=== PATIENT | male | born 1950 | race Caucasian/White ===

== ENCOUNTER 2018-10-12 16:58 | Inpatient (IN) | payer OTHER ==
--- NOTE | 2018-10-12 17:13 | PDOC ---
Rapid Medical Evaluation Time Seen by Provider: 10/12/18 17:08 Medical Evaluation: 10/12/18 17:09 I have performed a brief in-person evaluation of this patient. The patient presents with a chief complaint of: Sent by Dr Jin for ARF and anemia (has report on his person showing Cr of >5 w/ BUN 68 and Hgb of 9). Pt denies pmhx but developed NB diarrhea w/ fatigue and poor appetite 2-1/2 weeks ago after returning from [facility]. Had stool studies and labs done 4 days ago and started on abx which pt is currently taking and states sxs are improving Pertinent physical exam findings:Stable and well kimberly w/ benign abd I have ordered the following:labs The patient will proceed to the ED for further evaluation. Discharge Disposition - Diagnosis ARF (acute renal failure) Qualifiers: Acute renal failure type: unspecified Qualified Code(s): N17.9 - Acute kidney failure, unspecified - Referrals - Patient Instructions - Post Discharge Activity
--- NOTE | 2018-10-12 18:17 | PDOC ---
History of Present Illness - General Chief Complaint: Abnormal Lab Results (Outside) Stated Complaint: SENT BY PCP Time Seen by Provider: 10/12/18 17:08 History Source: Patient - History of Present Illness Initial Comments: 10/12/18 19:47 The patient is a 68 year old male with a PMH of HTN who presents to the ED after labs at his PMD office (Dr. Sotelo) showed elevated Cr (5.68) and low Hb (9.8). Patient returned from a trip to [facility] two weeks previous and experienced watery diarrhea, nausea and a 12 pound weight loss. State his symptoms improved earlier this week after being started an antibiotic (cannot recall name). Denies any bloody stools, fevers/chills, vomiting or abdominal cramping. States his travel companions are asymptomatic. The patient denies chest pain, shortness of breath, lightheadedness, palpitations, numbness/tingling. NKDA PMD: Dr. Jeannette Magallon M.D. Call received from patient's PMD, Dr. Magallon, also notes possible mets on shoulder XR, requests repeat CXR. Past History - Past Medical History Allergies/Adverse Reactions: Allergies Allergy/AdvReac Type Severity Reaction Status Date / Time No Known Allergies Allergy Verified 10/12/18 17:09 Home Medications: Ambulatory Orders Lisinopril 5 mg PO DAILY 10/12/18 COPD: No - Immunization History Immunization Up to Date: Yes - Suicide/Smoking/Psychosocial Hx Smoking History: Never smoked Hx Alcohol Use: No Drug/Substance Use Hx: No Review of Systems - Review of Systems Constitutional: No: Chills, Fever HEENTM: No: Blurred Vision, Recent change in vision Respiratory: No: Cough, Shortness of Breath, Wheezing, Hemoptysis Cardiac (ROS): No: Chest Pain, Lightheadedness, Palpitations, Syncope ABD/GI: Yes: Diarrhea, Nausea. No: Rectal Bleeding, Vomiting, Abdominal cramping, Tarry Stools : No: Burning, Dysuria, Frequency, Urgency, Testicular Pain *Physical Exam - Vital Signs Last Vital Signs Temp Pulse Resp BP Pulse Ox 98.0 F 73 18 143/78 100 10/12/18 17:09 10/12/18 17:09 10/12/18 17:09 10/12/18 17:09 10/12/18 17:09 - Physical Exam General Appearance: Yes: Nourished, Appropriately Dressed HEENT: positive: Normal Voice, Hearing Grossly Normal Neck: positive: Trachea midline, Supple Respiratory/Chest: positive: Lungs Clear, Normal Breath Sounds Cardiovascular: positive: S1, S2. negative: JVD, Murmur Vascular Pulses: Dorsalis-Pedis (R): 2+, Doralis-Pedis (L): 2+ Gastrointestinal/Abdominal: positive: Normal Bowel Sounds, Soft. 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 Patient asymptomatic. Reports watery, NB diarrhea for two weeks w/weight loss. Incidental finding of possible shoulder lesion on CXR. VS unremarkable. Will repeat labs, also obtain stool ova/parasites, as well as repeat CXR. Consider ETEC, EPEC, Colitis, as well as malignancy (weight loss, shoulder lesion), less likely ARF 2/2 to medication. 10/12/18 20:19 Cr 6.4, CMP otherwise unremarkable. Hb 9.9, MCV 94 ? lesion on R shoulder in CXR - formal read pending UA significant for 1+ blood Attending discussed case w/Dr. Snider (Nephrology) requests urine lytes, will evaluate patient in a.m. Patient requires inpatient admission for further evaluation of acute renal failure, possible HD 10/12/18 20:38 Case d/w DELVIN Erazo, patient admitted to inpatient medicine service. Patient counseled on plan of care, amenable to admission. Remains HSS, tolerating PO intake. Clinical Impression: ARF, Acute Anemia possibly 2/2 to enteric pathogen *DC/Admit/Observation/Transfer Diagnosis at time of Disposition: ARF (acute renal failure) Qualifiers: Acute renal failure type: unspecified Qualified Code(s): N17.9 - Acute kidney failure, unspecified - Referrals - Patient Instructions - Post Discharge Activity
[2018-10-12 18:43] LABS: BASO % 0.2 % (0-2.0); EOS % 2.6 % (0-4.5); HEMATOCRIT 29.5 % (35.4-49); HEMOGLOBIN 9.9 GM/dL (11.7-16.9); LYMPH % 23.1 % (8-40); MCH 31.5 pg (25.7-33.7); MCHC 33.4 g/dl (32.0-35.9); MEAN CELL VOLUME 94.2 fl (80-96); MEAN PLT VOLUME 8.2 fl (7.5-11.1); MONO % 8.8 % (3.8-10.2); NEUT % 65.3 % (42.8-82.8); PLATELET COUNT 183 K/MM3 (134-434); RBC 3.13 M/mm3 (4.00-5.60); RDW 12.5 % (11.9-15.9); WHITE BLOOD COUNT 4.1 K/mm3 (4.0-10.0)
--- NOTE | 2018-10-12 18:47 | PDOC ---
Attending Attestation - Resident Resident Name: VenturaCarina - ED Attending Attestation I have performed the following: I have examined & evaluated the patient, The case was reviewed & discussed with the resident, I agree w/resident's findings & plan, Exceptions are as noted - HPI HPI: 68 yo hx HTN sent by Dr. Magallon after he was found to have acute renal failure on outpatient labs. He states he was recently in [place], had persistent diarrhea, nausea, and vomiting while he was there, accompanied by a 12 lb weight loss. He was given an antibiotic by Dr. Magallon when he returned from his trip, which he stated helped the nausea/vomiting, but the diarrhea has continued. Aside from watery stools, he states he is feeling much better. However, he had outpatient labs that showed renal failure. As per Sherita, he had a chest x-ray that may indicate some lytic lesions in the shoulder. Sent for further workup. - Physicial Exam PE: GENERAL: Awake, alert, and fully oriented, in no acute distress. Thin. Well- appearing HEAD: No signs of trauma EYES: PERRLA, EOMI, sclera anicteric, conjunctiva clear ENT: Auricles normal inspection, hearing grossly normal, nares patent, oropharynx clear without exudates. Moist mucosa NECK: Normal ROM, supple, no lymphadenopathy, JVD, or masses LUNGS: Breath sounds equal, clear to auscultation bilaterally. No wheezes, and no crackles HEART: Regular rate and rhythm, normal S1 and S2, no murmurs, rubs or gallops ABDOMEN: Soft, nontender, normoactive bowel sounds. No guarding, no rebound. No masses EXTREMITIES: Normal range of motion, no edema. No clubbing or cyanosis. No cords, erythema, or tenderness NEUROLOGICAL: Cranial nerves II through XII grossly intact. Normal speech, normal gait. Motor and sensation intact SKIN: Warm, dry, normal turgor, no rashes or lesions noted. - Medical Decision Making Pt sent in for new onset renal failure, unclear etiology. Will send stool cultures, ova and parasites, to ensure this is not infectious (E Coli for example). Will recheck and verify outpatient labs. Case d/w Dr. Snider, will evaluate.
[2018-10-12 19:15] LABS: EPI CELLS 1.2 /HPF (0-5/HPF); HYALINE CASTS 3 /lpf (0-8); URINE APPEARANCE CLEAR; URINE BACTERIA 1.2 /hpf (NEGATIVE); URINE BILIRUBIN NEGATIVE (NEGATIVE); URINE COLOR YELLOW; URINE GLUCOSE (UA) NEGATIVE (NEGATIVE); URINE KETONE NEGATIVE (NEGATIVE); URINE LEUK ESTERASE NEGATIVE (NEGATIVE); URINE NITRITE NEGATIVE (NEGATIVE); URINE PROTEIN 1+ (NEGATIVE); URINE RBC 1 /hpf (0-4); URINE UROBILINOGEN 0.2 mg/dL (0.2-1.0); URINE WBC 3 /hpf (0-5)
[2018-10-12 19:37] LABS: ALBUMIN 3.9 g/dl (3.4-5.0); BILIRUBIN,TOTAL 0.5 mg/dL (0.2-1); BLOOD UREA NITROGEN 65.1 mg/dL (7-18); CALCIUM 10.8 mg/dL (8.5-10.1); CREATININE 6.4 mg/dL (0.55-1.3); POTASSIUM 4.8 mmol/L (3.5-5.1); TOT PROT 7.4 g/dl (6.4-8.2)
--- NOTE | 2018-10-12 20:24 | PDOC ---
*Physical Exam - Vital Signs Last Vital Signs Temp Pulse Resp BP Pulse Ox 98.0 F 73 18 143/78 100 10/12/18 17:09 10/12/18 17:09 10/12/18 17:09 10/12/18 17:09 10/12/18 17:09 ED Treatment Course - LABORATORY CBC & Chemistry Diagram: 10/12/18 18:23 10/12/18 18:23 - ADDITIONAL ORDERS Additional order review: Laboratory Results 10/12/18 10/12/18 10/12/18 18:23 18:23 18:23 Sodium 141 Potassium 4.8 Chloride 111 H Carbon Dioxide 20 L Anion Gap 10 BUN 65.1 H Creatinine 6.4 H Est GFR (CKD-EPI)AfAm 9.39 Est GFR (CKD-EPI)NonAf 8.10 Random Glucose 104 Calcium 10.8 H Total Bilirubin 0.5 AST 13 L ALT 23 Alkaline Phosphatase 103 Total Protein 7.4 Albumin 3.9 Lipase 222 Urine Color Yellow Urine Appearance Clear Urine pH 5.0 Ur Specific [place] 1.016 Urine Protein 1+ H Urine Glucose (UA) Negative Urine Ketones Negative Urine Blood 1+ H Urine Nitrite Negative Urine Bilirubin Negative Urine Urobilinogen 0.2 Ur Leukocyte Esterase Negative Urine WBC (Auto) 3 Urine RBC (Auto) 1 Urine Casts (Auto) 3 U Epithel Cells (Auto) 1.2 Urine Bacteria (Auto) 1.2 10/12/18 18:23 RBC 3.13 L MCV 94.2 MCHC 33.4 RDW 12.5 MPV 8.2 Neutrophils % 65.3 Lymphocytes % 23.1 Monocytes % 8.8 Eosinophils % 2.6 Basophils % 0.2 Medical Decision Making - Medical Decision Making 10/12/18 20:23 Pt received on signout. Pt is to be admitted for abnormal labs. *DC/Admit/Observation/Transfer Diagnosis at time of Disposition: ARF (acute renal failure) Qualifiers: Acute renal failure type: unspecified Qualified Code(s): N17.9 - Acute kidney failure, unspecified - Referrals Referrals: Jeannette Magallon MD [Primary Care Provider] - - Patient Instructions - Post Discharge Activity
--- NOTE | 2018-10-12 20:45 | HP ---
Admitting History and Physical - Primary Care Physician PCP: Jeannette Magallon I - Admission Chief Complaint: Abnormal Lab Values, Diarrhea History of Present Illness: This is a 68 y/o man with a PMHx of HTN. Who presents to the ED from the PCPs office for abnormal lab values Cr> 5, watery diarrhea. 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 Patient reports generalized weakness, fatigue with rib pain, taking Ibuprofen OTC daily x1 week. Patient denies fever, chills, cough, SOB, CP, palpitations, AP, vomiting, constipation, heatochezia, melena, hematuria, dysuria. Patient denies swimming in lakes, sn[place] or oceans. Patient denies exposure to sick contacts. 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 History of Recent Travel: Yes ([facility]) Home Medications - Allergies Allergies/Adverse Reactions: Allergies Allergy/AdvReac Type Severity Reaction Status Date / Time No Known Allergies Allergy Verified 10/12/18 17:09 - Home Medications Home Medications: Ambulatory Orders Lisinopril 5 mg PO DAILY 10/12/18 Family Disease History - Family Disease History Family Disease History: Heart Disease: Father (Stroke- ), Mother ( age 90's), Other: Brother (Alive and Well), Sister (Alive and Well) Review of Systems - Review of Systems Constitutional: reports: Loss of Appetite, Malaise, Unintentional Wgt. Loss, Weakness Eyes: reports: No Symptoms HENT: reports: No Symptoms Neck: reports: No Symptoms Cardiovascular: reports: No Symptoms Respiratory: reports: No Symptoms Gastrointestinal: reports: Diarrhea, Nausea Genitourinary: reports: No Symptoms Breasts: reports: No Symptoms Reported Musculoskeletal: reports: No Symptoms Integumentary: reports: No Symptoms Neurological: reports: Weakness Endocrine: reports: No Symptoms Hematology/Lymphatic: reports: No Symptoms Psychiatric: reports: No Symptoms Physical Examination Vital Signs: Vital Signs Temperature 98.0 F 10/12/18 17:09 Pulse Rate 73 10/12/18 17:09 Respiratory Rate 18 10/12/18 17:09 Blood Pressure 143/78 10/12/18 17:09 O2 Sat by Pulse Oximetry (%) 100 10/12/18 17:09 Constitutional: Yes: No Distress, Calm, Thin Eyes: Yes: Conjunctiva Clear, EOM Intact, PERRL HENT: Yes: Atraumatic, Normocephalic, Other (Mucosal Dry) Neck: Yes: WNL, Supple, Trachea Midline Cardiovascular: Yes: WNL, Regular Rate and Rhythm, S1, S2 Respiratory: Yes: WNL, Regular, CTA Bilaterally Gastrointestinal: Yes: Soft, Hypoactive Bowel Sounds. No: Tenderness, Tenderness, Epigastrium, Tenderness, Rebound Renal/: Yes: WNL Breast(s): Yes: WNL Musculoskeletal: Yes: WNL Extremities: Yes: WNL Edema: No Peripheral Pulses WNL: Yes Neurological: Yes: WNL, Alert, Oriented, Cran Nerves II-XII Intact ...Motor Strength: WNL Psychiatric: Yes: WNL, Alert, Oriented Labs: CBC, BMP 10/12/18 18:23 10/12/18 18:23 Laboratory Results - last 24 hr 10/12/18 10/12/18 10/12/18 18:23 18:23 18:23 WBC 4.1 RBC 3.13 L Hgb 9.9 L Hct 29.5 L MCV 94.2 MCH 31.5 MCHC 33.4 RDW 12.5 Plt Count 183 MPV 8.2 Absolute Neuts (auto) 2.7 Neutrophils % 65.3 Lymphocytes % 23.1 Monocytes % 8.8 Eosinophils % 2.6 Basophils % 0.2 Nucleated RBC % 0 Sodium 141 Potassium 4.8 Chloride 111 H Carbon Dioxide 20 L Anion Gap 10 BUN 65.1 H Creatinine 6.4 H Est GFR (CKD-EPI)AfAm 9.39 Est GFR (CKD-EPI)NonAf 8.10 Random Glucose 104 Calcium 10.8 H Total Bilirubin 0.5 AST 13 L ALT 23 Alkaline Phosphatase 103 Total Protein 7.4 Albumin 3.9 Lipase 222 Urine Color Urine Appearance Urine pH Ur Specific [place] Urine Protein Urine Glucose (UA) Urine Ketones Urine Blood Urine Nitrite Urine Bilirubin Urine Urobilinogen Ur Leukocyte Esterase Urine WBC (Auto) Urine RBC (Auto) Urine Casts (Auto) U Epithel Cells (Auto) Urine Bacteria (Auto) Blood Type Antibody Screen 10/12/18 10/12/18 18:23 18:23 WBC RBC Hgb Hct MCV MCH MCHC RDW Plt Count MPV Absolute Neuts (auto) Neutrophils % Lymphocytes % Monocytes % Eosinophils % Basophils % Nucleated RBC % Sodium Potassium Chloride Carbon Dioxide Anion Gap BUN Creatinine Est GFR (CKD-EPI)AfAm Est GFR (CKD-EPI)NonAf Random Glucose Calcium Total Bilirubin AST ALT Alkaline Phosphatase Total Protein Albumin Lipase Urine Color Yellow Urine Appearance Clear Urine pH 5.0 Ur Specific [place] 1.016 Urine Protein 1+ H Urine Glucose (UA) Negative Urine Ketones Negative Urine Blood 1+ H Urine Nitrite Negative Urine Bilirubin Negative Urine Urobilinogen 0.2 Ur Leukocyte Esterase Negative Urine WBC (Auto) 3 Urine RBC (Auto) 1 Urine Casts (Auto) 3 U Epithel Cells (Auto) 1.2 Urine Bacteria (Auto) 1.2 Blood Type O POSITIVE Antibody Screen Negative Intake & Output 10/10/18 10/11/18 10/12/18 10/13/18 23:59 23:59 23:59 23:59 Weight 72.121 kg Current Medications Generic Name Dose Route Start Last Admin Trade Name Freq PRN Reason Stop Dose Admin Sodium Chloride 1,000 mls @ 60 mls/hr 10/12/18 21:00 10/12/18 21:50 Normal Saline - IV 60 mls/hr ASDIR GARCIA Administration Imaging - Results Chest X-ray: Image Reviewed EKG: Pending Problem List - Problems (1) ARF (acute renal failure) Assessment/Plan: Likely secondary to Diarrhea vs NSAID use Appreciate Nephrology consult Monitor BMP closely Gentle IVF Monitor vitals Serum Osmo, Urine Osmo, Urine Spot-pending Renal US in am Code(s): N17.9 - ACUTE KIDNEY FAILURE, UNSPECIFIED Qualifiers: Acute renal failure type: unspecified Qualified Code(s): N17.9 - Acute kidney failure, unspecified (2) Diarrhea Assessment/Plan: r/o Traveler's Stool Culture O&P Stool Occult Continue IVF Monitor CBC, BMP Monitor vitals Code(s): R19.7 - DIARRHEA, UNSPECIFIED (3) HTN (hypertension) Assessment/Plan: Stable Monitor BP Hold Lisinopril secondary to ARF Code(s): I10 - ESSENTIAL (PRIMARY) HYPERTENSION Assessment/Plan This is a 68 y/o man with a PMHx of HTN. Admitted for Acute Renal failure, Diarrhea for further evaluation of their emergent condition. Plan: See Problem List FEN NS@60ml/hr Replete lytes prn Low Na Diet DVT ppx OOB SCDs Heparin SQ Dispo: Requires Inpatient Care Visit type - Emergency Visit Emergency Visit: Yes ED Registration Date: 10/12/18 Care time: The patient presented to the Emergency Department on the above date and was hospitalized for further evaluation of their emergent condition. - New Patient This patient is new to me today: Yes Date on this admission: 10/12/18 - Critical Care Critical Care patient: No
[2018-10-12] MEDS ORDERED: SODIUM CHLORIDE 1,000 ML IV SCH (21:00)
[2018-10-13 03:51] VITALS: BMI 22.4
[2018-10-13 08:38] LABS: CALCIUM 9.9 mg/dL (8.5-10.1); CREATININE 6.1 mg/dL (0.55-1.3); POTASSIUM 4.5 mmol/L (3.5-5.1)
--- NOTE | 2018-10-13 09:15 | PN ---
Progress Note, Physician Chief Complaint: AWAKE ALERT EVENTS AND NOTES REVIEWED RECENT TRAVEL TO [facility] MULTIPLE EPISODES OF DIARRHEA NON-BLOODY NOW IN ACUTE RENAL FAILURE - Current Medication List Current Medications: Active Medications Sodium Chloride (Normal Saline -) 1,000 mls @ 60 mls/hr IV ASDIR GARCIA Last Admin: 10/12/18 21:50 Dose: 60 mls/hr - Objective Vital Signs: Vital Signs Temperature 97.5 F L 10/13/18 03:30 Pulse Rate 56 L 10/13/18 03:30 Respiratory Rate 20 10/13/18 03:30 Blood Pressure 124/72 10/13/18 03:30 O2 Sat by Pulse Oximetry (%) 98 10/13/18 03:30 Constitutional: Yes: Mild Distress Eyes: Yes: WNL HENT: Yes: WNL Neck: Yes: WNL Cardiovascular: Yes: Regular Rate and Rhythm Respiratory: Yes: WNL Gastrointestinal: Yes: Soft Genitourinary: Yes: WNL Musculoskeletal: Yes: Muscle Pain Extremities: Yes: WNL Edema: No Peripheral Pulses WNL: Yes Integumentary: Yes: WNL Wound/Incision: Yes: Clean/Dry Neurological: Yes: WNL ...Motor Strength: WNL Psychiatric: Yes: WNL Labs: CBC, BMP 10/13/18 07:12 Problem List - Problems (1) ARF (acute renal failure) Code(s): N17.9 - ACUTE KIDNEY FAILURE, UNSPECIFIED Qualifiers: Acute renal failure type: unspecified Qualified Code(s): N17.9 - Acute kidney failure, unspecified (2) Diarrhea Code(s): R19.7 - DIARRHEA, UNSPECIFIED (3) HTN (hypertension) Code(s): I10 - ESSENTIAL (PRIMARY) HYPERTENSION Assessment/Plan IVF CONTINUE CLEAR DIET ID/RENAL EVAL CHECK STOOL CX HUS? E.COLI? WILL AWAIT FOR CX CONTINUE SUPPORTIVE CARE
[2018-10-13 10:24] LABS: BASO % 0.3 % (0-2.0); EOS % 4.8 % (0-4.5); HEMATOCRIT 26.5 % (35.4-49); HEMOGLOBIN 8.9 GM/dL (11.7-16.9); LYMPH % 33.8 % (8-40); MCH 31.7 pg (25.7-33.7); MCHC 33.6 g/dl (32.0-35.9); MEAN CELL VOLUME 94.1 fl (80-96); MEAN PLT VOLUME 9.1 fl (7.5-11.1); MONO % 10.4 % (3.8-10.2); NEUT % 50.7 % (42.8-82.8); PLATELET COUNT 159 K/MM3 (134-434); RBC 2.82 M/mm3 (4.00-5.60); RDW 12.4 % (11.9-15.9); WHITE BLOOD COUNT 4.3 K/mm3 (4.0-10.0)
[2018-10-13 11:02] LABS: ALBUMIN 3.2 g/dl (3.4-5.0); BILIRUBIN,TOTAL 0.5 mg/dL (0.2-1); BLOOD UREA NITROGEN 62.2 mg/dL (7-18); POTASSIUM 4.5 mmol/L (3.5-5.1); TOT PROT 6.4 g/dl (6.4-8.2)
--- NOTE | 2018-10-13 15:03 | CONSULT ---
Consult - text type - Consultation Consultation Note: Renal consult for BERNA Coverage for Dr. Snider This is a 68 year old while male with history of hypertension (on ACEi) who presented with acute renal failure seen on outpatient labs. Pt reports that his renal function is normal at baseline. Pt s/p trip [facility] following which he had loose stools for about 14 days. He also had rib pain, nausea and fatigue following. He was using NSAIDs at home (1 tab ibuproben daily at night). Denies any skin rash, bleeding or brusing. No other sick contacts. Was using pepto-bismol for abd discomfort. No herbal medications. Denies any flank pain, hematuria, dark urine. No change in urine output. No leg swelling. No sob, cp, abd pain, fever or chills. PMhx: as above Allergies: NKDA Family Hx: NC Social Hx: No T/A/D ROS: as per HPI Home Meds: Home Medications Medication Instructions Recorded Lisinopril 5 mg PO AM 10/12/18 Vital Signs Temperature 97.7 F 10/13/18 14:10 Pulse Rate 53 L 10/13/18 14:10 Respiratory Rate 20 10/13/18 14:10 Blood Pressure 103/67 10/13/18 14:10 O2 Sat by Pulse Oximetry (%) 97 10/13/18 09:00 Intake & Output 10/10/18 10/11/18 10/12/18 10/13/18 23:59 23:59 23:59 23:59 Intake Total 0 400 Balance 0 400 Weight 72.121 kg 72.802 kg NAD awake and alert neck supple, no JVD RRR, no M/R] CTA, no rales or wheezse soft NT/ND no flank tenderness no bladder distension no LE edema, clubbing or cyanosis no focal neurologic deficits CBC, BMP 10/13/18 07:13 10/13/18 10:15 Laboratory Tests 10/13/18 10:15 Est GFR (CKD-EPI)AfAm 10.16 Est GFR (CKD-EPI)NonAf 8.76 Calcium 10.0 Albumin 3.2 L Current Medications Sodium Chloride (Normal Saline -) 1,000 mls @ 125 mls/hr IV ASDIR GARCIA Sodium Bicarbonate (Sodium Bicarbonate -) 650 mg PO DAILY COUNTS INCLUDE [facility] BEDS AT THE [facility] 68 year old while male with history of hypertension (on ACEi) who presented with acute renal failure seen on outpatient labs. #Acute kidney injury #Acute Anemia #Diarrhea now resolved #Metabolic acidosis #Hypercalcmia on presentation Differential for BERNA: Volume depletion +/- ATN from ACEi and NSAIDs vs HUS ( diarrhea) vs. AIN Renal US shows kidneys 11cm and 9.5cm with some echogenicty but no obstruction UA showed some hematuria but only trace protein Check FeNa, UPCR, Urine Eosinopils, JOYCELYN, ANCA levels. Check LDH and Haptoglobin to access for signs of microangiopathic hemolyitic anemia Shiga Toxin Ab test sent Stool cultures sent Check iron stuides Increase IVF rate to 125cc per hour Start oral sodium bicarb no acute need for DIE MAKER ELECTRONIC check iron studies for anemia Check SPEP given hypercalcemia Check Rib X-rays Dose all meds for CrCl < 10 Thank you Will follow Mehul Hassan DO
[2018-10-13] MEDS: SODIUM BICARBONATE 650 MG TABLET PO SCH (15:06)
[2018-10-13] MEDS: SODIUM CHLORIDE 1,000 ML IV SCH (15:06)
--- NOTE | 2018-10-13 15:23 | PN ---
Progress Note (short form) - Note Progress Note: ID CONSULT DICTATED AWAIT STOOL STUDIES OBSERVE OFF ANTIBIOTICS
[2018-10-13 15:24] LABS: EPI CELLS 0.3 /HPF (0-5/HPF); HYALINE CASTS 1 /lpf (0-8); PH,URINE 5.5 (5.0-8.0); URINE APPEARANCE CLEAR; URINE BILIRUBIN NEGATIVE (NEGATIVE); URINE COLOR YELLOW; URINE GLUCOSE (UA) NEGATIVE (NEGATIVE); URINE KETONE NEGATIVE (NEGATIVE); URINE LEUK ESTERASE NEGATIVE (NEGATIVE); URINE NITRITE NEGATIVE (NEGATIVE); URINE PROTEIN NEGATIVE (NEGATIVE); URINE RBC 0 /hpf (0-4); URINE UROBILINOGEN 0.2 mg/dL (0.2-1.0); URINE WBC 1 /hpf (0-5)
--- NOTE | 2018-10-14 08:23 | PN ---
Progress Note, Physician Chief Complaint: IN ISOLATION ROOM NO ACUTE EVENT OVERNIGHT DIARRHEA HAS STOPPED - Current Medication List Current Medications: Active Medications Sodium Chloride (Normal Saline -) 1,000 mls @ 125 mls/hr IV ASDIR [facility] Last Admin: 10/13/18 15:06 Dose: 125 mls/hr Sodium Bicarbonate (Sodium Bicarbonate -) 650 mg PO DAILY [facility] Last Admin: 10/13/18 15:06 Dose: 650 mg - Objective Vital Signs: Vital Signs Temperature 97.6 F 10/14/18 06:00 Pulse Rate 54 L 10/14/18 06:00 Respiratory Rate 10/14/18 06:00 Blood Pressure 118/62 10/14/18 06:00 O2 Sat by Pulse Oximetry (%) 97 10/13/18 21:00 Constitutional: Yes: No Distress Cardiovascular: Yes: Regular Rate and Rhythm Respiratory: Yes: WNL Gastrointestinal: Yes: Normal Bowel Sounds, Soft Genitourinary: Yes: WNL Musculoskeletal: Yes: Muscle Weakness Extremities: Yes: WNL Edema: No Peripheral Pulses WNL: Yes Integumentary: Yes: WNL Wound/Incision: Yes: Clean/Dry Neurological: Yes: WNL ...Motor Strength: WNL Psychiatric: Yes: WNL Labs: CBC, BMP 10/13/18 07:13 10/13/18 10:15 Problem List - Problems (1) ARF (acute renal failure) Code(s): N17.9 - ACUTE KIDNEY FAILURE, UNSPECIFIED Qualifiers: Acute renal failure type: unspecified Qualified Code(s): N17.9 - Acute kidney failure, unspecified (2) Diarrhea Code(s): R19.7 - DIARRHEA, UNSPECIFIED (3) HTN (hypertension) Code(s): I10 - ESSENTIAL (PRIMARY) HYPERTENSION Assessment/Plan IVF CONTINUE CLEAR DIET ID/RENAL EVAL CHECK STOOL CX/SHIGA TOXIN/SALMONELLA/ECOLI ETC HUS? E.COLI? WILL AWAIT FOR CX CONTINUE SUPPORTIVE CARE
[2018-10-14] MEDS: SODIUM CHLORIDE 1,000 ML IV SCH ×2 (09:38→17:59)
[2018-10-14] MEDS: SODIUM BICARBONATE 650 MG TABLET PO SCH (09:38)
[2018-10-14 13:12] LABS: BASO % 0.7 % (0-2.0); EOS % 4.4 % (0-4.5); HEMATOCRIT 29.1 % (35.4-49); HEMOGLOBIN 9.8 GM/dL (11.7-16.9); LYMPH % 34.6 % (8-40); MCH 32.1 pg (25.7-33.7); MCHC 33.9 g/dl (32.0-35.9); MEAN CELL VOLUME 94.7 fl (80-96); MEAN PLT VOLUME 9.2 fl (7.5-11.1); MONO % 8.9 % (3.8-10.2); NEUT % 51.4 % (42.8-82.8); PLATELET COUNT 173 K/MM3 (134-434); RBC 3.07 M/mm3 (4.00-5.60); RDW 12.5 % (11.9-15.9); WHITE BLOOD COUNT 4.9 K/mm3 (4.0-10.0)
--- NOTE | 2018-10-14 13:26 | PN ---
Progress Note (short form) - Note Progress Note: Renal follow up for BERNA Coverage for Dr. Snider Pt seen and examined at the bedside awake and alert no acute complaints making urine on IVF no sob, cp, abd pain, N/V/D Vital Signs Temperature 97.7 F 10/14/18 09:47 Pulse Rate 53 L 10/14/18 09:47 Respiratory Rate 18 10/14/18 09:47 Blood Pressure 117/65 10/14/18 09:47 O2 Sat by Pulse Oximetry (%) 97 10/14/18 09:00 Intake & Output 10/11/18 10/12/18 10/13/18 10/14/18 23:59 23:59 23:59 23:59 Intake Total 0 1505 875 Balance 0 1505 875 Weight 72.121 kg 72.802 kg NAD RRR, no M/R] CTA, no rales or wheezse soft NT/ND no flank tenderness no bladder distension no edema in LE Current Medications Sodium Chloride (Normal Saline -) 1,000 mls @ 125 mls/hr IV ASDIR GARCIA Last Admin: 10/14/18 09:38 Dose: 125 mls/hr Sodium Bicarbonate (Sodium Bicarbonate -) 650 mg PO DAILY [facility] Last Admin: 10/14/18 09:38 Dose: 650 mg 68 year old while male with history of hypertension (on ACEi) who presented with acute renal failure seen on outpatient labs. #Acute kidney injury #Acute Anemia #Diarrhea now resolved #Metabolic acidosis #Hypercalcmia on presentation Differential for BERNA: Myeloma/paraproteinemia vs ATN vs HUS Renal US shows kidneys 11cm and 9.5cm with some echogenicty but no obstruction UA showed some hematuria but only trace protein UPCR is ~3 with UA negative for protein indicating non-albumin proteinuira Serologies sent will plan for renal biopsy (last took ibuprofen on ) LDH is WNL so hemolysis less likely Shiga Toxin Ab test sent Stool cultures sent Check iron studies Continue IVF at 84cc per hour Continue oral sodium bicarb no acute need for TENDERIZER TENDER check iron studies for anemia SPEP pending Check Rib X-rays Dose all meds for CrCl < 10 Mehul Hassan DO
[2018-10-14 13:38] LABS: ALBUMIN 3.2 g/dl (3.4-5.0); BILIRUBIN,TOTAL 0.4 mg/dL (0.2-1); BLOOD UREA NITROGEN 52.2 mg/dL (7-18); CALCIUM 9.5 mg/dL (8.5-10.1); CREATININE 5.3 mg/dL (0.55-1.3); POTASSIUM 4.6 mmol/L (3.5-5.1); TOT PROT 6.4 g/dl (6.4-8.2)
[2018-10-15 04:11] LABS: SERUM IRON SATURATION 50 % (15-55); TOTAL IRON BINDING CAPACITY 208 ug/dL (250-450)
[2018-10-15 06:36] LABS: ALBUMIN 2.8 g/dl (3.4-5.0); BILIRUBIN,TOTAL 0.4 mg/dL (0.2-1); BLOOD UREA NITROGEN 47.7 mg/dL (7-18); CALCIUM 9.6 mg/dL (8.5-10.1); CREATININE 5.2 mg/dL (0.55-1.3); POTASSIUM 4.8 mmol/L (3.5-5.1); TOT PROT 5.4 g/dl (6.4-8.2)
[2018-10-15 06:37] LABS: HEMATOCRIT 24.8 % (35.4-49); HEMOGLOBIN 8.5 GM/dL (11.7-16.9); MCH 31.9 pg (25.7-33.7); MCHC 34.2 g/dl (32.0-35.9); MEAN CELL VOLUME 93.4 fl (80-96); MEAN PLT VOLUME 8.9 fl (7.5-11.1); PLATELET COUNT 154 K/MM3 (134-434); RBC 2.66 M/mm3 (4.00-5.60); RDW 12.4 % (11.9-15.9); WHITE BLOOD COUNT 3.9 K/mm3 (4.0-10.0)
--- NOTE | 2018-10-15 07:51 | PN ---
Progress Note, Physician - Current Medication List Current Medications: Active Medications Sodium Chloride (Normal Saline -) 1,000 mls @ 83 mls/hr IV ASDIR [facility] Last Admin: 10/14/18 17:59 Dose: 83 mls/hr Sodium Bicarbonate (Sodium Bicarbonate -) 650 mg PO DAILY [facility] Last Admin: 10/14/18 09:38 Dose: 650 mg - Objective Vital Signs: Vital Signs Temperature 97.7 F 10/15/18 06:00 Pulse Rate 57 L 10/15/18 06:00 Respiratory Rate 17 10/15/18 06:00 Blood Pressure 117/75 10/15/18 06:00 O2 Sat by Pulse Oximetry (%) 98 10/14/18 21:00 Cardiovascular: Yes: Regular Rate and Rhythm Respiratory: Yes: Regular, CTA Bilaterally Gastrointestinal: Yes: Normal Bowel Sounds, Soft. No: Tenderness Labs: CBC, BMP 10/15/18 05:35 10/15/18 05:35 Problem List - Problems (1) ARF (acute renal failure) Assessment/Plan: Likely secondary to infection but must r/o other etiology since minimal improvement Appreciate Nephrology consult renal biopsy Monitor BMP closely IVF Monitor vitals Code(s): N17.9 - ACUTE KIDNEY FAILURE, UNSPECIFIED Qualifiers: Acute renal failure type: unspecified Qualified Code(s): N17.9 - Acute kidney failure, unspecified (2) Diarrhea Assessment/Plan: Resolved Stool Culture O&P Microbiology 10/13/18 08:15 Stool Salmonella/Shigella Culture - Preliminary NO ENTERIC PATHOGENS, 24 HOURS, ON PRIMARY PLATES 10/13/18 08:15 Stool Campylobacter Culture - Preliminary 10/13/18 08:15 Stool Yersinia Culture - Preliminary NO ENTERIC PATHOGENS, 24 HOURS, ON PRIMARY PLATES 10/13/18 08:15 Stool Vibrio Culture - Final NO GROWTH OF VIBRIO SPECIES OBTAINED 10/13/18 08:15 Stool Escherichia coli 0157 Culture - Final NO GROWTH OF E COLI 0157 OBTAINED 10/12/18 00:50 Blood - Peripheral Venous Blood Culture - Preliminary NO GROWTH OBTAINED AFTER 48 HOURS, INCUBATION TO CONTINUE FOR 3 DAYS. 10/12/18 00:50 Blood - Peripheral Venous Blood Culture - Preliminary NO GROWTH OBTAINED AFTER 48 HOURS, INCUBATION TO CONTINUE FOR 3 DAYS. 10/13/18 08:15 Stool Clostridioides difficile Antigen - Final 10/13/18 08:15 Stool Clostridioides difficile Toxin Assay - Final 10/13/18 08:15 Stool Gram Stain - Final Stool Occult positive Continue IVF Monitor CBC, BMP Monitor vitals Code(s): R19.7 - DIARRHEA, UNSPECIFIED (3) HTN (hypertension) Assessment/Plan: Stable Monitor BP Hold Lisinopril secondary to ARF Code(s): I10 - ESSENTIAL (PRIMARY) HYPERTENSION (4) Anemia Assessment/Plan: due to kidney ds and gi bleed monitor follow labs gi consult Code(s): D64.9 - ANEMIA, UNSPECIFIED
[2018-10-15] MEDS: SODIUM BICARBONATE 650 MG TABLET PO SCH (10:55)
[2018-10-15 11:25] LABS: PROTHROMBIN TIME (PATIENT) 11.8 SEC (9.7-13.0)
[2018-10-15 11:29] LABS: ACTIVATED PTT 26.4 SECONDS (25.2-36.5)
--- NOTE | 2018-10-15 12:33 | CON.GI ---
Consult Consult Specialty:: Gastroenterology Referred by:: Dr Jin Reason for Consultation:: Diarrhea - History of Present Illness Chief Complaint: Nausea and fatigue History of Present Illness: 68M developed a diarrheal illness at the end of August that resolved rapidly after taking Peptol Bismol and Imodium AD. No previous antibiotic usage but did return from [place] on 09/15/18. No diarrhea while there. Developed nausea and fatigue after that diarrhea that led to a 10-15 lbs weight loss. Also developed bilateral costal costal pain that had him taking a Motrin every night. Saw Dr. Jin on 10/09 who started an antibiotic and a "pill for my stomach". His nausea resolved and appetite returned with these but his blood testing revealed renal failure and anemia prompting hospitalization. He was also found to be hypercalcemic. He last had a colonoscopy at [facility] over 10 years ago which he believes was normal and was scheduled to see Dr Servin to have another one in October. 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 [employer] Place of : [facility] History of Recent Travel: Yes ([facility]) Home Medications - Allergies Allergies/Adverse Reactions: Allergies Allergy/AdvReac Type Severity Reaction Status Date / Time No Known Allergies Allergy Verified 10/12/18 17:09 - Home Medications Home Medications: Ambulatory Orders Lisinopril 5 mg PO AM 10/12/18 Family Disease History - Family Disease History Family Disease History: Heart Disease: Father (Stroke- age 57), Mother ( age 96 CHF), Other: Brother (Alive and Well), Sister (Alive and Well) Other Family History: 2 paternal uncles had cancer, one was colon cancer. 2 maternal aunts had cancer Review of Systems - Review of Systems Constitutional: reports: Lethargy, Loss of Appetite, Malaise, Unintentional Wgt. Loss Eyes: reports: No Symptoms HENT: reports: No Symptoms Neck: reports: No Symptoms Cardiovascular: reports: Chest Pain Respiratory: reports: No Symptoms Gastrointestinal: reports: Diarrhea, Nausea, Vomiting Genitourinary: reports: No Symptoms Musculoskeletal: reports: Muscle Weakness Neurological: reports: No Symptoms Physical Exam-GI Vital Signs: Vital Signs Temperature 97.7 F 10/15/18 06:00 Pulse Rate 57 L 10/15/18 06:00 Respiratory Rate 17 10/15/18 09:00 Blood Pressure 117/75 10/15/18 06:00 O2 Sat by Pulse Oximetry (%) 98 10/15/18 09:00 CBC,CMP WBC 3.9 K/mm3 (4.0-10.0) L 10/15/18 05:35 RBC 2.66 M/mm3 (4.00-5.60) L 10/15/18 05:35 Hgb 8.5 GM/dL (11.7-16.9) L 10/15/18 05:35 Hct 24.8 % (35.4-49) L 10/15/18 05:35 MCV 93.4 fl (80-96) 10/15/18 05:35 MCH 31.9 pg (25.7-33.7) 10/15/18 05:35 MCHC 34.2 g/dl (32.0-35.9) 10/15/18 05:35 RDW 12.4 % (11.9-15.9) 10/15/18 05:35 Plt Count 154 K/MM3 (134-434) 10/15/18 05:35 MPV 8.9 fl (7.5-11.1) 10/15/18 05:35 Absolute Neuts (auto) 2.5 K/mm3 (1.5-8.0) 10/14/18 12:30 Neutrophils % 51.4 % (42.8-82.8) 10/14/18 12:30 Lymphocytes % 34.6 % (8-40) 10/14/18 12:30 Monocytes % 8.9 % (3.8-10.2) 10/14/18 12:30 Eosinophils % 4.4 % (0-4.5) 10/14/18 12:30 Basophils % 0.7 % (0-2.0) 10/14/18 12:30 Nucleated RBC % 0 % (0-0) 10/14/18 12:30 ESR 44 mm/hr (0-20) H 10/13/18 10:15 Sodium 144 mmol/L (136-145) 10/15/18 05:35 Potassium 4.8 mmol/L (3.5-5.1) 10/15/18 05:35 Chloride 115 mmol/L (98-107) H 10/15/18 05:35 Carbon Dioxide 19 mmol/L (21-32) L 10/15/18 05:35 Anion Gap 10 MMOL/L (8-16) 10/15/18 05:35 BUN 47.7 mg/dL (7-18) H 10/15/18 05:35 Creatinine 5.2 mg/dL (0.55-1.3) H 10/15/18 05:35 Est GFR (CKD-EPI)AfAm 12.07 10/15/18 05:35 Est GFR (CKD-EPI)NonAf 10.42 10/15/18 05:35 Random Glucose 87 mg/dL (74-106) 10/15/18 05:35 Serum Osmolality 310 mosm/kg (278-305) H 10/12/18 20:55 Calcium 9.6 mg/dL (8.5-10.1) 10/15/18 05:35 Iron 104 ug/dL (38-169) 10/14/18 07:05 TIBC 208 ug/dL (250-450) L 10/14/18 07:05 Iron Saturation 50 % (15-55) 10/14/18 07:05 Unsaturated IBC 104 ug/dL (111-343) L 10/14/18 07:05 Ferritin 342.3 ng/ml (8-388) 10/14/18 07:05 Total Bilirubin 0.4 mg/dL (0.2-1) 10/15/18 05:35 AST 15 U/L (15-37) 10/15/18 05:35 ALT 19 U/L (13-61) 10/15/18 05:35 Alkaline Phosphatase 78 U/L (45-117) 10/15/18 05:35 LD Total 181 U/L (87-246) 10/13/18 15:40 C-Reactive Protein 0.7 MG/DL (0.00-0.3) H 10/13/18 10:15 Total Protein 5.4 g/dl (6.4-8.2) L 10/15/18 05:35 Albumin 2.8 g/dl (3.4-5.0) L 10/15/18 05:35 Lipase 222 U/L (73-393) 10/12/18 18:23 Current Medications Generic Name Dose Route Start Last Admin Trade Name Matteo PRN Reason Stop Dose Admin Sodium Chloride 1,000 mls @ 83 mls/hr 10/14/18 13:26 10/14/18 17:59 Normal Saline - IV 83 mls/hr ASDIR GARCIA Administration Sodium Bicarbonate 650 mg 10/13/18 15:00 10/15/18 10:55 Sodium Bicarbonate - PO 650 mg DAILY GARCIA Administration Constitutional: Yes: No Distress Eyes: Yes: Conjunctiva Clear HENT: Yes: Atraumatic Neck: Yes: Supple Cardiovascular: Yes: Regular Rate and Rhythm Respiratory: Yes: CTA Bilaterally Gastrointestinal Inspection: Yes: WNL ...Auscultate: Yes: Normoactive Bowel Sounds ...Palpate: Yes: Soft, Other ...Rectal Exam: Yes: Guaiac Negative (2+ prostate , brown guaiac negative stool) Edema: No Peripheral Pulses WNL: Yes Neurological: Yes: Alert, Oriented Labs: CBC, BMP 10/15/18 05:35 10/15/18 05:35 INR, PTT INR 1.00 (0.83-1.09) 10/15/18 10:40 Microbiology 10/13/18 08:15 Stool Salmonella/Shigella Culture - Final 10/13/18 08:15 Stool Escherichia coli 0157 Culture - Final NO GROWTH OF SALMONELLA OR SHIGELLA SPECIES OBTAINED NO GROWTH OF YERSINIA SPECIES OBTAINED NO GROWTH OF VIBRIO SPECIES OBTAINED NO GROWTH OF E COLI 0157 OBTAINED 10/13/18 08:15 Stool Gram Stain - Final 10/13/18 08:15 Stool Clostridioides difficile Antigen - Final 10/13/18 08:15 Stool Clostridioides difficile Toxin Assay - Final 10/13/18 08:15 Stool Campylobacter Culture - Preliminary 10/12/18 00:50 Blood - Peripheral Venous Blood Culture - Preliminary NO GROWTH OBTAINED AFTER 48 HOURS, INCUBATION TO CONTINUE FOR 3 DAYS. Laboratory Tests 10/12/18 10/13/18 10/14/18 18:23 10:15 07:05 BUN 65.1 H Creatinine 6.4 H Iron 104 TIBC 208 L Iron Saturation 50 Unsaturated IBC 104 L Ferritin Total Protein Albumin Hep A IgM Ab Confirm Negative Hep Bs Antigen Negative Hep B Core IgM Ab Negative Hepatitis C Ab (EIA) <0.1 10/14/18 10/14/18 10/15/18 07:05 12:30 05:35 BUN 47.7 H Creatinine 5.2 H Iron TIBC Iron Saturation Unsaturated IBC Ferritin 342.3 Total Protein 5.4 L Albumin 3.2 L 2.8 L Hep A IgM Ab Confirm Hep Bs Antigen Hep B Core IgM Ab Hepatitis C Ab (EIA) Problem List - Problems (1) Diarrhea Assessment/Plan: The transient nature of the diarrhea suggest that it was infectious and given that it resolved over a week ago the etiology will not be determined. E coli O: 157 is negative at this point. It usually is associated with a much more symptomatic dysentery and does not appear to be a likely trigger for HUS. Code(s): R19.7 - DIARRHEA, UNSPECIFIED Qualifiers: Diarrhea type: presumed infectious Qualified Code(s): R19.7 - Diarrhea, unspecified (2) Rib pain Code(s): R07.81 - PLEURODYNIA (3) Weight loss Code(s): R63.4 - ABNORMAL WEIGHT LOSS (4) Appetite impaired Code(s): R63.0 - ANOREXIA (5) ARF (acute renal failure) Code(s): N17.9 - ACUTE KIDNEY FAILURE, UNSPECIFIED Qualifiers: Acute renal failure type: unspecified Qualified Code(s): N17.9 - Acute kidney failure, unspecified (6) Anemia Assessment/Plan: The lack of microcytic indices and low iron argues against chronic GI blood loss. The lab records a positive stool for occult blood but my test was negative. Although I doubt GI blood loss to be the cause I do agree that he is due for a repeat colon cancer screening when stable enough. If no etiology for the anemia is forthcoming then panendoscopy will be considered. I will order transgluminases to screen for celiac disease. Given the bone pain and hypercalcemia myeloma needs to be excluded despite the minimal A/G ratio reversal. Code(s): D64.9 - ANEMIA, UNSPECIFIED (7) HTN (hypertension) Code(s): I10 - ESSENTIAL (PRIMARY) HYPERTENSION Assessment/Plan Assessment: - The transient nature of the diarrhea suggest that it was infectious and given that it resolved over a week ago the etiology will not be determined. E coli O: 157 is negative at this point. It usually is associated with a much more symptomatic dysentery and does not appear to be a likely trigger for HUS. - The lack of microcytic indices and low iron argues against chronic GI blood loss. The lab records a positive stool for occult blood but my test was negative. Although I doubt GI blood loss to be the cause I do agree that he is due for a repeat colon cancer screening when stable enough. If no etiology for the anemia is forthcoming then panendoscopy will be considered. I will order transgluminases to screen for celiac disease. Given the bone pain and hypercalcemia myeloma needs to be excluded despite the minimal A/G ratio reversal - The nausea and vomiting appear to have been due to uremia Plan: -- Retic, SPEP, urine for IEP, transglutaminases; hapto is pending -- Await renal biopsy -- Agree with diet advancement -- Colonoscopy and possibly an EGD as an outpatient
[2018-10-15] MEDS: SODIUM CHLORIDE 1,000 ML IV SCH (13:30)
--- NOTE | 2018-10-15 16:19 | CONSULT ---
Consultation: CONSULT REQUEST: Heme/Onc HISTORY OF PRESENT ILLNESS: Patient is a 68 yo M with a PMhx of HTN, was sent by his PCP because of an elevated Cr>5, and watery diarrhea. Patient said he recently returned from [facility] and developed a watery diarrhea, nausea, decreased appetite, and at least 10 pound weight loss. He also says he developed b/l rib, intermittent rib pain which now resolved. He went to Dr. Jin, and was prescribed an antibiotic for a few days. He says his GI symptoms resolved. He started taking 1 tablet Ibuprofen every day (1 week) for the rib pain which helped him. Says he had a Rib xray done outpatient with Dr. Jin but does not remember the results because the main focus was his kidneys. Patient said he never had any kidney problems in the past and does not remember ever having a history of Anemia. Patient currently denies symptoms. He denies fevers, vomiting, chills, night sweats, cough, sob, palpitations, melena, rashes, bleeding, chest pain, urinary changes, dizziness, sick contacts, [place] in [place]. He was found to have acute renal failure in the ER, Cr of 6.4. 10.9 corrected ca , Hgb 9.9 (now 8.5) Background: [place] Colonoscopy: 10 years ago, he says he's due for one this year Social Hx: smokes 1 cigar daily since he was a teenager, and drinks 1 cup of alcohol daily. 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 REVIEW OF SYSTEMS: CONSTITUTIONAL: Absent: fever, chills, diaphoresis, generalized weakness, malaise, loss of appetite, weight change HEENT: Absent: rhinorrhea, nasal congestion, difficulty swallowing, mouth swelling, ear pain, eye pain, visual changes CARDIOVASCULAR: Absent: chest pain, syncope, palpitations, irregular heart rate, lightheadedness , peripheral edema RESPIRATORY: Absent: cough, shortness of breath, dyspnea with exertion, orthopnea, wheezing, stridor, hemoptysis GASTROINTESTINAL: nausea, diarrhea (resolved) Absent: abdominal pain, abdominal distension, vomiting,constipation, melena, hematochezia GENITOURINARY: Absent: dysuria, frequency, urgency, hesitancy, hematuria, flank pain, genital pain MUSCULOSKELETAL: Absent: myalgia, arthralgia, joint swelling, back pain, neck pain HEMATOLOGIC/IMMUNOLOGIC: Absent: easy bleeding, easy bruising, lymphadenopathy, frequent infections NEUROLOGIC: Absent: headache, focal weakness or paresthesias, dizziness, unsteady gait, seizure, mental status changes, bladder or bowel incontinence PHYSICAL EXAMINATION Vital Signs - 24 hr 10/14/18 10/14/18 10/15/18 18:00 21:00 06:00 Temperature 98.0 F 98.0 F 97.7 F Pulse Rate 57 L 56 L 57 L Pulse Rate [ Right Upper Arm ] Respiratory 18 18 17 Rate Respiratory Rate [Right Upper Arm] Blood Pressure 113/59 L 139/71 117/75 Blood Pressure [Right Upper Arm] O2 Sat by Pulse 98 Oximetry (%) O2 Sat by Pulse Oximetry (%) [ Right Upper Arm ] 10/15/18 10/15/18 10/15/18 09:00 10:00 13:50 Temperature 98.4 F Pulse Rate 56 L 74 Pulse Rate [ Right Upper Arm ] Respiratory 17 18 17 Rate Respiratory Rate [Right Upper Arm] Blood Pressure 114/73 135/68 Blood Pressure [Right Upper Arm] O2 Sat by Pulse 98 96 Oximetry (%) O2 Sat by Pulse Oximetry (%) [ Right Upper Arm ] 10/15/18 10/15/18 10/15/18 14:00 14:13 14:32 Temperature Pulse Rate 80 Pulse Rate [ 79 71 Right Upper Arm ] Respiratory 15 Rate Respiratory 18 13 Rate [Right Upper Arm] Blood Pressure 144/69 Blood Pressure 142/65 145/66 [Right Upper Arm] O2 Sat by Pulse 97 Oximetry (%) O2 Sat by Pulse 97 97 Oximetry (%) [ Right Upper Arm ] GENERAL: Awake, alert, and fully oriented, in no acute distress. HEAD: Normal with no signs of trauma. EYES: Pupils equal, round and reactive to light, extraocular movements intact, sclera anicteric, conjunctiva clear. EARS, NOSE, THROAT: oropharynx clear without exudates. Moist mucous membranes. NECK: supple without lymphadenopathy, JVD, or masses. LUNGS: Breath sounds equal, clear to auscultation bilaterally. No wheezes, and no crackles. HEART:RRR, normal s1, s1, no M/G/R. No chest tenderness ABDOMEN: Soft, nontender, not distended, normoactive bowel sounds, no guarding, no rebound, no masses. No hepatomegaly or splenomegaly. No flank tenderness. MUSCULOSKELETAL: Normal range of motion at all joints. LOWER EXTREMITIES: 2+ pulses, warm, well-perfused. No peripheral edema. NEUROLOGICAL: Cranial nerves II-XII intact. Normal speech. Normal gait. TESTES: circumsized, no palpable masses, no discharge Laboratory Results - last 24 hr 10/14/18 10/15/18 10/15/18 07:05 05:35 05:35 WBC 3.9 L RBC 2.66 L Hgb 8.5 L Hct 24.8 L MCV 93.4 MCH 31.9 MCHC 34.2 RDW 12.4 Plt Count 154 MPV 8.9 PT with INR INR PTT (Actin FS) Sodium 144 Potassium 4.8 Chloride 115 H Carbon Dioxide 19 L Anion Gap 10 BUN 47.7 H Creatinine 5.2 H Est GFR (CKD-EPI)AfAm 12.07 Est GFR (CKD-EPI)NonAf 10.42 Random Glucose 87 Calcium 9.6 Iron 104 TIBC 208 L Iron Saturation 50 Unsaturated IBC 104 L Total Bilirubin 0.4 AST 15 ALT 19 Alkaline Phosphatase 78 Total Protein 5.4 L Albumin 2.8 L 10/15/18 10:40 WBC RBC Hgb Hct MCV MCH MCHC RDW Plt Count MPV PT with INR 11.80 INR 1.00 PTT (Actin FS) 26.4 Sodium Potassium Chloride Carbon Dioxide Anion Gap BUN Creatinine Est GFR (CKD-EPI)AfAm Est GFR (CKD-EPI)NonAf Random Glucose Calcium Iron TIBC Iron Saturation Unsaturated IBC Total Bilirubin AST ALT Alkaline Phosphatase Total Protein Albumin Active Medications Generic Name Dose Route Start Last Admin Trade Name Freq PRN Reason Stop Dose Admin Sodium Chloride 1,000 mls @ 83 mls/hr 10/14/18 13:26 10/14/18 17:59 Normal Saline - IV 83 mls/hr ASDIR GARCIA Administration Sodium Bicarbonate 650 mg 10/13/18 15:00 10/15/18 10:55 Sodium Bicarbonate - PO 650 mg DAILY GARCIA Administration ASSESSMENT/PLAN: #Anemia #Acute Renal Failure #Hypercalcemia #Diarrhea-resolved #Rib Pain -r/o Myeloma vs ATN -pending pth, SPEP, UPEP Mspike, autoimmune workup -Iron studies: Normal Iron level, sat. Normal ferritin. TIBC 208 (L) -LDH normal, FU haptoglobin -IV fluids -Corrected ca+ today: 10.6 -Renal U/S w/ echogenic kidneys. No hydronephrosis -S/p Renal Biopsy today. Pending biopsy results. Dispo: We will continue to follow the patient. Thank you for this consultative opportunity. Visit type - Emergency Visit Emergency Visit: Yes ED Registration Date: 10/12/18 Care time: The patient presented to the Emergency Department on the above date and was hospitalized for further evaluation of their emergent condition. - New Patient This patient is new to me today: Yes Date on this admission: 10/16/18 - Critical Care Critical Care patient: No ATTENDING PHYSICIAN STATEMENT I saw and evaluated the patient. I reviewed the resident's note and discussed the case with the resident. I agree with the resident's findings and plan as documented. SUBJECTIVE: OBJECTIVE: ASSESSMENT AND PLAN:
--- NOTE | 2018-10-15 16:22 | PN ---
Progress Note, Physician History of Present Illness: Pt seen and examined at bedside. He is awake and alert. He had the kidney biopsy this morning. He denies back pain. He is awake and alert. - Current Medication List Current Medications: Active Medications Sodium Chloride (Normal Saline -) 1,000 mls @ 83 mls/hr IV ASDIR [facility] Last Admin: 10/14/18 17:59 Dose: 83 mls/hr Sodium Bicarbonate (Sodium Bicarbonate -) 650 mg PO DAILY [facility] Last Admin: 10/15/18 10:55 Dose: 650 mg - Objective Vital Signs: Vital Signs Temperature 98.4 F 10/15/18 10:00 Pulse Rate 80 10/15/18 14:32 Respiratory Rate 15 10/15/18 14:32 Blood Pressure 144/69 10/15/18 14:32 O2 Sat by Pulse Oximetry (%) 97 10/15/18 14:32 Constitutional: Yes: Calm Eyes: Yes: Conjunctiva Clear HENT: Yes: Atraumatic Neck: Yes: Supple Cardiovascular: Yes: S1, S2 Respiratory: Yes: CTA Bilaterally Genitourinary: Yes: WNL Musculoskeletal: Yes: WNL Edema: No Integumentary: Yes: WNL Neurological: Yes: Oriented Psychiatric: Yes: Oriented Labs: CBC, BMP 10/15/18 05:35 10/15/18 05:35 INR, PTT INR 1.00 (0.83-1.09) 10/15/18 10:40 Assessment/Plan Current Medications Generic Name Dose Route Start Last Admin Trade Name Freq PRN Reason Stop Dose Admin Sodium Chloride 1,000 mls @ 83 mls/hr 10/14/18 13:26 10/14/18 17:59 Normal Saline - IV 83 mls/hr ASDIR GARCIA Administration Sodium Bicarbonate 650 mg 10/13/18 15:00 10/15/18 10:55 Sodium Bicarbonate - PO 650 mg DAILY GARCIA Administration Laboratory Tests 10/13/18 10/13/18 10/13/18 00:45 09:00 10:15 Ur Specific [place] Urine Protein Urine Blood Urine Eosinophils Pending Urine Osmolality 355 JETT M-Jorje JOYCELYN Screen c-ANCA Proteinase 3 (PR3) p-ANCA Atypical p-ANCA Myeloperoxidase Ab Hep A IgM Ab Confirm Negative Hep Bs Antigen Negative Hep B Core IgM Ab Negative Hepatitis C Ab (EIA) <0.1 10/13/18 10/14/1819 15:03 07:05 07:05 Ur Specific [place] 1.008 L Urine Protein Negative Urine Blood Trace Urine Eosinophils Urine Osmolality JETT M-Jorje Pending JOYCELYN Screen Pending c-ANCA Pending Proteinase 3 (PR3) Pending p-ANCA Pending Atypical p-ANCA Pending Myeloperoxidase Ab Pending Hep A IgM Ab Confirm Hep Bs Antigen Hep B Core IgM Ab Hepatitis C Ab (EIA) Impression 1. BERNA 2. anemia 3. met acidosis 4. diarrhea 5. nsaid use Plan - follow renal workup - follow kidney biopsy results - onc eval pending - repeat prt to hand stoner ratio - change fluids to 1/2 ns - monitor hg - check iron studies
[2018-10-15] MEDS ORDERED: SODIUM CHLORIDE 0.45% 1,000 ML IV SCH (16:30)
[2018-10-15 16:53] LABS: HEMOGLOBIN 9.7 GM/dL (11.7-16.9); MCH 31.4 pg (25.7-33.7); MCHC 33.5 g/dl (32.0-35.9); MEAN CELL VOLUME 93.8 fl (80-96); MEAN PLT VOLUME 8.2 fl (7.5-11.1); PLATELET COUNT 191 K/MM3 (134-434); RBC 3.09 M/mm3 (4.00-5.60); RDW 12.2 % (11.9-15.9); WHITE BLOOD COUNT 4.3 K/mm3 (4.0-10.0)
--- NOTE | 2018-10-15 17:14 | PN ---
Progress Note, Physician History of Present Illness: AWAKE, ALERT OOB IN CHAIR REPORTS SOFT FORMED STOOL TODAY NO C/O ABDOMINAL PAIN NO F/C - Current Medication List Current Medications: Active Medications Sodium Chloride (1/2 Normal Saline) 1,000 mls @ 83 mls/hr IV ASDIR [facility] Last Admin: 10/15/18 16:41 Dose: 83 mls/hr Sodium Bicarbonate (Sodium Bicarbonate -) 650 mg PO DAILY [facility] Last Admin: 10/15/18 10:55 Dose: 650 mg - Objective Vital Signs: Vital Signs Temperature 98.4 F 10/15/18 10:00 Pulse Rate 80 10/15/18 14:32 Respiratory Rate 15 10/15/18 14:32 Blood Pressure 144/69 10/15/18 14:32 O2 Sat by Pulse Oximetry (%) 97 10/15/18 14:32 Constitutional: Yes: No Distress Cardiovascular: Yes: Regular Rate and Rhythm, S1, S2 Respiratory: Yes: CTA Bilaterally Gastrointestinal: Yes: Normal Bowel Sounds, Soft. No: Tenderness Edema: No Labs: CBC, BMP 10/15/18 16:00 10/15/18 05:35 INR, PTT INR 1.00 (0.83-1.09) 10/15/18 10:40 Assessment/Plan RENAL FAILURE DIARRHEA RESOLVED STOOL STUDIES UNREVEALING OBSERVE OFF ANTIBIOTICS
[2018-10-16 06:37] LABS: BASO % 0.3 % (0-2.0); EOS % 4.1 % (0-4.5); HEMATOCRIT 24.9 % (35.4-49); HEMOGLOBIN 8.6 GM/dL (11.7-16.9); LYMPH % 26.6 % (8-40); MCH 32.2 pg (25.7-33.7); MCHC 34.5 g/dl (32.0-35.9); MEAN CELL VOLUME 93.5 fl (80-96); MEAN PLT VOLUME 8.5 fl (7.5-11.1); MONO % 10.2 % (3.8-10.2); NEUT % 58.8 % (42.8-82.8); PLATELET COUNT 165 K/MM3 (134-434); RBC 2.66 M/mm3 (4.00-5.60); RDW 12.4 % (11.9-15.9); WHITE BLOOD COUNT 4.8 K/mm3 (4.0-10.0)
[2018-10-16 06:53] LABS: ALBUMIN 2.9 g/dl (3.4-5.0); BILIRUBIN,TOTAL 0.3 mg/dL (0.2-1); BLOOD UREA NITROGEN 48.6 mg/dL (7-18); CALCIUM 9.6 mg/dL (8.5-10.1); CREATININE 5.2 mg/dL (0.55-1.3); POTASSIUM 4.6 mmol/L (3.5-5.1); TOT PROT 5.7 g/dl (6.4-8.2)
--- NOTE | 2018-10-16 08:27 | PN ---
Teaching Attending Note Name of Resident: Lizette Ellis ATTENDING PHYSICIAN STATEMENT I saw and evaluated the patient. I reviewed the resident's note and discussed the case with the resident. I agree with the resident's findings and plan as documented. SUBJECTIVE: Patient seen and examined 68 year old male presents with anemia, BERNA, hypercalcemia and bone pain. [facility] and upon return to [place] developed diarrhea, anorexia, nausea, weight loss of 10-15 lb . Admitted an has undergone renal biopsy. Lab data negative for c.difficile and E. coli 0157 along with low retic and elevated haptoglobin against HUS. Has hypercalcemia, anemia, renal disease, and bone pain ( x-rays of ribs not available) raising possibility of dysproteinemia. Family history positive for 2 paternal uncles with colon and esophageal ca Mes- lisionpril for HBP PMH -- HBP, HPL Surgical history - none Last Vital Signs Temp Pulse Resp BP Pulse Ox 98.0 F 54 L 20 109/53 L 98 10/16/18 06:00 10/16/18 06:00 10/16/18 06:00 10/16/18 06:00 10/15/18 21:00 HEENT: THUY, EOM Intact Oropharynx: No thrush, No mucositis Neck: Supple Nodes: Without adenopathy Cor: RSR, No murmurs, No gallops Lungs: Clear to P&A Abd: Soft, Normal bowel sounds, No organomegaly testes descended, circumcised Ext:No significant edema Skin: No rashes, Integument intact CBC, BMP 10/16/18 05:30 10/16/18 05:30 Current Medications Generic Name Dose Route Start Last Admin Trade Name Freq PRN Reason Stop Dose Admin Sodium Chloride 1,000 mls @ 83 mls/hr 10/15/18 16:30 10/15/18 16:41 1/2 Normal Saline IV 83 mls/hr ASDIR GARCIA Administration Sodium Bicarbonate 650 mg 10/13/18 15:00 10/15/18 10:55 Sodium Bicarbonate - PO 650 mg DAILY GARCIA Administration Microbiology 10/12/18 00:50 Blood - Peripheral Venous Blood Culture - Preliminary NO GROWTH OBTAINED AFTER 72 HOURS, INCUBATION TO CONTINUE FOR 2 DAYS. 10/12/18 00:50 Blood - Peripheral Venous Blood Culture - Preliminary NO GROWTH OBTAINED AFTER 72 HOURS, INCUBATION TO CONTINUE FOR 2 DAYS. 10/13/18 08:15 Stool Salmonella/Shigella Culture - Final NO GROWTH OF SALMONELLA OR SHIGELLA SPECIES OBTAINED 10/13/18 08:15 Stool Campylobacter Culture - Preliminary 10/13/18 08:15 Stool Yersinia Culture - Final NO GROWTH OF YERSINIA SPECIES OBTAINED 10/13/18 08:15 Stool Vibrio Culture - Final NO GROWTH OF VIBRIO SPECIES OBTAINED 10/13/18 08:15 Stool Escherichia coli 0157 Culture - Final NO GROWTH OF E COLI 0157 OBTAINED 10/13/18 08:15 Stool Clostridioides difficile Antigen - Final 10/13/18 08:15 Stool Clostridioides difficile Toxin Assay - Final 10/13/18 08:15 Stool Gram Stain - Final Impression : 68 year old with BERNA, anemia, hypercalcemia after a bout of diarrhea, weight loss, NSAI meds. HUS seems unlikely based upon elevated haptoglobin and low retic with negative E. Coli 0157. Dysproteinemia to be excluded with protein studies. Kidney biopsy performed and pending results. Further comments after above. OBJECTIVE: ASSESSMENT AND PLAN:
--- NOTE | 2018-10-16 08:35 | DS ---
Physical Examination Vital Signs: Vital Signs Temperature 98.0 F 10/16/18 06:00 Pulse Rate 54 L 10/16/18 06:00 Respiratory Rate 20 10/16/18 06:00 Blood Pressure 109/53 L 10/16/18 06:00 O2 Sat by Pulse Oximetry (%) 98 10/15/18 21:00 Cardiovascular: Yes: Regular Rate and Rhythm Respiratory: Yes: Regular, CTA Bilaterally Gastrointestinal: Yes: Normal Bowel Sounds, Soft Labs: CBC, BMP 10/16/18 05:30 10/16/18 05:30 Discharge Summary Reason For Visit: ACUTE RENAL FAILURE Current Active Problems ARF (acute renal failure) (Acute) Anemia (Acute) Appetite impaired (Acute) Diarrhea (Acute) HTN (hypertension) (Acute) Rib pain (Acute) Weight loss (Acute) Hospital Course: - Problems (1) ARF (acute renal failure) Assessment/Plan: Likely secondary to infection but must r/o other etiology since minimal improvement--labs pending Appreciate Nephrology consult renal biopsy done--follow up results as outpatient Monitor BMP closely Monitor vitals Code(s): N17.9 - ACUTE KIDNEY FAILURE, UNSPECIFIED Qualifiers: Acute renal failure type: unspecified Qualified Code(s): N17.9 - Acute kidney failure, unspecified (2) Diarrhea Assessment/Plan: Resolved Stool Culture O&P Microbiology 10/13/18 08:15 Stool Salmonella/Shigella Culture - Preliminary NO ENTERIC PATHOGENS, 24 HOURS, ON PRIMARY PLATES 10/13/18 08:15 Stool Campylobacter Culture - Preliminary 10/13/18 08:15 Stool Yersinia Culture - Preliminary NO ENTERIC PATHOGENS, 24 HOURS, ON PRIMARY PLATES 10/13/18 08:15 Stool Vibrio Culture - Final NO GROWTH OF VIBRIO SPECIES OBTAINED 10/13/18 08:15 Stool Escherichia coli 0157 Culture - Final NO GROWTH OF E COLI 0157 OBTAINED 10/12/18 00:50 Blood - Peripheral Venous Blood Culture - Preliminary NO GROWTH OBTAINED AFTER 48 HOURS, INCUBATION TO CONTINUE FOR 3 DAYS. 10/12/18 00:50 Blood - Peripheral Venous Blood Culture - Preliminary NO GROWTH OBTAINED AFTER 48 HOURS, INCUBATION TO CONTINUE FOR 3 DAYS. 10/13/18 08:15 Stool Clostridioides difficile Antigen - Final 10/13/18 08:15 Stool Clostridioides difficile Toxin Assay - Final 10/13/18 08:15 Stool Gram Stain - Final Stool Occult positive Continue IVF Monitor CBC, BMP Monitor vitals Code(s): R19.7 - DIARRHEA, UNSPECIFIED (3) HTN (hypertension) Assessment/Plan: Stable Monitor BP Hold Lisinopril secondary to ARF Code(s): I10 - ESSENTIAL (PRIMARY) HYPERTENSION (4) Anemia Assessment/Plan: due to kidney ds and gi bleed gi work up as outpatient once acute issues improve d/w dr melendez monitor follow labs gi consult appreciated Code(s): D64.9 - ANEMIA, UNSPECIFIED Condition: Stable - Instructions Diet, Activity, Other Instructions: Follow up with dr Magallon for blood test and biopsy results Referrals: Jeannette Magallon MD [Primary Care Provider] - 10/18/18 Disposition: HOME - Home Medications Comprehensive Discharge Medication List: Ambulatory Orders Sodium Bicarbonate - 650 mg PO DAILY #30 tablet 10/16/18
[2018-10-16] MEDS: SODIUM BICARBONATE 650 MG TABLET PO SCH (09:26)
--- NOTE | 2018-10-16 10:11 | CONS ---
DATE OF CONSULTATION: 10/16/2018 HISTORY OF PRESENT ILLNESS: This is a 68-year-old male being seen for evaluation of anemia. 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 He is a 68-year-old male who in July-August was in [facility]. Upon return to [place], he developed episode of watery diarrhea associated with nausea, anorexia, and weight loss of 10-15 pounds. During this episode, he took Pepto-Bismol as well as Imodium. He also had rib cage pain and took Motrin on a nightly basis. He was given an antibiotic for same. He was seen by Dr. Jin and presented to the hospital with a creatinine greater than 5 and hematocrit of 29%. He had x-rays of his ribs, the results of which are unavailable. SOCIAL HISTORY: Patient is with no children, smokes 1 cigar per day, drinks 1 cocktail nightly, denies illicit drugs. FAMILY HISTORY: Two paternal uncles, one with esophageal cancer and one with colon cancer. Otherwise, no history of hematologic disorder or malignancy in the family. Father of a stroke in the 50s, mother lived until the 90s. PAST SURGICAL HISTORY: No. PAST MEDICAL HISTORY: Hypertension, hyperlipidemia. MEDICINES: Include lisinopril other than the aforementioned Imodium, some Pepto-Bismol with the diarrhea as well as the nonsteroidal Imodium. REVIEW OF SYSTEMS: No headaches, diplopia, epistaxis, dysphagia, chest pain, reflux. Nausea as aforementioned. No vomiting. Diarrhea as aforementioned. No melena. No hematochezia. Last colonoscopy 10 years plus earlier. No dysuria, hematuria. Ribcage pain as aforementioned. CURRENT PHYSICAL EXAMINATION: Vital Signs: BP 109/53, pulse 54, respiratory rate 20, afebrile. HEENT: THUY, EOM intact. Oropharynx unremarkable. Neck: Supple. No thyromegaly. No cervical, supraclavicular, axillary, or inguinal nodes. Lungs: Clear to P and A without rales or rhonchi. Cardiac: RSR, without murmur or gallop. Abdomen: Soft. No organomegaly or masses. Testes distended, circumcised male. Extremities: No significant edema. LABORATORY DATA: On admission, WBC 4.9, currently 4.8, hematocrit on admission 29.1 with hemoglobin 9.8, currently hemoglobin 8.6 and hematocrit 24.9, platelets 173 on admission, currently 165,000, with differential relatively normal with 59 neutrophils, 27 lymphocytes, 10 monocytes, reticulocyte count 0.85, haptoglobin 197%. INR 1. Chemistries on admission, creatinine 5.3, sodium 142, K4 of 6, chloride 113, CO2 of 19, calcium 10.8, currently 9.6, AST 15, ALT 21,alkaline phosphatase 96, protein 6.4, albumin 3.2, B12 of 920, folate 18, intact PTHs pending. Urine trace blood, no glucose, no protein. Stool occult reportedly positive, but by GI negative. Immunologic studies pending. Hepatitis A negative, hepatitis B surface antigen negative, hepatitis core negative, hepatitis C negative. OMP pending. Reportedly E. coli 0157 negative. IMPRESSION: This is a 68-year-old male who presents with a bout of diarrhea, ribcage pain, renal failure, acute anemia, some rib cage pain. He does have some of the criteria for a dysproteinemia with hypercalcemia on admission, renal insufficiency, and anemia, and having had bone pain. Ribcage x-ray results are pending. He will need a dysproteinemia workup with evaluation of free kappa, free lambda light change. He has undergone a kidney biopsy. The elevation of haptoglobin with the low reticulocyte count is against hemolytic uremic type syndrome. Peripheral smear to be reviewed. Comments further after protein evaluation as well as kidney biopsy. SOTERO RODARTE M.D. [id number]
--- NOTE | 2018-10-16 11:30 | PN ---
Progress Note, Physician History of Present Illness: Pt seen and examined at bedside. He is awake and alert. He is eager to go home. He denies shortness of breath. - Current Medication List Current Medications: Active Medications Sodium Chloride (1/2 Normal Saline) 1,000 mls @ 83 mls/hr IV ASDIR GARCIA Last Admin: 10/15/18 16:41 Dose: 83 mls/hr Sodium Bicarbonate (Sodium Bicarbonate -) 650 mg PO DAILY GARCIA Last Admin: 10/16/18 09:26 Dose: 650 mg - Objective Vital Signs: Vital Signs Temperature 98.0 F 10/16/18 06:00 Pulse Rate 54 L 10/16/18 06:00 Respiratory Rate 20 10/16/18 06:00 Blood Pressure 109/53 L 10/16/18 06:00 O2 Sat by Pulse Oximetry (%) 98 10/15/18 21:00 Constitutional: Yes: Calm Eyes: Yes: Conjunctiva Clear HENT: Yes: Atraumatic Neck: Yes: Supple Cardiovascular: Yes: S1, S2 Respiratory: Yes: CTA Bilaterally Gastrointestinal: Yes: Soft Genitourinary: Yes: WNL Musculoskeletal: Yes: WNL Edema: No Neurological: Yes: Oriented Psychiatric: Yes: Oriented Labs: CBC, BMP 10/16/18 05:30 10/16/18 05:30 INR, PTT INR 1.00 (0.83-1.09) 10/15/18 10:40 Assessment/Plan Current Medications Generic Name Dose Route Start Last Admin Trade Name Freq PRN Reason Stop Dose Admin Sodium Chloride 1,000 mls @ 83 mls/hr 10/15/18 16:30 10/15/18 16:41 1/2 Normal Saline IV 83 mls/hr ASDIR GARCIA Administration Sodium Bicarbonate 650 mg 10/13/18 15:00 10/16/18 09:26 Sodium Bicarbonate - PO 650 mg DAILY GARCIA Administration Impression 1. BERNA 2. anemia 3. met acidosis 4. diarrhea 5. nsaid use Plan - renal biopsy is pending - will need close outpt follow up - he would like to go home and follow in office - onc eval apprecited - check light chaines
[2018-10-16 12:11] VITALS: BP 114/64; PULSE 66; TEMP 98
[2018-10-16 16:11] LABS: ATYPICAL pANCA <1:20 titer (Neg:<1:20); C-ANCA <1:20 titer (Neg:<1:20)
[2018-10-17 14:08] LABS: FREE KAPPA,SERUM 35.2 mg/L (3.3-19.4)
[2018-10-17 17:07] LABS: FREE KAP CHN UR 51.3 mg/L (1.35-24.19); KAPPA LAMBDA RATIO URIN 0.01 (2.04-10.37)
[2018-10-17 20:08] LABS: TRANSGLUTAMINASE IGA < 2 U/mL (0-3); TRANSGLUTAMINASE IGG < 2 U/mL (0-5)
[2018-10-18 13:07] LABS: ALPHA 1 GLOB URINE 0.9 % (.)
--- NOTE | 2018-11-27 10:28 | PATH ---
Surgical Pathology Report Patient Name: LORENE YEPEZ [facility]. Rec. #: [id number] /Age/Gender: 1950 (Age: 68) / M Account: [id number] Location: 4 SO PEDS/ADOL Taken: 10/15/2018 Received: 10/15/2018 Reported: 11/27/2018 Physicians: El Chao M.D. Specimen(s) Received RIGHT KIDNEY BIOPSY Clinical History Renal biopsy Intraoperative Consult Diagnosis Renal biopsy: Very rare glomeruli present (2 passes, [address] cores). [address] Morris M.D., 10/15/2018 Final Diagnosis RENAL, BIOPSY: 1. Light chain cast nephropathy, lambda type, with diffuse acute tubular injury and mild tubular atrophy, interstitial fibrosis and interstitial inflammation. SEE COMMENT. 2. 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 Correlation and complete hematologic oncologic workup for plasma cell neoplasia is required. Electron microscopy is pending and may be contributory. Case sent for consultation to Dr. Steve Haider from [place], [place] ([id number]), the diagnosis above reflects his opinion. See complete report ([id number]) from [place], [place] for additional details. Electronically Signed Janae Hawley M.D. Gross Description Received in saline, labeled with the patient's name and indicated on the requisition to be a right renal biopsy, are 4 cavanaugh-red, cylindrical portions of soft tissue ranging from 0.9-1.5 cm in length and averaging 0.1 cm in diameter. The specimen is divided, placed into 10% buffered formalin, Yan fixative and glutaraldehyde. The specimen is sent to [facility] for further studies. /10/15/2018 saudi10/15/2018
== END 2018-10-16 13:44 | disposition home or self-care (01) | DRG 469 ==
LOC: JER 16:58 → JERBED 20:38 → J8W 10-13 02:17 → J4S 10-13 15:16
PROVIDERS: ADMIT Family Medicine; ATTEND Family Medicine
PROC: 0TB03ZX Excision of Right Kidney, Percutaneous Approach, Diagnostic (ICD-10-PCS; principal; 2018-10-15)
DX: N17.9 Acute kidney failure, unspecified (principal); R19.7 Diarrhea, unspecified; I10 Essential (primary) hypertension; E87.2 Acidosis; R63.4 Abnormal weight loss; Z68.22 Body mass index [BMI] 22.0-22.9, adult; D64.9 Anemia, unspecified; E83.52 Hypercalcemia; R07.81 Pleurodynia; F17.210 Nicotine dependence, cigarettes, uncomplicated
CPT/HCPCS: 36415; 50200; 71045-TC-FY; 76098-TC-FY; 76775-TC; 76942-TC; 76998-TC; 80048; 80053; 80074; 81003; 82272; 82565; 82607; 82728; 82746; 82784; 83010; 83516; 83520; 83540; 83550; 83615; 83690; 83883; 83930; 83935; 83970; 84155; 84156; 84165; 84166; 84300; 85025; 85027; 85044; 85610; 85651; 85730; 86038; 86140; 86162; 86256; 86335; 86682; 86850; 86900; 86901; 87040; 87045; 87046; 87177; 87205; 87209; 87324; 87427; 87449; 87899; 88300-TC; 99284-25; J7030

== ENCOUNTER 2018-10-21 19:04 | Inpatient (IN) | payer OTHER ==
--- NOTE | 2018-10-21 19:40 | PDOC ---
History of Present Illness - General Chief Complaint: Revisit, Lab Variance Stated Complaint: SENT BY PCP Time Seen by Provider: 10/21/18 19:39 History Source: Patient Exam Limitations: No Limitations - History of Present Illness Initial Comments: 10/21/18 20:00 68 yo M pmh HTN sent in by Dr. Snider for abnormal labs. Was recently discharged from admission on 10/16/18. Pt endorses still feeling weak after discharge but maintaining activity, also ongoing rib pain. ROS negative except for previous sentence. No new symptoms since discharge. PMH: see chart Med: see chart NKDA Chart review demonstrates elevated M spike, elevated kappa and lambda light chains, low IgG, and results suggestive of Bence Colby proteins on 10/16/18 urine and immunology. Past History - Past Medical History Allergies/Adverse Reactions: Allergies Allergy/AdvReac Type Severity Reaction Status Date / Time No Known Allergies Allergy Verified 10/21/18 19:21 Home Medications: Ambulatory Orders Lisinopril [Prinivil] 5 mg PO DAILY 10/21/18 Metronidazole 500 mg PO TID 10/21/18 HTN: Yes - Immunization History Immunization Up to Date: Yes - Suicide/Smoking/Psychosocial Hx Smoking History: Never smoked Have you smoked in the past 12 months: No Number of Cigarettes Smoked Daily: 1 (1 cigar daily, no cigarettes) Information on smoking cessation initiated: No Hx Alcohol Use: No Drug/Substance Use Hx: No Review of Systems - Review of Systems Able to Perform ROS?: Yes Is the patient limited Cymro proficient: No Constitutional: Yes: See HPI, Weakness (residual) Respiratory: Yes: SOB with Exertion ("winded after climbing 7 flights, usually can tolerate that climb"). No: See HPI, Cough, Orthopnea, Shortness of Breath, SOB at Rest, Stridor, Wheezing, Productive cough, Hemoptysis, Other Cardiac (ROS): No: Symptoms Reported, See HPI, Chest Pain, Edema, Irregular Heart Rate, Lightheadedness, Palpitations, Syncope, Chest Tightness, Other Neurological: No: Headache, Numbness, Paresthesia, Pre-Existing Deficit, Seizure , Tingling, Tremors, Unsteady Gait, Ataxia, Dizziness, Other *Physical Exam - Vital Signs Last Vital Signs Temp Pulse Resp BP Pulse Ox 98.3 F 84 20 137/80 98 10/21/18 19:21 10/21/18 19:21 10/21/18 19:21 10/21/18 19:21 10/21/18 19:21 - Physical Exam Comments: 10/21/18 20:10 GEN: Resting comfortably in bed, NAD. HEENT: NC/AT, EOMI, PERRLA, CN II-XII intact. Moist mucous membranes. CV: S1/S2, RRR, no m/r/g LUNG: CTAB, no wheezes, crackles, rales, rhonchi. GI: soft, ndnt, +BS. No masses. Medical Decision Making - Medical Decision Making 10/21/18 20:10 68 yo M sent by Dr. Snider to ED for abnormal labs. Pt does not endorse new symptoms but endorses continued weakness and rib pain that was present since last admission (dc 10/16/18). Exam benign. Chart review shows elevated kappa and lambda light chains, bence colby proteins, elevated M-spike, and low IgG. Admit for BM Bx - cbc, cmp, coag, t&s - PCP Dr. Jin 10/21/18 20:52 spoke to pt - refused EKG, CXR amenable to lab work Admit to hospitalists 10/21/18 21:[address] Menendez for admission under Dr. Husain *DC/Admit/Observation/Transfer Diagnosis at time of Disposition: Elevated serum creatinine - Discharge Dispostion Decision to Admit order: Yes - Referrals - Patient Instructions - Post Discharge Activity
[2018-10-21] MEDS ORDERED: HEPARIN NA (PORCINE) 5,000 UNITS/ML 1ML VIAL SQ SCH (22:00)
[2018-10-21 22:16] LABS: BASO % 0.4 % (0-2.0); EOS % 3.1 % (0-4.5); HEMATOCRIT 22.7 % (35.4-49); HEMOGLOBIN 7.7 GM/dL (11.7-16.9); LYMPH % 21.1 % (8-40); MCH 31.9 pg (25.7-33.7); MCHC 34.1 g/dl (32.0-35.9); MEAN CELL VOLUME 93.6 fl (80-96); MEAN PLT VOLUME 8.3 fl (7.5-11.1); MONO % 10.8 % (3.8-10.2); NEUT % 64.6 % (42.8-82.8); PLATELET COUNT 157 K/MM3 (134-434); RBC 2.43 M/mm3 (4.00-5.60); RDW 12.1 % (11.9-15.9)
[2018-10-21] MEDS ORDERED: HEPARIN NA (PORCINE) 5,000 UNITS/ML 1ML VIAL ONE (22:17)
--- NOTE | 2018-10-21 22:22 | PDOC ---
Documentation entered by Antonia Robin SCRIBE, acting as scribe for Malika Steven MD. Malika Steven MD: This documentation has been prepared by the Lobito gamboa Nirvannie, SCRIBE, under my direction and personally reviewed by me in its entirety. I confirm that the documentation accurately reflects all work, treatment, procedures, and medical decision making performed by me. Attending Attestation - Resident Resident Name: Alan Pryor - ED Attending Attestation I have performed the following: I have examined & evaluated the patient, The case was reviewed & discussed with the resident, I agree w/resident's findings & plan - HPI HPI: 10/21/18 21:52 The patient is a 68 year old male, with a significant past medical history of HTN, who presents to the emergency department by Dr. Snider because his lab results are consistent with myeloma. He denies any recent chest pain or shortness of breath. Patient is refusing EKG and chest x-ray. Allergies: NKDA Primary Care Physician: Dr. Jin - Physicial Exam PE: 10/21/18 21:52 GENERAL: Awake, alert, and fully oriented, in no acute distress HEAD: No signs of trauma EYES: +pale conjuctiva. ENT: Auricles normal inspection, hearing grossly normal, nares patent, oropharynx clear without exudates. Moist mucosa NECK: Normal ROM, supple, no lymphadenopathy, JVD, or masses LUNGS: Breath sounds equal, clear to auscultation bilaterally. No wheezes, and no crackles HEART: Regular rate and rhythm, normal S1 and S2, no murmurs, rubs or gallops CHEST: +blt lateral rib pain. ABDOMEN: Soft, nontender, normoactive bowel sounds. No guarding, no rebound. No masses EXTREMITIES: Normal range of motion, no edema. No clubbing or cyanosis. No cords, erythema, or tenderness NEUROLOGICAL: Cranial nerves II through XII grossly intact. Normal speech SKIN: Warm, Dry, normal turgor, no rashes or lesions noted. - Medical Decision Making 10/21/18 23:29 Pt is more anemic than usual. Pt has otherwise normal exam. He has had months of fatigue followed by rib pains and labs demonstrating multiple myeloma and he is being admitted for bone marrow bx
[2018-10-21 22:29] LABS: INR 1.08 (0.83-1.09); PROTHROMBIN TIME (PATIENT) 12.7 SEC (9.7-13.0)
--- NOTE | 2018-10-21 22:32 | HP ---
CHIEF COMPLAINT: Sent by PCP, generalized weakness PCP:Dr. Magallon HISTORY OF PRESENT ILLNESS: 68 M with PMH significant for HTN who presents today from his PCP. He is scheduled to undergo a bone biopsy to further evaluate possible multiple myeloma. Patient endorses feeling pain bilaterally in his ribs since August. The pain comes and goes, currently it is right sided and rated 1/10. At its worst it is 10/10 and prevents him from sleeping on whichever side the pain is present. He has had recent weight loss but attributes it to a gastrointestinal parasite infection he had, and currently endorses having his normal appetite. He feels weaker than he did months prior, and especially in the past week, but he has not had any falls or loss of consciousness. He does not have any chest pain, shortness of breath, or pleuritic pain. He does not endorse any pain elsewhere in his extremities. Denies hematuria and hematochezia. ER course was notable for: (1) NS @ 75 ml/hr was started, was given heparin 5000 units and pepcid 40 mg. 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 Family History: Father of a stroke. Mother passed of heart failure. Esophageal cancer and colon cancer in extended family members on mother's side. Allergies No Known Allergies Allergy (Verified 10/21/18 19:21) HOME MEDICATIONS: Home Medications Medication Instructions Recorded Lisinopril [Prinivil] 5 mg PO DAILY 10/21/18 Metronidazole 500 mg PO TID 10/21/18 REVIEW OF SYSTEMS CONSTITUTIONAL: generalized weakness Absent: fever, chills, diaphoresis, malaise, loss of appetite, weight change HEENT: Absent: rhinorrhea, nasal congestion, throat pain, throat swelling, difficulty swallowing, mouth swelling, ear pain, eye pain, visual changes CARDIOVASCULAR: Absent: chest pain, syncope, palpitations, irregular heart rate, lightheadedness , peripheral edema RESPIRATORY: Absent: cough, shortness of breath, dyspnea with exertion, orthopnea, wheezing, stridor, hemoptysis GASTROINTESTINAL: Absent: abdominal pain, abdominal distension, nausea, vomiting, diarrhea, constipation, melena, hematochezia GENITOURINARY: Absent: dysuria, frequency, urgency, hesitancy, hematuria, flank pain, genital pain MUSCULOSKELETAL: Absent: myalgia, arthralgia, joint swelling, back pain, neck pain SKIN: Absent: rash, itching, pallor HEMATOLOGIC/IMMUNOLOGIC: Absent: easy bleeding, easy bruising, lymphadenopathy, frequent infections ENDOCRINE: Absent: unexplained weight gain, unexplained weight loss, heat intolerance, cold intolerance NEUROLOGIC: Absent: headache, focal weakness or paresthesias, dizziness, unsteady gait, seizure, mental status changes, bladder or bowel incontinence PHYSICAL EXAMINATION Vital Signs - 24 hr 10/21/18 10/21/18 19:21 20:00 Temperature 98.3 F Pulse Rate 84 Respiratory 20 Rate Blood Pressure 137/80 O2 Sat by Pulse 98 99 Oximetry (%) GENERAL: Awake, alert, and fully oriented, in no acute distress. HEAD: Normal with no signs of trauma. EYES: Pupils equal, round and reactive to light, extraocular movements intact, sclera anicteric, conjunctiva clear. No lid lag. EARS, NOSE, THROAT: Ears normal, nares patent, oropharynx clear without exudates. Moist mucous membranes. NECK: Normal range of motion, supple without lymphadenopathy, JVD, or masses. LUNGS: Breath sounds equal, clear to auscultation bilaterally. No wheezes, and no crackles. No accessory muscle use. HEART: Regular rate and rhythm, normal S1 and S2 without murmur, rub or gallop. ABDOMEN: Soft, nontender, not distended, normoactive bowel sounds, no guarding, no rebound, no masses. No hepatomegaly or splenomegaly. MUSCULOSKELETAL: Normal range of motion at all joints. No bony deformities or tenderness. No CVA tenderness. UPPER EXTREMITIES: 2+ pulses, warm, well-perfused. No cyanosis. No clubbing. No peripheral edema. LOWER EXTREMITIES: 2+ pulses, warm, well-perfused. No calf tenderness. No peripheral edema. NEUROLOGICAL: Cranial nerves II-XII intact. Normal speech. Normal gait. PSYCHIATRIC: Cooperative. Good eye contact. Appropriate mood and affect. SKIN: Warm, dry, normal turgor, no rashes or lesions noted, normal capillary refill. ASSESSMENT/PLAN: 68M with PMH of HTN who presents today for continued workup of multiple myeloma. He is also noted to be hypercalcemic. 1)Suspected multiple myeloma BM biopsy planned, as previous admission showed positive M spike, IgG, Free Lambda and Livengood levels. CKD stage V (eGFR<15) likely due to MM. Patient is also anemic, normocytic normochromic anemia can be present in MM. Prior anemia work up showed normal iron level, LD level, and low TIBC. Notably initial FOBT was positive on previous admission, but follow up FOBT was negative. Repeating FOBT Heme/onc consulted 2) Hypercalcemia Patient is currently 11.0 corrected calcium and asymptomatic. Corrected calcium below 12 can be monitored, is likely secondary to MM. 3) History of HTN Currently not on ROBER due to condition of kidneys. Will continue to monitor vitals before considering alternative BP medications. DVT Prophylaxis: SCDs F: Currently not on fluids E: Continue following calcium N:NPO currently Dispo: Currently admitted to Medicine floors. Problem List - Problem (1) ARF (acute renal failure) Code(s): N17.9 - ACUTE KIDNEY FAILURE, UNSPECIFIED Qualifiers: Acute renal failure type: unspecified Qualified Code(s): N17.9 - Acute kidney failure, unspecified (2) Anemia Code(s): D64.9 - ANEMIA, UNSPECIFIED Visit type - Emergency Visit Emergency Visit: Yes ED Registration Date: 10/21/18 Care time: The patient presented to the Emergency Department on the above date and was hospitalized for further evaluation of their emergent condition. - New Patient This patient is new to me today: Yes Date on this admission: 10/21/18 - Critical Care Critical Care patient: No ATTENDING PHYSICIAN STATEMENT I saw and evaluated the patient. I reviewed the resident's note and discussed the case with the resident. I agree with the resident's findings and plan as documented. SUBJECTIVE: OBJECTIVE: ASSESSMENT AND PLAN:
[2018-10-21 22:45] LABS: ALBUMIN 3.2 g/dl (3.4-5.0); BILIRUBIN,TOTAL 0.4 mg/dL (0.2-1); BLOOD UREA NITROGEN 67.2 mg/dL (7-18); CALCIUM 10.8 mg/dL (8.5-10.1); CREATININE 5.6 mg/dL (0.55-1.3); TOT PROT 6.3 g/dl (6.4-8.2)
[2018-10-21] MEDS ORDERED: SODIUM CHLORIDE 1,000 ML IV SCH (23:00)
--- NOTE | 2018-10-21 23:14 | PN ---
Teaching Attending Note Name of Resident: Lizz Sandoval ATTENDING PHYSICIAN STATEMENT I saw and evaluated the patient. I reviewed the resident's note and discussed the case with the resident. I agree with the resident's findings and plan as documented. Seen and examined; please refer to resident note for further historical information. Briefly, patient presents at the request of his ear specialist for BM biopsy. He is afebrile and hemodynamically stable and has no complaints. He initially refused workup but was eventually agreeable to labs, etc. He has stereotyped findings of MM on his labwork; prior heme/onc, nephro workup reviewed from recent admission. He was discharged on bicarb tabs and had his home ROBER held last time for chronic metabolic acidosis VS, labs, imaging reviewed NAD, AAO, resting comfortably in bed NC AT EOMI PERRLA RRR s1/2 no mgr Lungs CTAB, w/ sym exp NT ND +BS CN2-12 wnl, no fnd ASSESSMENT AND PLAN: Patient presents for planned bone marrow biopsy; he has suspected multiple myeloma ## Planned BM Bx # Suspected multiple myeloma # CKD-V likely 2/2 above -On IVF, consulting nephro. Renal biopsy preformed; I cannot find the pathology report # Hypercalcemia -Likely 2/2 above; low albumin noted. Will hold off on IVF as asx and he has correccted near to 11-range before though this is an acute increase. Patients with a albumin corrected calcium <12 don't require immediate tx but we will avoid thiazides, lithium, etc.and encourage adequate PO hydration. # Worsening normocytic anemia -Negative LD total on 10/13 and haptoglobin wnl with iron studies at that time showing normal iron with low TIBC, normal B12 and high folate. FOBT positive at that time. Was seen by Dr. Ashraf and was noted to have a negative repeat test preformed by GI. We will thus recheck the FOBT today and reconsult GI if positive. 10 years ago scope at [facility]. # Hx HTN # Subacute to chronic metabolic acidosis secondary to CKD -Continue bicarb tabs; ROBER was DCd last visit by Dr. Jin Full Code
[2018-10-21] MEDS ORDERED: PANTOPRAZOLE SODIUM 40 MG VIAL IVPUSH ONE (23:22)
[2018-10-22] MEDS ORDERED: PANTOPRAZOLE SODIUM 40 MG VIAL ONE (00:03)
[2018-10-22] MEDS: SODIUM BICARBONATE 650 MG TABLET PO SCH ×3 (00:20→21:08)
[2018-10-22 01:30] VITALS: BMI 19.0
[2018-10-22 07:46] LABS: BASO % 0.4 % (0-2.0); EOS % 5.3 % (0-4.5); HEMATOCRIT 21.8 % (35.4-49); HEMOGLOBIN 7.6 GM/dL (11.7-16.9); LYMPH % 22.3 % (8-40); MCHC 34.7 g/dl (32.0-35.9); MEAN CELL VOLUME 92.1 fl (80-96); MEAN PLT VOLUME 8.2 fl (7.5-11.1); MONO % 12.3 % (3.8-10.2); NEUT % 59.7 % (42.8-82.8); PLATELET COUNT 157 K/MM3 (134-434); RBC 2.37 M/mm3 (4.00-5.60); RDW 12.3 % (11.9-15.9); WHITE BLOOD COUNT 4.4 K/mm3 (4.0-10.0)
[2018-10-22 08:02] LABS: INR 1.06 (0.83-1.09); PROTHROMBIN TIME (PATIENT) 12.5 SEC (9.7-13.0)
[2018-10-22 08:03] LABS: ALBUMIN 3.1 g/dl (3.4-5.0); BILIRUBIN,TOTAL 0.5 mg/dL (0.2-1); BLOOD UREA NITROGEN 67.5 mg/dL (7-18); CALCIUM 11.1 mg/dL (8.5-10.1); CREATININE 5.6 mg/dL (0.55-1.3); MAGNESIUM 2.2 mg/dL (1.8-2.4); POTASSIUM 4.2 mmol/L (3.5-5.1); TOT PROT 5.9 g/dl (6.4-8.2)
[2018-10-22 08:04] LABS: ACTIVATED PTT 28.6 SECONDS (25.2-36.5)
--- NOTE | 2018-10-22 08:39 | PN ---
Progress Note, Physician Chief Complaint: AWAKE ALERT EVENTS AND HISTORY REVIEWED - Current Medication List Current Medications: Active Medications Sodium Bicarbonate (Sodium Bicarbonate -) 650 mg PO BID GARCIA Last Admin: 10/22/18 00:20 Dose: 650 mg - Objective Vital Signs: Vital Signs Temperature 98.0 F 10/22/18 08:36 Pulse Rate 54 L 10/22/18 08:36 Respiratory Rate 16 10/22/18 08:36 Blood Pressure 96/62 10/22/18 08:36 O2 Sat by Pulse Oximetry (%) 98 10/22/18 01:09 Constitutional: Yes: No Distress Eyes: Yes: WNL HENT: Yes: WNL Neck: Yes: WNL Cardiovascular: Yes: Regular Rate and Rhythm Respiratory: Yes: WNL Gastrointestinal: Yes: WNL Genitourinary: Yes: WNL Musculoskeletal: Yes: Muscle Weakness Edema: No Integumentary: Yes: WNL Wound/Incision: Yes: Clean/Dry Neurological: Yes: WNL ...Motor Strength: WNL Psychiatric: Yes: WNL Labs: CBC, BMP 10/22/18 07:15 10/22/18 07:15 INR, PTT INR 1.06 (0.83-1.09) 10/22/18 07:15 Problem List - Problems (1) Elevated serum creatinine Code(s): R79.89 - OTHER SPECIFIED ABNORMAL FINDINGS OF BLOOD CHEMISTRY (2) Light chain disease, lambda type Code(s): D89.89 - OTH DISRD INVOLVING THE IMMUNE MECHANISM, NEC (3) Light chain nephropathy Code(s): N05.8 - UNSP NEPHRITIC SYNDROME WITH OTHER MORPHOLOGIC CHANGES (4) ARF (acute renal failure) Code(s): N17.9 - ACUTE KIDNEY FAILURE, UNSPECIFIED Qualifiers: Acute renal failure type: unspecified Qualified Code(s): N17.9 - Acute kidney failure, unspecified (5) Anemia Code(s): D64.9 - ANEMIA, UNSPECIFIED (6) Appetite impaired Code(s): R63.0 - ANOREXIA (7) Diarrhea Code(s): R19.7 - DIARRHEA, UNSPECIFIED Qualifiers: Diarrhea type: presumed infectious Qualified Code(s): R19.7 - Diarrhea, unspecified (8) HTN (hypertension) Code(s): I10 - ESSENTIAL (PRIMARY) HYPERTENSION (9) Weight loss Code(s): R63.4 - ABNORMAL WEIGHT LOSS Assessment/Plan MYELODYSPLASTIC WORKUP UNDERWAY BM BIOPSY TODAY TRANSFUSE PRBC DVT PROPHYLAXIS OOB TO CHAIR
[2018-10-22] MEDS ORDERED: SODIUM CHLORIDE 250 ML IV STA (08:40)
[2018-10-22] MEDS ORDERED: SODIUM CHLORIDE 1,000 ML IV SCH (08:45)
--- NOTE | 2018-10-22 10:52 | CONSULT ---
Consultation: CONSULT REQUEST: Heme/Onc HISTORY OF PRESENT ILLNESS: Patient is a 68 yo M with a PMHx of HTN, presumed MM, presented to the ED because of planned bone marrow biopsy to further evaluate for possible MM. Patient was recently discharged after initial testing revealed possible MM. He was in acute renal failure, hypercalcemic, and anemic, s/p Kidney biopsy. Patient was discharged and was told his Renal biopsy showed some of evidence of MM (diagnosis of light chain nephropathy). Patient was told to come to the ER for further evaluation with a bone biopsy. He has no new complaints since being discharged, except for some weakness. He still has the b/l rib pain but says has significantly improved. He denies SOB, chest pain, nausea, vomiting, diarrhea, chills, fevers, bloody stools, hematuria. Background: [place] Colonoscopy: 10 years ago, he says he's due for one this year Social Hx: smokes 1 cigar daily since he was a teenager, and drinks 1 cup of alcohol daily. Family hx: 2 maternal aunts with cancer, 2 paternal uncles with cancer (1 w/ colon) Surgical hx: He mentions having a BM biopsy done 30 years ago because of an unexplained Rash he had in the past. 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 REVIEW OF SYSTEMS: CONSTITUTIONAL: weight change, generalized weakness Absent: fever, chills, diaphoresis, malaise, loss of appetite HEENT: Absent: rhinorrhea, nasal congestion, throat pain, throat swelling, difficulty swallowing, mouth swelling, ear pain, eye pain, visual changes CARDIOVASCULAR: Absent: chest pain, syncope, palpitations, irregular heart rate, lightheadedness , peripheral edema RESPIRATORY: Absent: cough, shortness of breath, dyspnea with exertion, orthopnea, wheezing, stridor, hemoptysis GASTROINTESTINAL: Absent: abdominal pain, abdominal distension, nausea, vomiting, diarrhea, constipation, melena, hematochezia GENITOURINARY: Absent: dysuria, frequency, urgency, hesitancy, hematuria, flank pain, genital pain MUSCULOSKELETAL: Absent: myalgia, arthralgia, joint swelling, back pain, neck pain SKIN: Absent: rash, itching, pallor HEMATOLOGIC/IMMUNOLOGIC: Absent: easy bleeding, easy bruising, lymphadenopathy, frequent infections PHYSICAL EXAMINATION Vital Signs - 24 hr 10/21/18 10/21/18 10/22/18 19:21 20:00 01:09 Temperature 98.3 F 97.7 F Pulse Rate 84 64 Respiratory 20 20 Rate Blood Pressure 137/80 144/80 O2 Sat by Pulse 98 99 98 Oximetry (%) 10/22/18 10/22/18 06:04 08:36 Temperature 98.2 F 98.0 F Pulse Rate 61 54 L Respiratory 18 16 Rate Blood Pressure 118/69 96/62 O2 Sat by Pulse Oximetry (%) GENERAL: Awake, alert, and fully oriented, in no acute distress. HEAD: Normal with no signs of trauma. EYES: sclera anicteric, conjunctiva clear. EARS, NOSE, THROAT: oropharynx clear without exudates. dry mucous membranes. NECK: supple without lymphadenopathy, JVD, or masses. LUNGS: Breath sounds equal, clear to auscultation bilaterally. No wheezes, and no crackles. HEART:RRR, normal s1, s1, no M/G/R. No chest tenderness ABDOMEN: Soft, nontender, not distended, normoactive bowel sounds, no guarding, no rebound, no masses. LOWER EXTREMITIES: 2+ pulses, warm, well-perfused. No peripheral edema. ASSESSMENT/PLAN: #Anemia #Acute Renal Failure #Hypercalcemia #Rib Pain #s/p Renal bx -Multiple myeloma workup. -for bone marrow biopsy today. -Skeletal survery -IV fluids for hypercalcemia -Corrected ca+ today: 11.8 Dispo: We will continue to follow the patient. Thank you for this consultative opportunity. Visit type - Emergency Visit Emergency Visit: Yes ED Registration Date: 10/21/18 Care time: The patient presented to the Emergency Department on the above date and was hospitalized for further evaluation of their emergent condition. - New Patient This patient is new to me today: Yes Date on this admission: 10/23/18 - Critical Care Critical Care patient: No ATTENDING PHYSICIAN STATEMENT I saw and evaluated the patient. I reviewed the resident's note and discussed the case with the resident. I agree with the resident's findings and plan as documented. SUBJECTIVE: OBJECTIVE: ASSESSMENT AND PLAN:
[2018-10-22 11:47] LABS: PREALBUMIN 28.2 mg/dl (20-40)
[2018-10-22] MEDS ORDERED: LIDOCAINE HCL 1%, 10 MG/ML (20ML VIAL) ONE (12:02)
--- NOTE | 2018-10-22 15:35 | CONSULT ---
Consult Consult Specialty:: Nephrology Reason for Consultation:: CKD - History of Present Illness Chief Complaint: I sent in for oncology eval History of Present Illness: Pt is a 68 year old male with pmhx of ckd and htn. 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 I called and sent him in for an oncology eval. He complains of weakness. He was found to have worsening anemia. - History Source History Provided By: Patient, Medical Record - Past Medical History Cardio/Vascular: Yes: HTN, Hyperlipdemia - Past Surgical History Past Surgical History: Yes: None - Alcohol/Substance Use Hx Alcohol Use: No History of Substance Use: reports: None - Smoking History Smoking history: Never smoked Have you smoked in the past 12 months: No Aproximately how many cigarettes per day: 1 - Social History Usual Living Arrangement: With Spouse ADL: Independent Occupation: [employer] - [employer] at [employer] History of Recent Travel: Yes ([place]) Home Medications - Allergies Allergies/Adverse Reactions: Allergies Allergy/AdvReac Type Severity Reaction Status Date / Time No Known Allergies Allergy Verified 10/21/18 19:21 - Home Medications Home Medications: Ambulatory Orders Lisinopril [Prinivil] 5 mg PO DAILY 10/21/18 Metronidazole 500 mg PO TID 10/21/18 Family Disease History - Family Disease History Family Disease History: Heart Disease: Father (Stroke- age 57), Mother ( age 96 CHF), Other: Brother (Alive and Well), Sister (Alive and Well) Review of Systems - Review of Systems Constitutional: reports: No Symptoms Eyes: reports: No Symptoms HENT: reports: No Symptoms Neck: reports: No Symptoms Cardiovascular: reports: No Symptoms Respiratory: reports: No Symptoms Gastrointestinal: reports: No Symptoms Genitourinary: reports: No Symptoms Musculoskeletal: reports: No Symptoms Integumentary: reports: No Symptoms Neurological: reports: No Symptoms Endocrine: reports: No Symptoms Hematology/Lymphatic: reports: No Symptoms Psychiatric: reports: No Symptoms Physical Exam Vital Signs: Vital Signs Temperature 97.5 F L 10/22/18 13:25 Pulse Rate 65 10/22/18 13:25 Respiratory Rate 18 10/22/18 13:25 Blood Pressure 121/72 10/22/18 13:25 O2 Sat by Pulse Oximetry (%) 98 10/22/18 09:00 Constitutional: Yes: Calm Eyes: Yes: Conjunctiva Clear HENT: Yes: Atraumatic Neck: Yes: Supple Cardiovascular: Yes: S1, S2 Respiratory: Yes: CTA Bilaterally Gastrointestinal: Yes: Soft Renal/: Yes: WNL Musculoskeletal: Yes: WNL Edema: No Neurological: Yes: Oriented Psychiatric: Yes: Oriented Labs: CBC, BMP 10/22/18 07:15 10/22/18 07:15 Laboratory Tests 10/13/18 10/14/18 10/14/18 10:15 07:05 07:05 Creatinine JETT M-Jorje JOYCELYN Screen Negative c-ANCA <1:20 Proteinase 3 (PR3) 4.2 H p-ANCA <1:20 Atypical p-ANCA <1:20 Myeloperoxidase Ab <9.0 Tiss Transglutamin IgG Tiss Transglutamin IgA Free Lambda LC, Quant Hep A IgM Ab Confirm Negative Hep Bs Antigen Negative Hep B Core IgM Ab Negative Hepatitis C Ab (EIA) <0.1 Schistosoma IgG Ab 0.02 10/14/18 10/16/18 10/16/18 07:05 05:30 08:00 Creatinine JETT M-Jorje 0.6 H JOYCELYN Screen c-ANCA Proteinase 3 (PR3) p-ANCA Atypical p-ANCA Myeloperoxidase Ab Tiss Transglutamin IgG Pending Tiss Transglutamin IgA Pending Free Lambda LC, Quant 7777.0 H Hep A IgM Ab Confirm Hep Bs Antigen Hep B Core IgM Ab Hepatitis C Ab (EIA) Schistosoma IgG Ab 10/22/18 07:15 Creatinine 5.6 H JETT M-Jorje JOYCELYN Screen c-ANCA Proteinase 3 (PR3) p-ANCA Atypical p-ANCA Myeloperoxidase Ab Tiss Transglutamin IgG Tiss Transglutamin IgA Free Lambda LC, Quant Hep A IgM Ab Confirm Hep Bs Antigen Hep B Core IgM Ab Hepatitis C Ab (EIA) Schistosoma IgG Ab Problem List - Problems (1) Light chain disease, lambda type Code(s): D89.89 - OTH DISRD INVOLVING THE IMMUNE MECHANISM, NEC (2) Light chain nephropathy Code(s): N05.8 - UNSP NEPHRITIC SYNDROME WITH OTHER MORPHOLOGIC CHANGES (3) Elevated serum creatinine Code(s): R79.89 - OTHER SPECIFIED ABNORMAL FINDINGS OF BLOOD CHEMISTRY (4) ARF (acute renal failure) Code(s): N17.9 - ACUTE KIDNEY FAILURE, UNSPECIFIED Qualifiers: Acute renal failure type: unspecified Qualified Code(s): N17.9 - Acute kidney failure, unspecified (5) Anemia Code(s): D64.9 - ANEMIA, UNSPECIFIED Assessment/Plan Current Medications Generic Name Dose Route Start Last Admin Trade Name Freq PRN Reason Stop Dose Admin Sodium Chloride 1,000 mls @ 75 mls/hr 10/22/18 08:45 10/22/18 10:24 Normal Saline - IV 75 mls/hr ASDIR GARCIA Administration Sodium Bicarbonate 650 mg 10/21/18 23:30 10/22/18 09:10 Sodium Bicarbonate - PO 650 mg BID GARCIA Administration Impression 1. BERNA 2. anemia 3. met acidosis 4. diarrhea 5. nsaid use 6. light chain nephropathy - lambda Plan - pt with light chain nephropathy - oncology eval for bone marrow - skeletal survey - pt getting prbc - monitor renal function
--- NOTE | 2018-10-22 17:07 | PN ---
Teaching Attending Note Name of Resident: Lizette Ellis ATTENDING PHYSICIAN STATEMENT I saw and evaluated the patient. I reviewed the resident's note and discussed the case with the resident. I agree with the resident's findings and plan as documented. SUBJECTIVE: Patient seen and examined Recent kidney biopsy with diagnosis of light chain nephropathy. Presented with anemia, renal disease, hypercalcemia , and "M" component Presents now with hypercalcemia and anemia renal insufficienccy Receiving packed cells . Will need hydration post transfusion . Will obtain skeletal survey and proceed with bone marrow. Last Vital Signs Temp Pulse Resp BP Pulse Ox 97.5 F L 65 18 121/72 98 10/22/18 13:25 10/22/18 13:25 10/22/18 13:25 10/22/18 13:25 10/22/18 09:00 HEENT: THUY, EOM Intact Oropharynx: No thrush, No mucositis Cor: RSR, No murmurs, No gallops Lungs: Clear to P&A Abd: Soft, Normal bowel sounds, No organomegaly Ext:No significant edema Skin: No rashes, Integument intact CBC, BMP 10/22/18 07:15 10/22/18 07:15 Current Medications Generic Name Dose Route Start Last Admin Trade Name Freq PRN Reason Stop Dose Admin Sodium Chloride 1,000 mls @ 75 mls/hr 10/22/18 08:45 10/22/18 10:24 Normal Saline - IV 75 mls/hr ASDIR GARCIA Administration Sodium Bicarbonate 650 mg 10/21/18 23:30 10/22/18 09:10 Sodium Bicarbonate - PO 650 mg BID GARCIA Administration Impression: Light chain nephropathy Anemia - for transfusion Hypercalcemia for hydration For skeletal survey Bone marrow aspirate and biopsy. OBJECTIVE: ASSESSMENT AND PLAN:
--- NOTE | 2018-10-22 17:13 | PROC ---
Bone Marrow Aspiration/Biopsy - Consent Risks and Benefits Explained: Yes Consent on Chart: Yes - Procedure Location: Right Iliac Crest Anesthesia: 1% Lidocaine Sterile Technique: Yes Specimen: Obtained Position: Other Patient tolerated procedure: Well with minimal pain Sterile Dressing Applied: Yes
[2018-10-22] MEDS: SODIUM CHLORIDE 1,000 ML IV SCH (17:25)
[2018-10-23] MEDS: SODIUM CHLORIDE 1,000 ML IV SCH (05:10)
[2018-10-23 08:00] LABS: BASO % 0.2 % (0-2.0); EOS % 2.2 % (0-4.5); HEMATOCRIT 24.8 % (35.4-49); HEMOGLOBIN 8.7 GM/dL (11.7-16.9); LYMPH % 11.5 % (8-40); MEAN CELL VOLUME 91.2 fl (80-96); MEAN PLT VOLUME 8.4 fl (7.5-11.1); MONO % 9.3 % (3.8-10.2); NEUT % 76.8 % (42.8-82.8); PLATELET COUNT 147 K/MM3 (134-434); RBC 2.71 M/mm3 (4.00-5.60); RDW 13.1 % (11.9-15.9); WHITE BLOOD COUNT 5.4 K/mm3 (4.0-10.0)
[2018-10-23 08:48] LABS: ALBUMIN 2.8 g/dl (3.4-5.0); BILIRUBIN,TOTAL 0.4 mg/dL (0.2-1); CALCIUM 10.8 mg/dL (8.5-10.1); CREATININE 5.3 mg/dL (0.55-1.3); POTASSIUM 4.3 mmol/L (3.5-5.1); TOT PROT 5.4 g/dl (6.4-8.2)
--- NOTE | 2018-10-23 08:51 | DS ---
Physical Examination Vital Signs: Vital Signs Temperature 98.3 F 10/23/18 06:00 Pulse Rate 54 L 10/23/18 06:00 Respiratory Rate 18 10/23/18 06:00 Blood Pressure 110/58 L 10/23/18 06:00 O2 Sat by Pulse Oximetry (%) 97 10/22/18 21:00 Findings/Remarks: S/P BM BX TOLERATED WELL FEELS GOOD Constitutional: Yes: No Distress Eyes: Yes: WNL HENT: Yes: WNL Neck: Yes: WNL Cardiovascular: Yes: WNL Respiratory: Yes: WNL Gastrointestinal: Yes: WNL Renal/: Yes: WNL Musculoskeletal: Yes: WNL Extremities: Yes: WNL Edema: No Peripheral Pulses WNL: Yes Integumentary: Yes: WNL Wound/Incision: Yes: Clean/Dry Neurological: Yes: WNL ...Motor Strength: WNL Psychiatric: Yes: WNL Labs: CBC, BMP 10/23/18 07:00 Discharge Summary Reason For Visit: HIGH SERUM CREATININE Current Active Problems Elevated serum creatinine (Acute) Light chain disease, lambda type (Acute) Light chain nephropathy (Acute) Procedures: Principal: BONE MARROW BX, BONE SURVEY Hospital Course: ADMITTED ACUTE ON CHRONIC RENAL FAILURE, BM BX, BONE SURVEY, F/U OUTPATIENT Condition: Fair - Instructions Diet, Activity, Other Instructions: SEE DR LUJAN IN THE NEXT WEEK DR JO YOUR PMD IN 1 WEEK FOR LAB CHECK Disposition: HOME - Home Medications Comprehensive Discharge Medication List: Ambulatory Orders Lisinopril [Prinivil] 5 mg PO DAILY 10/21/18 Metronidazole 500 mg PO TID 10/21/18 Sodium Bicarbonate - 650 mg PO BID tablet 10/23/18 Sodium Bicarbonate - 650 mg PO DAILY #30 tablet 10/23/18
[2018-10-23] MEDS: SODIUM BICARBONATE 650 MG TABLET PO SCH (09:36)
[2018-10-23 10:14] VITALS: BP 106/59; PULSE 59; TEMP 98.1
--- NOTE | 2018-11-01 18:33 | PATH ---
Surgical Pathology Report Patient Name: LORENE YEPEZ [facility]. Rec. #: [id number] /Age/Gender: 1950 (Age: 68) / M Account: [id number] Location: [facility] MED/SURG Taken: 10/22/2018 Received: 10/23/2018 Reported: 11/01/2018 Physicians: Ricco Gambino M.D. 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 HYPERCELLULAR MARROW WITH NEAR-TOTAL DISPLACEMENT BY A NEOPLASTIC PLASMA CELL PROLIFERATION, MINIMAL RESIDUAL TRILINEAGE HEMATOPOIESIS AND MILD RETICULIN FIBROSIS. NO SPECIFIC CYTOGENETIC ABNORMALITY (-Y IS DETECTED). FISH: POSITIVE for t(11;14), -9, -13 and +15, STANDARD RISK. SEE COMMENT. Cell type Result (%) Reference range (%) Cell type Result (%) Reference range (%) BLASTS 0.00 0-3 Promyelocytes 0.00 2-8 MYELOCYTES 0.00 10-13 Metamyelocytes 1.00 10-15 NEUTROPHILS/BANDS 3.00 25-40 Monocytes 0.00 0-1 EOSINOPHILS 0.00 1-3 Basophils 0.00 0-1 LYMPHOCYTES 3.00 10-15 Plasma cells 91.00 0-1 ERYTHROID SERIES 2.00 15-25 Pronormoblasts 0.00 0-2 M:E RATIO 2.0:1 Microscopic: Bone marrow aspirate: Extrinsic Cells: No. Cellularity: Three aspirate smears are available for review; they are hypercellular with adequate spicules and marked plasmacytosis. Erythroid Precursors: Rare. Myeloid Precursors: Rare. Megakaryocytes: Rare. Lymphoid Cells: Plasmacytoid cells are noted. Plasma Cells: Markedly increased in number with cytologic atypia. Plasma cells vary in cell size and amount of cytoplasm. Many cells are lymphoid small cells as well. Binucleated cells are present. Iron Stain: Increased storage iron (moderate). Microscopic Bone marrow: The bone marrow core biopsy is adequate in size and shows hypercellular marrow (80%) with predominantly small plasma cells. The M:E ratio is not evaluable. Myeloid and erythroid elements rare. Megakaryocytes are rare as well. There is no increase in mononuclear blastlike cells. Significant lymphoid infiltrates is not seen. Plasma cells are markedly increased and form large aggregates/solid sheets throughout the section. Focal deposition of amorphous material and thickening of blood vessel larson are noted. Immunoperoxidase stains show that CD138 positive plasma cells comprise >90% of the total cellularity with aberrant CD20 and cyclin D1 staining. Ki67 positive cells are rare. Staining of p53 is negative. Congo Red stain appears to be negative in general with an appropriate positive control, though small foci of positive staining cannot be entirely excluded. Comment: Focally the histological features is worrisome for amyloidosis, but it is not convincingly confirmed by Congo red stain. Clinical correlation is suggested. The findings correlate with the result of flow cytometry, though cytoplasmic IgG staining is only seen in a small number of cells. This case was sent to Dr. Tremayne Campuzano from [place], [place] ([id number]) the diagnosis above reflects his opinion. FLOW CYTOMETRY performed and interpreted at [facility], (Spec # [id number]) shows the following: INTERPRETATION: IgG lambda plasma cell myeloma (39% of total cells by flow cytometry). PHENOTYPE: A monoclonal plasma cell population (CD38 bright) represents 39% OF THE TOTAL CELLS. The neoplastic plasma cells express cytoplasmic lambda, partially cytoplasmic IgG and dim CD20. B cells are polyclonal (1.8% of total cells). FISH performed and interpreted at [facility], (Spec #[id number]) shows the following: INTERPRETATION: Multiple Myeloma panel: 1. Positive for a t(11;14)/CCND1-IGH rearrangement in 90.0% of cells. The following hybridization pattern was observed in these cells: 3tAPNY1, 1xIGH, 0wYDSK3/IGH fusion signal, versus the expected abnormal pattern of: 6lPHHQ4,1xIGH, 1lRFQY6/IGH fusion signals. The t(11;14)(q13;q32) translocation has no impact on increased risk and therefore it is associated with a good prognosis in multiple myeloma (MM). 2. Positive for trisomy 15 in 60.0% of cells. Trisomies are likely as a part of a hyperdiploid clone which is commonly seen in multiple myeloma (MM). Hyperdiploidy without other chromosome aberrations indicates a good prognosis. However, the finding of other chromosome abnormalities in this patient indicates disease progression. 3. Positive for monosomy 13 in 46.0% of cells. Monosomy 13 is associated with an intermediate risk in MM. 4. Monosomy 9 was observed in 21.0% of cells. The clinical significance of monosomy 9 is unknown. 5. Negative for a deletion of TP53 on the short arm of chromosome 17 at p13. 6. Negative for a t(4;14)/FGFR3-IGH rearrangement. 7. Negative for a t(14;16)/IGH-MAF rearrangement. 8. Negative for extra copies of 1q21. 9. Negative for trisomy 7. FINDINGS: Three separate FISH assays were performed on interphase nuclei using the following dual-color dual-fusion probes: 1.) for the FGFR3 gene located on chromosome 4 at p16 and the IGH (immunoglobulin heavy chain) gene located on chromosome 14 at q32, 2.) the CCND1 gene located on chromosome 11 at q13 and the IGH gene located on chromosome 14 at q32, and 3.) the IGH gene located on chromosome 14 at q32 and the MAF gene located on chromosome 16 at q23. Juxtaposed signals are consistent with the FGFR3/IGH, CCND1/IGH, and IGH/MAF rearrangements. The number of nuclei examined and the percentage of positive nuclei are listed in the table above. Six separate FISH assays were performed on interphase nuclei using the followin.) a probe to detect copy numbers for a region on chromosome 1 at q21 along with a control probe located at 1p36 (SRD), 2.) a centromeric region probe for chromosome 7, 3.) a centromeric region probe for chromosome 9, 4.) a dual-color probe for the DLEU1,DLEU2 genes on chromosome 13 at q14 and TFDP1 on chromosome 13 at q34, 5.) a centromeric region probe for chromosome 15, and 6.) a probe for the TP53 gene on chromosome 17 at p13. The percentages of positive nuclei and their respective numbers of signals are given in the table above. COMMENTS: A procedure using magnetic CD138 cell sorting has been used on this sample to enrich plasma cells based on CD138 expression. Plasma cell enrichment is designed to increase sensitivity of the FISH assay to detect genetic abnormalities in plasma cell neoplasia especially in cases with low percentage of neoplastic plasma cells. This FISH assay is limited to the testing of the targeted region(s) in the gene(s) listed in the table above. CHROMOSOME ANALYSIS performed and interpreted at [facility], (Spec #[id number]) shows the following: Result 45,X,-Y[5]/46,XY[15] Interpretation: Male chromosome complement in which 5 of the 20 cells analyzed had a loss of the Y chromosome. Within the limits of the technology utilized, no other abnormalities were evident. Loss of the Y chromosome is generally considered to be an age-related phenomenon without clinical significance. See [facility] reports (Spec #[id number], [id number]) for additional details. Electronically Signed April Dupont M.D. Gross Description A. Received in formalin, labeled with the patient's name and indicated on the requisition to be a bone marrow biopsy, is a 0.5 cm in length x 0.2 cm in diameter cavanaugh, cylindrical portion of bone with attached blood clot. The specimen is submitted in toto in one cassette, following decalcification. B. Received labelled with the patient's name are two green top tubes of peripheral blood which are forwarded to [facility] for ancillary testing. 10/23/2018 saudi10/23/2018
== END 2018-10-23 13:20 | disposition home or self-care (01) | DRG 691 ==
LOC: JER 19:04 → JERBED 21:22 → J7W 10-22 01:03
PROVIDERS: ADMIT Family Medicine; ATTEND Family Medicine
PROC: 07DR3ZX Extraction of Iliac Bone Marrow, Percutaneous Approach, Diagnostic (ICD-10-PCS; principal; 2018-10-22)
DX: C90.00 Multiple myeloma not having achieved remission (principal); N05.8 Unspecified nephritic syndrome with other morphologic changes; I10 Essential (primary) hypertension; E83.52 Hypercalcemia; N17.9 Acute kidney failure, unspecified; D64.9 Anemia, unspecified; E87.2 Acidosis; R19.7 Diarrhea, unspecified; R63.4 Abnormal weight loss; R79.89 Other specified abnormal findings of blood chemistry; R07.81 Pleurodynia
CPT/HCPCS: 36415; 36430; 36511; 77074-TC-FY; 80053; 82330; 82607; 82728; 82746; 83540; 83550; 83735; 84134; 84443; 85025; 85610; 85730; 86850; 86900; 86901; 86922; 88300-TC; 88305-TC; 88311-TC; 99285-25; J7030; P9038; P9058

== ENCOUNTER 2018-11-06 08:18 | Day surgery (SDC) | payer OTHER | END 2018-11-06 19:08 | disposition home or self-care (01) | LOC: JRADMRI 08:18 → JONCNONCHE 12:58 → J7W 13:45 → JONCNONCHE 19:08 ==

== ENCOUNTER 2018-11-07 07:13 | Day surgery (SDC) | payer OTHER ==
[2018-11-07] MEDS ORDERED: SODIUM CHLORIDE 1,000 ML IV SCH ×2 (07:45→09:45)
[2018-11-07 10:42] LABS: BILIRUBIN,TOTAL 0.2 mg/dL (0.2-1); BLOOD UREA NITROGEN 63.7 mg/dL (7-18); CALCIUM 11.9 mg/dL (8.5-10.1); CREATININE 5.5 mg/dL (0.55-1.3); POTASSIUM 4.6 mmol/L (3.5-5.1)
[2018-11-07 14:04] VITALS: TEMP 98
[2018-11-07 14:09] VITALS: BP 137/72; PULSE 63
== END 2018-11-07 13:50 | disposition home or self-care (01) ==
LOC: JONCNONCHE 07:13 → J7W 07:40 → JONCNONCHE 13:50
PROVIDERS: ATTEND Internal Medicine Hematology & Oncology
PROC: 3E0337Z Introduction of Electrolytic and Water Balance Substance into Peripheral Vein, Percutaneous Approach (ICD-10-PCS; principal; 2018-11-07)
DX: C90.00 Multiple myeloma not having achieved remission (principal); Z76.89 Persons encountering health services in other specified circumstances
CPT/HCPCS: 36415; 80053; 96360; 96361; J7030

== ENCOUNTER 2018-11-15 07:01 | Day surgery (SDC) | payer OTHER ==
[2018-11-15] MEDS ORDERED: BORTEZOMIB (VELCADE) 2.5 MG/ML SUB-Q INJECTION SQ ONE (10:00)
[2018-11-15] MEDS ORDERED: DEXAMETHASONE 4 MG TABLET (FP) PO ONE (10:00)
[2018-11-15] MEDS ORDERED: [UNRECOGNIZED DRUG - OTHER] PO ONE (10:15)
[2018-11-15] MEDS ORDERED: D5-NS + 20 MEQ KCL - 20 MEQ/1,000 ML INFUS.BAG IV SCH (15:00)
[2018-11-15 16:27] VITALS: TEMP 98.1
[2018-11-15 16:55] LABS: BASO % 0.3 % (0-2.0); HEMATOCRIT 24.8 % (35.4-49); HEMOGLOBIN 8.6 GM/dL (11.7-16.9); LYMPH % 5.1 % (8-40); MCH 31.9 pg (25.7-33.7); MCHC 34.5 g/dl (32.0-35.9); MEAN CELL VOLUME 92.5 fl (80-96); MEAN PLT VOLUME 8.8 fl (7.5-11.1); MONO % 2.8 % (3.8-10.2); NEUT % 91.8 % (42.8-82.8); PLATELET COUNT 162 K/MM3 (134-434); RBC 2.69 M/mm3 (4.00-5.60); WHITE BLOOD COUNT 7.5 K/mm3 (4.0-10.0)
[2018-11-15 17:19] LABS: ALBUMIN 3.3 g/dl (3.4-5.0); BILIRUBIN,TOTAL 0.4 mg/dL (0.2-1); BLOOD UREA NITROGEN 70.7 mg/dL (7-18); CREATININE 5.1 mg/dL (0.55-1.3); MAGNESIUM 2.1 mg/dL (1.8-2.4); PHOSPHOROUS 5.3 mg/dL (2.5-4.9); POTASSIUM 4.5 mmol/L (3.5-5.1); TOT PROT 6.5 g/dl (6.4-8.2); URIC ACID 11.5 mg/dL (2.6-7.2)
[2018-11-15 18:06] VITALS: BP 146/81; PULSE 58
== END 2018-11-15 18:08 | disposition home or self-care (01) ==
LOC: JONCCHEMO 07:01 → J7W 14:14 → JONCCHEMO 18:08
PROVIDERS: ATTEND Internal Medicine Hematology & Oncology
DX: Z51.11 Encounter for antineoplastic chemotherapy (principal); C90.00 Multiple myeloma not having achieved remission
CPT/HCPCS: 36415; 80053; 83615; 83735; 84100; 84550; 85025; 96361; 96401; J9041

== ENCOUNTER 2018-11-16 10:02 | Day surgery (SDC) | payer OTHER ==
[2018-11-16] MEDS ORDERED: D5-NS + 20 MEQ KCL - 20 MEQ/1,000 ML INFUS.BAG IV SCH (11:15)
[2018-11-16 13:00] LABS: BASO % 0.1 % (0-2.0); EOS % 0.2 % (0-4.5); HEMATOCRIT 25.6 % (35.4-49); HEMOGLOBIN 8.8 GM/dL (11.7-16.9); LYMPH % 5.7 % (8-40); MCHC 34.4 g/dl (32.0-35.9); MEAN CELL VOLUME 92.9 fl (80-96); MEAN PLT VOLUME 8.4 fl (7.5-11.1); MONO % 2.8 % (3.8-10.2); NEUT % 91.2 % (42.8-82.8); PLATELET COUNT 154 K/MM3 (134-434); RBC 2.75 M/mm3 (4.00-5.60); RDW 13.3 % (11.9-15.9); WHITE BLOOD COUNT 8.4 K/mm3 (4.0-10.0)
[2018-11-16 13:31] LABS: ALBUMIN 3.4 g/dl (3.4-5.0); BILIRUBIN,TOTAL 0.5 mg/dL (0.2-1); CREATININE 4.6 mg/dL (0.55-1.3); MAGNESIUM 1.8 mg/dL (1.8-2.4); PHOSPHOROUS 3.7 mg/dL (2.5-4.9); POTASSIUM 4.2 mmol/L (3.5-5.1); TOT PROT 6.6 g/dl (6.4-8.2)
[2018-11-16 14:03] VITALS: BP 137/73; PULSE 53; TEMP 97.3
[2018-11-16 14:23] LABS: ANISOCYTOSIS 0; MACROCYTOSIS 0; PLATELET ESTIMATE DECREASED
== END 2018-11-16 13:45 | disposition home or self-care (01) ==
LOC: J7W 10:02 → JONCNONCHE 10:02
PROVIDERS: ATTEND Internal Medicine Hematology & Oncology
PROC: 3E0337Z Introduction of Electrolytic and Water Balance Substance into Peripheral Vein, Percutaneous Approach (ICD-10-PCS; principal; 2018-11-16)
DX: C90.00 Multiple myeloma not having achieved remission (principal); Z76.89 Persons encountering health services in other specified circumstances
CPT/HCPCS: 36415; 80053; 83735; 84100; 85025; 96360; 96361

== ENCOUNTER 2018-11-22 07:05 | Day surgery (SDC) | payer OTHER ==
[2018-11-22] MEDS ORDERED: D5-NS + 20 MEQ KCL - 20 MEQ/1,000 ML INFUS.BAG IV ONE (09:00)
[2018-11-22] MEDS ORDERED: BORTEZOMIB (VELCADE) 2.5 MG/ML SUB-Q INJECTION SQ ONE (10:00)
[2018-11-22] MEDS ORDERED: DEXAMETHASONE 4 MG TABLET (FP) PO ONE (10:00)
[2018-11-22 11:28] LABS: EOS % 0.1 % (0-4.5); HEMOGLOBIN 8.3 GM/dL (11.7-16.9); LYMPH % 2.4 % (8-40); MCH 31.8 pg (25.7-33.7); MCHC 34.7 g/dl (32.0-35.9); MEAN CELL VOLUME 91.6 fl (80-96); MEAN PLT VOLUME 8.1 fl (7.5-11.1); MONO % 2.6 % (3.8-10.2); NEUT % 94.9 % (42.8-82.8); PLATELET COUNT 154 K/MM3 (134-434); RBC 2.62 M/mm3 (4.00-5.60); RDW 13.4 % (11.9-15.9); WHITE BLOOD COUNT 6.5 K/mm3 (4.0-10.0)
[2018-11-22 11:56] LABS: ALBUMIN 3.4 g/dl (3.4-5.0); BILIRUBIN,DIRECT 0.2 mg/dL (0.0-0.2); BILIRUBIN,TOTAL 0.5 mg/dL (0.2-1); BLOOD UREA NITROGEN 69.3 mg/dL (7-18); CALCIUM 9.6 mg/dL (8.5-10.1); CREATININE 4.6 mg/dL (0.55-1.3); MAGNESIUM 2.3 mg/dL (1.8-2.4); POTASSIUM 4.6 mmol/L (3.5-5.1); TOT PROT 6.6 g/dl (6.4-8.2)
[2018-11-22 12:12] LABS: ANISOCYTOSIS 1+; MACROCYTOSIS 0; PLATELET ESTIMATE NORMAL; ROULEAU 1+
[2018-11-22 14:07] VITALS: TEMP 98.1
[2018-11-22 15:28] VITALS: BP 134/74; PULSE 65
== END 2018-11-22 15:29 | disposition home or self-care (01) ==
LOC: JONCCHEMO 07:05 → J7W 12:30 → JONCCHEMO 15:29
PROVIDERS: ATTEND Internal Medicine Hematology & Oncology
DX: Z51.11 Encounter for antineoplastic chemotherapy (principal); C90.00 Multiple myeloma not having achieved remission
CPT/HCPCS: 36415; 80048; 80076; 83735; 85025; 96360; 96361; 96401; J9041

== ENCOUNTER 2018-11-29 05:39 | Day surgery (SDC) | payer OTHER ==
[2018-11-29] MEDS ORDERED: DEXAMETHASONE 4 MG TABLET (FP) PO ONE (10:00)
[2018-11-29] MEDS ORDERED: [UNRECOGNIZED DRUG - OTHER] PO ONE (10:30)
[2018-11-29] MEDS ORDERED: BORTEZOMIB (VELCADE) 2.5 MG/ML SUB-Q INJECTION SQ ONE (10:30)
[2018-11-29] MEDS ORDERED: CYCLOPHOSPHAMIDE 50 MG CAPSULE PO ONE (10:30)
[2018-11-29 10:51] LABS: BASO % 0.3 % (0-2.0); EOS % 2.6 % (0-4.5); HEMOGLOBIN 7.5 GM/dL (11.7-16.9); LYMPH % 3.8 % (8-40); MCH 31.6 pg (25.7-33.7); MCHC 34.2 g/dl (32.0-35.9); MEAN CELL VOLUME 92.5 fl (80-96); MEAN PLT VOLUME 8.2 fl (7.5-11.1); MONO % 8.1 % (3.8-10.2); NEUT % 85.2 % (42.8-82.8); PLATELET COUNT 131 K/MM3 (134-434); RBC 2.37 M/mm3 (4.00-5.60); RDW 13.9 % (11.9-15.9); WHITE BLOOD COUNT 3.9 K/mm3 (4.0-10.0)
[2018-11-29 11:11] LABS: ALBUMIN 3.2 g/dl (3.4-5.0); BILIRUBIN,DIRECT 0.2 mg/dL (0.0-0.2); BILIRUBIN,TOTAL 0.4 mg/dL (0.2-1); BLOOD UREA NITROGEN 62.5 mg/dL (7-18); CALCIUM 9.2 mg/dL (8.5-10.1); CREATININE 4.5 mg/dL (0.55-1.3); MAGNESIUM 2.4 mg/dL (1.8-2.4); POTASSIUM 3.6 mmol/L (3.5-5.1); TOT PROT 6.2 g/dl (6.4-8.2)
[2018-11-29] MEDS ORDERED: RANITIDINE HCL 150 MG TABLET (FP) PO ONE (11:30)
[2018-11-29] MEDS ORDERED: FUROSEMIDE 40 MG/4 ML INJECTABLE VIAL IVPUSH SCH (13:00)
[2018-11-29] MEDS ORDERED: SODIUM CHLORIDE 0.9%/KCL 20 MEQ/1,000 ML INFUS.BAG IV SCH (13:00)
[2018-11-29] MEDS: DEXAMETHASONE 4 MG TABLET (FP) PO ONE ×2 (15:01→15:20)
[2018-11-29 18:32] VITALS: BP 164/83; PULSE 59; TEMP 98.1
== END 2018-11-29 18:49 | disposition home or self-care (01) ==
LOC: JONCCHEMO 05:39 → J7W 11:00 → JONCCHEMO 18:49
PROVIDERS: ATTEND Internal Medicine Hematology & Oncology
PROC: 3E01305 Introduction of Other Antineoplastic into Subcutaneous Tissue, Percutaneous Approach (ICD-10-PCS; principal; 2018-11-29)
PROC: 3E0337Z Introduction of Electrolytic and Water Balance Substance into Peripheral Vein, Percutaneous Approach (ICD-10-PCS; 2018-11-29)
PROC: 3E033GC Introduction of Other Therapeutic Substance into Peripheral Vein, Percutaneous Approach (ICD-10-PCS; 2018-11-29)
DX: Z51.11 Encounter for antineoplastic chemotherapy (principal); C90.00 Multiple myeloma not having achieved remission
CPT/HCPCS: 36415; 36430; 36511; 80048; 80076; 83735; 85025; 86850; 86900; 86901; 86922; 96361; 96365; 96366; 96375; 96401; 96417; J8530; J9041; P9038; P9058

== ENCOUNTER 2018-12-06 05:38 | Day surgery (SDC) | payer OTHER ==
[2018-12-06] MEDS ORDERED: BORTEZOMIB (VELCADE) 2.5 MG/ML SUB-Q INJECTION SQ ONE (10:00)
[2018-12-06] MEDS ORDERED: DEXAMETHASONE 4 MG TABLET (FP) PO ONE (10:00)
[2018-12-06] MEDS ORDERED: D5-NS + 20 MEQ KCL - 20 MEQ/1,000 ML INFUS.BAG IV ONE (10:00)
[2018-12-06 10:48] LABS: BASO % 0.7 % (0-2.0); EOS % 1.7 % (0-4.5); HEMATOCRIT 23.2 % (35.4-49); LYMPH % 5.3 % (8-40); MCH 32.2 pg (25.7-33.7); MCHC 34.5 g/dl (32.0-35.9); MEAN CELL VOLUME 93.3 fl (80-96); MEAN PLT VOLUME 7.6 fl (7.5-11.1); NEUT % 84.3 % (42.8-82.8); PLATELET COUNT 148 K/MM3 (134-434); RBC 2.48 M/mm3 (4.00-5.60); RDW 14.2 % (11.9-15.9)
[2018-12-06 11:07] LABS: ALBUMIN 3.5 g/dl (3.4-5.0); BILIRUBIN,DIRECT 0.2 mg/dL (0.0-0.2); BILIRUBIN,TOTAL 0.7 mg/dL (0.2-1); BLOOD UREA NITROGEN 64.8 mg/dL (7-18); CALCIUM 9.2 mg/dL (8.5-10.1); CREATININE 4.1 mg/dL (0.55-1.3); MAGNESIUM 2.2 mg/dL (1.8-2.4); POTASSIUM 3.9 mmol/L (3.5-5.1); TOT PROT 6.5 g/dl (6.4-8.2)
[2018-12-06] MEDS ORDERED: amLODIPine BESYLATE 5 MG TABLET (FP) PO ONE (11:15)
[2018-12-06 18:40] VITALS: BP 155/90; PULSE 77; TEMP 97.7
== END 2018-12-06 14:30 | disposition home or self-care (01) ==
LOC: JONCCHEMO 05:38 → J7W 10:54 → JONCCHEMO 14:30
PROVIDERS: ATTEND Internal Medicine Hematology & Oncology
DX: Z51.11 Encounter for antineoplastic chemotherapy (principal); C90.00 Multiple myeloma not having achieved remission
CPT/HCPCS: 36415; 80048; 80076; 83735; 85025; 96361; 96401; J9041

== ENCOUNTER 2018-12-13 05:25 | Day surgery (SDC) | payer OTHER ==
[2018-12-13] MEDS ORDERED: BORTEZOMIB (VELCADE) 2.5 MG/ML SUB-Q INJECTION SQ ONE (10:00)
[2018-12-13] MEDS ORDERED: DEXAMETHASONE 4 MG TABLET (FP) PO ONE (10:00)
[2018-12-13] MEDS ORDERED: D5-NS + 20 MEQ KCL - 20 MEQ/1,000 ML INFUS.BAG IV ONE (10:00)
[2018-12-13 12:46] LABS: HEMATOCRIT 23.7 % (35.4-49); HEMOGLOBIN 8.1 GM/dL (11.7-16.9); LYMPH % 6.8 % (8-40); MCH 32.1 pg (25.7-33.7); MCHC 34.1 g/dl (32.0-35.9); MEAN CELL VOLUME 94.3 fl (80-96); MEAN PLT VOLUME 7.8 fl (7.5-11.1); NEUT % 81.2 % (42.8-82.8); PLATELET COUNT 132 K/MM3 (134-434); RBC 2.51 M/mm3 (4.00-5.60); RDW 15.3 % (11.9-15.9); WHITE BLOOD COUNT 2.8 K/mm3 (4.0-10.0)
[2018-12-13] MEDS ORDERED: SODIUM CHLORIDE 0.45%/POT 20 MEQ/1,000 ML INFUS.BAG IV SCH (13:00)
[2018-12-13 13:09] LABS: ALBUMIN 3.5 g/dl (3.4-5.0); BILIRUBIN,TOTAL 0.7 mg/dL (0.2-1); BLOOD UREA NITROGEN 70.7 mg/dL (7-18); CREATININE 4.4 mg/dL (0.55-1.3); MAGNESIUM 2.5 mg/dL (1.8-2.4); POTASSIUM 3.9 mmol/L (3.5-5.1); TOT PROT 6.4 g/dl (6.4-8.2)
[2018-12-13] MEDS ORDERED: amLODIPine BESYLATE 5 MG TABLET (FP) PO ONE (15:00)
[2018-12-13 16:36] VITALS: PULSE 68; TEMP 98.4
[2018-12-13 16:37] VITALS: BP 128/77
== END 2018-12-13 15:20 | disposition home or self-care (01) ==
LOC: JONCCHEMO 05:25 → J7W 11:52 → JONCCHEMO 15:20
PROVIDERS: ATTEND Internal Medicine Hematology & Oncology
PROC: 3E01305 Introduction of Other Antineoplastic into Subcutaneous Tissue, Percutaneous Approach (ICD-10-PCS; principal; 2018-12-13)
PROC: 3E043GC Introduction of Other Therapeutic Substance into Central Vein, Percutaneous Approach (ICD-10-PCS; 2018-12-13)
DX: Z51.11 Encounter for antineoplastic chemotherapy (principal); C90.00 Multiple myeloma not having achieved remission
CPT/HCPCS: 36415; 80053; 83735; 85025; 96361; 96365; 96366; 96401; J3480; J9041

== ENCOUNTER 2018-12-20 05:32 | Day surgery (SDC) | payer OTHER ==
[2018-12-20] MEDS ORDERED: DEXAMETHASONE 4 MG TABLET (FP) PO ONE (09:00)
[2018-12-20] MEDS ORDERED: BORTEZOMIB (VELCADE) 2.5 MG/ML SUB-Q INJECTION SQ ONE (09:00)
[2018-12-20] MEDS ORDERED: D5-NS + 20 MEQ KCL - 20 MEQ/1,000 ML INFUS.BAG IV ONE (09:30)
[2018-12-20 11:36] LABS: BASO % 0.1 % (0-2.0); HEMATOCRIT 21.5 % (35.4-49); HEMOGLOBIN 7.4 GM/dL (11.7-16.9); LYMPH % 8.5 % (8-40); MCH 33.1 pg (25.7-33.7); MCHC 34.3 g/dl (32.0-35.9); MEAN CELL VOLUME 96.6 fl (80-96); MEAN PLT VOLUME 8.5 fl (7.5-11.1); MONO % 19.4 % (3.8-10.2); PLATELET COUNT 170 K/MM3 (134-434); RBC 2.22 M/mm3 (4.00-5.60); RDW 17.4 % (11.9-15.9); WHITE BLOOD COUNT 2.4 K/mm3 (4.0-10.0)
[2018-12-20 12:08] LABS: ALBUMIN 3.2 g/dl (3.4-5.0); BILIRUBIN,DIRECT 0.2 mg/dL (0.0-0.2); BILIRUBIN,TOTAL 0.6 mg/dL (0.2-1); CALCIUM 9.1 mg/dL (8.5-10.1); CREATININE 5.9 mg/dL (0.55-1.3); MAGNESIUM 2.2 mg/dL (1.8-2.4); POTASSIUM 4.8 mmol/L (3.5-5.1); TOT PROT 6.3 g/dl (6.4-8.2); URIC ACID 12.2 mg/dL (2.6-7.2)
[2018-12-20 14:13] LABS: ANISOCYTOSIS 1+; MACROCYTOSIS 1+; PLATELET ESTIMATE NORMAL
[2018-12-20 19:09] VITALS: BP 163/80; PULSE 83
[2018-12-20 19:17] VITALS: TEMP 98.3
[2018-12-24 16:08] LABS: KAPPA LAMBDA RATIO URIN <0.01 (2.04-10.37)
== END 2018-12-20 19:19 | disposition home or self-care (01) ==
LOC: JONCCHEMO 05:32 → J7W 11:59 → JONCCHEMO 19:19
PROVIDERS: ATTEND Internal Medicine Hematology & Oncology
PROC: 3E01305 Introduction of Other Antineoplastic into Subcutaneous Tissue, Percutaneous Approach (ICD-10-PCS; principal; 2018-12-20)
PROC: 3E0437Z Introduction of Electrolytic and Water Balance Substance into Central Vein, Percutaneous Approach (ICD-10-PCS; 2018-12-20)
PROC: 30233N1 Transfusion of Nonautologous Red Blood Cells into Peripheral Vein, Percutaneous Approach (ICD-10-PCS; 2018-12-20)
DX: Z51.11 Encounter for antineoplastic chemotherapy (principal); C90.00 Multiple myeloma not having achieved remission; D64.81 Anemia due to antineoplastic chemotherapy
CPT/HCPCS: 36415; 36430; 36511; 80048; 80076; 82784; 83615; 83735; 83883; 84550; 85025; 86335; 86850; 86900; 86901; 86922; 96361; 96365; 96366; 96401; J9041; P9038; P9058

== ENCOUNTER 2018-12-27 05:37 | Day surgery (SDC) | payer OTHER ==
[2018-12-27] MEDS ORDERED: D5-NS + 20 MEQ KCL - 20 MEQ/1,000 ML INFUS.BAG IV ONE (10:00)
[2018-12-27] MEDS ORDERED: DEXAMETHASONE 4 MG TABLET (FP) PO ONE (10:00)
[2018-12-27] MEDS ORDERED: BORTEZOMIB (VELCADE) 2.5 MG/ML SUB-Q INJECTION SQ ONE (10:00)
[2018-12-27 12:01] LABS: BASO % 0.1 % (0-2.0); HEMATOCRIT 24.5 % (35.4-49); HEMOGLOBIN 8.4 GM/dL (11.7-16.9); LYMPH % 6.3 % (8-40); MCH 32.7 pg (25.7-33.7); MCHC 34.3 g/dl (32.0-35.9); MEAN CELL VOLUME 95.3 fl (80-96); MEAN PLT VOLUME 8.3 fl (7.5-11.1); MONO % 13.5 % (3.8-10.2); NEUT % 80.1 % (42.8-82.8); PLATELET COUNT 233 K/MM3 (134-434); RBC 2.57 M/mm3 (4.00-5.60); RDW 16.8 % (11.9-15.9); WHITE BLOOD COUNT 3.3 K/mm3 (4.0-10.0)
[2018-12-27 12:34] LABS: ALBUMIN 3.3 g/dl (3.4-5.0); BILIRUBIN,TOTAL 0.5 mg/dL (0.2-1); BLOOD UREA NITROGEN 85.8 mg/dL (7-18); CALCIUM 8.6 mg/dL (8.5-10.1); CREATININE 5.7 mg/dL (0.55-1.3); MAGNESIUM 1.8 mg/dL (1.8-2.4); POTASSIUM 4.4 mmol/L (3.5-5.1); TOT PROT 6.1 g/dl (6.4-8.2)
[2018-12-27 16:37] VITALS: TEMP 98.2
[2018-12-27 16:38] VITALS: BP 130/72; PULSE 74
== END 2018-12-27 17:01 | disposition home or self-care (01) ==
LOC: JONCCHEMO 05:37 → J7W 13:26 → JONCCHEMO 17:01
PROVIDERS: ATTEND Internal Medicine Hematology & Oncology
PROC: 3E01305 Introduction of Other Antineoplastic into Subcutaneous Tissue, Percutaneous Approach (ICD-10-PCS; principal; 2018-12-27)
PROC: 3E0337Z Introduction of Electrolytic and Water Balance Substance into Peripheral Vein, Percutaneous Approach (ICD-10-PCS; 2018-12-27)
DX: Z51.11 Encounter for antineoplastic chemotherapy (principal); C90.00 Multiple myeloma not having achieved remission; I10 Essential (primary) hypertension; E78.00 Pure hypercholesterolemia, unspecified
CPT/HCPCS: 36415; 80053; 83735; 85025; 96360; 96361; 96401; J9041

== ENCOUNTER 2019-01-03 07:16 | Day surgery (SDC) | payer OTHER ==
[2019-01-03] MEDS ORDERED: DEXAMETHASONE 4 MG TABLET (FP) PO ONE (10:00)
[2019-01-03] MEDS ORDERED: BORTEZOMIB (VELCADE) 2.5 MG/ML SUB-Q INJECTION SQ ONE (10:00)
[2019-01-03] MEDS ORDERED: DENOSUMAB 120 MG/1.7 ML VIAL SQ ONE (10:00)
[2019-01-03] MEDS ORDERED: D5-NS + 20 MEQ KCL - 20 MEQ/1,000 ML INFUS.BAG IV ONE (10:00)
[2019-01-03 10:25] LABS: BASO % 0.2 % (0-2.0); HEMATOCRIT 22.6 % (35.4-49); HEMOGLOBIN 7.8 GM/dL (11.7-16.9); LYMPH % 6.1 % (8-40); MCH 33.5 pg (25.7-33.7); MCHC 34.6 g/dl (32.0-35.9); MEAN CELL VOLUME 96.9 fl (80-96); MEAN PLT VOLUME 8.3 fl (7.5-11.1); MONO % 21.3 % (3.8-10.2); NEUT % 72.4 % (42.8-82.8); PLATELET COUNT 215 K/MM3 (134-434); RBC 2.33 M/mm3 (4.00-5.60); RDW 18.7 % (11.9-15.9); WHITE BLOOD COUNT 2.5 K/mm3 (4.0-10.0)
[2019-01-03 10:58] LABS: ALBUMIN 3.3 g/dl (3.4-5.0); BILIRUBIN,TOTAL 0.6 mg/dL (0.2-1); BLOOD UREA NITROGEN 70.6 mg/dL (7-18); CALCIUM 8.5 mg/dL (8.5-10.1); CREATININE 5.3 mg/dL (0.55-1.3); MAGNESIUM 1.9 mg/dL (1.8-2.4); POTASSIUM 4.5 mmol/L (3.5-5.1); TOT PROT 6.2 g/dl (6.4-8.2)
[2019-01-03 12:21] LABS: ANISOCYTOSIS 1+; MACROCYTOSIS 1+; PLATELET ESTIMATE NORMAL
[2019-01-03 13:06] LABS: URIC ACID 10.7 mg/dL (2.6-7.2)
[2019-01-03 16:28] VITALS: BP 128/73; PULSE 67; TEMP 97.7
== END 2019-01-03 16:15 | disposition home or self-care (01) ==
LOC: JONCCHEMO 07:16 → J7W 12:13 → JONCCHEMO 16:15
PROVIDERS: ATTEND Internal Medicine Hematology & Oncology
PROC: 3E01305 Introduction of Other Antineoplastic into Subcutaneous Tissue, Percutaneous Approach (ICD-10-PCS; principal; 2019-01-03)
PROC: 3E033GC Introduction of Other Therapeutic Substance into Peripheral Vein, Percutaneous Approach (ICD-10-PCS; 2019-01-03)
DX: Z51.11 Encounter for antineoplastic chemotherapy (principal); C90.00 Multiple myeloma not having achieved remission
CPT/HCPCS: 36415; 80053; 82306; 83735; 84439; 84443; 84550; 85025; 96361; 96365; 96366; 96401; J0897; J9041

== ENCOUNTER 2019-01-04 08:09 | Day surgery (SDC) | payer OTHER ==
[2019-01-04] MEDS ORDERED: FUROSEMIDE 40 MG/4 ML INJECTABLE VIAL IVPUSH PRN (09:18)
[2019-01-04 09:42] LABS: BASO % 0.1 % (0-2.0); HEMATOCRIT 20.7 % (35.4-49); LYMPH % 2.4 % (8-40); MCH 32.9 pg (25.7-33.7); MCHC 33.9 g/dl (32.0-35.9); MEAN CELL VOLUME 97.1 fl (80-96); MEAN PLT VOLUME 8.3 fl (7.5-11.1); MONO % 12.9 % (3.8-10.2); NEUT % 84.6 % (42.8-82.8); PLATELET COUNT 204 K/MM3 (134-434); RBC 2.13 M/mm3 (4.00-5.60); RDW 18.7 % (11.9-15.9); WHITE BLOOD COUNT 3.9 K/mm3 (4.0-10.0)
--- NOTE | 2019-01-04 16:04 | HP ---
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 [employer] History of Recent Travel: Yes ([place]) Home Medications - Allergies Allergies/Adverse Reactions: Allergies Allergy/AdvReac Type Severity Reaction Status Date / Time No Known Allergies Allergy Verified 10/21/18 19:21 - Home Medications Home Medications: Ambulatory Orders Allopurinol [Zyloprim -] 100 mg PO DAILY 11/06/18 Dexamethasone [Decadron] 4 mg PO ASDIR 11/06/18 Pantoprazole Sodium [Protonix] 40 mg PO DAILY 11/06/18 Valacyclovir HCl [Valtrex] 500 mg PO DAILY 11/06/18 traMADol HCL [Ultram] 50 mg PO Q6H PRN 11/06/18 Physical Examination Vital Signs: Vital Signs Temperature 98.1 F 01/04/19 11:10 Pulse Rate 74 01/04/19 11:10 Respiratory Rate 18 01/04/19 11:10 Blood Pressure 129/74 01/04/19 11:10 O2 Sat by Pulse Oximetry (%) Labs: CBC, [facility] 01/04/19 08:50 Assessment/Plan Patient sen and examined Multiple myeloma on cytoxan, decadron, and velcade Renal failure secondary to MM Anemia- requiring transfusion therapy Last Vital Signs Temp Pulse Resp BP Pulse Ox 98.1 F 74 18 129/74 01/04/19 11:10 01/04/19 11:10 01/04/19 11:10 01/04/19 11:10 HEENT: THUY, EOM Intact Cor: RSR, No murmurs, No gallops Lungs: Clear to P&A Abd: Soft, Normal bowel sounds, No organomegaly Ext:edema LE Skin: No rashes, Integument intact CBC, [facility] 01/04/19 08:50 Impression : Myeloma Anemia CKD Plan - transfuse 2 packed cells
[2019-01-04 19:00] VITALS: BP 150/96; PULSE 70; TEMP 97.7
== END 2019-01-04 17:00 | disposition home or self-care (01) ==
LOC: JONCBLOOD 08:09 → J7W 08:11 → JONCBLOOD 17:00
PROVIDERS: ATTEND Internal Medicine Hematology & Oncology
PROC: 30233N1 Transfusion of Nonautologous Red Blood Cells into Peripheral Vein, Percutaneous Approach (ICD-10-PCS; principal; 2019-01-04)
DX: D64.9 Anemia, unspecified (principal); C90.00 Multiple myeloma not having achieved remission
CPT/HCPCS: 36415; 36430; 36511; 85025; 86850; 86900; 86901; 86922; P9038; P9058

== ENCOUNTER 2019-01-10 07:18 | Day surgery (SDC) | payer OTHER ==
[2019-01-10] MEDS ORDERED: D5-NS + 20 MEQ KCL - 20 MEQ/1,000 ML INFUS.BAG IV ONE (10:00)
[2019-01-10] MEDS ORDERED: BORTEZOMIB (VELCADE) 2.5 MG/ML SUB-Q INJECTION SQ ONE (10:00)
[2019-01-10] MEDS ORDERED: DEXAMETHASONE 4 MG TABLET (FP) PO ONE (10:00)
[2019-01-10 11:18] LABS: BASO % 0.2 % (0-2.0); HEMATOCRIT 26.2 % (35.4-49); LYMPH % 4.4 % (8-40); MCHC 34.1 g/dl (32.0-35.9); MEAN CELL VOLUME 96.8 fl (80-96); MEAN PLT VOLUME 8.7 fl (7.5-11.1); MONO % 15.6 % (3.8-10.2); NEUT % 79.8 % (42.8-82.8); PLATELET COUNT 194 K/MM3 (134-434); RBC 2.71 M/mm3 (4.00-5.60); RDW 17.4 % (11.9-15.9); WHITE BLOOD COUNT 3.2 K/mm3 (4.0-10.0)
[2019-01-10 11:23] LABS: ALBUMIN 3.4 g/dl (3.4-5.0); BILIRUBIN,TOTAL 0.6 mg/dL (0.2-1); MAGNESIUM 1.9 mg/dL (1.8-2.4); POTASSIUM 3.9 mmol/L (3.5-5.1); TOT PROT 6.2 g/dl (6.4-8.2)
[2019-01-10 16:53] VITALS: TEMP 97.6
[2019-01-10 16:54] VITALS: BP 133/75; PULSE 70
[2019-01-14 01:17] LABS: PHOSPHOROUS 2.6 mg/dL (2.5-4.9)
[2019-01-14 11:17] LABS: CALCIUM 6.6 mg/dL (8.5-10.1); CREATININE 5.1 mg/dL (0.55-1.3)
== END 2019-01-10 15:45 | disposition home or self-care (01) ==
LOC: JONCCHEMO 07:18 → J7W 12:26 → JONCCHEMO 15:45
PROVIDERS: ATTEND Internal Medicine Hematology & Oncology
PROC: 3E013GC Introduction of Other Therapeutic Substance into Subcutaneous Tissue, Percutaneous Approach (ICD-10-PCS; principal; 2019-01-10)
PROC: 3E0337Z Introduction of Electrolytic and Water Balance Substance into Peripheral Vein, Percutaneous Approach (ICD-10-PCS; 2019-01-10)
DX: Z51.11 Encounter for antineoplastic chemotherapy (principal); C90.00 Multiple myeloma not having achieved remission; D64.9 Anemia, unspecified
CPT/HCPCS: 36415; 80053; 83735; 84100; 85025; 96360; 96361; 96401; J9041

== ENCOUNTER 2019-01-17 05:35 | Day surgery (SDC) | payer OTHER ==
[2019-01-17] MEDS ORDERED: D5-NS + 20 MEQ KCL - 20 MEQ/1,000 ML INFUS.BAG IV ONE (10:00)
[2019-01-17] MEDS ORDERED: DEXAMETHASONE 4 MG TABLET (FP) PO ONE (10:00)
[2019-01-17] MEDS ORDERED: BORTEZOMIB (VELCADE) 2.5 MG/ML SUB-Q INJECTION SQ ONE (10:00)
[2019-01-17 11:17] LABS: BASO % 0.3 % (0-2.0); HEMATOCRIT 26.3 % (35.4-49); HEMOGLOBIN 8.7 GM/dL (11.7-16.9); LYMPH % 10.9 % (8-40); MCH 32.4 pg (25.7-33.7); MCHC 33.1 g/dl (32.0-35.9); MEAN PLT VOLUME 8.2 fl (7.5-11.1); MONO % 15.4 % (3.8-10.2); NEUT % 73.4 % (42.8-82.8); PLATELET COUNT 173 K/MM3 (134-434); RBC 2.68 M/mm3 (4.00-5.60); RDW 19.1 % (11.9-15.9)
[2019-01-17 11:42] LABS: WHITE BLOOD COUNT 1.9 K/mm3 (4.0-10.0)
[2019-01-17 11:57] LABS: ALBUMIN 3.3 g/dl (3.4-5.0); BILIRUBIN,TOTAL 0.6 mg/dL (0.2-1); CREATININE 4.5 mg/dL (0.55-1.3); MAGNESIUM 1.8 mg/dL (1.8-2.4); PHOSPHOROUS 2.1 mg/dL (2.5-4.9); POTASSIUM 4.1 mmol/L (3.5-5.1); TOT PROT 5.8 g/dl (6.4-8.2)
[2019-01-17 12:06] LABS: CALCIUM 6.5 mg/dL (8.5-10.1)
[2019-01-17] MEDS ORDERED: CALCIUM GLUCONATE 10% - 1,000 MG/10 ML VIAL IVPB ONE (12:07)
[2019-01-17] MEDS ORDERED: SODIUM CHLORIDE 500 ML IV STA (12:08)
[2019-01-17 12:50] LABS: ANISOCYTOSIS 1+; MACROCYTOSIS 1+; PLATELET ESTIMATE NORMAL
[2019-01-17 15:01] VITALS: BP 126/79; PULSE 79; TEMP 97.4
== END 2019-01-17 15:00 | disposition home or self-care (01) ==
LOC: JONCCHEMO 05:35 → J7W 12:31 → JONCCHEMO 15:00
PROVIDERS: ATTEND Internal Medicine Hematology & Oncology
PROC: 3E01305 Introduction of Other Antineoplastic into Subcutaneous Tissue, Percutaneous Approach (ICD-10-PCS; principal; 2019-01-17)
PROC: 3E043GC Introduction of Other Therapeutic Substance into Central Vein, Percutaneous Approach (ICD-10-PCS; 2019-01-17)
PROC: 3E033GC Introduction of Other Therapeutic Substance into Peripheral Vein, Percutaneous Approach (ICD-10-PCS; 2019-01-17)
DX: Z51.11 Encounter for antineoplastic chemotherapy (principal); C90.00 Multiple myeloma not having achieved remission
CPT/HCPCS: 36415; 80053; 83615; 83735; 84100; 84550; 85025; 96361; 96365; 96401; J9041

== ENCOUNTER 2019-01-24 05:29 | Day surgery (SDC) | payer OTHER ==
[2019-01-24] MEDS ORDERED: D5-NS + 20 MEQ KCL - 20 MEQ/1,000 ML INFUS.BAG IV ONE (10:00)
[2019-01-24] MEDS ORDERED: BORTEZOMIB (VELCADE) 2.5 MG/ML SUB-Q INJECTION SQ ONE (10:00)
[2019-01-24] MEDS ORDERED: DEXAMETHASONE 4 MG TABLET (FP) PO ONE (10:00)
[2019-01-24 10:55] LABS: BASO % 0.8 % (0-2.0); HEMOGLOBIN 8.4 GM/dL (11.7-16.9); MCH 33.3 pg (25.7-33.7); MCHC 33.7 g/dl (32.0-35.9); MEAN CELL VOLUME 98.7 fl (80-96); MEAN PLT VOLUME 8.6 fl (7.5-11.1); MONO % 26.4 % (3.8-10.2); NEUT % 23.8 % (42.8-82.8); PLATELET COUNT 144 K/MM3 (134-434); RBC 2.53 M/mm3 (4.00-5.60); RDW 19.9 % (11.9-15.9)
[2019-01-24 11:06] LABS: ALBUMIN 3.4 g/dl (3.4-5.0); BILIRUBIN,TOTAL 0.5 mg/dL (0.2-1); BLOOD UREA NITROGEN 61.1 mg/dL (7-18); CALCIUM 7.1 mg/dL (8.5-10.1); CREATININE 4.1 mg/dL (0.55-1.3); MAGNESIUM 2.1 mg/dL (1.8-2.4); PHOSPHOROUS 2.6 mg/dL (2.5-4.9); POTASSIUM 4.3 mmol/L (3.5-5.1)
[2019-01-24 13:12] LABS: ANISOCYTOSIS 1+; MACROCYTOSIS 0; PLATELET ESTIMATE DECREASED
[2019-01-24] MEDS ORDERED: SODIUM CHLORIDE 500 ML IV ONE (14:30)
[2019-01-24] MEDS ORDERED: TBO-FILGRASTIM 300 MCG/0.5 ML DISP.SYRINGE SQ ONE (14:30)
[2019-01-24 16:11] VITALS: BP 133/75; PULSE 76; TEMP 98.2
== END 2019-01-24 13:45 | disposition home or self-care (01) ==
LOC: JONCCHEMO 05:29 → J7W 11:38 → JONCCHEMO 13:45
PROVIDERS: ATTEND Internal Medicine Hematology & Oncology
PROC: 3E013GC Introduction of Other Therapeutic Substance into Subcutaneous Tissue, Percutaneous Approach (ICD-10-PCS; principal; 2019-01-24)
PROC: 3E0337Z Introduction of Electrolytic and Water Balance Substance into Peripheral Vein, Percutaneous Approach (ICD-10-PCS; 2019-01-24)
DX: C90.00 Multiple myeloma not having achieved remission (principal)
CPT/HCPCS: 36415; 80053; 83735; 83970; 84100; 85025; 96360; 96361; 96372; J1447

== ENCOUNTER 2019-01-25 05:32 | Day surgery (SDC) | payer OTHER ==
[2019-01-25] MEDS ORDERED: TBO-FILGRASTIM 480 MCG/0.8 ML DISP.SYRIN SQ ONE (10:00)
[2019-01-25 10:28] VITALS: BP 124/74; PULSE 74
[2019-01-25 10:32] VITALS: TEMP 98.3
== END 2019-01-25 09:45 | disposition home or self-care (01) ==
LOC: JONCCHEMO 05:32 → J7W 09:45
PROVIDERS: ATTEND Internal Medicine Hematology & Oncology
PROC: 3E013GC Introduction of Other Therapeutic Substance into Subcutaneous Tissue, Percutaneous Approach (ICD-10-PCS; principal; 2019-01-25)
DX: C90.00 Multiple myeloma not having achieved remission (principal)
CPT/HCPCS: 96372; J1447

== ENCOUNTER → 2019-01-28 | Day surgery (SDC) | payer OTHER ==
[~2019-01-28] MED LIST: TBO-FILGRASTIM 480 MCG/0.8 ML DISP.SYRIN SQ ONE
[2019-01-28 10:08] LABS: BASO % 0.3 % (0-2.0); HEMOGLOBIN 8.9 GM/dL (11.7-16.9); LYMPH % 15.9 % (8-40); MCH 33.9 pg (25.7-33.7); MCHC 34.1 g/dl (32.0-35.9); MEAN CELL VOLUME 99.2 fl (80-96); MEAN PLT VOLUME 8.4 fl (7.5-11.1); MONO % 12.7 % (3.8-10.2); NEUT % 71.1 % (42.8-82.8); PLATELET COUNT 149 K/MM3 (134-434); RBC 2.62 M/mm3 (4.00-5.60); RDW 20.4 % (11.9-15.9); WHITE BLOOD COUNT 8.2 K/mm3 (4.0-10.0)
[2019-01-28 10:32] LABS: ALBUMIN 3.4 g/dl (3.4-5.0); BILIRUBIN,TOTAL 0.4 mg/dL (0.2-1); BLOOD UREA NITROGEN 48.1 mg/dL (7-18); CALCIUM 8.1 mg/dL (8.5-10.1); CREATININE 4.5 mg/dL (0.55-1.3); MAGNESIUM 1.8 mg/dL (1.8-2.4); POTASSIUM 4.2 mmol/L (3.5-5.1); TOT PROT 6.1 g/dl (6.4-8.2)
[2019-01-28 12:53] LABS: ANISOCYTOSIS 1+; MACROCYTOSIS 1+; OVALOCYTE 1+; PLATELET ESTIMATE DECREASED
== END | disposition home or self-care (01) ==
LOC: JONCCHEMO 06:29
PROVIDERS: ATTEND Internal Medicine Hematology & Oncology
DX: Z53.8 Procedure and treatment not carried out for other reasons (principal)
CPT/HCPCS: 36415; 80053; 83735; 85025; 96365

== ENCOUNTER 2019-01-31 07:32 | Day surgery (SDC) | payer OTHER ==
[2019-01-31 09:57] LABS: BASO % 0.6 % (0-2.0); HEMATOCRIT 26.2 % (35.4-49); HEMOGLOBIN 8.8 GM/dL (11.7-16.9); LYMPH % 21.1 % (8-40); MCH 33.5 pg (25.7-33.7); MCHC 33.7 g/dl (32.0-35.9); MEAN CELL VOLUME 99.5 fl (80-96); MONO % 20.1 % (3.8-10.2); NEUT % 58.2 % (42.8-82.8); PLATELET COUNT 142 K/MM3 (134-434); RBC 2.63 M/mm3 (4.00-5.60); RDW 19.6 % (11.9-15.9)
[2019-01-31] MEDS ORDERED: BORTEZOMIB (VELCADE) 2.5 MG/ML SUB-Q INJECTION SQ ONE (10:00)
[2019-01-31] MEDS ORDERED: DEXAMETHASONE 4 MG TABLET (FP) PO ONE (10:00)
[2019-01-31] MEDS ORDERED: D5-NS + 20 MEQ KCL - 20 MEQ/1,000 ML INFUS.BAG IV ONE (10:00)
[2019-01-31] MEDS ORDERED: DENOSUMAB 120 MG/1.7 ML VIAL SQ ONE (10:00)
[2019-01-31 10:27] LABS: ALBUMIN 3.5 g/dl (3.4-5.0); BILIRUBIN,TOTAL 0.6 mg/dL (0.2-1); BLOOD UREA NITROGEN 56.1 mg/dL (7-18); CALCIUM 8.1 mg/dL (8.5-10.1); CREATININE 4.9 mg/dL (0.55-1.3); MAGNESIUM 1.8 mg/dL (1.8-2.4); POTASSIUM 4.3 mmol/L (3.5-5.1); TOT PROT 6.2 g/dl (6.4-8.2); URIC ACID 10.7 mg/dL (2.6-7.2)
[2019-01-31 11:12] LABS: ANISOCYTOSIS 1+; MACROCYTOSIS 1+; OVALOCYTE 1+; PLATELET ESTIMATE NORMAL
[2019-01-31] MEDS ORDERED: CYCLOPHOSPHAMIDE PO ONE (12:00)
[2019-01-31 16:09] VITALS: TEMP 97.8
[2019-01-31 16:15] VITALS: BP 150/81; PULSE 64
== END 2019-01-31 15:15 | disposition home or self-care (01) ==
LOC: JONCCHEMO 07:32 → J7W 11:13 → JONCCHEMO 15:15
PROVIDERS: ATTEND Internal Medicine Hematology & Oncology
DX: Z51.11 Encounter for antineoplastic chemotherapy (principal); C90.00 Multiple myeloma not having achieved remission
CPT/HCPCS: 36415; 80053; 83615; 83735; 84550; 85025; 96401; 96402; J0897; J8530; J9041

== ENCOUNTER 2019-02-07 07:24 | Day surgery (SDC) | payer OTHER ==
[2019-02-07 10:33] LABS: BASO % 0.4 % (0-2.0); HEMATOCRIT 25.6 % (35.4-49); HEMOGLOBIN 8.7 GM/dL (11.7-16.9); LYMPH % 13.4 % (8-40); MCH 34.1 pg (25.7-33.7); MCHC 34.1 g/dl (32.0-35.9); MEAN PLT VOLUME 8.4 fl (7.5-11.1); MONO % 13.1 % (3.8-10.2); NEUT % 73.1 % (42.8-82.8); PLATELET COUNT 148 K/MM3 (134-434); RBC 2.56 M/mm3 (4.00-5.60); RDW 19.5 % (11.9-15.9); WHITE BLOOD COUNT 2.8 K/mm3 (4.0-10.0)
[2019-02-07 10:59] LABS: ALBUMIN 3.6 g/dl (3.4-5.0); BILIRUBIN,TOTAL 0.6 mg/dL (0.2-1); BLOOD UREA NITROGEN 57.6 mg/dL (7-18); CALCIUM 7.1 mg/dL (8.5-10.1); CREATININE 4.2 mg/dL (0.55-1.3); MAGNESIUM 1.9 mg/dL (1.8-2.4); PHOSPHOROUS 2.6 mg/dL (2.5-4.9); POTASSIUM 4.4 mmol/L (3.5-5.1); TOT PROT 6.3 g/dl (6.4-8.2)
[2019-02-07] MEDS ORDERED: BORTEZOMIB (VELCADE) 2.5 MG/ML SUB-Q INJECTION SQ ONE (12:30)
[2019-02-07] MEDS ORDERED: DEXAMETHASONE 4 MG TABLET (FP) PO ONE (12:30)
[2019-02-07] MEDS ORDERED: D5-NS + 20 MEQ KCL - 20 MEQ/1,000 ML INFUS.BAG IV ONE (13:00)
[2019-02-07 15:45] VITALS: BP 145/90; PULSE 74; TEMP 97.5
== END 2019-02-07 15:45 | disposition home or self-care (01) ==
LOC: JONCCHEMO 07:24 → J7W 11:29 → JONCCHEMO 15:45
PROVIDERS: ATTEND Internal Medicine Hematology & Oncology
PROC: 3E01305 Introduction of Other Antineoplastic into Subcutaneous Tissue, Percutaneous Approach (ICD-10-PCS; principal; 2019-02-07)
PROC: 3E033GC Introduction of Other Therapeutic Substance into Peripheral Vein, Percutaneous Approach (ICD-10-PCS; 2019-02-07)
DX: Z51.11 Encounter for antineoplastic chemotherapy (principal); C90.00 Multiple myeloma not having achieved remission; I12.9 Hypertensive chronic kidney disease with stage 1 through stage 4 chronic kidney disease, or unspecified chronic kidney disease; N18.9 Chronic kidney disease, unspecified; I48.91 Unspecified atrial fibrillation; E78.00 Pure hypercholesterolemia, unspecified
CPT/HCPCS: 36415; 80053; 82306; 83735; 84100; 85025; 96360; 96361; 96401; J9041

== ENCOUNTER 2019-02-14 07:08 | Day surgery (SDC) | payer OTHER ==
[2019-02-14] MEDS ORDERED: D5-NS + 20 MEQ KCL - 20 MEQ/1,000 ML INFUS.BAG IV ONE (10:00)
[2019-02-14] MEDS ORDERED: DEXAMETHASONE 4 MG TABLET (FP) PO ONE (10:00)
[2019-02-14] MEDS ORDERED: BORTEZOMIB (VELCADE) 2.5 MG/ML SUB-Q INJECTION SQ ONE (10:00)
[2019-02-14 12:03] LABS: BASO % 0.6 % (0-2.0); EOS % 0.6 % (0-4.5); HEMATOCRIT 23.3 % (35.4-49); HEMOGLOBIN 7.9 GM/dL (11.7-16.9); LYMPH % 10.4 % (8-40); MCH 34.4 pg (25.7-33.7); MCHC 33.9 g/dl (32.0-35.9); MEAN CELL VOLUME 101.7 fl (80-96); MEAN PLT VOLUME 8.5 fl (7.5-11.1); NEUT % 72.4 % (42.8-82.8); PLATELET COUNT 130 K/MM3 (134-434); RBC 2.29 M/mm3 (4.00-5.60); RDW 18.5 % (11.9-15.9)
[2019-02-14 12:10] LABS: WHITE BLOOD COUNT 1.9 K/mm3 (4.0-10.0)
[2019-02-14 12:38] LABS: ALBUMIN 3.4 g/dl (3.4-5.0); BILIRUBIN,TOTAL 0.6 mg/dL (0.2-1); BLOOD UREA NITROGEN 53.2 mg/dL (7-18); CALCIUM 7.3 mg/dL (8.5-10.1); CREATININE 4.4 mg/dL (0.55-1.3); MAGNESIUM 1.6 mg/dL (1.8-2.4); POTASSIUM 4.5 mmol/L (3.5-5.1); TOT PROT 5.8 g/dl (6.4-8.2)
[2019-02-14 12:54] LABS: ANISOCYTOSIS 1+; MACROCYTOSIS 1+; PLATELET ESTIMATE DECREASED
[2019-02-14] MEDS ORDERED: MAGNESIUM OXIDE 400 MG TABLET (FP) PO ONE (15:00)
[2019-02-14 17:07] VITALS: BP 147/78; PULSE 72; TEMP 97.9
== END 2019-02-14 17:30 | disposition home or self-care (01) ==
LOC: JONCCHEMO 07:08 → J7W 14:22 → JONCCHEMO 17:30
PROVIDERS: ATTEND Internal Medicine Hematology & Oncology
PROC: 3E01305 Introduction of Other Antineoplastic into Subcutaneous Tissue, Percutaneous Approach (ICD-10-PCS; principal; 2019-02-14)
PROC: 3E0337Z Introduction of Electrolytic and Water Balance Substance into Peripheral Vein, Percutaneous Approach (ICD-10-PCS; 2019-02-14)
DX: Z51.11 Encounter for antineoplastic chemotherapy (principal); C90.00 Multiple myeloma not having achieved remission
CPT/HCPCS: 36415; 80053; 83735; 85025; 96360; 96361; 96401; J9041

== ENCOUNTER → 2019-02-28 | Day surgery (SDC) | payer OTHER ==
[~2019-02-28] MED LIST changes: +BORTEZOMIB (VELCADE) 2.5 MG/ML SUB-Q INJECTION SQ ONE; +D5-NS + 20 MEQ KCL - 20 MEQ/1,000 ML INFUS.BAG IV ONE; +DEXAMETHASONE 4 MG TABLET (FP) PO ONE; -TBO-FILGRASTIM 480 MCG/0.8 ML DISP.SYRIN SQ ONE
[2019-02-28 10:11] LABS: BASO % 0.8 % (0-2.0); EOS % 1.4 % (0-4.5); HEMATOCRIT 23.4 % (35.4-49); LYMPH % 24.8 % (8-40); MCH 35.5 pg (25.7-33.7); MCHC 34.2 g/dl (32.0-35.9); MEAN CELL VOLUME 103.8 fl (80-96); MEAN PLT VOLUME 8.3 fl (7.5-11.1); MONO % 33.1 % (3.8-10.2); NEUT % 39.9 % (42.8-82.8); PLATELET COUNT 171 K/MM3 (134-434); RBC 2.25 M/mm3 (4.00-5.60); RDW 18.5 % (11.9-15.9)
[2019-02-28 10:22] LABS: WHITE BLOOD COUNT 1.6 K/mm3 (4.0-10.0)
[2019-02-28 10:35] LABS: ALBUMIN 3.5 g/dl (3.4-5.0); BILIRUBIN,TOTAL 0.7 mg/dL (0.2-1); BLOOD UREA NITROGEN 65.8 mg/dL (7-18); CALCIUM 7.1 mg/dL (8.5-10.1); CREATININE 4.5 mg/dL (0.55-1.3); MAGNESIUM 1.8 mg/dL (1.8-2.4); POTASSIUM 3.9 mmol/L (3.5-5.1); TOT PROT 5.8 g/dl (6.4-8.2)
[2019-02-28 11:20] LABS: ANISOCYTOSIS 1+; MACROCYTOSIS 1+; PLATELET ESTIMATE NORMAL
== END | disposition home or self-care (01) ==
LOC: JONCCHEMO 05:40
PROVIDERS: ATTEND Internal Medicine Hematology & Oncology
DX: Z53.8 Procedure and treatment not carried out for other reasons (principal)
CPT/HCPCS: 36415; 80053; 83735; 85025; 96365

== ENCOUNTER 2019-03-07 07:15 | Day surgery (SDC) | payer OTHER ==
[2019-03-07] MEDS ORDERED: DENOSUMAB 120 MG/1.7 ML VIAL SQ ONE (10:00)
[2019-03-07] MEDS ORDERED: BORTEZOMIB (VELCADE) 2.5 MG/ML SUB-Q INJECTION SQ ONE (10:00)
[2019-03-07] MEDS ORDERED: DEXAMETHASONE 4 MG TABLET (FP) PO ONE (10:00)
[2019-03-07] MEDS ORDERED: D5-NS + 20 MEQ KCL - 20 MEQ/1,000 ML INFUS.BAG IV ONE (10:30)
[2019-03-07 10:58] LABS: BASO % 1.2 % (0-2.0); EOS % 1.3 % (0-4.5); HEMATOCRIT 26.6 % (35.4-49); HEMOGLOBIN 9.1 GM/dL (11.7-16.9); MCH 36.2 pg (25.7-33.7); MCHC 34.3 g/dl (32.0-35.9); MEAN CELL VOLUME 105.6 fl (80-96); MEAN PLT VOLUME 8.9 fl (7.5-11.1); MONO % 18.4 % (3.8-10.2); NEUT % 65.1 % (42.8-82.8); PLATELET COUNT 177 K/MM3 (134-434); RBC 2.52 M/mm3 (4.00-5.60); RDW 17.1 % (11.9-15.9); WHITE BLOOD COUNT 3.5 K/mm3 (4.0-10.0)
[2019-03-07 11:24] LABS: ALBUMIN 3.6 g/dl (3.4-5.0); BILIRUBIN,TOTAL 0.9 mg/dL (0.2-1); BLOOD UREA NITROGEN 63.6 mg/dL (7-18); CALCIUM 7.2 mg/dL (8.5-10.1); CREATININE 3.9 mg/dL (0.55-1.3); MAGNESIUM 1.8 mg/dL (1.8-2.4); TOT PROT 6.1 g/dl (6.4-8.2)
[2019-03-07 11:27] LABS: ANISOCYTOSIS 1+; MACROCYTOSIS 1+; PLATELET ESTIMATE NORMAL
[2019-03-07] MEDS ORDERED: DEXAMETHASONE INJECTION 20 MG in SODIUM CHLORIDE 100 ML IVPB ONE (12:15)
[2019-03-07] MEDS ORDERED: CYCLOPHOSPHAMIDE 50 MG CAPSULE PO ONE (12:15)
[2019-03-07 13:55] LABS: URIC ACID 9.7 mg/dL (2.6-7.2)
[2019-03-07 16:04] VITALS: BP 137/81; PULSE 66; TEMP 98.4
[2019-03-08 17:07] LABS: FREE KAPPA,SERUM 16.8 mg/L (3.3-19.4)
[2019-03-12 05:06] LABS: KAPPA LAMBDA RATIO URIN 0.02 (2.04-10.37)
== END 2019-03-07 14:20 | disposition home or self-care (01) ==
LOC: JONCCHEMO 07:15 → J7W 11:42 → JONCCHEMO 14:20
PROVIDERS: ATTEND Internal Medicine Hematology & Oncology
PROC: 3E01305 Introduction of Other Antineoplastic into Subcutaneous Tissue, Percutaneous Approach (ICD-10-PCS; principal; 2019-03-07)
PROC: 3E033GC Introduction of Other Therapeutic Substance into Peripheral Vein, Percutaneous Approach (ICD-10-PCS; 2019-03-07)
PROC: 3E0337Z Introduction of Electrolytic and Water Balance Substance into Peripheral Vein, Percutaneous Approach (ICD-10-PCS; 2019-03-07)
DX: Z51.11 Encounter for antineoplastic chemotherapy (principal); C90.00 Multiple myeloma not having achieved remission; I10 Essential (primary) hypertension; E78.00 Pure hypercholesterolemia, unspecified
CPT/HCPCS: 36415; 80053; 82232; 82784; 83615; 83735; 83883; 84155; 84165; 84550; 85025; 86335; 96361; 96365; 96372; 96401; J0897; J9041

== ENCOUNTER 2019-03-14 07:27 | Day surgery (SDC) | payer OTHER ==
[2019-03-14] MEDS ORDERED: BORTEZOMIB (VELCADE) 2.5 MG/ML SUB-Q INJECTION SQ ONE (10:00)
[2019-03-14] MEDS ORDERED: DEXAMETHASONE 4 MG TABLET (FP) PO ONE (10:00)
[2019-03-14] MEDS ORDERED: D5-NS + 20 MEQ KCL - 20 MEQ/1,000 ML INFUS.BAG IV ONE (10:00)
[2019-03-14 10:59] LABS: BASO % 0.9 % (0-2.0); EOS % 4.5 % (0-4.5); HEMOGLOBIN 8.8 GM/dL (11.7-16.9); LYMPH % 8.8 % (8-40); MCH 36.1 pg (25.7-33.7); MCHC 33.7 g/dl (32.0-35.9); MEAN CELL VOLUME 107.2 fl (80-96); MEAN PLT VOLUME 8.9 fl (7.5-11.1); MONO % 10.3 % (3.8-10.2); NEUT % 75.5 % (42.8-82.8); PLATELET COUNT 172 K/MM3 (134-434); RBC 2.42 M/mm3 (4.00-5.60); RDW 16.8 % (11.9-15.9); WHITE BLOOD COUNT 3.2 K/mm3 (4.0-10.0)
[2019-03-14] MEDS ORDERED: amLODIPine BESYLATE 5 MG TABLET (FP) PO PRN (11:31)
[2019-03-14 11:33] LABS: ALBUMIN 3.6 g/dl (3.4-5.0); BILIRUBIN,TOTAL 0.6 mg/dL (0.2-1); BLOOD UREA NITROGEN 58.4 mg/dL (7-18); CALCIUM 8.1 mg/dL (8.5-10.1); CREATININE 3.9 mg/dL (0.55-1.3); MAGNESIUM 1.9 mg/dL (1.8-2.4); POTASSIUM 4.3 mmol/L (3.5-5.1); TOT PROT 6.1 g/dl (6.4-8.2)
[2019-03-14 11:42] LABS: ANISOCYTOSIS 1+; MACROCYTOSIS 1+; PLATELET ESTIMATE NORMAL
[2019-03-14] MEDS ORDERED: SODIUM CHLORIDE 0.45%/POT 20 MEQ/1,000 ML INFUS.BAG IV ONE (12:00)
[2019-03-14] MEDS ORDERED: CYCLOPHOSPHAMIDE 50 MG CAPSULE PO ONE (12:00)
[2019-03-14] MEDS ORDERED: DEXAMETHASONE INJECTION 20 MG in SODIUM CHLORIDE 100 ML IVPB ONE (13:00)
[2019-03-14 13:10] VITALS: TEMP 98.3
[2019-03-14 15:05] VITALS: BP 136/78; PULSE 64
== END 2019-03-14 15:11 | disposition home or self-care (01) ==
LOC: JONCCHEMO 07:27 → J7W 11:27 → JONCCHEMO 15:11
PROVIDERS: ATTEND Internal Medicine Hematology & Oncology
PROC: 3E01305 Introduction of Other Antineoplastic into Subcutaneous Tissue, Percutaneous Approach (ICD-10-PCS; principal; 2019-03-14)
PROC: 3E0337Z Introduction of Electrolytic and Water Balance Substance into Peripheral Vein, Percutaneous Approach (ICD-10-PCS; 2019-03-14)
PROC: 3E033GC Introduction of Other Therapeutic Substance into Peripheral Vein, Percutaneous Approach (ICD-10-PCS; 2019-03-14)
DX: Z51.11 Encounter for antineoplastic chemotherapy (principal); C90.00 Multiple myeloma not having achieved remission
CPT/HCPCS: 36415; 80053; 83615; 83735; 84550; 85025; 96361; 96365; 96401; J1100; J3480; J9041

== ENCOUNTER 2019-03-21 06:27 | Day surgery (SDC) | payer OTHER ==
[2019-03-21] MEDS ORDERED: DEXAMETHASONE 4 MG TABLET (FP) PO ONE (10:00)
[2019-03-21] MEDS ORDERED: D5-NS + 20 MEQ KCL - 20 MEQ/1,000 ML INFUS.BAG IV ONE (10:00)
[2019-03-21] MEDS ORDERED: BORTEZOMIB (VELCADE) 2.5 MG/ML SUB-Q INJECTION SQ ONE (10:00)
[2019-03-21 10:23] LABS: BASO % 0.7 % (0-2.0); EOS % 6.5 % (0-4.5); HEMATOCRIT 25.2 % (35.4-49); HEMOGLOBIN 8.5 GM/dL (11.7-16.9); MCH 36.4 pg (25.7-33.7); MCHC 33.6 g/dl (32.0-35.9); MEAN CELL VOLUME 108.4 fl (80-96); MEAN PLT VOLUME 8.7 fl (7.5-11.1); MONO % 15.8 % (3.8-10.2); PLATELET COUNT 159 K/MM3 (134-434); RBC 2.33 M/mm3 (4.00-5.60); RDW 16.3 % (11.9-15.9); WHITE BLOOD COUNT 3.5 K/mm3 (4.0-10.0)
[2019-03-21 10:57] LABS: ANISOCYTOSIS 2+; MACROCYTOSIS 2+
[2019-03-21 10:58] LABS: PLATELET ESTIMATE ADEQUATE
[2019-03-21 10:59] LABS: ALBUMIN 3.5 g/dl (3.4-5.0); BILIRUBIN,TOTAL 0.4 mg/dL (0.2-1); BLOOD UREA NITROGEN 60.1 mg/dL (7-18); CALCIUM 7.5 mg/dL (8.5-10.1); CREATININE 4.1 mg/dL (0.55-1.3); MAGNESIUM 1.7 mg/dL (1.8-2.4); POTASSIUM 4.1 mmol/L (3.5-5.1); TOT PROT 5.8 g/dl (6.4-8.2)
[2019-03-21] MEDS ORDERED: MAGNESIUM OXIDE 400 MG TABLET (FP) PO ONE (13:45)
[2019-03-21 16:11] VITALS: BP 96/55; PULSE 63; TEMP 97.5
== END 2019-03-21 14:15 | disposition home or self-care (01) ==
LOC: JONCCHEMO 06:27 → J7W 10:34 → JONCCHEMO 14:15
PROVIDERS: ATTEND Internal Medicine Hematology & Oncology
PROC: 3E01305 Introduction of Other Antineoplastic into Subcutaneous Tissue, Percutaneous Approach (ICD-10-PCS; principal; 2019-03-21)
PROC: 3E0337Z Introduction of Electrolytic and Water Balance Substance into Peripheral Vein, Percutaneous Approach (ICD-10-PCS; 2019-03-21)
DX: Z51.11 Encounter for antineoplastic chemotherapy (principal); C90.00 Multiple myeloma not having achieved remission
CPT/HCPCS: 36415; 80053; 83615; 83735; 84550; 85025; 96360; 96361; 96401; J9041

== ENCOUNTER 2019-03-28 06:16 | Day surgery (SDC) | payer OTHER ==
[2019-03-28] MEDS ORDERED: D5-NS + 20 MEQ KCL - 20 MEQ/1,000 ML INFUS.BAG IV ONE (10:00)
[2019-03-28] MEDS ORDERED: BORTEZOMIB (VELCADE) 2.5 MG/ML SUB-Q INJECTION SQ ONE (10:00)
[2019-03-28] MEDS ORDERED: DEXAMETHASONE 4 MG TABLET (FP) PO ONE (10:00)
[2019-03-28 10:23] LABS: EOS % 8.6 % (0-4.5); HEMOGLOBIN 8.9 GM/dL (11.7-16.9); MCH 36.2 pg (25.7-33.7); MCHC 33.1 g/dl (32.0-35.9); MEAN CELL VOLUME 109.4 fl (80-96); MEAN PLT VOLUME 9.3 fl (7.5-11.1); MONO % 18.9 % (3.8-10.2); NEUT % 64.5 % (42.8-82.8); PLATELET COUNT 191 K/MM3 (134-434); RBC 2.47 M/mm3 (4.00-5.60); WHITE BLOOD COUNT 2.6 K/mm3 (4.0-10.0)
[2019-03-28 10:45] LABS: ALBUMIN 3.5 g/dl (3.4-5.0); BILIRUBIN,TOTAL 0.5 mg/dL (0.2-1); BLOOD UREA NITROGEN 61.6 mg/dL (7-18); CALCIUM 8.4 mg/dL (8.5-10.1); CREATININE 3.9 mg/dL (0.55-1.3); POTASSIUM 4.4 mmol/L (3.5-5.1)
[2019-03-28 12:17] LABS: ANISOCYTOSIS 2+; MACROCYTOSIS 1+; PLATELET ESTIMATE NORMAL
[2019-03-28 14:10] VITALS: PULSE 69; TEMP 97.6
[2019-03-28 15:12] VITALS: BP 104/56
== END 2019-03-28 13:30 | disposition home or self-care (01) ==
LOC: JONCCHEMO 06:16 → J7W 10:28 → JONCCHEMO 13:30
PROVIDERS: ATTEND Internal Medicine Hematology & Oncology
DX: Z51.11 Encounter for antineoplastic chemotherapy (principal); C90.00 Multiple myeloma not having achieved remission
CPT/HCPCS: 36415; 80053; 83735; 85025; 96401; J9041

== ENCOUNTER 2019-04-04 05:40 | Day surgery (SDC) | payer OTHER ==
[2019-04-04 10:00] LABS: BASO % 0.9 % (0-2.0); EOS % 1.7 % (0-4.5); HEMATOCRIT 24.1 % (35.4-49); HEMOGLOBIN 8.2 GM/dL (11.7-16.9); MCH 36.9 pg (25.7-33.7); MCHC 33.9 g/dl (32.0-35.9); MEAN CELL VOLUME 108.9 fl (80-96); MEAN PLT VOLUME 8.5 fl (7.5-11.1); MONO % 23.9 % (3.8-10.2); NEUT % 68.5 % (42.8-82.8); PLATELET COUNT 178 K/MM3 (134-434); RBC 2.21 M/mm3 (4.00-5.60); RDW 15.9 % (11.9-15.9); WHITE BLOOD COUNT 2.8 K/mm3 (4.0-10.0)
[2019-04-04] MEDS ORDERED: DEXAMETHASONE 4 MG TABLET (FP) PO ONE (10:00)
[2019-04-04] MEDS ORDERED: DENOSUMAB 120 MG/1.7 ML VIAL SQ ONE (10:00)
[2019-04-04] MEDS ORDERED: BORTEZOMIB (VELCADE) 2.5 MG/ML SUB-Q INJECTION SQ ONE (10:00)
[2019-04-04] MEDS ORDERED: D5-NS + 20 MEQ KCL - 20 MEQ/1,000 ML INFUS.BAG IV ONE (10:00)
[2019-04-04 10:35] LABS: ALBUMIN 3.6 g/dl (3.4-5.0); BILIRUBIN,TOTAL 0.4 mg/dL (0.2-1); BLOOD UREA NITROGEN 53.1 mg/dL (7-18); CALCIUM 7.8 mg/dL (8.5-10.1); CREATININE 3.3 mg/dL (0.55-1.3); MAGNESIUM 1.7 mg/dL (1.8-2.4); POTASSIUM 4.9 mmol/L (3.5-5.1); URIC ACID 7.9 mg/dL (2.6-7.2)
[2019-04-04] MEDS ORDERED: MAGNESIUM OXIDE 400 MG TABLET (FP) PO ONE (11:15)
[2019-04-04 11:24] LABS: ANISOCYTOSIS 2+; MACROCYTOSIS 2+; PLATELET ESTIMATE NORMAL
[2019-04-04 17:30] VITALS: BP 129/69; PULSE 65; TEMP 97.3
== END 2019-04-04 14:00 | disposition home or self-care (01) ==
LOC: JONCCHEMO 05:40 → J7W 10:50 → JONCCHEMO 14:00
PROVIDERS: ATTEND Internal Medicine Hematology & Oncology
PROC: 3E01305 Introduction of Other Antineoplastic into Subcutaneous Tissue, Percutaneous Approach (ICD-10-PCS; principal; 2019-04-04)
PROC: 3E013GC Introduction of Other Therapeutic Substance into Subcutaneous Tissue, Percutaneous Approach (ICD-10-PCS; 2019-04-04)
PROC: 3E0337Z Introduction of Electrolytic and Water Balance Substance into Peripheral Vein, Percutaneous Approach (ICD-10-PCS; 2019-04-04)
DX: Z51.11 Encounter for antineoplastic chemotherapy (principal); C90.00 Multiple myeloma not having achieved remission
CPT/HCPCS: 36415; 80053; 83615; 83735; 84550; 85025; 96360; 96361; 96372; 96401; J0897; J9041

== ENCOUNTER 2019-04-11 07:18 | Day surgery (SDC) | payer OTHER ==
[2019-04-11] MEDS ORDERED: BORTEZOMIB (VELCADE) 2.5 MG/ML SUB-Q INJECTION SQ ONE (10:00)
[2019-04-11] MEDS ORDERED: DEXAMETHASONE 4 MG TABLET (FP) PO ONE (10:00)
[2019-04-11] MEDS ORDERED: D5-NS + 20 MEQ KCL - 20 MEQ/1,000 ML INFUS.BAG IV ONE (10:00)
[2019-04-11 11:40] LABS: BASO % 0.4 % (0-2.0); EOS % 3.4 % (0-4.5); HEMATOCRIT 24.2 % (35.4-49); HEMOGLOBIN 8.3 GM/dL (11.7-16.9); LYMPH % 3.7 % (8-40); MCH 37.2 pg (25.7-33.7); MCHC 34.4 g/dl (32.0-35.9); MEAN CELL VOLUME 108.1 fl (80-96); MEAN PLT VOLUME 8.7 fl (7.5-11.1); NEUT % 83.5 % (42.8-82.8); PLATELET COUNT 170 K/MM3 (134-434); RBC 2.24 M/mm3 (4.00-5.60); RDW 15.4 % (11.9-15.9); WHITE BLOOD COUNT 3.2 K/mm3 (4.0-10.0)
[2019-04-11 12:05] LABS: ALBUMIN 3.6 g/dl (3.4-5.0); BILIRUBIN,TOTAL 0.4 mg/dL (0.2-1); BLOOD UREA NITROGEN 66.8 mg/dL (7-18); CALCIUM 7.9 mg/dL (8.5-10.1); CREATININE 3.5 mg/dL (0.55-1.3); MAGNESIUM 1.8 mg/dL (1.8-2.4); POTASSIUM 4.2 mmol/L (3.5-5.1); TOT PROT 6.2 g/dl (6.4-8.2)
[2019-04-11] MEDS ORDERED: MAGNESIUM SULF 50% (8.12 MEQ/2 ML-1 GM VIAL) IVPB ONE (12:15)
[2019-04-11] MEDS ORDERED: CYCLOPHOSPHAMIDE 50 MG CAPSULE PO ONE (12:15)
[2019-04-11 12:25] LABS: ANISOCYTOSIS 2+; MACROCYTOSIS 2+; PLATELET ESTIMATE NORMAL
[2019-04-11] MEDS: DENOSUMAB 120 MG/1.7 ML VIAL SQ ONE ×2 (14:42→15:01)
[2019-04-11 15:35] VITALS: TEMP 97.9
[2019-04-11 15:48] VITALS: BP 121/70; PULSE 74
== END 2019-04-11 15:15 | disposition home or self-care (01) ==
LOC: JONCCHEMO 07:18 → J7W 12:00 → JONCCHEMO 15:15
PROVIDERS: ATTEND Internal Medicine Hematology & Oncology
PROC: 3E01305 Introduction of Other Antineoplastic into Subcutaneous Tissue, Percutaneous Approach (ICD-10-PCS; principal; 2019-04-11)
PROC: 3E0337Z Introduction of Electrolytic and Water Balance Substance into Peripheral Vein, Percutaneous Approach (ICD-10-PCS; 2019-04-11)
PROC: 3E033GC Introduction of Other Therapeutic Substance into Peripheral Vein, Percutaneous Approach (ICD-10-PCS; 2019-04-11)
DX: Z51.11 Encounter for antineoplastic chemotherapy (principal); C90.00 Multiple myeloma not having achieved remission
CPT/HCPCS: 36415; 80053; 83735; 85025; 96361; 96365; 96401; J0897; J9041

== ENCOUNTER 2019-04-18 07:04 | Day surgery (SDC) | payer OTHER ==
[2019-04-18] MEDS ORDERED: DEXTROSE 5%-0.45% SALINE 1,000 ML IV ONE (09:30)
[2019-04-18] MEDS ORDERED: DEXAMETHASONE 4 MG TABLET (FP) PO ONE (10:00)
[2019-04-18] MEDS ORDERED: BORTEZOMIB (VELCADE) 2.5 MG/ML SUB-Q INJECTION SQ ONE (10:00)
[2019-04-18 12:31] LABS: BASO % 0.5 % (0-2.0); EOS % 1.8 % (0-4.5); HEMATOCRIT 24.9 % (35.4-49); HEMOGLOBIN 8.4 GM/dL (11.7-16.9); LYMPH % 2.9 % (8-40); MCHC 33.6 g/dl (32.0-35.9); MEAN PLT VOLUME 8.8 fl (7.5-11.1); MONO % 14.2 % (3.8-10.2); NEUT % 80.6 % (42.8-82.8); PLATELET COUNT 184 K/MM3 (134-434); RBC 2.27 M/mm3 (4.00-5.60); WHITE BLOOD COUNT 4.1 K/mm3 (4.0-10.0)
[2019-04-18] MEDS: D5-NS + 20 MEQ KCL - 20 MEQ/1,000 ML INFUS.BAG IV ONE ×2 (12:53→14:31)
[2019-04-18 12:56] LABS: ALBUMIN 3.4 g/dl (3.4-5.0); BILIRUBIN,DIRECT 0.2 mg/dL (0.0-0.2); BILIRUBIN,TOTAL 0.4 mg/dL (0.2-1); TOT PROT 6.2 g/dl (6.4-8.2)
[2019-04-18 12:58] LABS: BLOOD UREA NITROGEN 69.6 mg/dL (7-18); CALCIUM 8.7 mg/dL (8.5-10.1); CREATININE 3.5 mg/dL (0.55-1.3); MAGNESIUM 1.9 mg/dL (1.8-2.4); POTASSIUM 5.2 mmol/L (3.5-5.1); URIC ACID 7.9 mg/dL (2.6-7.2)
[2019-04-18] MEDS ORDERED: SODIUM CHLORIDE 350 ML IV ONE (13:15)
[2019-04-18 15:10] LABS: ANISOCYTOSIS 2+; MACROCYTOSIS 2+; PLATELET ESTIMATE NORMAL
[2019-04-18 16:16] VITALS: BP 143/63; PULSE 62
[2019-04-18 16:17] VITALS: TEMP 98.1
== END 2019-04-18 16:10 | disposition home or self-care (01) ==
LOC: JONCCHEMO 07:04 → J7W 12:42 → JONCCHEMO 16:10
PROVIDERS: ATTEND Internal Medicine Hematology & Oncology
DX: Z51.11 Encounter for antineoplastic chemotherapy (principal); C90.00 Multiple myeloma not having achieved remission
CPT/HCPCS: 36415; 80048; 80076; 83615; 83735; 84550; 85025; 96360; 96361; 96401; J9041

== ENCOUNTER 2019-04-25 07:11 | Day surgery (SDC) | payer OTHER ==
[2019-04-25] MEDS ORDERED: D5-NS + 20 MEQ KCL - 20 MEQ/1,000 ML INFUS.BAG IV ONE (09:00)
[2019-04-25] MEDS ORDERED: BORTEZOMIB (VELCADE) 2.5 MG/ML SUB-Q INJECTION SQ ONE (10:00)
[2019-04-25] MEDS ORDERED: DEXAMETHASONE 4 MG TABLET (FP) PO ONE (10:00)
[2019-04-25 14:00] LABS: BASO % 0.9 % (0-2.0); EOS % 2.7 % (0-4.5); HEMATOCRIT 24.5 % (35.4-49); HEMOGLOBIN 8.3 GM/dL (11.7-16.9); MCH 37.2 pg (25.7-33.7); MEAN CELL VOLUME 109.4 fl (80-96); MEAN PLT VOLUME 8.9 fl (7.5-11.1); MONO % 17.4 % (3.8-10.2); PLATELET COUNT 181 K/MM3 (134-434); RBC 2.24 M/mm3 (4.00-5.60); RDW 15.2 % (11.9-15.9); WHITE BLOOD COUNT 3.5 K/mm3 (4.0-10.0)
[2019-04-25 14:49] LABS: ALBUMIN 3.5 g/dl (3.4-5.0); BILIRUBIN,TOTAL 0.9 mg/dL (0.2-1); BLOOD UREA NITROGEN 65.6 mg/dL (7-18); CALCIUM 7.5 mg/dL (8.5-10.1); CREATININE 3.3 mg/dL (0.55-1.3); MAGNESIUM 1.8 mg/dL (1.8-2.4); POTASSIUM 4.5 mmol/L (3.5-5.1); TOT PROT 6.1 g/dl (6.4-8.2); URIC ACID 8.2 mg/dL (2.6-7.2)
[2019-04-25 16:01] LABS: ANISOCYTOSIS 1+; MACROCYTOSIS 0; OVALOCYTE 1+; PLATELET ESTIMATE NORMAL; TEAR DROP CELLS 1+
[2019-04-25 17:57] VITALS: BP 149/82; PULSE 62; TEMP 98
== END 2019-04-25 16:25 | disposition home or self-care (01) ==
LOC: JONCCHEMO 07:11 → J7W 13:05 → JONCCHEMO 16:25
PROVIDERS: ATTEND Internal Medicine Hematology & Oncology
DX: Z51.11 Encounter for antineoplastic chemotherapy (principal); C90.00 Multiple myeloma not having achieved remission
CPT/HCPCS: 36415; 80053; 83615; 83735; 84550; 85025; 96360; 96361; 96401; J9041

== ENCOUNTER 2019-05-02 05:38 | Day surgery (SDC) | payer OTHER ==
[2019-05-02] MEDS ORDERED: D5-NS + 20 MEQ KCL - 20 MEQ/1,000 ML INFUS.BAG IV ONE (10:00)
[2019-05-02] MEDS ORDERED: DEXAMETHASONE 4 MG TABLET (FP) PO ONE (10:00)
[2019-05-02] MEDS ORDERED: BORTEZOMIB (VELCADE) 2.5 MG/ML SUB-Q INJECTION SQ ONE (10:00)
[2019-05-02] MEDS ORDERED: DENOSUMAB 120 MG/1.7 ML VIAL SQ ONE (10:00)
[2019-05-02 12:25] LABS: BASO % 0.7 % (0-2.0); EOS % 2.6 % (0-4.5); HEMATOCRIT 24.8 % (35.4-49); HEMOGLOBIN 8.5 GM/dL (11.7-16.9); LYMPH % 3.9 % (8-40); MCH 37.8 pg (25.7-33.7); MCHC 34.1 g/dl (32.0-35.9); MEAN CELL VOLUME 110.8 fl (80-96); MEAN PLT VOLUME 9.4 fl (7.5-11.1); MONO % 10.7 % (3.8-10.2); NEUT % 82.1 % (42.8-82.8); PLATELET COUNT 188 K/MM3 (134-434); RBC 2.24 M/mm3 (4.00-5.60); RDW 15.5 % (11.9-15.9); WHITE BLOOD COUNT 2.9 K/mm3 (4.0-10.0)
[2019-05-02] MEDS ORDERED: LOSARTAN POTASSIUM 50 MG TABLET (FP) PO PRN (12:36)
[2019-05-02 13:00] LABS: ALBUMIN 3.6 g/dl (3.4-5.0); BILIRUBIN,TOTAL 0.3 mg/dL (0.2-1); BLOOD UREA NITROGEN 57.3 mg/dL (7-18); CALCIUM 7.8 mg/dL (8.5-10.1); CREATININE 3.5 mg/dL (0.55-1.3); POTASSIUM 4.4 mmol/L (3.5-5.1); TOT PROT 6.1 g/dl (6.4-8.2); URIC ACID 7.7 mg/dL (2.6-7.2)
[2019-05-02] MEDS ORDERED: MAGNESIUM SULF 50% (8.12 MEQ/2 ML-1 GM VIAL) IVPB ONE (14:30)
[2019-05-02 17:03] VITALS: TEMP 97.8
[2019-05-02 17:04] VITALS: BP 151/95; PULSE 62
[2019-05-03 17:10] LABS: FREE KAPPA,SERUM 17.1 mg/L (3.3-19.4)
[2019-05-06 15:07] LABS: TOTAL PROTEIN, URINE 107.2 mg/dL (Not Estab.)
[2019-05-07 16:08] LABS: FREE KAP CHN UR 78.22 mg/L (0.63-113.79); KAPPA LAMBDA RATIO URIN 6.66 (1.03-31.76)
== END 2019-05-02 16:35 | disposition home or self-care (01) ==
LOC: JONCCHEMO 05:38 → J7W 12:39 → JONCCHEMO 16:35
PROVIDERS: ATTEND Internal Medicine Hematology & Oncology
PROC: 3E03305 Introduction of Other Antineoplastic into Peripheral Vein, Percutaneous Approach (ICD-10-PCS; principal; 2019-05-02)
PROC: 3E033GC Introduction of Other Therapeutic Substance into Peripheral Vein, Percutaneous Approach (ICD-10-PCS; 2019-05-02)
PROC: 3E0337Z Introduction of Electrolytic and Water Balance Substance into Peripheral Vein, Percutaneous Approach (ICD-10-PCS; 2019-05-02)
DX: Z51.11 Encounter for antineoplastic chemotherapy (principal); C90.00 Multiple myeloma not having achieved remission
CPT/HCPCS: 36415; 80053; 82784; 83615; 83735; 83883; 84155; 84156; 84157; 84165; 84550; 85025; 86335; 96361; 96365; 96401; J0897; J9041

== ENCOUNTER 2019-05-09 05:37 | Day surgery (SDC) | payer OTHER ==
[2019-05-09] MEDS ORDERED: DEXAMETHASONE 4 MG TABLET (FP) PO ONE (10:00)
[2019-05-09] MEDS ORDERED: D5-NS + 20 MEQ KCL - 20 MEQ/1,000 ML INFUS.BAG IV ONE (10:00)
[2019-05-09] MEDS ORDERED: BORTEZOMIB (VELCADE) 2.5 MG/ML SUB-Q INJECTION SQ ONE (10:00)
[2019-05-09 12:27] LABS: EOS % 1.9 % (0-4.5); HEMATOCRIT 24.7 % (35.4-49); HEMOGLOBIN 8.3 GM/dL (11.7-16.9); LYMPH % 3.1 % (8-40); MCH 37.5 pg (25.7-33.7); MCHC 33.8 g/dl (32.0-35.9); MEAN CELL VOLUME 110.8 fl (80-96); MEAN PLT VOLUME 8.9 fl (7.5-11.1); MONO % 19.2 % (3.8-10.2); NEUT % 74.8 % (42.8-82.8); PLATELET COUNT 167 K/MM3 (134-434); RBC 2.23 M/mm3 (4.00-5.60); RDW 15.4 % (11.9-15.9); WHITE BLOOD COUNT 3.4 K/mm3 (4.0-10.0)
[2019-05-09 13:00] LABS: ALBUMIN 3.5 g/dl (3.4-5.0); BILIRUBIN,TOTAL 0.5 mg/dL (0.2-1); BLOOD UREA NITROGEN 58.5 mg/dL (7-18); CALCIUM 7.8 mg/dL (8.5-10.1); CREATININE 2.9 mg/dL (0.55-1.3); MAGNESIUM 1.8 mg/dL (1.8-2.4); POTASSIUM 4.8 mmol/L (3.5-5.1)
[2019-05-09 14:00] LABS: ANISOCYTOSIS 2+; MACROCYTOSIS 2+; PLATELET ESTIMATE NORMAL
[2019-05-09 15:23] VITALS: TEMP 97.5
[2019-05-09 16:04] VITALS: BP 157/84; PULSE 76
== END 2019-05-09 16:04 | disposition home or self-care (01) ==
LOC: JONCCHEMO 05:37 → J7W 13:14 → JONCCHEMO 16:04
PROVIDERS: ATTEND Internal Medicine Hematology & Oncology
PROC: 3E01305 Introduction of Other Antineoplastic into Subcutaneous Tissue, Percutaneous Approach (ICD-10-PCS; principal; 2019-05-09)
PROC: 3E0337Z Introduction of Electrolytic and Water Balance Substance into Peripheral Vein, Percutaneous Approach (ICD-10-PCS; 2019-05-09)
DX: Z51.11 Encounter for antineoplastic chemotherapy (principal)
CPT/HCPCS: 36415; 80053; 83735; 85025; 96361; 96401; J9041

== ENCOUNTER 2019-05-16 05:38 | Day surgery (SDC) | payer OTHER ==
[2019-05-16] MEDS ORDERED: DEXAMETHASONE 4 MG TABLET (FP) PO ONE (10:00)
[2019-05-16] MEDS ORDERED: BORTEZOMIB (VELCADE) 2.5 MG/ML SUB-Q INJECTION SQ ONE (10:30)
[2019-05-16] MEDS ORDERED: D5-NS + 20 MEQ KCL - 20 MEQ/1,000 ML INFUS.BAG IV ONE (10:30)
[2019-05-16 12:02] LABS: BASO % 0.8 % (0-2.0); EOS % 4.3 % (0-4.5); HEMATOCRIT 24.1 % (35.4-49); HEMOGLOBIN 8.1 GM/dL (11.7-16.9); LYMPH % 5.8 % (8-40); MCH 37.6 pg (25.7-33.7); MCHC 33.7 g/dl (32.0-35.9); MEAN CELL VOLUME 111.7 fl (80-96); MEAN PLT VOLUME 8.6 fl (7.5-11.1); MONO % 12.4 % (3.8-10.2); NEUT % 76.7 % (42.8-82.8); PLATELET COUNT 150 K/MM3 (134-434); RBC 2.16 M/mm3 (4.00-5.60); RDW 15.5 % (11.9-15.9); WHITE BLOOD COUNT 2.9 K/mm3 (4.0-10.0)
[2019-05-16 12:27] LABS: ALBUMIN 3.5 g/dl (3.4-5.0); BILIRUBIN,TOTAL 0.4 mg/dL (0.2-1); BLOOD UREA NITROGEN 62.8 mg/dL (7-18); CALCIUM 7.7 mg/dL (8.5-10.1); CREATININE 3.2 mg/dL (0.55-1.3); MAGNESIUM 1.7 mg/dL (1.8-2.4); POTASSIUM 4.7 mmol/L (3.5-5.1); TOT PROT 5.7 g/dl (6.4-8.2); URIC ACID 8.6 mg/dL (2.6-7.2)
[2019-05-16 12:31] LABS: ANISOCYTOSIS 2+; MACROCYTOSIS 2+; OVALOCYTE 1+
[2019-05-16 12:45] LABS: PLATELET ESTIMATE NORMAL
[2019-05-16] MEDS ORDERED: MAGNESIUM OXIDE 400 MG TABLET (FP) PO ONE (13:45)
[2019-05-16 16:11] VITALS: BP 126/64; PULSE 67; TEMP 98.1
== END 2019-05-16 16:45 | disposition home or self-care (01) ==
LOC: JONCCHEMO 05:38 → J7W 12:55 → JONCCHEMO 16:45
PROVIDERS: ATTEND Internal Medicine Hematology & Oncology
PROC: 3E0337Z Introduction of Electrolytic and Water Balance Substance into Peripheral Vein, Percutaneous Approach (ICD-10-PCS; principal; 2019-05-16)
DX: Z51.11 Encounter for antineoplastic chemotherapy (principal); C90.00 Multiple myeloma not having achieved remission
CPT/HCPCS: 36415; 80053; 83615; 83735; 84550; 85025; 96360; 96361; 96401; J9041

== ENCOUNTER 2019-05-23 05:47 | Day surgery (SDC) | payer OTHER ==
[2019-05-23] MEDS ORDERED: D5-NS + 20 MEQ KCL - 20 MEQ/1,000 ML INFUS.BAG IV ONE (10:00)
[2019-05-23] MEDS ORDERED: DEXAMETHASONE 4 MG TABLET (FP) PO ONE (10:00)
[2019-05-23] MEDS ORDERED: BORTEZOMIB (VELCADE) 2.5 MG/ML SUB-Q INJECTION SQ ONE (10:30)
[2019-05-23 12:59] LABS: BASO % 0.8 % (0-2.0); EOS % 4.6 % (0-4.5); HEMATOCRIT 23.7 % (35.4-49); LYMPH % 4.6 % (8-40); MCH 37.9 pg (25.7-33.7); MCHC 33.6 g/dl (32.0-35.9); MEAN CELL VOLUME 112.8 fl (80-96); MEAN PLT VOLUME 9.2 fl (7.5-11.1); MONO % 17.2 % (3.8-10.2); NEUT % 72.8 % (42.8-82.8); PLATELET COUNT 156 K/MM3 (134-434); RDW 15.1 % (11.9-15.9); WHITE BLOOD COUNT 3.5 K/mm3 (4.0-10.0)
[2019-05-23 13:34] LABS: ALBUMIN 3.3 g/dl (3.4-5.0); BILIRUBIN,TOTAL 0.4 mg/dL (0.2-1); BLOOD UREA NITROGEN 53.8 mg/dL (7-18); CALCIUM 7.4 mg/dL (8.5-10.1); CREATININE 3.3 mg/dL (0.55-1.3); MAGNESIUM 1.6 mg/dL (1.8-2.4); POTASSIUM 4.9 mmol/L (3.5-5.1); TOT PROT 5.7 g/dl (6.4-8.2); URIC ACID 7.8 mg/dL (2.6-7.2)
[2019-05-23] MEDS ORDERED: amLODIPine BESYLATE 10 MG TABLET (FP) PO ONE (14:00)
[2019-05-23 14:01] LABS: ANISOCYTOSIS 2+; MACROCYTOSIS 0; PLATELET ESTIMATE DECREASED; TEAR DROP CELLS 1+
[2019-05-23 16:31] VITALS: TEMP 97.9
[2019-05-23 16:36] VITALS: BP 129/69; PULSE 53
== END 2019-05-23 16:38 | disposition home or self-care (01) ==
LOC: JONCCHEMO 05:47 → J7W 13:40 → JONCCHEMO 16:38
PROVIDERS: ATTEND Internal Medicine Hematology & Oncology
DX: Z51.11 Encounter for antineoplastic chemotherapy (principal); C90.00 Multiple myeloma not having achieved remission
CPT/HCPCS: 36415; 80053; 83615; 83735; 84550; 85025; 96360; 96361; 96401; J9041

== ENCOUNTER 2019-05-30 07:10 | Day surgery (SDC) | payer OTHER ==
[2019-05-30] MEDS ORDERED: D5-NS + 20 MEQ KCL - 20 MEQ/1,000 ML INFUS.BAG IV ONE (10:00)
[2019-05-30] MEDS ORDERED: DEXAMETHASONE 4 MG TABLET (FP) PO ONE (10:00)
[2019-05-30] MEDS ORDERED: DENOSUMAB 120 MG/1.7 ML VIAL SQ ONE (10:00)
[2019-05-30] MEDS ORDERED: BORTEZOMIB (VELCADE) 2.5 MG/ML SUB-Q INJECTION SQ ONE (10:30)
[2019-05-30 11:35] LABS: BASO % 1.1 % (0-2.0); EOS % 3.1 % (0-4.5); HEMATOCRIT 24.8 % (35.4-49); HEMOGLOBIN 8.3 GM/dL (11.7-16.9); LYMPH % 4.8 % (8-40); MCH 37.5 pg (25.7-33.7); MCHC 33.7 g/dl (32.0-35.9); MEAN CELL VOLUME 111.2 fl (80-96); MEAN PLT VOLUME 8.5 fl (7.5-11.1); MONO % 19.3 % (3.8-10.2); NEUT % 71.7 % (42.8-82.8); PLATELET COUNT 165 K/MM3 (134-434); RBC 2.23 M/mm3 (4.00-5.60); WHITE BLOOD COUNT 2.7 K/mm3 (4.0-10.0)
[2019-05-30 12:06] LABS: MACROCYTOSIS 2+
[2019-05-30 12:07] LABS: ALBUMIN 3.7 g/dl (3.4-5.0); BILIRUBIN,TOTAL 0.4 mg/dL (0.2-1); BLOOD UREA NITROGEN 46.6 mg/dL (7-18); CALCIUM 7.9 mg/dL (8.5-10.1); CREATININE 2.6 mg/dL (0.55-1.3); MAGNESIUM 1.8 mg/dL (1.8-2.4); POTASSIUM 4.6 mmol/L (3.5-5.1); URIC ACID 8.4 mg/dL (2.6-7.2)
[2019-05-30] MEDS ORDERED: amLODIPine BESYLATE 10 MG TABLET (FP) PO ONE (12:45)
[2019-05-30 16:25] VITALS: BP 139/67; PULSE 57; TEMP 97.8
== END 2019-05-30 16:15 | disposition home or self-care (01) ==
LOC: JONCCHEMO 07:10 → J7W 12:51 → JONCCHEMO 16:15
PROVIDERS: ATTEND Nurse Practitioner Family
PROC: 3E03305 Introduction of Other Antineoplastic into Peripheral Vein, Percutaneous Approach (ICD-10-PCS; principal; 2019-05-30)
PROC: 3E03329 Introduction of Other Anti-infective into Peripheral Vein, Percutaneous Approach (ICD-10-PCS; 2019-05-30)
PROC: 3E0337Z Introduction of Electrolytic and Water Balance Substance into Peripheral Vein, Percutaneous Approach (ICD-10-PCS; 2019-05-30)
DX: Z51.11 Encounter for antineoplastic chemotherapy (principal); C90.00 Multiple myeloma not having achieved remission
CPT/HCPCS: 36415; 80053; 83615; 83735; 84550; 85025; 96361; 96374; 96401; J0897; J9041

== ENCOUNTER 2019-09-26 07:24 | Day surgery (SDC) | payer OTHER ==
[2019-09-26] MEDS ORDERED: EPOETIN ALFA-EPBX 40,000 UNIT/ML VIAL SQ ONE (10:00)
[2019-09-26] MEDS ORDERED: BORTEZOMIB (VELCADE) 2.5 MG/ML SUB-Q INJECTION SQ ONE (10:00)
[2019-09-26] MEDS ORDERED: CYANOCOBALAMIN (VITAMIN B-12) 1000 MCG/1 ML VIAL IM ONE (10:00)
[2019-09-26] MEDS ORDERED: SODIUM CHLORIDE 0.45% 1,000 ML IV SCH (10:45)
[2019-09-26 11:48] LABS: BASO % 0.4 % (0-2.0); HEMATOCRIT 32.5 % (35.4-49); HEMOGLOBIN 10.8 GM/dL (11.7-16.9); LYMPH % 21.4 % (8-40); MCH 35.6 pg (25.7-33.7); MCHC 33.1 g/dl (32.0-35.9); MEAN CELL VOLUME 107.6 fl (80-96); MEAN PLT VOLUME 10.1 fl (7.5-11.1); MONO % 14.4 % (3.8-10.2); NEUT % 57.8 % (42.8-82.8); PLATELET COUNT 108 K/MM3 (134-434); RBC 3.02 M/mm3 (4.00-5.60); RDW 13.6 % (11.9-15.9); WHITE BLOOD COUNT 2.1 K/mm3 (4.0-10.0)
[2019-09-26 12:20] LABS: ALBUMIN 3.6 g/dl (3.4-5.0); BILIRUBIN,DIRECT 0.2 mg/dL (0.0-0.2); BILIRUBIN,TOTAL 0.5 mg/dL (0.2-1); BLOOD UREA NITROGEN 38.2 mg/dL (7-18); CALCIUM 7.2 mg/dL (8.5-10.1); CREATININE 2.1 mg/dL (0.55-1.3); MAGNESIUM 1.8 mg/dL (1.8-2.4); TOT PROT 5.7 g/dl (6.4-8.2); URIC ACID 7.3 mg/dL (2.6-7.2)
[2019-09-26] MEDS ORDERED: CALCIUM GLUCONATE 10% - 1,000 MG/10 ML VIAL IVPB ONE (12:23)
[2019-09-26 12:51] LABS: ANISOCYTOSIS 1+; MACROCYTOSIS 1+; PLATELET ESTIMATE DECREASED
[2019-09-26 14:33] VITALS: TEMP 98.2
[2019-09-26 14:35] VITALS: BP 140/84; PULSE 60
== END 2019-09-26 13:45 | disposition home or self-care (01) ==
LOC: JONCCHEMO 07:24
PROVIDERS: ATTEND Nurse Practitioner Family
PROC: 3E0337Z Introduction of Electrolytic and Water Balance Substance into Peripheral Vein, Percutaneous Approach (ICD-10-PCS; principal; 2019-09-26)
PROC: 3E013GC Introduction of Other Therapeutic Substance into Subcutaneous Tissue, Percutaneous Approach (ICD-10-PCS; 2019-09-26)
PROC: 3E01305 Introduction of Other Antineoplastic into Subcutaneous Tissue, Percutaneous Approach (ICD-10-PCS; 2019-09-26)
DX: Z51.11 Encounter for antineoplastic chemotherapy (principal); C90.00 Multiple myeloma not having achieved remission
CPT/HCPCS: 36415; 80048; 80076; 83615; 83735; 84550; 85025; 96360; 96361; 96372; 96401; J9041

== ENCOUNTER 2019-10-03 06:42 | Day surgery (SDC) | payer OTHER ==
[2019-10-03] MEDS ORDERED: SODIUM CHLORIDE 0.45% 1,000 ML IV ONE (09:00)
[2019-10-03] MEDS ORDERED: CYANOCOBALAMIN (VITAMIN B-12) 1000 MCG/1 ML VIAL IM ONE (10:00)
[2019-10-03] MEDS ORDERED: BORTEZOMIB (VELCADE) 2.5 MG/ML SUB-Q INJECTION SQ ONE (10:00)
[2019-10-03] MEDS ORDERED: amLODIPine BESYLATE 10 MG TABLET (FP) PO ONE (10:39)
[2019-10-03 11:36] LABS: ALBUMIN 3.5 g/dl (3.4-5.0); BILIRUBIN,DIRECT 0.2 mg/dL (0.0-0.2); BILIRUBIN,TOTAL 0.5 mg/dL (0.2-1); BLOOD UREA NITROGEN 45.7 mg/dL (7-18); CALCIUM 8.5 mg/dL (8.5-10.1); CREATININE 2.2 mg/dL (0.55-1.3); POTASSIUM 4.2 mmol/L (3.5-5.1); TOT PROT 5.6 g/dl (6.4-8.2); URIC ACID 8.3 mg/dL (2.6-7.2)
[2019-10-03 12:23] LABS: BASO % 0.6 % (0-2.0); EOS % 0.6 % (0-4.5); HEMATOCRIT 32.2 % (35.4-49); HEMOGLOBIN 10.7 GM/dL (11.7-16.9); LYMPH % 24.4 % (8-40); MCH 35.3 pg (25.7-33.7); MCHC 33.2 g/dl (32.0-35.9); MEAN CELL VOLUME 106.1 fl (80-96); MEAN PLT VOLUME 8.9 fl (7.5-11.1); MONO % 13.2 % (3.8-10.2); NEUT % 61.2 % (42.8-82.8); PLATELET COUNT 126 K/MM3 (134-434); RBC 3.04 M/mm3 (4.00-5.60); RDW 13.4 % (11.9-15.9); WHITE BLOOD COUNT 2.6 K/mm3 (4.0-10.0)
[2019-10-03 13:17] LABS: PLATELET ESTIMATE DECREASED
[2019-10-03 13:18] LABS: ANISOCYTOSIS 2+; MACROCYTOSIS 2+
[2019-10-03 14:06] VITALS: TEMP 98.3
[2019-10-03 14:09] VITALS: BP 185/96; PULSE 61
== END 2019-10-03 13:55 | disposition home or self-care (01) ==
LOC: JONCCHEMO 06:42
PROVIDERS: ATTEND Internal Medicine Hematology & Oncology
PROC: 3E01305 Introduction of Other Antineoplastic into Subcutaneous Tissue, Percutaneous Approach (ICD-10-PCS; principal; 2019-10-03)
PROC: 3E0337Z Introduction of Electrolytic and Water Balance Substance into Peripheral Vein, Percutaneous Approach (ICD-10-PCS; 2019-10-03)
DX: Z51.11 Encounter for antineoplastic chemotherapy (principal); C90.00 Multiple myeloma not having achieved remission
CPT/HCPCS: 36415; 80048; 80076; 83615; 83735; 84550; 85025; 96360; 96361; 96401; J9041

== ENCOUNTER 2019-10-10 07:16 | Day surgery (SDC) | payer OTHER ==
[2019-10-10] MEDS ORDERED: SODIUM CHLORIDE 0.45% 1,000 ML IV ONE (08:00)
[2019-10-10] MEDS ORDERED: CYANOCOBALAMIN (VITAMIN B-12) 1000 MCG/1 ML VIAL IM ONE (10:00)
[2019-10-10] MEDS ORDERED: DENOSUMAB 120 MG/1.7 ML VIAL SQ ONE (10:00)
[2019-10-10] MEDS ORDERED: EPOETIN ALFA-EPBX 40,000 UNIT/ML VIAL SQ ONE (10:00)
[2019-10-10] MEDS ORDERED: BORTEZOMIB (VELCADE) 2.5 MG/ML SUB-Q INJECTION SQ ONE (10:00)
[2019-10-10 11:21] LABS: BASO % 0.8 % (0-2.0); EOS % 4.5 % (0-4.5); HEMATOCRIT 30.2 % (35.4-49); HEMOGLOBIN 10.3 GM/dL (11.7-16.9); LYMPH % 20.1 % (8-40); MCH 36.3 pg (25.7-33.7); MCHC 34.2 g/dl (32.0-35.9); MEAN CELL VOLUME 106.2 fl (80-96); MEAN PLT VOLUME 10.7 fl (7.5-11.1); MONO % 10.6 % (3.8-10.2); PLATELET COUNT 109 K/MM3 (134-434); RBC 2.85 M/mm3 (4.00-5.60); RDW 13.8 % (11.9-15.9)
[2019-10-10 11:25] LABS: WHITE BLOOD COUNT 1.9 K/mm3 (4.0-10.0)
[2019-10-10 11:51] LABS: ALBUMIN 3.5 g/dl (3.4-5.0); BILIRUBIN,DIRECT 0.1 mg/dL (0.0-0.2); BILIRUBIN,TOTAL 0.4 mg/dL (0.2-1); BLOOD UREA NITROGEN 35.6 mg/dL (7-18); CALCIUM 8.3 mg/dL (8.5-10.1); CREATININE 2.1 mg/dL (0.55-1.3); TOT PROT 5.7 g/dl (6.4-8.2); URIC ACID 7.1 mg/dL (2.6-7.2)
[2019-10-10 11:52] LABS: ANISOCYTOSIS 2+; MACROCYTOSIS 2+; PLATELET ESTIMATE DECREASED
[2019-10-10 16:59] VITALS: TEMP 97.9
[2019-10-10 17:00] VITALS: BP 145/80; PULSE 61
[2019-10-11 08:06] LABS: IGA IMMUNOGLOBULIN 44 mg/dL (61-437); IGG QN IMMUNOGLOBULIN 540 mg/dL (603-1613); IGM QN SERUM 30 mg/dL (20-172)
[2019-10-11 17:07] LABS: FREE KAPPA,SERUM 21.4 mg/L (3.3-19.4)
[2019-10-12 04:10] LABS: FREE KAP CHN UR 45.38 mg/L (0.63-113.79); KAPPA LAMBDA RATIO URIN 2.38 (1.03-31.76)
[2019-10-14 17:07] LABS: TOTAL PROTEIN, URINE 5.4 mg/dL (Not Estab.)
== END 2019-10-10 14:00 | disposition home or self-care (01) ==
LOC: JONCCHEMO 07:16
PROVIDERS: ATTEND Internal Medicine Hematology & Oncology
PROC: 3E01305 Introduction of Other Antineoplastic into Subcutaneous Tissue, Percutaneous Approach (ICD-10-PCS; principal; 2019-10-10)
PROC: 3E013GC Introduction of Other Therapeutic Substance into Subcutaneous Tissue, Percutaneous Approach (ICD-10-PCS; 2019-10-10)
PROC: 3E013GC Introduction of Other Therapeutic Substance into Subcutaneous Tissue, Percutaneous Approach (ICD-10-PCS; 2019-10-10)
PROC: 3E0337Z Introduction of Electrolytic and Water Balance Substance into Peripheral Vein, Percutaneous Approach (ICD-10-PCS; 2019-10-10)
DX: Z51.11 Encounter for antineoplastic chemotherapy (principal); C90.00 Multiple myeloma not having achieved remission
CPT/HCPCS: 36415; 80048; 80076; 82784; 83615; 83735; 83883; 84155; 84156; 84157; 84165; 84550; 85025; 86335; 96360; 96361; 96372; 96401; J0897; J9041

== ENCOUNTER 2020-06-11 09:42 | Emergency (ER) | payer OTHER ==
[2020-06-11 09:46] VITALS: TEMP 97.9; BMI 22.3
[2020-06-11 10:35] LABS: BASO % 0.6 % (0-2.0); EOS % 2.9 % (0-4.5); HEMOGLOBIN 11.1 GM/dL (11.7-16.9); LYMPH % 17.2 % (8-40); MCH 34.1 pg (25.7-33.7); MCHC 33.6 g/dl (32.0-35.9); MEAN CELL VOLUME 101.6 fl (80-96); MEAN PLT VOLUME 8.2 fl (7.5-11.1); MONO % 10.3 % (3.8-10.2); PLATELET COUNT 83 K/MM3 (134-434); RBC 3.25 M/mm3 (4.00-5.60); RDW 12.6 % (11.9-15.9); WHITE BLOOD COUNT 3.5 K/mm3 (4.0-10.0)
[2020-06-11 10:44] LABS: INR 0.93 (0.83-1.09); PROTHROMBIN TIME (PATIENT) 11.3 SEC (9.7-13.0)
[2020-06-11 10:47] LABS: ACTIVATED PTT 26.6 SECONDS (25.2-36.5)
[2020-06-11 10:55] LABS: POTASSIUM 4.9 mmol/L (3.5-5.1)
[2020-06-11 10:57] LABS: ALBUMIN 3.6 g/dl (3.4-5.0); CALCIUM 8.8 mg/dL (8.5-10.1)
[2020-06-11 10:58] LABS: BLOOD UREA NITROGEN 26.8 mg/dL (7-18)
[2020-06-11 11:01] LABS: CREATININE 2.6 mg/dL (0.55-1.3)
[2020-06-11 11:02] LABS: BILIRUBIN,TOTAL 0.6 mg/dL (0.2-1); TOT PROT 6.4 g/dl (6.4-8.2)
[2020-06-11 12:13] VITALS: BP 133/90; PULSE 57
== END 2020-06-11 12:15 | disposition home or self-care (01) ==
LOC: JER 09:42
DX: R07.9 Chest pain, unspecified (principal)
CPT/HCPCS: 36415; 71045-TC-FY; 80053; 82550; 84484; 85025; 85610; 85730; 93005; 93010; 99284-25

== ENCOUNTER 2021-05-10 07:10 | Day surgery (SDC) | payer OTHER ==
[2021-05-10] MEDS ORDERED: DEXAMETHASONE SODIUM PHOSPHATE 12 MG, DIPHENHYDRAMINE 25 MG in SODIUM CHLORIDE 100 ML IVPB ONE (10:00)
[2021-05-10] MEDS ORDERED: ACETAMINOPHEN 325 MG TABLET (FP) PO ONE (10:00)
[2021-05-10] MEDS ORDERED: SODIUM CHLORIDE 0.45% 250 ML IVPB ONE (10:00)
[2021-05-10] MEDS ORDERED: DARATUMUMAB-HYALURONIDASE-FIHJ (FASPRO) 15 ML VIAL SQ ONE (10:30)
[2021-05-10 13:57] LABS: BASO % 0.4 % (0-2.0); EOS % 0.8 % (0-4.5); HEMATOCRIT 34.5 % (35.4-49); HEMOGLOBIN 11.8 GM/dL (11.7-16.9); LYMPH % 16.7 % (8-40); MCH 33.9 pg (25.7-33.7); MCHC 34.4 g/dl (32.0-35.9); MEAN CELL VOLUME 98.5 fl (80-96); MEAN PLT VOLUME 8.5 fl (7.5-11.1); MONO % 9.9 % (3.8-10.2); NEUT % 72.2 % (42.8-82.8); PLATELET COUNT 136 10^3/uL (134-434); RDW 12.7 % (11.9-15.9); WHITE BLOOD COUNT 3.2 K/mm3 (4.0-10.0)
[2021-05-10 14:15] LABS: CALCIUM 9.3 mg/dL (8.5-10.1)
[2021-05-10 14:16] LABS: ALBUMIN 3.9 g/dl (3.4-5.0); BLOOD UREA NITROGEN 29.4 mg/dL (7-18)
[2021-05-10 14:18] LABS: BILIRUBIN,DIRECT 0.1 mg/dL (0.0-0.2); CREATININE 2.1 mg/dL (0.55-1.3); URIC ACID 8.1 mg/dL (2.6-7.2)
[2021-05-10 14:20] LABS: BILIRUBIN,TOTAL 0.5 mg/dL (0.2-1); TOT PROT 6.5 g/dl (6.4-8.2)
[2021-05-10 17:14] VITALS: TEMP 97.9
[2021-05-10 17:40] VITALS: BP 156/90; PULSE 63
[2021-05-12 17:07] LABS: FREE KAPPA,SERUM 13.7 mg/L (3.3-19.4)
[2021-05-13 08:06] LABS: BETA-2-MICROGLOBULIN 3.4 mg/L (0.6-2.4)
[2021-05-13 15:08] LABS: FREE KAP CHN UR 50.57 mg/L (0.63-113.79); KAPPA LAMBDA RATIO URIN 0.02 (1.03-31.76)
== END 2021-05-10 17:44 | disposition home or self-care (01) ==
LOC: JONCCHEMO 07:10
PROVIDERS: ATTEND Internal Medicine Hematology & Oncology
PROC: 3E01305 Introduction of Other Antineoplastic into Subcutaneous Tissue, Percutaneous Approach (ICD-10-PCS; principal; 2021-05-10)
PROC: 3E033GC Introduction of Other Therapeutic Substance into Peripheral Vein, Percutaneous Approach (ICD-10-PCS; 2021-05-10)
PROC: 3E0337Z Introduction of Electrolytic and Water Balance Substance into Peripheral Vein, Percutaneous Approach (ICD-10-PCS; 2021-05-10)
DX: Z51.11 Encounter for antineoplastic chemotherapy (principal); C90.00 Multiple myeloma not having achieved remission
CPT/HCPCS: 36415; 80048; 80076; 82232; 82784; 83615; 83735; 83883; 84155; 84165; 84550; 85025; 86335; 86704; 86850; 86900; 86901; 87517; 96361; 96365; 96401; J9144

== ENCOUNTER 2021-05-24 07:11 | Day surgery (SDC) | payer OTHER ==
[2021-05-24] MEDS ORDERED: SODIUM CHLORIDE 0.45% 250 ML IVPB ONE (10:00)
[2021-05-24] MEDS ORDERED: ACETAMINOPHEN 325 MG TABLET (FP) PO ONE (10:00)
[2021-05-24] MEDS ORDERED: SODIUM CHLORIDE IVPB ONE (10:00)
[2021-05-24] MEDS ORDERED: DEXAMETHASONE SODIUM PHOSPHATE IVPB ONE (10:00)
[2021-05-24] MEDS ORDERED: DIPHENHYDRAMINE IVPB ONE (10:00)
[2021-05-24] MEDS ORDERED: DARATUMUMAB-HYALURONIDASE-FIHJ (FASPRO) 15 ML VIAL SQ ONE (10:30)
[2021-05-24 11:55] LABS: BASO % 0.3 % (0-2.0); EOS % 0.1 % (0-4.5); HEMATOCRIT 34.8 % (35.4-49); HEMOGLOBIN 11.5 GM/dL (11.7-16.9); LYMPH % 8.3 % (8-40); MCH 33.1 pg (25.7-33.7); MCHC 33.1 g/dl (32.0-35.9); MEAN CELL VOLUME 100.2 fl (80-96); MEAN PLT VOLUME 7.7 fl (7.5-11.1); MONO % 13.6 % (3.8-10.2); NEUT % 77.7 % (42.8-82.8); PLATELET COUNT 176 10^3/uL (134-434); RBC 3.48 M/mm3 (4.00-5.60); WHITE BLOOD COUNT 3.2 K/mm3 (4.0-10.0)
[2021-05-24 12:12] LABS: CALCIUM 8.8 mg/dL (8.5-10.1)
[2021-05-24 12:13] LABS: ALBUMIN 3.9 g/dl (3.4-5.0); BLOOD UREA NITROGEN 30.9 mg/dL (7-18)
[2021-05-24 12:16] LABS: BILIRUBIN,DIRECT 0.2 mg/dL (0.0-0.2)
[2021-05-24 12:17] LABS: TOT PROT 6.4 g/dl (6.4-8.2)
[2021-05-24 12:18] LABS: BILIRUBIN,TOTAL 0.6 mg/dL (0.2-1)
[2021-05-24 16:48] VITALS: PULSE 59; TEMP 98.1
[2021-05-24 16:55] VITALS: BP 143/67
== END 2021-05-24 16:40 | disposition home or self-care (01) ==
LOC: JONCCHEMO 07:11
PROVIDERS: ATTEND Internal Medicine Hematology & Oncology
PROC: 3E01305 Introduction of Other Antineoplastic into Subcutaneous Tissue, Percutaneous Approach (ICD-10-PCS; principal; 2021-05-24)
PROC: 3E033GC Introduction of Other Therapeutic Substance into Peripheral Vein, Percutaneous Approach (ICD-10-PCS; 2021-05-24)
DX: Z51.11 Encounter for antineoplastic chemotherapy (principal); C90.00 Multiple myeloma not having achieved remission
CPT/HCPCS: 36415; 80048; 80076; 83615; 83735; 84550; 85025; 96365; 96401; J9144

== ENCOUNTER 2021-05-31 08:08 | Day surgery (SDC) | payer OTHER ==
[2021-05-31] MEDS ORDERED: ACETAMINOPHEN 325 MG TABLET (FP) PO ONE (10:00)
[2021-05-31] MEDS ORDERED: DEXAMETHASONE SODIUM PHOSPHATE 12 MG, DIPHENHYDRAMINE 25 MG in SODIUM CHLORIDE 100 ML IVPB ONE (10:00)
[2021-05-31] MEDS ORDERED: SODIUM CHLORIDE 0.45% 250 ML IVPB ONE (10:00)
[2021-05-31] MEDS ORDERED: DARATUMUMAB-HYALURONIDASE-FIHJ (FASPRO) 15 ML VIAL SQ ONE (10:30)
[2021-05-31 12:23] VITALS: TEMP 98.4
[2021-05-31 12:23] LABS: BASO % 0.2 % (0-2.0); EOS % 0.1 % (0-4.5); HEMATOCRIT 32.9 % (35.4-49); LYMPH % 10.4 % (8-40); MCH 33.2 pg (25.7-33.7); MCHC 33.4 g/dl (32.0-35.9); MEAN CELL VOLUME 99.5 fl (80-96); MEAN PLT VOLUME 7.9 fl (7.5-11.1); MONO % 16.5 % (3.8-10.2); NEUT % 72.8 % (42.8-82.8); PLATELET COUNT 156 10^3/uL (134-434); RBC 3.31 M/mm3 (4.00-5.60); WHITE BLOOD COUNT 2.1 K/mm3 (4.0-10.0)
[2021-05-31 12:44] LABS: BLOOD UREA NITROGEN 35.6 mg/dL (7-18); CALCIUM 8.7 mg/dL (8.5-10.1)
[2021-05-31 12:45] LABS: ALBUMIN 3.7 g/dl (3.4-5.0)
[2021-05-31 12:47] LABS: CREATININE 2.2 mg/dL (0.55-1.3); URIC ACID 7.3 mg/dL (2.6-7.2)
[2021-05-31 12:48] LABS: BILIRUBIN,DIRECT 0.2 mg/dL (0.0-0.2)
[2021-05-31 12:50] LABS: BILIRUBIN,TOTAL 0.5 mg/dL (0.2-1)
[2021-05-31] MEDS ORDERED: ACETAMINOPHEN 325 MG TABLET (FP) ONE (13:40)
[2021-05-31 15:46] VITALS: BP 138/71; PULSE 55
== END 2021-05-31 15:00 | disposition home or self-care (01) ==
LOC: JONCCHEMO 08:08
PROVIDERS: ATTEND Internal Medicine Hematology & Oncology
PROC: 3E01305 Introduction of Other Antineoplastic into Subcutaneous Tissue, Percutaneous Approach (ICD-10-PCS; principal; 2021-05-31)
PROC: 3E0337Z Introduction of Electrolytic and Water Balance Substance into Peripheral Vein, Percutaneous Approach (ICD-10-PCS; 2021-05-31)
PROC: 3E033GC Introduction of Other Therapeutic Substance into Peripheral Vein, Percutaneous Approach (ICD-10-PCS; 2021-05-31)
DX: Z51.11 Encounter for antineoplastic chemotherapy (principal); C90.00 Multiple myeloma not having achieved remission
CPT/HCPCS: 36415; 80048; 80076; 83615; 83735; 84550; 85025; 96361; 96365; 96401; J9144

== ENCOUNTER 2021-06-07 06:38 | Day surgery (SDC) | payer OTHER ==
[~2021-06-07 06:38] MED LIST changes: -BORTEZOMIB (VELCADE) 2.5 MG/ML SUB-Q INJECTION SQ ONE; -D5-NS + 20 MEQ KCL - 20 MEQ/1,000 ML INFUS.BAG IV ONE; +DARATUMUMAB-HYALURONIDASE-FIHJ (FASPRO) 15 ML VIAL SQ ONE; -DEXAMETHASONE 4 MG TABLET (FP) PO ONE
[2021-06-07] MEDS ORDERED: SODIUM CHLORIDE 0.45% 250 ML IVPB ONE (10:30)
[2021-06-07] MEDS ORDERED: ACETAMINOPHEN 325 MG TABLET (FP) PO ONE (10:30)
[2021-06-07] MEDS ORDERED: DEXAMETHASONE SODIUM PHOSPHATE 12 MG, DIPHENHYDRAMINE 25 MG in SODIUM CHLORIDE 100 ML IVPB ONE (10:30)
[2021-06-07] MEDS ORDERED: DARATUMUMAB-HYALURONIDASE-FIHJ (FASPRO) 15 ML VIAL SQ ONE (11:00)
[2021-06-07 11:40] LABS: BASO % 0.1 % (0-2.0); EOS % 0.2 % (0-4.5); HEMATOCRIT 34.7 % (35.4-49); HEMOGLOBIN 12.1 GM/dL (11.7-16.9); LYMPH % 6.5 % (8-40); MCH 34.1 pg (25.7-33.7); MCHC 34.8 g/dl (32.0-35.9); MEAN PLT VOLUME 7.6 fl (7.5-11.1); MONO % 14.4 % (3.8-10.2); NEUT % 78.8 % (42.8-82.8); PLATELET COUNT 158 10^3/uL (134-434); RBC 3.55 M/mm3 (4.00-5.60); WHITE BLOOD COUNT 2.8 K/mm3 (4.0-10.0)
[2021-06-07 12:18] LABS: CALCIUM 9.4 mg/dL (8.5-10.1)
[2021-06-07 12:19] LABS: BLOOD UREA NITROGEN 30.2 mg/dL (7-18); MAGNESIUM 2.1 mg/dL (1.8-2.4)
[2021-06-07 12:21] LABS: BILIRUBIN,DIRECT 0.2 mg/dL (0.0-0.2); URIC ACID 8.6 mg/dL (2.6-7.2)
[2021-06-07 12:22] LABS: CREATININE 2.2 mg/dL (0.55-1.3)
[2021-06-07 12:23] LABS: BILIRUBIN,TOTAL 0.6 mg/dL (0.2-1); TOT PROT 6.5 g/dl (6.4-8.2)
[2021-06-07 15:58] VITALS: TEMP 98.4
[2021-06-07 16:05] VITALS: BP 128/75; PULSE 54
[2021-06-08 17:10] LABS: BETA-2-MICROGLOBULIN 3.7 mg/L (0.6-2.4)
[2021-06-08 18:11] LABS: FREE KAPPA,SERUM 10.2 mg/L (3.3-19.4)
[2021-06-10 06:07] LABS: FREE KAP CHN UR 21.35 mg/L (0.63-113.79); KAPPA LAMBDA RATIO URIN 0.08 (1.03-31.76)
== END 2021-06-07 14:45 | disposition home or self-care (01) ==
LOC: JONCCHEMO 06:38
PROVIDERS: ATTEND Internal Medicine Hematology & Oncology
PROC: 3E01305 Introduction of Other Antineoplastic into Subcutaneous Tissue, Percutaneous Approach (ICD-10-PCS; principal; 2021-06-07)
PROC: 3E033GC Introduction of Other Therapeutic Substance into Peripheral Vein, Percutaneous Approach (ICD-10-PCS; 2021-06-07)
PROC: 3E0337Z Introduction of Electrolytic and Water Balance Substance into Peripheral Vein, Percutaneous Approach (ICD-10-PCS; 2021-06-07)
DX: Z51.11 Encounter for antineoplastic chemotherapy (principal); C90.00 Multiple myeloma not having achieved remission
CPT/HCPCS: 36415; 80048; 80076; 82232; 82784; 83615; 83735; 83883; 84155; 84165; 84550; 85025; 86335; 96361; 96365; 96401; J9144

== ENCOUNTER 2021-06-14 07:27 | Day surgery (SDC) | payer OTHER ==
[2021-06-14] MEDS ORDERED: SODIUM CHLORIDE 0.45% 250 ML IVPB ONE (10:00)
[2021-06-14] MEDS ORDERED: DEXAMETHASONE SODIUM PHOSPHATE 12 MG, DIPHENHYDRAMINE 25 MG in SODIUM CHLORIDE 100 ML IVPB ONE (10:30)
[2021-06-14] MEDS ORDERED: ACETAMINOPHEN 325 MG TABLET (FP) PO ONE (10:30)
[2021-06-14] MEDS ORDERED: DARATUMUMAB-HYALURONIDASE-FIHJ (FASPRO) 15 ML VIAL SQ ONE (11:00)
[2021-06-14 12:05] LABS: BASO % 0.2 % (0-2.0); EOS % 0.1 % (0-4.5); HEMATOCRIT 35.8 % (35.4-49); LYMPH % 5.2 % (8-40); MCH 33.2 pg (25.7-33.7); MCHC 33.5 g/dl (32.0-35.9); MEAN CELL VOLUME 98.8 fl (80-96); MEAN PLT VOLUME 7.6 fl (7.5-11.1); MONO % 12.2 % (3.8-10.2); NEUT % 82.3 % (42.8-82.8); PLATELET COUNT 170 10^3/uL (134-434); RBC 3.63 M/mm3 (4.00-5.60); RDW 12.9 % (11.9-15.9); WHITE BLOOD COUNT 3.3 K/mm3 (4.0-10.0)
[2021-06-14 12:34] LABS: CALCIUM 9.1 mg/dL (8.5-10.1)
[2021-06-14 12:35] LABS: BLOOD UREA NITROGEN 31.2 mg/dL (7-18)
[2021-06-14 12:37] LABS: BILIRUBIN,DIRECT 0.2 mg/dL (0.0-0.2); URIC ACID 7.6 mg/dL (2.6-7.2)
[2021-06-14 12:38] LABS: CREATININE 2.1 mg/dL (0.55-1.3)
[2021-06-14 12:40] LABS: BILIRUBIN,TOTAL 0.8 mg/dL (0.2-1); TOT PROT 6.3 g/dl (6.4-8.2)
[2021-06-14 16:14] VITALS: PULSE 60; TEMP 97.3
[2021-06-14 16:22] VITALS: BP 162/20
== END 2021-06-14 15:30 | disposition home or self-care (01) ==
LOC: JONCCHEMO 07:27
PROVIDERS: ATTEND Internal Medicine Hematology & Oncology
PROC: 3E01305 Introduction of Other Antineoplastic into Subcutaneous Tissue, Percutaneous Approach (ICD-10-PCS; principal; 2021-06-14)
PROC: 3E033GC Introduction of Other Therapeutic Substance into Peripheral Vein, Percutaneous Approach (ICD-10-PCS; 2021-06-14)
PROC: 3E033GC Introduction of Other Therapeutic Substance into Peripheral Vein, Percutaneous Approach (ICD-10-PCS; 2021-06-14)
DX: Z51.11 Encounter for antineoplastic chemotherapy (principal); C90.00 Multiple myeloma not having achieved remission
CPT/HCPCS: 36415; 80048; 80076; 83615; 84550; 85025; 96361; 96365; 96401; J9144

== ENCOUNTER 2021-06-21 06:59 | Day surgery (SDC) | payer OTHER ==
[2021-06-21] MEDS ORDERED: SODIUM CHLORIDE 0.45% 250 ML IVPB ONE (10:00)
[2021-06-21] MEDS ORDERED: DEXAMETHASONE SODIUM PHOSPHATE 20 MG, DIPHENHYDRAMINE 25 MG in SODIUM CHLORIDE 100 ML IVPB ONE (10:30)
[2021-06-21] MEDS ORDERED: ACETAMINOPHEN 325 MG TABLET (FP) PO ONE (10:30)
[2021-06-21] MEDS ORDERED: DARATUMUMAB-HYALURONIDASE-FIHJ (FASPRO) 15 ML VIAL SQ ONE (11:00)
[2021-06-21 12:12] LABS: BASO % 0.1 % (0-2.0); EOS % 0.1 % (0-4.5); HEMATOCRIT 34.8 % (35.4-49); HEMOGLOBIN 11.9 GM/dL (11.7-16.9); LYMPH % 5.8 % (8-40); MCH 33.8 pg (25.7-33.7); MCHC 34.1 g/dl (32.0-35.9); MEAN CELL VOLUME 99.2 fl (80-96); MEAN PLT VOLUME 7.7 fl (7.5-11.1); MONO % 13.1 % (3.8-10.2); NEUT % 80.9 % (42.8-82.8); PLATELET COUNT 157 10^3/uL (134-434); RBC 3.51 M/mm3 (4.00-5.60); RDW 13.2 % (11.9-15.9); WHITE BLOOD COUNT 3.1 K/mm3 (4.0-10.0)
[2021-06-21 12:40] LABS: CALCIUM 8.6 mg/dL (8.5-10.1); MAGNESIUM 1.8 mg/dL (1.8-2.4)
[2021-06-21 12:41] LABS: ALBUMIN 3.8 g/dl (3.4-5.0); BLOOD UREA NITROGEN 25.3 mg/dL (7-18)
[2021-06-21 12:42] LABS: URIC ACID 7.3 mg/dL (2.6-7.2)
[2021-06-21 12:43] LABS: CREATININE 1.8 mg/dL (0.55-1.3)
[2021-06-21 12:44] LABS: BILIRUBIN,DIRECT 0.2 mg/dL (0.0-0.2); TOT PROT 6.1 g/dl (6.4-8.2)
[2021-06-21 12:46] LABS: BILIRUBIN,TOTAL 0.6 mg/dL (0.2-1)
[2021-06-21 17:06] VITALS: TEMP 98.6
[2021-06-21 17:18] VITALS: BP 130/75; PULSE 63
== END 2021-06-21 15:20 | disposition home or self-care (01) ==
LOC: JONCCHEMO 06:59
PROVIDERS: ATTEND Internal Medicine Hematology & Oncology
PROC: 3E01305 Introduction of Other Antineoplastic into Subcutaneous Tissue, Percutaneous Approach (ICD-10-PCS; principal; 2021-06-21)
PROC: 3E0337Z Introduction of Electrolytic and Water Balance Substance into Peripheral Vein, Percutaneous Approach (ICD-10-PCS; 2021-06-21)
DX: Z51.11 Encounter for antineoplastic chemotherapy (principal); C90.00 Multiple myeloma not having achieved remission
CPT/HCPCS: 36415; 80048; 80076; 83615; 83735; 84550; 85025; 96360; 96401; J9144

== ENCOUNTER 2021-06-28 07:20 | Day surgery (SDC) | payer OTHER ==
[2021-06-28] MEDS ORDERED: SODIUM CHLORIDE 0.45% 250 ML IVPB ONE (09:00)
[2021-06-28] MEDS ORDERED: DEXAMETHASONE SODIUM PHOSPHATE 12 MG, DIPHENHYDRAMINE 25 MG in SODIUM CHLORIDE 100 ML IVPB ONE (09:30)
[2021-06-28] MEDS ORDERED: ACETAMINOPHEN 325 MG TABLET (FP) PO ONE (09:30)
[2021-06-28] MEDS ORDERED: DARATUMUMAB-HYALURONIDASE-FIHJ (FASPRO) 15 ML VIAL SQ ONE ×2 (10:00→13:00)
[2021-06-28 12:10] LABS: BASO % 0.1 % (0-2.0); HEMATOCRIT 35.5 % (35.4-49); LYMPH % 5.5 % (8-40); MCH 33.5 pg (25.7-33.7); MCHC 33.8 g/dl (32.0-35.9); MEAN PLT VOLUME 7.8 fl (7.5-11.1); MONO % 12.8 % (3.8-10.2); NEUT % 81.6 % (42.8-82.8); PLATELET COUNT 160 10^3/uL (134-434); RBC 3.59 M/mm3 (4.00-5.60); RDW 13.2 % (11.9-15.9); WHITE BLOOD COUNT 3.4 K/mm3 (4.0-10.0)
[2021-06-28 12:37] LABS: ALBUMIN 3.9 g/dl (3.4-5.0); CALCIUM 9.3 mg/dL (8.5-10.1)
[2021-06-28 12:38] LABS: BLOOD UREA NITROGEN 30.5 mg/dL (7-18)
[2021-06-28 12:40] LABS: BILIRUBIN,DIRECT 0.2 mg/dL (0.0-0.2); CREATININE 1.8 mg/dL (0.55-1.3)
[2021-06-28 12:42] LABS: BILIRUBIN,TOTAL 0.7 mg/dL (0.2-1); TOT PROT 6.2 g/dl (6.4-8.2)
[2021-06-28 17:51] VITALS: TEMP 98.3
[2021-06-28 17:55] VITALS: BP 145/88; PULSE 66
== END 2021-06-28 14:15 | disposition home or self-care (01) ==
LOC: JONCCHEMO 07:20
PROVIDERS: ATTEND Internal Medicine Hematology & Oncology
PROC: 3E01305 Introduction of Other Antineoplastic into Subcutaneous Tissue, Percutaneous Approach (ICD-10-PCS; principal; 2021-06-28)
PROC: 3E033GC Introduction of Other Therapeutic Substance into Peripheral Vein, Percutaneous Approach (ICD-10-PCS; 2021-06-28)
DX: Z51.11 Encounter for antineoplastic chemotherapy (principal); C90.00 Multiple myeloma not having achieved remission
CPT/HCPCS: 36415; 80048; 80076; 83735; 85025; 96365; 96401; J9144

== ENCOUNTER 2021-07-05 07:26 | Day surgery (SDC) | payer OTHER ==
[2021-07-05] MEDS ORDERED: DEXAMETHASONE SODIUM PHOSPHATE 12 MG, DIPHENHYDRAMINE 25 MG in SODIUM CHLORIDE 100 ML IVPB ONE (09:30)
[2021-07-05] MEDS ORDERED: ACETAMINOPHEN 325 MG TABLET (FP) PO ONE (09:30)
[2021-07-05] MEDS ORDERED: DARATUMUMAB-HYALURONIDASE-FIHJ (FASPRO) 15 ML VIAL SQ ONE (10:00)
[2021-07-05 11:50] LABS: BASO % 0.2 % (0-2.0); HEMATOCRIT 36.7 % (35.4-49); HEMOGLOBIN 12.4 GM/dL (11.7-16.9); LYMPH % 4.9 % (8-40); MCH 33.4 pg (25.7-33.7); MCHC 33.7 g/dl (32.0-35.9); MONO % 12.8 % (3.8-10.2); NEUT % 82.1 % (42.8-82.8); PLATELET COUNT 162 10^3/uL (134-434); RBC 3.71 M/mm3 (4.00-5.60); RDW 13.2 % (11.9-15.9); WHITE BLOOD COUNT 3.4 K/mm3 (4.0-10.0)
[2021-07-05 12:18] LABS: ALBUMIN 3.9 g/dl (3.4-5.0); BLOOD UREA NITROGEN 29.3 mg/dL (7-18); CALCIUM 8.5 mg/dL (8.5-10.1)
[2021-07-05 12:21] LABS: CREATININE 2.2 mg/dL (0.55-1.3)
[2021-07-05 12:22] LABS: BILIRUBIN,DIRECT 0.2 mg/dL (0.0-0.2); BILIRUBIN,TOTAL 0.5 mg/dL (0.2-1); TOT PROT 6.3 g/dl (6.4-8.2)
[2021-07-05 12:26] LABS: URIC ACID 7.4 mg/dL (2.6-7.2)
[2021-07-05 13:04] VITALS: TEMP 97.7
[2021-07-05] MEDS ORDERED: SODIUM CHLORIDE 0.45% 250 ML IVPB ONE (13:45)
[2021-07-05] MEDS ORDERED: SODIUM CHLORIDE 250 ML IV ONE (13:45)
[2021-07-05 15:23] VITALS: BP 124/85; PULSE 66
[2021-07-06 17:07] LABS: FREE KAPPA,SERUM 9.2 mg/L (3.3-19.4)
[2021-07-08 12:09] LABS: FREE KAP CHN UR 17.21 mg/L (1.17-86.46); KAPPA LAMBDA RATIO URIN 0.55 (1.83-14.26)
== END 2021-07-05 14:30 | disposition home or self-care (01) ==
LOC: JONCCHEMO 07:26
PROVIDERS: ATTEND Internal Medicine Hematology & Oncology
PROC: 3E01305 Introduction of Other Antineoplastic into Subcutaneous Tissue, Percutaneous Approach (ICD-10-PCS; principal; 2021-07-05)
PROC: 3E033GC Introduction of Other Therapeutic Substance into Peripheral Vein, Percutaneous Approach (ICD-10-PCS; 2021-07-05)
DX: Z51.11 Encounter for antineoplastic chemotherapy (principal); C90.00 Multiple myeloma not having achieved remission
CPT/HCPCS: 36415; 80048; 80076; 82784; 83615; 83735; 83883; 84155; 84165; 84550; 85025; 86335; 96365; 96401; J9144

== ENCOUNTER 2021-07-12 06:17 | Day surgery (SDC) | payer OTHER ==
[2021-07-12] MEDS ORDERED: SODIUM CHLORIDE 0.45% 250 ML IVPB ONE (09:00)
[2021-07-12] MEDS ORDERED: ACETAMINOPHEN 325 MG TABLET (FP) PO ONE (09:30)
[2021-07-12] MEDS ORDERED: DEXAMETHASONE SODIUM PHOSPHATE 12 MG, DIPHENHYDRAMINE 25 MG in SODIUM CHLORIDE 100 ML IVPB ONE (09:30)
[2021-07-12] MEDS ORDERED: DARATUMUMAB-HYALURONIDASE-FIHJ (FASPRO) 15 ML VIAL SQ ONE (10:00)
[2021-07-12 10:07] LABS: BASO % 0.2 % (0-2.0); EOS % 0.1 % (0-4.5); HEMATOCRIT 35.4 % (35.4-49); HEMOGLOBIN 11.9 GM/dL (11.7-16.9); LYMPH % 4.6 % (8-40); MCH 33.2 pg (25.7-33.7); MCHC 33.7 g/dl (32.0-35.9); MEAN CELL VOLUME 98.4 fl (80-96); MEAN PLT VOLUME 7.3 fl (7.5-11.1); MONO % 14.1 % (3.8-10.2); PLATELET COUNT 166 10^3/uL (134-434); RDW 13.3 % (11.9-15.9); WHITE BLOOD COUNT 3.1 K/mm3 (4.0-10.0)
[2021-07-12 10:40] LABS: CALCIUM 8.9 mg/dL (8.5-10.1)
[2021-07-12 10:41] LABS: ALBUMIN 3.4 g/dl (3.4-5.0); BLOOD UREA NITROGEN 40.5 mg/dL (7-18)
[2021-07-12 10:43] LABS: CREATININE 2.1 mg/dL (0.55-1.3); URIC ACID 7.6 mg/dL (2.6-7.2)
[2021-07-12 10:44] LABS: BILIRUBIN,DIRECT 0.1 mg/dL (0.0-0.2)
[2021-07-12 10:45] LABS: TOT PROT 6.1 g/dl (6.4-8.2)
[2021-07-12 10:46] LABS: BILIRUBIN,TOTAL 0.4 mg/dL (0.2-1)
[2021-07-12 17:27] VITALS: TEMP 97.7
[2021-07-12 17:38] VITALS: BP 117/69; PULSE 60
== END 2021-07-12 14:00 | disposition home or self-care (01) ==
LOC: JONCCHEMO 06:17
PROVIDERS: ATTEND Internal Medicine Hematology & Oncology
PROC: 3E033GC Introduction of Other Therapeutic Substance into Peripheral Vein, Percutaneous Approach (ICD-10-PCS; principal; 2021-07-12)
PROC: 3E01305 Introduction of Other Antineoplastic into Subcutaneous Tissue, Percutaneous Approach (ICD-10-PCS; 2021-07-12)
DX: Z51.11 Encounter for antineoplastic chemotherapy (principal); C90.00 Multiple myeloma not having achieved remission
CPT/HCPCS: 36415; 80048; 80076; 83615; 83735; 84550; 85025; 96365; 96401; J9144

== ENCOUNTER 2021-08-09 06:41 | Day surgery (SDC) | payer OTHER ==
[~2021-08-09 06:41] MED LIST changes: +ACETAMINOPHEN 325 MG TABLET (FP) PO ONE; +DEXAMETHASONE SODIUM PHOSPHATE 12 MG, DIPHENHYDRAMINE 25 MG in SODIUM CHLORIDE 100 ML IVPB ONE; +SODIUM CHLORIDE 0.45% 250 ML IVPB ONE
[2021-08-09] MEDS ORDERED: SODIUM CHLORIDE 0.45% 250 ML IVPB ONE (09:00)
[2021-08-09] MEDS ORDERED: DEXAMETHASONE SODIUM PHOSPHATE 12 MG, DIPHENHYDRAMINE 25 MG in SODIUM CHLORIDE 100 ML IVPB ONE (09:30)
[2021-08-09] MEDS ORDERED: ACETAMINOPHEN 325 MG TABLET (FP) PO ONE (09:30)
[2021-08-09] MEDS ORDERED: DARATUMUMAB-HYALURONIDASE-FIHJ (FASPRO) 15 ML VIAL SQ ONE (10:00)
[2021-08-09 12:07] LABS: ALBUMIN 3.6 g/dl (3.4-5.0); BLOOD UREA NITROGEN 36.2 mg/dL (7-18)
[2021-08-09 12:08] LABS: BILIRUBIN,DIRECT 0.2 mg/dL (0.0-0.2); URIC ACID 8.2 mg/dL (2.6-7.2)
[2021-08-09 12:11] LABS: BASO % 0.1 % (0-2.0); BILIRUBIN,TOTAL 0.6 mg/dL (0.2-1); EOS % 0.3 % (0-4.5); HEMATOCRIT 35.5 % (35.4-49); HEMOGLOBIN 12.2 GM/dL (11.7-16.9); LYMPH % 5.7 % (8-40); MCH 33.2 pg (25.7-33.7); MCHC 34.3 g/dl (32.0-35.9); MEAN CELL VOLUME 96.9 fl (80-96); MEAN PLT VOLUME 7.7 fl (7.5-11.1); MONO % 16.8 % (3.8-10.2); NEUT % 77.1 % (42.8-82.8); PLATELET COUNT 171 10^3/uL (134-434); RBC 3.66 M/mm3 (4.00-5.60); RDW 13.4 % (11.9-15.9); WHITE BLOOD COUNT 3.3 K/mm3 (4.0-10.0)
[2021-08-09 16:37] VITALS: BP 116/74; PULSE 64; TEMP 97.8
[2021-08-10 18:07] LABS: FREE KAPPA,SERUM 12.9 mg/L (3.3-19.4)
[2021-08-11 07:08] LABS: BETA-2-MICROGLOBULIN 3.6 mg/L (0.6-2.4)
[2021-08-12 15:09] LABS: FREE KAP CHN UR 8.5 mg/L (1.17-86.46); KAPPA LAMBDA RATIO URIN 0.8 (1.83-14.26)
== END 2021-08-09 16:39 | disposition home or self-care (01) ==
LOC: JONCCHEMO 06:41
PROVIDERS: ATTEND Internal Medicine Hematology & Oncology
PROC: 3E01305 Introduction of Other Antineoplastic into Subcutaneous Tissue, Percutaneous Approach (ICD-10-PCS; principal; 2021-08-09)
PROC: 3E033GC Introduction of Other Therapeutic Substance into Peripheral Vein, Percutaneous Approach (ICD-10-PCS; 2021-08-09)
DX: Z51.11 Encounter for antineoplastic chemotherapy (principal); C90.00 Multiple myeloma not having achieved remission
CPT/HCPCS: 36415; 80048; 80076; 82232; 82784; 83615; 83735; 83883; 84155; 84165; 84550; 85025; 86335; 96365; 96401; J9144

== ENCOUNTER 2021-08-24 07:29 | Day surgery (SDC) | payer OTHER ==
[2021-08-24] MEDS ORDERED: SODIUM CHLORIDE 0.45% 250 ML IVPB ONE ×2 (09:00→11:15)
[2021-08-24] MEDS ORDERED: ACETAMINOPHEN 325 MG TABLET (FP) PO ONE (09:30)
[2021-08-24] MEDS ORDERED: DEXAMETHASONE SODIUM PHOSPHATE 12 MG, DIPHENHYDRAMINE 25 MG in SODIUM CHLORIDE 100 ML IVPB ONE (09:30)
[2021-08-24] MEDS ORDERED: DARATUMUMAB-HYALURONIDASE-FIHJ (FASPRO) 15 ML VIAL SQ ONE (10:00)
[2021-08-24 10:07] LABS: BASO % 0.1 % (0-2.0); EOS % 1.2 % (0-4.5); HEMATOCRIT 34.6 % (35.4-49); HEMOGLOBIN 12.1 GM/dL (11.7-16.9); LYMPH % 4.2 % (8-40); MCH 33.7 pg (25.7-33.7); MCHC 34.9 g/dl (32.0-35.9); MEAN CELL VOLUME 96.5 fl (80-96); MEAN PLT VOLUME 7.7 fl (7.5-11.1); NEUT % 77.5 % (42.8-82.8); PLATELET COUNT 170 10^3/uL (134-434); RBC 3.59 M/mm3 (4.00-5.60); RDW 13.5 % (11.9-15.9); WHITE BLOOD COUNT 3.9 K/mm3 (4.0-10.0)
[2021-08-24 10:33] LABS: MAGNESIUM 2.1 mg/dL (1.8-2.4)
[2021-08-24 10:34] LABS: BLOOD UREA NITROGEN 34.5 mg/dL (7-18)
[2021-08-24 10:35] LABS: ALBUMIN 3.6 g/dl (3.4-5.0)
[2021-08-24 10:36] LABS: URIC ACID 7.8 mg/dL (2.6-7.2)
[2021-08-24 10:37] LABS: BILIRUBIN,DIRECT 0.2 mg/dL (0.0-0.2); CREATININE 2.2 mg/dL (0.55-1.3)
[2021-08-24 10:38] LABS: TOT PROT 6.2 g/dl (6.4-8.2)
[2021-08-24 10:39] LABS: BILIRUBIN,TOTAL 0.5 mg/dL (0.2-1)
[2021-08-24 17:56] VITALS: TEMP 97.8
[2021-08-24 18:27] VITALS: BP 152/84; PULSE 51
== END 2021-08-24 14:25 | disposition home or self-care (01) ==
LOC: JONCCHEMO 07:29
PROVIDERS: ATTEND Internal Medicine Hematology & Oncology
PROC: 3E01305 Introduction of Other Antineoplastic into Subcutaneous Tissue, Percutaneous Approach (ICD-10-PCS; principal; 2021-08-24)
PROC: 3E033GC Introduction of Other Therapeutic Substance into Peripheral Vein, Percutaneous Approach (ICD-10-PCS; 2021-08-24)
PROC: 3E0337Z Introduction of Electrolytic and Water Balance Substance into Peripheral Vein, Percutaneous Approach (ICD-10-PCS; 2021-08-24)
DX: Z51.11 Encounter for antineoplastic chemotherapy (principal); C90.00 Multiple myeloma not having achieved remission
CPT/HCPCS: 36415; 80048; 80076; 83615; 83735; 84550; 85025; 96361; 96365; 96401; J9144

== ENCOUNTER 2021-09-06 06:54 | Day surgery (SDC) | payer OTHER ==
[2021-09-06] MEDS ORDERED: ACETAMINOPHEN 325 MG TABLET (FP) PO ONE (10:00)
[2021-09-06] MEDS ORDERED: DEXAMETHASONE SODIUM PHOSPHATE 12 MG, DIPHENHYDRAMINE 25 MG in SODIUM CHLORIDE 100 ML IVPB ONE (10:00)
[2021-09-06] MEDS ORDERED: SODIUM CHLORIDE 0.45% 250 ML IVPB ONE (10:00)
[2021-09-06] MEDS ORDERED: DARATUMUMAB-HYALURONIDASE-FIHJ (FASPRO) 15 ML VIAL SQ ONE (10:30)
[2021-09-06 10:47] LABS: BASO % 0.3 % (0-2.0); EOS % 1.4 % (0-4.5); HEMATOCRIT 36.6 % (35.4-49); HEMOGLOBIN 12.2 GM/dL (11.7-16.9); LYMPH % 4.8 % (8-40); MCH 32.2 pg (25.7-33.7); MCHC 33.5 g/dl (32.0-35.9); MEAN CELL VOLUME 96.4 fl (80-96); MEAN PLT VOLUME 7.5 fl (7.5-11.1); MONO % 14.1 % (3.8-10.2); NEUT % 79.4 % (42.8-82.8); PLATELET COUNT 179 10^3/uL (134-434); RDW 13.4 % (11.9-15.9); WHITE BLOOD COUNT 3.4 K/mm3 (4.0-10.0)
[2021-09-06 11:15] LABS: MAGNESIUM 1.9 mg/dL (1.8-2.4)
[2021-09-06 11:16] LABS: ALBUMIN 3.5 g/dl (3.4-5.0); BLOOD UREA NITROGEN 33.5 mg/dL (7-18); CALCIUM 8.9 mg/dL (8.5-10.1)
[2021-09-06 11:18] LABS: URIC ACID 8.1 mg/dL (2.6-7.2)
[2021-09-06 11:19] LABS: BILIRUBIN,DIRECT 0.2 mg/dL (0.0-0.2)
[2021-09-06 11:20] LABS: TOT PROT 6.1 g/dl (6.4-8.2)
[2021-09-06 11:21] LABS: BILIRUBIN,TOTAL 0.6 mg/dL (0.2-1)
[2021-09-06 17:52] VITALS: PULSE 66; TEMP 98.7
[2021-09-06 18:04] VITALS: BP 123/51
[2021-09-07 18:07] LABS: FREE KAPPA,SERUM 11.4 mg/L (3.3-19.4)
[2021-09-08 16:10] LABS: BETA-2-MICROGLOBULIN 3.3 mg/L (0.6-2.4)
[2021-09-09 06:06] LABS: FREE KAP CHN UR 6.19 mg/L (1.17-86.46); KAPPA LAMBDA RATIO URIN 0.9 (1.83-14.26)
== END 2021-09-06 13:25 | disposition home or self-care (01) ==
LOC: JONCCHEMO 06:54
PROVIDERS: ATTEND Internal Medicine Hematology & Oncology
PROC: 3E01305 Introduction of Other Antineoplastic into Subcutaneous Tissue, Percutaneous Approach (ICD-10-PCS; principal; 2021-09-06)
PROC: 3E033GC Introduction of Other Therapeutic Substance into Peripheral Vein, Percutaneous Approach (ICD-10-PCS; 2021-09-06)
DX: Z51.11 Encounter for antineoplastic chemotherapy (principal); C90.00 Multiple myeloma not having achieved remission
CPT/HCPCS: 36415; 80048; 80076; 82232; 82784; 83615; 83735; 83883; 84550; 85025; 86335; 96361; 96365; 96401; J9144

== ENCOUNTER 2021-09-20 07:43 | Day surgery (SDC) | payer OTHER ==
[2021-09-20] MEDS ORDERED: ACETAMINOPHEN 325 MG TABLET (FP) PO ONE (10:00)
[2021-09-20] MEDS ORDERED: SODIUM CHLORIDE 0.45% 250 ML IVPB ONE (10:00)
[2021-09-20] MEDS ORDERED: DEXAMETHASONE SODIUM PHOSPHATE 12 MG, DIPHENHYDRAMINE 25 MG in SODIUM CHLORIDE 100 ML IVPB ONE (10:00)
[2021-09-20 10:27] LABS: BASO % 0.2 % (0-2.0); EOS % 1.2 % (0-4.5); HEMATOCRIT 37.3 % (35.4-49); HEMOGLOBIN 12.6 GM/dL (11.7-16.9); LYMPH % 7.6 % (8-40); MCH 32.9 pg (25.7-33.7); MCHC 33.8 g/dl (32.0-35.9); MEAN CELL VOLUME 97.5 fl (80-96); MEAN PLT VOLUME 7.7 fl (7.5-11.1); MONO % 18.8 % (3.8-10.2); NEUT % 72.2 % (42.8-82.8); PLATELET COUNT 153 10^3/uL (134-434); RBC 3.83 M/mm3 (4.00-5.60); RDW 13.4 % (11.9-15.9); WHITE BLOOD COUNT 2.7 K/mm3 (4.0-10.0)
[2021-09-20] MEDS ORDERED: DARATUMUMAB-HYALURONIDASE-FIHJ (FASPRO) 15 ML VIAL SQ ONE (10:30)
[2021-09-20 10:43] LABS: CALCIUM 8.8 mg/dL (8.5-10.1)
[2021-09-20 10:44] LABS: ALBUMIN 3.7 g/dl (3.4-5.0); BLOOD UREA NITROGEN 33.6 mg/dL (7-18); MAGNESIUM 2.1 mg/dL (1.8-2.4)
[2021-09-20 10:46] LABS: BILIRUBIN,DIRECT 0.1 mg/dL (0.0-0.2); URIC ACID 7.7 mg/dL (2.6-7.2)
[2021-09-20 10:47] LABS: CREATININE 1.9 mg/dL (0.55-1.3)
[2021-09-20 10:48] LABS: BILIRUBIN,TOTAL 0.5 mg/dL (0.2-1)
[2021-09-20 17:28] VITALS: TEMP 97.6
[2021-09-20 17:36] VITALS: BP 145/84; PULSE 53
== END 2021-09-20 14:00 | disposition home or self-care (01) ==
LOC: JONCCHEMO 07:43
PROVIDERS: ATTEND Internal Medicine Hematology & Oncology
PROC: 3E01305 Introduction of Other Antineoplastic into Subcutaneous Tissue, Percutaneous Approach (ICD-10-PCS; principal; 2021-09-20)
PROC: 3E033GC Introduction of Other Therapeutic Substance into Peripheral Vein, Percutaneous Approach (ICD-10-PCS; 2021-09-20)
DX: Z51.11 Encounter for antineoplastic chemotherapy (principal); C90.00 Multiple myeloma not having achieved remission
CPT/HCPCS: 36415; 80048; 80076; 83615; 83735; 84550; 85025; 96365; 96401; J9144

== ENCOUNTER 2021-10-05 07:32 | Day surgery (SDC) | payer OTHER ==
[2021-10-05] MEDS ORDERED: SODIUM CHLORIDE 0.45% 250 ML IVPB ONE (09:00)
[2021-10-05 09:18] LABS: BASO % 0.3 % (0-2.0); EOS % 0.8 % (0-4.5); HEMATOCRIT 38.5 % (35.4-49); LYMPH % 6.5 % (8-40); MCH 32.7 pg (25.7-33.7); MCHC 33.6 g/dl (32.0-35.9); MEAN CELL VOLUME 97.2 fl (80-96); MEAN PLT VOLUME 7.9 fl (7.5-11.1); MONO % 13.2 % (3.8-10.2); NEUT % 79.2 % (42.8-82.8); PLATELET COUNT 162 10^3/uL (134-434); RBC 3.96 M/mm3 (4.00-5.60); RDW 13.4 % (11.9-15.9); WHITE BLOOD COUNT 3.4 K/mm3 (4.0-10.0)
[2021-10-05 09:30] LABS: CALCIUM 8.6 mg/dL (8.5-10.1)
[2021-10-05] MEDS ORDERED: ACETAMINOPHEN 325 MG TABLET (FP) PO ONE (09:30)
[2021-10-05] MEDS ORDERED: DEXAMETHASONE SODIUM PHOSPHATE 12 MG, DIPHENHYDRAMINE 25 MG in SODIUM CHLORIDE 100 ML IVPB ONE (09:30)
[2021-10-05 09:31] LABS: BLOOD UREA NITROGEN 28.4 mg/dL (7-18)
[2021-10-05 09:34] LABS: BILIRUBIN,DIRECT 0.2 mg/dL (0.0-0.2); BILIRUBIN,TOTAL 0.6 mg/dL (0.2-1); CREATININE 1.9 mg/dL (0.55-1.3); TOT PROT 6.3 g/dl (6.4-8.2)
[2021-10-05] MEDS ORDERED: DARATUMUMAB-HYALURONIDASE-FIHJ (FASPRO) 15 ML VIAL SQ ONE (10:00)
[2021-10-05 10:24] VITALS: TEMP 97.7
[2021-10-05 16:44] VITALS: BP 125/73; PULSE 53
[2021-10-06 18:09] LABS: FREE KAPPA,SERUM 11.3 mg/L (3.3-19.4)
== END 2021-10-05 12:05 | disposition home or self-care (01) ==
LOC: JONCCHEMO 07:32
PROVIDERS: ATTEND Internal Medicine Hematology & Oncology
PROC: 3E01305 Introduction of Other Antineoplastic into Subcutaneous Tissue, Percutaneous Approach (ICD-10-PCS; principal; 2021-10-05)
PROC: 3E033GC Introduction of Other Therapeutic Substance into Peripheral Vein, Percutaneous Approach (ICD-10-PCS; 2021-10-05)
DX: Z51.11 Encounter for antineoplastic chemotherapy (principal); C90.00 Multiple myeloma not having achieved remission
CPT/HCPCS: 36415; 80048; 80076; 82784; 83615; 83735; 83883; 84155; 84165; 84550; 85025; 96365; 96401; J9144

== ENCOUNTER 2021-10-19 06:15 | Day surgery (SDC) | payer OTHER ==
[2021-10-19] MEDS ORDERED: SODIUM CHLORIDE 0.45% 250 ML IVPB ONE (09:00)
[2021-10-19] MEDS ORDERED: ACETAMINOPHEN 325 MG TABLET (FP) PO ONE (09:30)
[2021-10-19] MEDS ORDERED: DEXAMETHASONE SODIUM PHOSPHATE 12 MG, DIPHENHYDRAMINE 25 MG in SODIUM CHLORIDE 100 ML IVPB ONE (09:30)
[2021-10-19] MEDS ORDERED: DARATUMUMAB-HYALURONIDASE-FIHJ (FASPRO) 15 ML VIAL SQ ONE (10:00)
[2021-10-19 10:26] LABS: BASO % 0.2 % (0-2.0); EOS % 0.7 % (0-4.5); HEMATOCRIT 36.7 % (35.4-49); HEMOGLOBIN 12.6 GM/dL (11.7-16.9); LYMPH % 6.7 % (8-40); MCH 33.2 pg (25.7-33.7); MCHC 34.4 g/dl (32.0-35.9); MEAN CELL VOLUME 96.6 fl (80-96); MEAN PLT VOLUME 7.8 fl (7.5-11.1); MONO % 15.6 % (3.8-10.2); NEUT % 76.8 % (42.8-82.8); PLATELET COUNT 146 10^3/uL (134-434); RDW 13.3 % (11.9-15.9); WHITE BLOOD COUNT 2.9 K/mm3 (4.0-10.0)
[2021-10-19 10:46] LABS: CALCIUM 8.9 mg/dL (8.5-10.1); MAGNESIUM 2.1 mg/dL (1.8-2.4)
[2021-10-19 10:47] LABS: ALBUMIN 3.7 g/dl (3.4-5.0)
[2021-10-19 10:49] LABS: CREATININE 1.9 mg/dL (0.55-1.3); URIC ACID 8.9 mg/dL (2.6-7.2)
[2021-10-19 10:50] LABS: BILIRUBIN,DIRECT 0.3 mg/dL (0.0-0.2)
[2021-10-19 10:51] LABS: TOT PROT 5.9 g/dl (6.4-8.2)
[2021-10-19 10:52] LABS: BILIRUBIN,TOTAL 0.8 mg/dL (0.2-1)
[2021-10-19 15:25] VITALS: TEMP 97.8
[2021-10-19 15:38] VITALS: BP 133/61; PULSE 53; RESP 20
== END 2021-10-19 13:10 | disposition home or self-care (01) ==
LOC: JONCCHEMO 06:15
PROVIDERS: ATTEND Internal Medicine Hematology & Oncology
PROC: 3E01305 Introduction of Other Antineoplastic into Subcutaneous Tissue, Percutaneous Approach (ICD-10-PCS; principal; 2021-10-19)
PROC: 3E033GC Introduction of Other Therapeutic Substance into Peripheral Vein, Percutaneous Approach (ICD-10-PCS; 2021-10-19)
DX: Z51.11 Encounter for antineoplastic chemotherapy (principal); C90.00 Multiple myeloma not having achieved remission
CPT/HCPCS: 36415; 80048; 80076; 83615; 83735; 84550; 85025; 96365; 96401; J9144

== ENCOUNTER 2021-11-02 06:18 | Day surgery (SDC) | payer OTHER ==
[2021-11-02] MEDS ORDERED: SODIUM CHLORIDE 0.45% 250 ML IVPB ONE (09:00)
[2021-11-02] MEDS ORDERED: DEXAMETHASONE SODIUM PHOSPHATE 12 MG, DIPHENHYDRAMINE 25 MG in SODIUM CHLORIDE 100 ML IVPB ONE (10:00)
[2021-11-02] MEDS ORDERED: ACETAMINOPHEN 325 MG TABLET (FP) PO ONE (10:00)
[2021-11-02 10:29] LABS: BASO % 0.2 % (0-2.0); EOS % 0.2 % (0-4.5); HEMATOCRIT 37.3 % (35.4-49); HEMOGLOBIN 12.7 GM/dL (11.7-16.9); LYMPH % 5.2 % (8-40); MCH 32.6 pg (25.7-33.7); MCHC 34.1 g/dl (32.0-35.9); MEAN CELL VOLUME 95.7 fl (80-96); MEAN PLT VOLUME 7.8 fl (7.5-11.1); MONO % 10.7 % (3.8-10.2); NEUT % 83.7 % (42.8-82.8); PLATELET COUNT 150 10^3/uL (134-434); RDW 13.6 % (11.9-15.9); WHITE BLOOD COUNT 3.5 K/mm3 (4.0-10.0)
[2021-11-02] MEDS ORDERED: DARATUMUMAB-HYALURONIDASE-FIHJ (FASPRO) 15 ML VIAL SQ ONE (10:30)
[2021-11-02 10:50] LABS: CALCIUM 8.4 mg/dL (8.5-10.1)
[2021-11-02 10:51] LABS: ALBUMIN 3.6 g/dl (3.4-5.0); BLOOD UREA NITROGEN 29.2 mg/dL (7-18); MAGNESIUM 2.2 mg/dL (1.8-2.4)
[2021-11-02 10:53] LABS: BILIRUBIN,DIRECT 0.2 mg/dL (0.0-0.2)
[2021-11-02 10:54] LABS: CREATININE 1.9 mg/dL (0.55-1.3); URIC ACID 9.2 mg/dL (2.6-7.2)
[2021-11-02 10:55] LABS: BILIRUBIN,TOTAL 0.6 mg/dL (0.2-1); TOT PROT 5.8 g/dl (6.4-8.2)
[2021-11-02 16:44] VITALS: PULSE 58; RESP 18; TEMP 97.8
[2021-11-02 16:50] VITALS: BP 136/82
[2021-11-03 16:08] LABS: FREE KAPPA,SERUM 9.9 mg/L (3.3-19.4)
[2021-11-04 08:11] LABS: BETA-2-MICROGLOBULIN 3.2 mg/L (0.6-2.4)
[2021-11-05 06:06] LABS: FREE KAP CHN UR 22.22 mg/L (1.17-86.46); KAPPA LAMBDA RATIO URIN 1.07 (1.83-14.26)
== END 2021-11-02 14:15 | disposition home or self-care (01) ==
LOC: JONCCHEMO 06:18
PROVIDERS: ATTEND Internal Medicine Hematology & Oncology
PROC: 3E01305 Introduction of Other Antineoplastic into Subcutaneous Tissue, Percutaneous Approach (ICD-10-PCS; principal; 2021-11-02)
PROC: 3E033GC Introduction of Other Therapeutic Substance into Peripheral Vein, Percutaneous Approach (ICD-10-PCS; 2021-11-02)
DX: Z51.11 Encounter for antineoplastic chemotherapy (principal); C90.00 Multiple myeloma not having achieved remission
CPT/HCPCS: 36415; 80048; 80076; 82232; 82784; 83615; 83735; 83883; 84155; 84165; 84550; 85025; 86335; 96365; 96401; J9144

== ENCOUNTER 2021-12-06 06:48 | Day surgery (SDC) | payer OTHER ==
[2021-12-06] MEDS ORDERED: SODIUM CHLORIDE 0.45% 250 ML IVPB ONE (09:00)
[2021-12-06] MEDS ORDERED: DEXAMETHASONE SODIUM PHOSPHATE 12 MG, DIPHENHYDRAMINE 25 MG in SODIUM CHLORIDE 100 ML IVPB ONE (09:30)
[2021-12-06] MEDS ORDERED: ACETAMINOPHEN 325 MG TABLET (FP) PO ONE (09:30)
[2021-12-06] MEDS ORDERED: DARATUMUMAB-HYALURONIDASE-FIHJ (FASPRO) 15 ML VIAL SQ ONE (10:00)
[2021-12-06 12:36] LABS: BASO % 0.2 % (0-2.0); EOS % 0.3 % (0-4.5); HEMOGLOBIN 12.9 GM/dL (11.7-16.9); LYMPH % 6.6 % (8-40); MCH 33.4 pg (25.7-33.7); MEAN CELL VOLUME 98.2 fl (80-96); MEAN PLT VOLUME 7.7 fl (7.5-11.1); MONO % 16.7 % (3.8-10.2); NEUT % 76.2 % (42.8-82.8); PLATELET COUNT 150 10^3/uL (134-434); RBC 3.87 M/mm3 (4.00-5.60); RDW 13.3 % (11.9-15.9); WHITE BLOOD COUNT 2.7 K/mm3 (4.0-10.0)
[2021-12-06 12:53] LABS: CALCIUM 8.6 mg/dL (8.5-10.1)
[2021-12-06 12:54] LABS: ALBUMIN 3.7 g/dl (3.4-5.0); BLOOD UREA NITROGEN 25.2 mg/dL (7-18); MAGNESIUM 1.9 mg/dL (1.8-2.4)
[2021-12-06 12:56] LABS: BILIRUBIN,DIRECT 0.2 mg/dL (0.0-0.2); URIC ACID 5.5 mg/dL (2.6-7.2)
[2021-12-06 12:57] LABS: CREATININE 1.8 mg/dL (0.55-1.3)
[2021-12-06 12:58] VITALS: TEMP 97.6
[2021-12-06 12:58] LABS: BILIRUBIN,TOTAL 0.6 mg/dL (0.2-1); TOT PROT 5.8 g/dl (6.4-8.2)
[2021-12-06 15:06] VITALS: BP 110/71; PULSE 59; RESP 16
[2021-12-07 18:13] LABS: FREE KAPPA,SERUM 10.5 mg/L (3.3-19.4)
[2021-12-08 10:10] LABS: BETA-2-MICROGLOBULIN 2.8 mg/L (0.6-2.4)
== END 2021-12-06 15:40 | disposition home or self-care (01) ==
LOC: JONCCHEMO 06:48
PROVIDERS: ATTEND Internal Medicine Hematology & Oncology
PROC: 3E033GC Introduction of Other Therapeutic Substance into Peripheral Vein, Percutaneous Approach (ICD-10-PCS; principal; 2021-12-06)
DX: Z51.11 Encounter for antineoplastic chemotherapy (principal); C90.00 Multiple myeloma not having achieved remission
CPT/HCPCS: 36415; 80048; 80076; 82232; 82784; 83735; 83883; 84550; 85025; 96365; 96401; J9144

== ENCOUNTER 2022-01-10 11:24 | Day surgery (SDC) | payer OTHER ==
[2022-01-10 12:32] LABS: ALBUMIN 3.9 g/dl (3.4-5.0); BLOOD UREA NITROGEN 27.4 mg/dL (7-18)
[2022-01-10 12:35] LABS: BASO % 0.1 % (0-2.0); EOS % 0.8 % (0-4.5); HEMATOCRIT 36.6 % (35.4-49); HEMOGLOBIN 12.8 GM/dL (11.7-16.9); LYMPH % 4.9 % (8-40); MCH 33.7 pg (25.7-33.7); MEAN CELL VOLUME 96.4 fl (80-96); MEAN PLT VOLUME 7.5 fl (7.5-11.1); NEUT % 79.2 % (42.8-82.8); PLATELET COUNT 160 10^3/uL (134-434); RBC 3.79 M/mm3 (4.00-5.60); RDW 12.9 % (11.9-15.9); WHITE BLOOD COUNT 2.6 K/mm3 (4.0-10.0)
[2022-01-10 12:36] LABS: BILIRUBIN,DIRECT 0.2 mg/dL (0.0-0.2); BILIRUBIN,TOTAL 0.6 mg/dL (0.2-1); CREATININE 1.8 mg/dL (0.55-1.3); URIC ACID 5.9 mg/dL (2.6-7.2)
[2022-01-10 18:45] VITALS: TEMP 97.5
[2022-01-10 18:54] VITALS: BP 144/76; PULSE 52; RESP 18
[2022-01-12 18:07] LABS: FREE KAPPA,SERUM 10.6 mg/L (3.3-19.4)
[2022-01-13 16:11] LABS: BETA-2-MICROGLOBULIN 2.8 mg/L (0.6-2.4)
== END 2022-01-10 16:00 | disposition home or self-care (01) ==
LOC: JONCCHEMO 11:24
PROVIDERS: ATTEND Internal Medicine Hematology & Oncology
PROC: 3E033GC Introduction of Other Therapeutic Substance into Peripheral Vein, Percutaneous Approach (ICD-10-PCS; principal; 2022-01-10)
PROC: 3E01305 Introduction of Other Antineoplastic into Subcutaneous Tissue, Percutaneous Approach (ICD-10-PCS; 2022-01-10)
DX: Z51.11 Encounter for antineoplastic chemotherapy (principal); C90.00 Multiple myeloma not having achieved remission
CPT/HCPCS: 36415; 80048; 80076; 82232; 82784; 83615; 83735; 83883; 84155; 84165; 84550; 85025; 96365; 96401; J9144

== ENCOUNTER 2022-02-07 11:19 | Day surgery (SDC) | payer OTHER ==
[2022-02-07 12:21] LABS: BASO % 0.1 % (0-2.0); EOS % 0.4 % (0-4.5); HEMATOCRIT 39.2 % (35.4-49); HEMOGLOBIN 13.3 GM/dL (11.7-16.9); LYMPH % 6.3 % (8-40); MCHC 33.9 g/dl (32.0-35.9); MEAN CELL VOLUME 97.5 fl (80-96); MEAN PLT VOLUME 7.6 fl (7.5-11.1); MONO % 16.4 % (3.8-10.2); NEUT % 76.8 % (42.8-82.8); PLATELET COUNT 162 10^3/uL (134-434); RBC 4.02 M/mm3 (4.00-5.60); RDW 13.1 % (11.9-15.9); WHITE BLOOD COUNT 2.5 K/mm3 (4.0-10.0)
[2022-02-07 12:40] LABS: CALCIUM 8.9 mg/dL (8.5-10.1)
[2022-02-07 12:41] LABS: ALBUMIN 3.9 g/dl (3.4-5.0); BLOOD UREA NITROGEN 23.4 mg/dL (7-18)
[2022-02-07 12:43] LABS: CREATININE 1.7 mg/dL (0.55-1.3); URIC ACID 6.2 mg/dL (2.6-7.2)
[2022-02-07 12:44] LABS: BILIRUBIN,DIRECT 0.2 mg/dL (0.0-0.2)
[2022-02-07 12:45] LABS: TOT PROT 6.2 g/dl (6.4-8.2)
[2022-02-07 12:46] LABS: BILIRUBIN,TOTAL 0.7 mg/dL (0.2-1)
[2022-02-07 16:12] VITALS: RESP 18; TEMP 97.7
[2022-02-07 16:17] VITALS: BP 146/90; PULSE 52
[2022-02-09 14:09] LABS: FREE KAP CHN UR 9.92 mg/L (1.17-86.46); KAPPA LAMBDA RATIO URIN 0.99 (1.83-14.26)
== END 2022-02-07 14:25 | disposition home or self-care (01) ==
LOC: JONCCHEMO 11:19
PROVIDERS: ATTEND Internal Medicine Hematology & Oncology
PROC: 3E01305 Introduction of Other Antineoplastic into Subcutaneous Tissue, Percutaneous Approach (ICD-10-PCS; principal; 2022-02-07)
PROC: 3E033GC Introduction of Other Therapeutic Substance into Peripheral Vein, Percutaneous Approach (ICD-10-PCS; 2022-02-07)
DX: Z51.11 Encounter for antineoplastic chemotherapy (principal); C90.00 Multiple myeloma not having achieved remission
CPT/HCPCS: 36415; 80048; 80076; 82232; 82784; 83615; 83735; 83883; 84155; 84165; 84550; 85025; 86335; 96365; 96401; J9144

== ENCOUNTER 2022-03-07 09:50 | Day surgery (SDC) | payer OTHER ==
[~2022-03-07 09:50] MED LIST changes: -DARATUMUMAB-HYALURONIDASE-FIHJ (FASPRO) 15 ML VIAL SQ ONE
[2022-03-07] MEDS ORDERED: DARATUMUMAB-HYALURONIDASE-FIHJ (FASPRO) 15 ML VIAL SQ ONE (10:00)
[2022-03-07 10:46] LABS: BASO % 0.1 % (0-2.0); EOS % 0.6 % (0-4.5); HEMATOCRIT 41.3 % (35.4-49); HEMOGLOBIN 13.6 GM/dL (11.7-16.9); LYMPH % 5.7 % (8-40); MCHC 32.9 g/dl (32.0-35.9); MEAN CELL VOLUME 97.4 fl (80-96); MEAN PLT VOLUME 7.8 fl (7.5-11.1); MONO % 22.2 % (3.8-10.2); NEUT % 71.4 % (42.8-82.8); PLATELET COUNT 178 10^3/uL (134-434); RBC 4.24 M/mm3 (4.00-5.60); RDW 13.4 % (11.9-15.9); WHITE BLOOD COUNT 2.3 K/mm3 (4.0-10.0)
[2022-03-07 11:18] LABS: MAGNESIUM 2.2 mg/dL (1.8-2.4)
[2022-03-07 11:19] LABS: CALCIUM 9.2 mg/dL (8.5-10.1)
[2022-03-07 11:20] LABS: ALBUMIN 3.7 g/dl (3.4-5.0)
[2022-03-07 11:21] LABS: URIC ACID 6.3 mg/dL (2.6-7.2)
[2022-03-07 11:22] LABS: BILIRUBIN,DIRECT 0.2 mg/dL (0.0-0.2); CREATININE 1.9 mg/dL (0.55-1.3)
[2022-03-07 11:24] LABS: BILIRUBIN,TOTAL 0.6 mg/dL (0.2-1)
[2022-03-07 11:30] LABS: ANISOCYTOSIS 0; HELMET CELLS 0; HOWELL-JOLLY BODIES 0; MACROCYTOSIS 0; OVALOCYTE 0; ROULEAU 0; SICKELED CELLS 0; TARGET CELLS 0; TEAR DROP CELLS 0; TOXIC GRANULATION 0
[2022-03-07 11:33] LABS: BLOOD UREA NITROGEN 34.1 mg/dL (7-18)
[2022-03-07 19:13] VITALS: TEMP 98
[2022-03-07 19:18] VITALS: BP 135/75; PULSE 58; RESP 18
[2022-03-09 07:07] LABS: FREE KAP CHN UR 14.09 mg/L (1.17-86.46); KAPPA LAMBDA RATIO URIN 0.54 (1.83-14.26)
[2022-03-09 18:07] LABS: FREE KAPPA,SERUM 11.1 mg/L (3.3-19.4)
[2022-03-10 15:07] LABS: BETA-2-MICROGLOBULIN 3.2 mg/L (0.6-2.4)
== END 2022-03-07 14:35 | disposition home or self-care (01) ==
LOC: JONCCHEMO 09:50
PROVIDERS: ATTEND Internal Medicine Hematology & Oncology
PROC: 3E01305 Introduction of Other Antineoplastic into Subcutaneous Tissue, Percutaneous Approach (ICD-10-PCS; principal; 2022-03-07)
PROC: 3E033GC Introduction of Other Therapeutic Substance into Peripheral Vein, Percutaneous Approach (ICD-10-PCS; 2022-03-07)
DX: Z51.11 Encounter for antineoplastic chemotherapy (principal); C90.00 Multiple myeloma not having achieved remission
CPT/HCPCS: 36415; 80048; 80076; 82232; 82784; 83540; 83615; 83735; 83883; 84155; 84165; 84550; 85025; 86335; 96365; 96401; J9144

== ENCOUNTER 2022-04-18 09:46 | Day surgery (SDC) | payer OTHER ==
[2022-04-18] MEDS ORDERED: DARATUMUMAB-HYALURONIDASE-FIHJ (FASPRO) 15 ML VIAL SQ ONE (10:00)
[2022-04-18 11:26] LABS: HEMATOCRIT 39.8 % (35.4-49); HEMOGLOBIN 13.1 GM/dL (11.7-16.9); MCH 32.1 pg (25.7-33.7); MCHC 33.1 g/dl (32.0-35.9); MEAN CELL VOLUME 97.1 fl (80-96); MEAN PLT VOLUME 7.6 fl (7.5-11.1); PLATELET COUNT 154 10^3/uL (134-434); RBC 4.09 M/mm3 (4.00-5.60); RDW 13.1 % (11.9-15.9); WHITE BLOOD COUNT 2.3 K/mm3 (4.0-10.0)
[2022-04-18 11:48] LABS: ALBUMIN 3.8 g/dl (3.4-5.0); CALCIUM 8.8 mg/dL (8.5-10.1)
[2022-04-18 11:49] LABS: BLOOD UREA NITROGEN 29.8 mg/dL (7-18)
[2022-04-18 11:51] LABS: BILIRUBIN,DIRECT 0.2 mg/dL (0.0-0.2); URIC ACID 6.3 mg/dL (2.6-7.2)
[2022-04-18 11:53] LABS: BILIRUBIN,TOTAL 0.8 mg/dL (0.2-1)
[2022-04-18 11:55] LABS: ANISOCYTOSIS 1+; MACROCYTOSIS 0; PLATELET ESTIMATE DECREASED
[2022-04-18 17:15] VITALS: TEMP 97.6
[2022-04-18 17:28] VITALS: BP 123/78; PULSE 58; RESP 18
[2022-04-20 05:06] LABS: FREE KAP CHN UR 9.03 mg/L (1.17-86.46); KAPPA LAMBDA RATIO URIN 0.71 (1.83-14.26)
[2022-04-20 08:08] LABS: BETA-2-MICROGLOBULIN 3.5 mg/L (0.6-2.4)
== END 2022-04-18 14:05 | disposition home or self-care (01) ==
LOC: JONCCHEMO 09:46
PROVIDERS: ATTEND Internal Medicine Hematology & Oncology
PROC: 3E01305 Introduction of Other Antineoplastic into Subcutaneous Tissue, Percutaneous Approach (ICD-10-PCS; principal; 2022-04-18)
PROC: 3E033GC Introduction of Other Therapeutic Substance into Peripheral Vein, Percutaneous Approach (ICD-10-PCS; 2022-04-18)
DX: Z51.11 Encounter for antineoplastic chemotherapy (principal); C90.00 Multiple myeloma not having achieved remission
CPT/HCPCS: 36415; 80048; 80076; 82232; 82784; 83615; 83735; 83883; 84155; 84165; 84550; 85025; 86335; 96365; 96401; J9144

== ENCOUNTER 2022-05-23 10:03 | Day surgery (SDC) | payer OTHER ==
[2022-05-23] MEDS ORDERED: DARATUMUMAB-HYALURONIDASE-FIHJ (FASPRO) 15 ML VIAL SQ ONE (10:30)
[2022-05-23 10:43] LABS: BASO % 0.2 % (0-2.0); EOS % 0.5 % (0-4.5); HEMATOCRIT 38.3 % (35.4-49); LYMPH % 4.3 % (8-40); MEAN CELL VOLUME 96.9 fl (80-96); MEAN PLT VOLUME 7.7 fl (7.5-11.1); MONO % 17.8 % (3.8-10.2); NEUT % 77.2 % (42.8-82.8); PLATELET COUNT 147 10^3/uL (134-434); RBC 3.95 M/mm3 (4.00-5.60); RDW 12.8 % (11.9-15.9); WHITE BLOOD COUNT 2.3 K/mm3 (4.0-10.0)
[2022-05-23 11:12] LABS: CALCIUM 8.6 mg/dL (8.5-10.1)
[2022-05-23 11:13] LABS: ALBUMIN 3.6 g/dl (3.4-5.0); BLOOD UREA NITROGEN 31.5 mg/dL (7-18); MAGNESIUM 2.1 mg/dL (1.8-2.4)
[2022-05-23 11:15] LABS: BILIRUBIN,DIRECT 0.2 mg/dL (0.0-0.2); URIC ACID 5.8 mg/dL (2.6-7.2)
[2022-05-23 11:17] LABS: BILIRUBIN,TOTAL 0.7 mg/dL (0.2-1); CREATININE 1.9 mg/dL (0.55-1.3); TOT PROT 5.8 g/dl (6.4-8.2)
[2022-05-23 17:24] VITALS: BP 112/80; PULSE 58; RESP 20; TEMP 98
[2022-05-26 06:09] LABS: FREE KAP CHN UR 5.26 mg/L (1.17-86.46); KAPPA LAMBDA RATIO URIN 0.49 (1.83-14.26)
== END 2022-05-23 13:40 | disposition home or self-care (01) ==
LOC: JONCCHEMO 10:03
PROVIDERS: ATTEND Internal Medicine Hematology & Oncology
PROC: 3E01305 Introduction of Other Antineoplastic into Subcutaneous Tissue, Percutaneous Approach (ICD-10-PCS; principal; 2022-05-23)
PROC: 3E033GC Introduction of Other Therapeutic Substance into Peripheral Vein, Percutaneous Approach (ICD-10-PCS; 2022-05-23)
DX: Z51.11 Encounter for antineoplastic chemotherapy (principal); C90.00 Multiple myeloma not having achieved remission
CPT/HCPCS: 36415; 80048; 80076; 82232; 82784; 83615; 83735; 83883; 84153; 84155; 84165; 84550; 85025; 86335; 96365; 96401; J9144

== ENCOUNTER 2022-06-20 09:40 | Day surgery (SDC) | payer OTHER ==
[2022-06-20] MEDS ORDERED: DARATUMUMAB-HYALURONIDASE-FIHJ (FASPRO) 15 ML VIAL SQ ONE (10:00)
[2022-06-20 10:48] LABS: BASO % 0.1 % (0-2.0); EOS % 0.4 % (0-4.5); HEMATOCRIT 38.7 % (35.4-49); HEMOGLOBIN 13.1 GM/dL (11.7-16.9); LYMPH % 4.4 % (8-40); MCH 32.1 pg (25.7-33.7); MCHC 33.9 g/dl (32.0-35.9); MEAN CELL VOLUME 94.8 fl (80-96); MEAN PLT VOLUME 7.2 fl (7.5-11.1); MONO % 19.5 % (3.8-10.2); NEUT % 75.6 % (42.8-82.8); PLATELET COUNT 154 10^3/uL (134-434); RBC 4.08 M/mm3 (4.00-5.60); RDW 13.1 % (11.9-15.9); WHITE BLOOD COUNT 2.7 K/mm3 (4.0-10.0)
[2022-06-20 11:03] LABS: BLOOD UREA NITROGEN 26.9 mg/dL (7-18)
[2022-06-20 11:04] LABS: ALBUMIN 3.7 g/dl (3.4-5.0); CALCIUM 8.7 mg/dL (8.5-10.1)
[2022-06-20 11:05] LABS: BILIRUBIN,DIRECT 0.2 mg/dL (0.0-0.2)
[2022-06-20 11:06] LABS: CREATININE 1.8 mg/dL (0.55-1.3)
[2022-06-20 11:07] LABS: BILIRUBIN,TOTAL 0.8 mg/dL (0.2-1)
[2022-06-20 11:08] LABS: TOT PROT 6.1 g/dl (6.4-8.2)
[2022-06-20 16:52] VITALS: TEMP 97.6
[2022-06-20 16:56] VITALS: BP 122/72; PULSE 57; RESP 19
[2022-06-21 18:08] LABS: FREE KAPPA,SERUM 9.9 mg/L (3.3-19.4)
[2022-06-22 07:08] LABS: BETA-2-MICROGLOBULIN 3.1 mg/L (0.6-2.4)
== END 2022-06-20 13:45 | disposition home or self-care (01) ==
LOC: JONCCHEMO 09:40
PROVIDERS: ATTEND Internal Medicine Hematology & Oncology
PROC: 3E01305 Introduction of Other Antineoplastic into Subcutaneous Tissue, Percutaneous Approach (ICD-10-PCS; principal; 2022-06-20)
PROC: 3E033GC Introduction of Other Therapeutic Substance into Peripheral Vein, Percutaneous Approach (ICD-10-PCS; 2022-06-20)
DX: Z51.11 Encounter for antineoplastic chemotherapy (principal); C90.00 Multiple myeloma not having achieved remission
CPT/HCPCS: 36415; 80048; 80076; 82232; 82784; 83615; 83735; 83883; 84155; 84165; 84550; 85025; 86335; 96365; 96401; J9144

== ENCOUNTER → 2022-07-18 | Day surgery (SDC) | payer OTHER ==
[~2022-07-18] MED LIST changes: +DARATUMUMAB-HYALURONIDASE-FIHJ (FASPRO) 15 ML VIAL SQ ONE
[2022-07-18 11:50] LABS: HEMATOCRIT 36.5 % (35.4-49); HEMOGLOBIN 12.7 GM/dL (11.7-16.9); MCH 32.7 pg (25.7-33.7); MCHC 34.7 g/dl (32.0-35.9); MEAN CELL VOLUME 94.2 fl (80-96); MEAN PLT VOLUME 8.2 fl (7.5-11.1); PLATELET COUNT 177 10^3/uL (134-434); RBC 3.87 M/mm3 (4.00-5.60); RDW 13.6 % (11.9-15.9); WHITE BLOOD COUNT 2.5 K/mm3 (4.0-10.0)
[2022-07-18 12:10] LABS: ALBUMIN 3.4 g/dl (3.4-5.0); BLOOD UREA NITROGEN 29.3 mg/dL (7-18); CALCIUM 9.1 mg/dL (8.5-10.1)
[2022-07-18 12:13] LABS: BILIRUBIN,DIRECT 0.1 mg/dL (0.0-0.2); CREATININE 1.7 mg/dL (0.55-1.3)
[2022-07-18 12:14] LABS: BILIRUBIN,TOTAL 0.5 mg/dL (0.2-1); TOT PROT 5.8 g/dl (6.4-8.2)
[2022-07-18 12:35] LABS: ANISOCYTOSIS 0; HELMET CELLS 0; HOWELL-JOLLY BODIES 0; MACROCYTOSIS 0; OVALOCYTE 0; ROULEAU 0; SICKELED CELLS 0; TARGET CELLS 0; TEAR DROP CELLS 0; TOXIC GRANULATION 0
[2022-07-19 18:12] LABS: FREE KAPPA,SERUM 8.2 mg/L (3.3-19.4)
[2022-07-20 07:07] LABS: BETA-2-MICROGLOBULIN 4.3 mg/L (0.6-2.4)
== END | disposition home or self-care (01) ==
LOC: JONCCHEMO 10:02
PROVIDERS: ATTEND Internal Medicine Hematology & Oncology
DX: Z53.8 Procedure and treatment not carried out for other reasons (principal)
CPT/HCPCS: 36415; 80048; 80076; 82232; 82784; 83615; 83735; 83883; 84155; 84165; 85025

== ENCOUNTER 2022-07-20 09:45 | Day surgery (SDC) | payer OTHER ==
[2022-07-20] MEDS ORDERED: ACETAMINOPHEN 325 MG TABLET (FP) PO ONE (10:00)
[2022-07-20] MEDS ORDERED: DEXAMETHASONE SODIUM PHOSPHATE 12 MG, DIPHENHYDRAMINE 25 MG in SODIUM CHLORIDE 100 ML IVPB ONE (10:00)
[2022-07-20] MEDS ORDERED: SODIUM CHLORIDE 0.45% 250 ML IVPB ONE (10:00)
[2022-07-20] MEDS ORDERED: DARATUMUMAB-HYALURONIDASE-FIHJ (FASPRO) 15 ML VIAL SQ ONE (10:30)
[2022-07-20 15:13] VITALS: BP 102/63; PULSE 78; RESP 20; TEMP 97.8
[2022-07-22 05:13] LABS: FREE KAP CHN UR 18.58 mg/L (1.17-86.46); KAPPA LAMBDA RATIO URIN 0.35 (1.83-14.26)
== END 2022-07-20 12:25 | disposition home or self-care (01) ==
LOC: JONCCHEMO 09:45
PROVIDERS: ATTEND Internal Medicine Hematology & Oncology
PROC: 3E01305 Introduction of Other Antineoplastic into Subcutaneous Tissue, Percutaneous Approach (ICD-10-PCS; principal; 2022-07-20)
PROC: 3E033GC Introduction of Other Therapeutic Substance into Peripheral Vein, Percutaneous Approach (ICD-10-PCS; 2022-07-20)
DX: Z51.11 Encounter for antineoplastic chemotherapy (principal); C90.00 Multiple myeloma not having achieved remission
CPT/HCPCS: 36415; 83883; 96365; 96401; J9144

== ENCOUNTER 2022-08-16 09:45 | Day surgery (SDC) | payer OTHER ==
[~2022-08-16 09:45] MED LIST changes: -DARATUMUMAB-HYALURONIDASE-FIHJ (FASPRO) 15 ML VIAL SQ ONE
[2022-08-16] MEDS ORDERED: DARATUMUMAB-HYALURONIDASE-FIHJ (FASPRO) 15 ML VIAL SQ ONE (10:00)
[2022-08-16 10:31] LABS: HEMOGLOBIN 13.7 GM/dL (11.7-16.9); MCH 32.4 pg (25.7-33.7); MCHC 34.2 g/dl (32.0-35.9); MEAN CELL VOLUME 94.8 fl (80-96); MEAN PLT VOLUME 7.7 fl (7.5-11.1); PLATELET COUNT 162 10^3/uL (134-434); RBC 4.22 M/mm3 (4.00-5.60); RDW 13.9 % (11.9-15.9); WHITE BLOOD COUNT 2.7 K/mm3 (4.0-10.0)
[2022-08-16 10:49] LABS: POTASSIUM 4.8 mmol/L (3.5-5.1)
[2022-08-16 10:50] LABS: CALCIUM 9.2 mg/dL (8.5-10.1)
[2022-08-16 10:51] LABS: ALBUMIN 3.6 g/dl (3.4-5.0); BLOOD UREA NITROGEN 24.8 mg/dL (7-18)
[2022-08-16 10:53] LABS: CREATININE 1.8 mg/dL (0.55-1.3)
[2022-08-16 10:54] LABS: BILIRUBIN,DIRECT 0.2 mg/dL (0.0-0.2); URIC ACID 6.7 mg/dL (2.6-7.2)
[2022-08-16 10:55] LABS: ANISOCYTOSIS 1+; MACROCYTOSIS 0; TOT PROT 5.8 g/dl (6.4-8.2)
[2022-08-16 10:56] LABS: BILIRUBIN,TOTAL 0.7 mg/dL (0.2-1)
[2022-08-16 15:58] VITALS: BP 146/85; PULSE 60; RESP 18
[2022-08-16 16:02] VITALS: TEMP 97.4
[2022-08-17 17:10] LABS: FREE KAPPA,SERUM 8.8 mg/L (3.3-19.4)
[2022-08-18 16:08] LABS: BETA-2-MICROGLOBULIN 3.7 mg/L (0.6-2.4)
== END 2022-08-16 13:40 | disposition home or self-care (01) ==
LOC: JONCCHEMO 09:45 → J7W 09:46 → JONCCHEMO 13:40
PROVIDERS: ATTEND Internal Medicine Hematology & Oncology
PROC: 3E01305 Introduction of Other Antineoplastic into Subcutaneous Tissue, Percutaneous Approach (ICD-10-PCS; principal; 2022-08-16)
PROC: 3E033GC Introduction of Other Therapeutic Substance into Peripheral Vein, Percutaneous Approach (ICD-10-PCS; 2022-08-16)
DX: Z12.11 Encounter for screening for malignant neoplasm of colon (principal); C90.00 Multiple myeloma not having achieved remission
CPT/HCPCS: 36415; 80048; 80076; 82232; 82784; 83615; 83735; 83883; 84155; 84165; 84550; 85025; 86335; 96365; 96401; J9144

== ENCOUNTER 2022-09-13 09:53 | Day surgery (SDC) | payer OTHER ==
[2022-09-13 10:26] LABS: HEMATOCRIT 39.1 % (35.4-49); HEMOGLOBIN 12.9 GM/dL (11.7-16.9); MCH 31.8 pg (25.7-33.7); MEAN CELL VOLUME 96.3 fl (80-96); MEAN PLT VOLUME 7.6 fl (7.5-11.1); PLATELET COUNT 166 10^3/uL (134-434); RBC 4.06 M/mm3 (4.00-5.60); RDW 13.7 % (11.9-15.9); WHITE BLOOD COUNT 2.3 K/mm3 (4.0-10.0)
[2022-09-13 10:42] LABS: POTASSIUM 3.9 mmol/L (3.5-5.1)
[2022-09-13 10:44] LABS: CALCIUM 8.9 mg/dL (8.5-10.1)
[2022-09-13 10:45] LABS: ALBUMIN 3.6 g/dl (3.4-5.0); BLOOD UREA NITROGEN 39.7 mg/dL (7-18)
[2022-09-13 10:47] LABS: BILIRUBIN,DIRECT 0.2 mg/dL (0.0-0.2)
[2022-09-13 10:48] LABS: CREATININE 2.1 mg/dL (0.55-1.3)
[2022-09-13 10:49] LABS: BILIRUBIN,TOTAL 0.7 mg/dL (0.2-1); TOT PROT 5.8 g/dl (6.4-8.2)
[2022-09-13 11:35] LABS: ANISOCYTOSIS 0; HELMET CELLS 0; HOWELL-JOLLY BODIES 0; MACROCYTOSIS 0; OVALOCYTE 0; ROULEAU 0; SICKELED CELLS 0; TARGET CELLS 0; TEAR DROP CELLS 0; TOXIC GRANULATION 0
[2022-09-13] MEDS ORDERED: SODIUM CHLORIDE 0.45% 250 ML IVPB ONE (11:45)
[2022-09-13] MEDS ORDERED: ACETAMINOPHEN 325 MG TABLET (FP) PO ONE (11:45)
[2022-09-13] MEDS ORDERED: DEXAMETHASONE SODIUM PHOSPHATE 12 MG, DIPHENHYDRAMINE 25 MG in SODIUM CHLORIDE 100 ML IVPB ONE (11:45)
[2022-09-13] MEDS ORDERED: DARATUMUMAB-HYALURONIDASE-FIHJ (FASPRO) 15 ML VIAL SQ ONE (13:00)
[2022-09-13 18:16] VITALS: BP 133/85; PULSE 59; RESP 20; TEMP 97.8
[2022-09-14 17:09] LABS: FREE KAPPA,SERUM 9.4 mg/L (3.3-19.4)
== END 2022-09-13 14:20 | disposition home or self-care (01) ==
LOC: JONCCHEMO 09:53 → J7W 09:54 → JONCCHEMO 14:20
PROVIDERS: ATTEND Internal Medicine Hematology & Oncology
PROC: 3E01305 Introduction of Other Antineoplastic into Subcutaneous Tissue, Percutaneous Approach (ICD-10-PCS; principal; 2022-09-13)
PROC: 3E033GC Introduction of Other Therapeutic Substance into Peripheral Vein, Percutaneous Approach (ICD-10-PCS; 2022-09-13)
DX: Z51.11 Encounter for antineoplastic chemotherapy (principal); C90.00 Multiple myeloma not having achieved remission
CPT/HCPCS: 36415; 80048; 80076; 82232; 82784; 83883; 84155; 84165; 85025; 96365; 96401; J9144

== ENCOUNTER 2022-10-11 09:56 | Day surgery (SDC) | payer OTHER ==
[2022-10-11] MEDS ORDERED: DARATUMUMAB-HYALURONIDASE-FIHJ (FASPRO) 15 ML VIAL SQ ONE (10:00)
[2022-10-11 10:55] LABS: BASO % 0.2 % (0-2.0); EOS % 0.3 % (0-4.5); HEMATOCRIT 38.2 % (35.4-49); HEMOGLOBIN 12.9 GM/dL (11.7-16.9); LYMPH % 3.1 % (8-40); MCH 32.7 pg (25.7-33.7); MCHC 33.8 g/dl (32.0-35.9); MEAN CELL VOLUME 96.6 fl (80-96); MEAN PLT VOLUME 7.9 fl (7.5-11.1); MONO % 17.5 % (3.8-10.2); NEUT % 78.9 % (42.8-82.8); PLATELET COUNT 142 10^3/uL (134-434); RBC 3.96 M/mm3 (4.00-5.60); RDW 13.7 % (11.9-15.9); WHITE BLOOD COUNT 2.6 K/mm3 (4.0-10.0)
[2022-10-11 11:09] LABS: POTASSIUM 4.2 mmol/L (3.5-5.1)
[2022-10-11 11:14] LABS: CALCIUM 8.9 mg/dL (8.5-10.1)
[2022-10-11 11:15] LABS: ALBUMIN 3.6 g/dl (3.4-5.0); BLOOD UREA NITROGEN 25.3 mg/dL (7-18); MAGNESIUM 1.8 mg/dL (1.8-2.4)
[2022-10-11 11:17] LABS: BILIRUBIN,DIRECT 0.2 mg/dL (0.0-0.2); URIC ACID 6.1 mg/dL (2.6-7.2)
[2022-10-11 11:18] LABS: BILIRUBIN,TOTAL 0.8 mg/dL (0.2-1); CREATININE 1.7 mg/dL (0.55-1.3); TOT PROT 5.7 g/dl (6.4-8.2)
[2022-10-11 16:13] VITALS: RESP 18; TEMP 97.6
[2022-10-11 16:31] VITALS: BP 131/77; PULSE 52
[2022-10-12 18:16] LABS: FREE KAPPA,SERUM 7.9 mg/L (3.3-19.4)
[2022-10-13 08:08] LABS: FREE KAP CHN UR 8.96 mg/L (1.17-86.46); KAPPA LAMBDA RATIO URIN 0.14 (1.83-14.26)
== END 2022-10-11 14:15 | disposition home or self-care (01) ==
LOC: JONCCHEMO 09:56 → J7W 09:57 → JONCCHEMO 14:15
PROVIDERS: ATTEND Internal Medicine Hematology & Oncology
PROC: 3E01305 Introduction of Other Antineoplastic into Subcutaneous Tissue, Percutaneous Approach (ICD-10-PCS; principal; 2022-10-11)
PROC: 3E033GC Introduction of Other Therapeutic Substance into Peripheral Vein, Percutaneous Approach (ICD-10-PCS; 2022-10-11)
DX: Z51.11 Encounter for antineoplastic chemotherapy (principal); C90.00 Multiple myeloma not having achieved remission
CPT/HCPCS: 36415; 80048; 80076; 82232; 82784; 83615; 83735; 83883; 84155; 84165; 84550; 85025; 86335; J9144

== ENCOUNTER 2022-11-10 10:29 | Day surgery (SDC) | payer OTHER ==
[2022-11-10] MEDS ORDERED: DARATUMUMAB-HYALURONIDASE-FIHJ (FASPRO) 15 ML VIAL SQ ONE (10:30)
[2022-11-10 11:40] LABS: POTASSIUM 4.1 mmol/L (3.5-5.1)
[2022-11-10 11:42] LABS: BLOOD UREA NITROGEN 32.3 mg/dL (7-18); CALCIUM 8.5 mg/dL (8.5-10.1); MAGNESIUM 2.1 mg/dL (1.8-2.4)
[2022-11-10 11:43] LABS: ALBUMIN 3.7 g/dl (3.4-5.0); BASO % 0.2 % (0-2.0); EOS % 0.2 % (0-4.5); HEMATOCRIT 40.1 % (35.4-49); HEMOGLOBIN 13.9 GM/dL (11.7-16.9); LYMPH % 1.7 % (8-40); MCH 33.1 pg (25.7-33.7); MCHC 34.8 g/dl (32.0-35.9); MEAN CELL VOLUME 95.4 fl (80-96); MEAN PLT VOLUME 7.6 fl (7.5-11.1); MONO % 13.7 % (3.8-10.2); NEUT % 84.2 % (42.8-82.8); PLATELET COUNT 149 10^3/uL (134-434); RDW 13.3 % (11.9-15.9); WHITE BLOOD COUNT 4.2 K/mm3 (4.0-10.0)
[2022-11-10 11:45] LABS: BILIRUBIN,DIRECT 0.2 mg/dL (0.0-0.2); CREATININE 1.9 mg/dL (0.55-1.3); URIC ACID 7.2 mg/dL (2.6-7.2)
[2022-11-10 11:46] LABS: BILIRUBIN,TOTAL 0.7 mg/dL (0.2-1)
[2022-11-10 11:47] LABS: TOT PROT 5.8 g/dl (6.4-8.2)
[2022-11-10 17:58] VITALS: BP 119/83; PULSE 57; RESP 18; TEMP 98.9
[2022-11-12 21:09] LABS: IMMUNOGLOBULIN D < 1.30 mg/dL (<14.11)
== END 2022-11-10 13:40 | disposition home or self-care (01) ==
LOC: JONCCHEMO 10:29 → J7W 10:29 → JONCCHEMO 13:40
PROVIDERS: ATTEND Internal Medicine Hematology & Oncology
PROC: 3E01305 Introduction of Other Antineoplastic into Subcutaneous Tissue, Percutaneous Approach (ICD-10-PCS; principal; 2022-11-10)
PROC: 3E033GC Introduction of Other Therapeutic Substance into Peripheral Vein, Percutaneous Approach (ICD-10-PCS; 2022-11-10)
DX: Z51.11 Encounter for antineoplastic chemotherapy (principal); C90.00 Multiple myeloma not having achieved remission
CPT/HCPCS: 36415; 80048; 80076; 82232; 82784; 82785; 83615; 83735; 83883; 84155; 84165; 84550; 85025; 86335; 96365; 96401; J9144

== ENCOUNTER 2022-12-07 09:47 | Day surgery (SDC) | payer OTHER ==
[2022-12-07] MEDS ORDERED: DARATUMUMAB-HYALURONIDASE-FIHJ (FASPRO) 15 ML VIAL SQ ONE (10:00)
[2022-12-07 10:39] LABS: BASO % 0.3 % (0-2.0); EOS % 0.3 % (0-4.5); HEMOGLOBIN 13.2 GM/dL (11.7-16.9); LYMPH % 3.7 % (8-40); MCHC 34.7 g/dl (32.0-35.9); MEAN CELL VOLUME 94.9 fl (80-96); MEAN PLT VOLUME 7.5 fl (7.5-11.1); MONO % 16.8 % (3.8-10.2); NEUT % 78.9 % (42.8-82.8); PLATELET COUNT 143 10^3/uL (134-434); RDW 13.2 % (11.9-15.9); WHITE BLOOD COUNT 2.9 K/mm3 (4.0-10.0)
[2022-12-07 10:43] LABS: POTASSIUM 4.6 mmol/L (3.5-5.1)
[2022-12-07 10:47] LABS: CALCIUM 8.7 mg/dL (8.5-10.1); MAGNESIUM 1.8 mg/dL (1.8-2.4)
[2022-12-07 10:49] LABS: ALBUMIN 3.5 g/dl (3.4-5.0); BLOOD UREA NITROGEN 23.5 mg/dL (7-18); URIC ACID 7.1 mg/dL (2.6-7.2)
[2022-12-07 10:50] LABS: CREATININE 1.8 mg/dL (0.55-1.3)
[2022-12-07 10:51] LABS: BILIRUBIN,DIRECT 0.2 mg/dL (0.0-0.2); TOT PROT 5.7 g/dl (6.4-8.2)
[2022-12-07 10:53] LABS: BILIRUBIN,TOTAL 0.5 mg/dL (0.2-1)
[2022-12-07 15:48] VITALS: BP 120/72; PULSE 63; RESP 18; TEMP 97.3
[2022-12-09 07:09] LABS: BETA-2-MICROGLOBULIN 2.7 mg/L (0.6-2.4)
[2022-12-09 07:09] LABS: FREE KAP CHN UR 21.45 mg/L (1.17-86.46); KAPPA LAMBDA RATIO URIN 0.17 (1.83-14.26)
== END 2022-12-07 12:15 | disposition home or self-care (01) ==
LOC: JONCCHEMO 09:47
PROVIDERS: ATTEND Internal Medicine Hematology & Oncology
PROC: 3E01305 Introduction of Other Antineoplastic into Subcutaneous Tissue, Percutaneous Approach (ICD-10-PCS; principal; 2022-12-07)
PROC: 3E033GC Introduction of Other Therapeutic Substance into Peripheral Vein, Percutaneous Approach (ICD-10-PCS; 2022-12-07)
PROC: 3E0337Z Introduction of Electrolytic and Water Balance Substance into Peripheral Vein, Percutaneous Approach (ICD-10-PCS; 2022-12-07)
DX: Z51.11 Encounter for antineoplastic chemotherapy (principal); C90.00 Multiple myeloma not having achieved remission
CPT/HCPCS: 36415; 80048; 80076; 82232; 82784; 83615; 83735; 83883; 84155; 84165; 84550; 85025; 86335; 96361; 96365; 96401; J9144

== ENCOUNTER 2023-01-11 08:45 | Day surgery (SDC) | payer OTHER ==
[2023-01-11] MEDS ORDERED: SODIUM CHLORIDE 0.45% 250 ML IVPB ONE (09:00)
[2023-01-11] MEDS ORDERED: ACETAMINOPHEN 325 MG TABLET (FP) PO ONE (10:00)
[2023-01-11] MEDS ORDERED: DEXAMETHASONE SODIUM PHOSPHATE 12 MG, DIPHENHYDRAMINE 25 MG in SODIUM CHLORIDE 100 ML IVPB ONE (10:00)
[2023-01-11 10:11] LABS: BASO % 0.1 % (0-2.0); EOS % 0.4 % (0-4.5); HEMATOCRIT 38.5 % (35.4-49); HEMOGLOBIN 13.2 GM/dL (11.7-16.9); LYMPH % 1.9 % (8-40); MCH 32.7 pg (25.7-33.7); MCHC 34.3 g/dl (32.0-35.9); MEAN CELL VOLUME 95.2 fl (80-96); MEAN PLT VOLUME 7.6 fl (7.5-11.1); MONO % 14.8 % (3.8-10.2); NEUT % 82.8 % (42.8-82.8); PLATELET COUNT 162 10^3/uL (134-434); RBC 4.04 M/mm3 (4.00-5.60); RDW 12.8 % (11.9-15.9); WHITE BLOOD COUNT 4.8 K/mm3 (4.0-10.0)
[2023-01-11 10:30] LABS: MAGNESIUM 1.7 mg/dL (1.8-2.4)
[2023-01-11] MEDS ORDERED: DARATUMUMAB-HYALURONIDASE-FIHJ (FASPRO) 15 ML VIAL SQ ONE (10:30)
[2023-01-11 10:31] LABS: CALCIUM 8.6 mg/dL (8.5-10.1)
[2023-01-11 10:32] LABS: ALBUMIN 3.6 g/dl (3.4-5.0); CREATININE 1.8 mg/dL (0.55-1.3); URIC ACID 7.5 mg/dL (2.6-7.2)
[2023-01-11 10:34] LABS: TOT PROT 5.9 g/dl (6.4-8.2)
[2023-01-11 10:36] LABS: BILIRUBIN,TOTAL 0.7 mg/dL (0.2-1)
[2023-01-11 10:40] LABS: BILIRUBIN,DIRECT 0.2 mg/dL (0.0-0.2)
[2023-01-11] MEDS ORDERED: MAGNESIUM OXIDE 400 MG TABLET (FP) PO ONE (11:10)
[2023-01-11 18:07] VITALS: BP 126/78; PULSE 75; RESP 20; TEMP 98.4
[2023-01-12 18:10] LABS: FREE KAPPA,SERUM 9.9 mg/L (3.3-19.4)
[2023-01-14 10:09] LABS: BETA-2-MICROGLOBULIN 3.3 mg/L (0.6-2.4)
== END 2023-01-11 12:30 | disposition home or self-care (01) ==
LOC: JONCCHEMO 08:45 → J7W 08:46 → JONCCHEMO 12:30
PROVIDERS: ATTEND Internal Medicine Hematology & Oncology
PROC: 3E033GC Introduction of Other Therapeutic Substance into Peripheral Vein, Percutaneous Approach (ICD-10-PCS; principal; 2023-01-11)
PROC: 3E01305 Introduction of Other Antineoplastic into Subcutaneous Tissue, Percutaneous Approach (ICD-10-PCS; 2023-01-11)
DX: Z51.11 Encounter for antineoplastic chemotherapy (principal); C90.00 Multiple myeloma not having achieved remission
CPT/HCPCS: 36415; 80048; 80076; 82232; 82784; 83615; 83735; 83883; 84155; 84165; 84550; 85025; 86335; 96365; 96401; J9144

== ENCOUNTER 2023-02-08 08:49 | Day surgery (SDC) | payer OTHER ==
[2023-02-08] MEDS ORDERED: SODIUM CHLORIDE 0.45% 250 ML IVPB ONE (09:00)
[2023-02-08 09:30] LABS: HEMATOCRIT 39.2 % (35.4-49); MCH 32.7 pg (25.7-33.7); MCHC 33.2 g/dl (32.0-35.9); MEAN CELL VOLUME 98.5 fl (80-96); MEAN PLT VOLUME 7.3 fl (7.5-11.1); PLATELET COUNT 154 10^3/uL (134-434); RBC 3.98 M/mm3 (4.00-5.60); RDW 13.1 % (11.9-15.9); WHITE BLOOD COUNT 2.3 K/mm3 (4.0-10.0)
[2023-02-08] MEDS ORDERED: DEXAMETHASONE SODIUM PHOSPHATE 12 MG, DIPHENHYDRAMINE 25 MG in SODIUM CHLORIDE 100 ML IVPB ONE (09:30)
[2023-02-08] MEDS ORDERED: ACETAMINOPHEN 325 MG TABLET (FP) PO ONE (09:30)
[2023-02-08 09:45] LABS: POTASSIUM 4.5 mmol/L (3.5-5.1)
[2023-02-08 09:48] LABS: ALBUMIN 3.6 g/dl (3.4-5.0); BLOOD UREA NITROGEN 28.8 mg/dL (7-18); CALCIUM 8.6 mg/dL (8.5-10.1); MAGNESIUM 1.9 mg/dL (1.8-2.4)
[2023-02-08 09:50] LABS: URIC ACID 6.8 mg/dL (2.6-7.2)
[2023-02-08 09:51] LABS: BILIRUBIN,DIRECT 0.2 mg/dL (0.0-0.2); CREATININE 1.9 mg/dL (0.55-1.3)
[2023-02-08 09:53] LABS: BILIRUBIN,TOTAL 0.6 mg/dL (0.2-1); TOT PROT 5.7 g/dl (6.4-8.2)
[2023-02-08] MEDS ORDERED: DARATUMUMAB-HYALURONIDASE-FIHJ (FASPRO) 15 ML VIAL SQ ONE (10:00)
[2023-02-08 10:32] LABS: ANISOCYTOSIS 0; MACROCYTOSIS 0
[2023-02-08 16:13] VITALS: RESP 18; TEMP 97.6
[2023-02-09 08:42] VITALS: BP 128/71; PULSE 58
[2023-02-09 17:07] LABS: FREE KAPPA,SERUM 6.8 mg/L (3.3-19.4)
[2023-02-10 18:08] LABS: BETA-2-MICROGLOBULIN 1.4 mg/L (0.6-2.4)
[2023-02-14 16:08] LABS: FREE KAP CHN UR 7.97 mg/L (1.17-86.46); KAPPA LAMBDA RATIO URIN 0.45 (1.83-14.26)
== END 2023-02-08 12:25 | disposition home or self-care (01) ==
LOC: J7W 08:49 → JONCCHEMO 08:49
PROVIDERS: ATTEND Internal Medicine Hematology & Oncology
DX: Z51.11 Encounter for antineoplastic chemotherapy (principal); C90.00 Multiple myeloma not having achieved remission
CPT/HCPCS: 36415; 80048; 80076; 82232; 82784; 83615; 83735; 83883; 84155; 84165; 84550; 85025; 86335; 96401; J9144

== ENCOUNTER 2023-03-08 08:46 | Day surgery (SDC) | payer OTHER ==
[2023-03-08] MEDS ORDERED: SODIUM CHLORIDE 0.45% 250 ML IVPB ONE (09:00)
[2023-03-08 09:32] LABS: HEMATOCRIT 40.3 % (35.4-49); HEMOGLOBIN 13.5 GM/dL (11.7-16.9); MCHC 33.6 g/dl (32.0-35.9); MEAN CELL VOLUME 98.2 fl (80-96); MEAN PLT VOLUME 7.5 fl (7.5-11.1); PLATELET COUNT 141 10^3/uL (134-434); RBC 4.11 M/mm3 (4.00-5.60); RDW 12.7 % (11.9-15.9); WHITE BLOOD COUNT 2.4 K/mm3 (4.0-10.0)
[2023-03-08] MEDS ORDERED: ACETAMINOPHEN 325 MG TABLET (FP) PO ONE (10:00)
[2023-03-08] MEDS ORDERED: DEXAMETHASONE SODIUM PHOSPHATE 12 MG, DIPHENHYDRAMINE 25 MG in SODIUM CHLORIDE 100 ML IVPB ONE (10:00)
[2023-03-08] MEDS ORDERED: DARATUMUMAB-HYALURONIDASE-FIHJ (FASPRO) 15 ML VIAL SQ ONE (10:30)
[2023-03-08 10:50] LABS: CALCIUM 8.8 mg/dL (8.5-10.1)
[2023-03-08 10:51] LABS: ALBUMIN 3.8 g/dl (3.4-5.0); BLOOD UREA NITROGEN 26.2 mg/dL (7-18)
[2023-03-08 10:52] LABS: URIC ACID 6.1 mg/dL (2.6-7.2)
[2023-03-08 10:53] LABS: CREATININE 1.8 mg/dL (0.55-1.3)
[2023-03-08 10:54] LABS: BILIRUBIN,DIRECT 0.2 mg/dL (0.0-0.2)
[2023-03-08 10:55] LABS: TOT PROT 6.1 g/dl (6.4-8.2)
[2023-03-08 10:56] LABS: BILIRUBIN,TOTAL 0.7 mg/dL (0.2-1)
[2023-03-08 11:00] LABS: ANISOCYTOSIS 0; HELMET CELLS 0; HOWELL-JOLLY BODIES 0; MACROCYTOSIS 0; OVALOCYTE 0; ROULEAU 0; SICKELED CELLS 0; TARGET CELLS 0; TEAR DROP CELLS 0; TOXIC GRANULATION 0
[2023-03-08 15:49] VITALS: BP 140/80; PULSE 59; RESP 20; TEMP 97.6
[2023-03-10 06:06] LABS: FREE KAP CHN UR 12.04 mg/L (1.17-86.46); KAPPA LAMBDA RATIO URIN 0.61 (1.83-14.26)
[2023-03-10 16:08] LABS: FREE KAPPA,SERUM 6.9 mg/L (3.3-19.4)
[2023-03-10 18:07] LABS: BETA-2-MICROGLOBULIN 2.8 mg/L (0.6-2.4)
== END 2023-03-08 12:30 | disposition home or self-care (01) ==
LOC: JONCCHEMO 08:46 → J7W 08:47 → JONCCHEMO 12:30
PROVIDERS: ATTEND Internal Medicine Hematology & Oncology
PROC: 3E01305 Introduction of Other Antineoplastic into Subcutaneous Tissue, Percutaneous Approach (ICD-10-PCS; principal; 2023-03-08)
PROC: 3E033GC Introduction of Other Therapeutic Substance into Peripheral Vein, Percutaneous Approach (ICD-10-PCS; 2023-03-08)
DX: Z51.11 Encounter for antineoplastic chemotherapy (principal); C90.00 Multiple myeloma not having achieved remission
CPT/HCPCS: 36415; 80048; 80076; 82232; 82784; 83615; 83735; 83883; 84155; 84165; 84550; 85025; 86335; 96374; 96401; J9144

== ENCOUNTER 2023-04-13 09:09 | Day surgery (SDC) | payer OTHER ==
[~2023-04-13 09:09] MED LIST changes: -ACETAMINOPHEN 325 MG TABLET (FP) PO ONE; -DEXAMETHASONE SODIUM PHOSPHATE 12 MG, DIPHENHYDRAMINE 25 MG in SODIUM CHLORIDE 100 ML IVPB ONE
[2023-04-13] MEDS ORDERED: ACETAMINOPHEN 325 MG TABLET (FP) PO ONE (09:30)
[2023-04-13] MEDS ORDERED: DEXAMETHASONE SODIUM PHOSPHATE 12 MG, DIPHENHYDRAMINE 25 MG in SODIUM CHLORIDE 100 ML IVPB ONE (09:30)
[2023-04-13 09:45] LABS: BASO % 0.1 % (0-2.0); EOS % 0.4 % (0-4.5); HEMATOCRIT 39.5 % (35.4-49); HEMOGLOBIN 13.6 GM/dL (11.7-16.9); MCH 33.1 pg (25.7-33.7); MCHC 34.5 g/dl (32.0-35.9); MEAN CELL VOLUME 95.7 fl (80-96); MEAN PLT VOLUME 7.5 fl (7.5-11.1); MONO % 15.7 % (3.8-10.2); NEUT % 82.8 % (42.8-82.8); PLATELET COUNT 120 10^3/uL (134-434); RBC 4.12 M/mm3 (4.00-5.60); RDW 13.1 % (11.9-15.9); WHITE BLOOD COUNT 3.5 K/mm3 (4.0-10.0)
[2023-04-13 10:00] LABS: POTASSIUM 3.6 mmol/L (3.5-5.1)
[2023-04-13] MEDS ORDERED: DARATUMUMAB-HYALURONIDASE-FIHJ (FASPRO) 15 ML VIAL SQ ONE (10:00)
[2023-04-13 10:02] LABS: CALCIUM 8.4 mg/dL (8.5-10.1)
[2023-04-13 10:03] LABS: ALBUMIN 3.4 g/dl (3.4-5.0); BLOOD UREA NITROGEN 31.9 mg/dL (7-18); MAGNESIUM 2.1 mg/dL (1.8-2.4)
[2023-04-13 10:06] LABS: BILIRUBIN,DIRECT 0.2 mg/dL (0.0-0.2); CREATININE 1.9 mg/dL (0.55-1.3)
[2023-04-13 10:07] LABS: BILIRUBIN,TOTAL 0.8 mg/dL (0.2-1); TOT PROT 6.2 g/dl (6.4-8.2)
[2023-04-13 17:28] VITALS: BP 130/85; PULSE 65; RESP 20; TEMP 98.1
[2023-04-14 16:07] LABS: FREE KAPPA,SERUM 8.4 mg/L (3.3-19.4)
[2023-04-17 00:06] LABS: BETA-2-MICROGLOBULIN 4.6 mg/L (0.6-2.4)
[2023-04-17 16:07] LABS: IG A QN SERUM. 13 mg/dL (61-437)
== END 2023-04-13 11:45 | disposition home or self-care (01) ==
LOC: JONCCHEMO 09:09 → J7W 09:10 → JONCCHEMO 11:45
PROVIDERS: ATTEND Internal Medicine Hematology & Oncology
DX: Z51.11 Encounter for antineoplastic chemotherapy (principal); C90.00 Multiple myeloma not having achieved remission
CPT/HCPCS: 36415; 80048; 80076; 82232; 82784; 83615; 83735; 83883; 84155; 84165; 84550; 85025; 86335; 96401; J9144

== ENCOUNTER 2023-05-11 09:56 | Day surgery (SDC) | payer OTHER ==
[2023-05-11 10:43] LABS: HEMATOCRIT 39.7 % (35.4-49); HEMOGLOBIN 13.3 GM/dL (11.7-16.9); MCH 32.6 pg (25.7-33.7); MCHC 33.5 g/dl (32.0-35.9); MEAN CELL VOLUME 97.1 fl (80-96); MEAN PLT VOLUME 7.5 fl (7.5-11.1); PLATELET COUNT 146 10^3/uL (134-434); RBC 4.09 M/mm3 (4.00-5.60); RDW 13.4 % (11.9-15.9); WHITE BLOOD COUNT 2.4 K/mm3 (4.0-10.0)
[2023-05-11 11:06] LABS: POTASSIUM 4.3 mmol/L (3.5-5.1)
[2023-05-11 11:10] LABS: ALBUMIN 3.5 g/dl (3.4-5.0); ANISOCYTOSIS 0; MACROCYTOSIS 0
[2023-05-11 11:10] LABS: CALCIUM 8.7 mg/dL (8.5-10.1)
[2023-05-11 11:11] LABS: BLOOD UREA NITROGEN 27.7 mg/dL (7-18); MAGNESIUM 2.2 mg/dL (1.8-2.4)
[2023-05-11 11:13] LABS: URIC ACID 5.9 mg/dL (2.6-7.2)
[2023-05-11 11:14] LABS: CREATININE 1.8 mg/dL (0.55-1.3)
[2023-05-11 11:15] LABS: BILIRUBIN,DIRECT 0.2 mg/dL (0.0-0.2); TOT PROT 6.1 g/dl (6.4-8.2)
[2023-05-11 11:17] LABS: BILIRUBIN,TOTAL 0.8 mg/dL (0.2-1)
[2023-05-11] MEDS: SODIUM CHLORIDE 0.45% 250 ML IVPB ONE (11:20)
[2023-05-11] MEDS: DEXAMETHASONE SODIUM PHOSPHATE 12 MG, DIPHENHYDRAMINE 25 MG in SODIUM CHLORIDE 100 ML IVPB ONE (11:39)
[2023-05-11] MEDS: ACETAMINOPHEN 325 MG TABLET (FP) PO ONE (11:39)
[2023-05-11] MEDS: DARATUMUMAB-HYALURONIDASE-FIHJ (FASPRO) 15 ML VIAL SQ ONE (12:50)
[2023-05-11 18:16] VITALS: BP 114/76; PULSE 63; RESP 18; TEMP 97.9
[2023-05-12 16:08] LABS: FREE KAPPA,SERUM 7.4 mg/L (3.3-19.4); IG A QN SERUM. 14 mg/dL (61-437)
== END 2023-05-11 13:05 | disposition home or self-care (01) ==
LOC: JONCCHEMO 09:56 → J7W 09:57 → JONCCHEMO 13:05
PROVIDERS: ATTEND Internal Medicine Hematology & Oncology
PROC: 3E033GC Introduction of Other Therapeutic Substance into Peripheral Vein, Percutaneous Approach (ICD-10-PCS; principal; 2023-05-11)
PROC: 3E01305 Introduction of Other Antineoplastic into Subcutaneous Tissue, Percutaneous Approach (ICD-10-PCS; 2023-05-11)
DX: Z51.11 Encounter for antineoplastic chemotherapy (principal)
CPT/HCPCS: 36415; 80048; 80076; 82232; 82784; 83615; 83735; 83883; 84155; 84165; 84550; 85025; 96365; 96401; J9144

== ENCOUNTER 2023-06-06 09:57 | Day surgery (SDC) | payer OTHER ==
[2023-06-06 10:35] LABS: HEMATOCRIT 40.6 % (35.4-49); HEMOGLOBIN 13.4 GM/dL (11.7-16.9); MCH 32.2 pg (25.7-33.7); MEAN CELL VOLUME 97.4 fl (80-96); MEAN PLT VOLUME 7.4 fl (7.5-11.1); PLATELET COUNT 151 10^3/uL (134-434); RBC 4.16 M/mm3 (4.00-5.60); RDW 13.3 % (11.9-15.9); WHITE BLOOD COUNT 2.7 K/mm3 (4.0-10.0)
[2023-06-06 10:47] LABS: POTASSIUM 3.9 mmol/L (3.5-5.1)
[2023-06-06 10:49] LABS: CALCIUM 8.8 mg/dL (8.5-10.1); MAGNESIUM 2.1 mg/dL (1.8-2.4)
[2023-06-06 10:50] LABS: ALBUMIN 3.7 g/dl (3.4-5.0); BLOOD UREA NITROGEN 30.9 mg/dL (7-18)
[2023-06-06 10:52] LABS: BILIRUBIN,DIRECT 0.2 mg/dL (0.0-0.2); CREATININE 1.5 mg/dL (0.55-1.3)
[2023-06-06 10:53] LABS: URIC ACID 5.6 mg/dL (2.6-7.2)
[2023-06-06 10:54] LABS: TOT PROT 6.2 g/dl (6.4-8.2)
[2023-06-06 10:55] LABS: BILIRUBIN,TOTAL 0.8 mg/dL (0.2-1)
[2023-06-06 12:09] LABS: ANISOCYTOSIS 0; MACROCYTOSIS 0
[2023-06-06] MEDS: SODIUM CHLORIDE 0.45% 250 ML IVPB ONE (12:35)
[2023-06-06] MEDS: ACETAMINOPHEN 325 MG TABLET (FP) PO ONE (13:32)
[2023-06-06] MEDS: DEXAMETHASONE SODIUM PHOSPHATE 12 MG, DIPHENHYDRAMINE 25 MG in SODIUM CHLORIDE 100 ML IVPB ONE (13:32)
[2023-06-06] MEDS: DARATUMUMAB-HYALURONIDASE-FIHJ (FASPRO) 15 ML VIAL SQ ONE (14:37)
[2023-06-06 19:04] VITALS: BP 120/76; PULSE 61; RESP 20; TEMP 97.7
[2023-06-07 17:10] LABS: FREE KAPPA,SERUM 7.1 mg/L (3.3-19.4)
[2023-06-08 06:09] LABS: IG A QN SERUM. 15 mg/dL (61-437)
[2023-06-08 08:11] LABS: BETA-2-MICROGLOBULIN 3.3 mg/L (0.6-2.4)
[2023-06-09 07:09] LABS: FREE KAP CHN UR 6.15 mg/L (1.17-86.46); KAPPA LAMBDA RATIO URIN 0.56 (1.83-14.26)
== END 2023-06-06 15:30 | disposition home or self-care (01) ==
LOC: JONCCHEMO 09:57 → J7W 09:58 → JONCCHEMO 15:30
PROVIDERS: ATTEND Internal Medicine Hematology & Oncology
PROC: 3E01305 Introduction of Other Antineoplastic into Subcutaneous Tissue, Percutaneous Approach (ICD-10-PCS; principal; 2023-06-06)
PROC: 3E033GC Introduction of Other Therapeutic Substance into Peripheral Vein, Percutaneous Approach (ICD-10-PCS; 2023-06-06)
DX: Z51.11 Encounter for antineoplastic chemotherapy (principal); C90.00 Multiple myeloma not having achieved remission
CPT/HCPCS: 36415; 72170-TC-FY; 73502-TC-RT-FY; 73552-TC-RT-FY; 80048; 80076; 82232; 82784; 83615; 83735; 83883; 84155; 84165; 84550; 85025; 86335; 96365; 96401; J9144

== ENCOUNTER 2023-07-06 09:30 | Day surgery (SDC) | payer OTHER ==
[2023-07-06 10:02] LABS: BASO % 0.2 % (0-2.0); EOS % 0.3 % (0-4.5); HEMATOCRIT 39.6 % (35.4-49); HEMOGLOBIN 13.7 GM/dL (11.7-16.9); LYMPH % 1.3 % (8-40); MCH 33.2 pg (25.7-33.7); MCHC 34.5 g/dl (32.0-35.9); MEAN CELL VOLUME 96.2 fl (80-96); MEAN PLT VOLUME 7.1 fl (7.5-11.1); MONO % 16.2 % (3.8-10.2); PLATELET COUNT 141 10^3/uL (134-434); RBC 4.12 M/mm3 (4.00-5.60); RDW 13.4 % (11.9-15.9); WHITE BLOOD COUNT 3.5 K/mm3 (4.0-10.0)
[2023-07-06 10:34] LABS: POTASSIUM 4.4 mmol/L (3.5-5.1)
[2023-07-06 10:37] LABS: ALBUMIN 3.7 g/dl (3.4-5.0); BLOOD UREA NITROGEN 25.3 mg/dL (7-18); MAGNESIUM 1.9 mg/dL (1.8-2.4)
[2023-07-06 10:39] LABS: URIC ACID 6.6 mg/dL (2.6-7.2)
[2023-07-06 10:40] LABS: CREATININE 1.6 mg/dL (0.55-1.3)
[2023-07-06 10:41] LABS: BILIRUBIN,DIRECT 0.3 mg/dL (0.0-0.2); BILIRUBIN,TOTAL 0.8 mg/dL (0.2-1)
[2023-07-06 10:42] LABS: TOT PROT 5.9 g/dl (6.4-8.2)
[2023-07-06] MEDS: SODIUM CHLORIDE 0.45% 250 ML IVPB ONE (11:16)
[2023-07-06] MEDS: DEXAMETHASONE SODIUM PHOSPHATE 12 MG, DIPHENHYDRAMINE 25 MG in SODIUM CHLORIDE 100 ML IVPB ONE (11:35)
[2023-07-06] MEDS: ACETAMINOPHEN 325 MG TABLET (FP) PO ONE (11:35)
[2023-07-06] MEDS: DARATUMUMAB-HYALURONIDASE-FIHJ (FASPRO) 15 ML VIAL SQ ONE (12:48)
[2023-07-06 15:01] VITALS: BP 128/75; PULSE 65; RESP 18; TEMP 97.9
[2023-07-10 00:06] LABS: BETA-2-MICROGLOBULIN 2.9 mg/L (0.6-2.4)
[2023-07-11 08:09] LABS: FREE KAP CHN UR 18.86 mg/L (1.17-86.46); KAPPA LAMBDA RATIO URIN 0.39 (1.83-14.26)
== END 2023-07-06 13:10 | disposition home or self-care (01) ==
LOC: JONCCHEMO 09:30 → J7W 09:41 → JONCCHEMO 13:10
PROVIDERS: ATTEND Internal Medicine Hematology & Oncology
PROC: 3E033GC Introduction of Other Therapeutic Substance into Peripheral Vein, Percutaneous Approach (ICD-10-PCS; principal; 2023-07-06)
PROC: 3E01305 Introduction of Other Antineoplastic into Subcutaneous Tissue, Percutaneous Approach (ICD-10-PCS; 2023-07-06)
DX: Z51.11 Encounter for antineoplastic chemotherapy (principal); C90.00 Multiple myeloma not having achieved remission
CPT/HCPCS: 36415; 80048; 80076; 82232; 82784; 83615; 83735; 83883; 84155; 84165; 84550; 85025; 86335; 96365; 96401; J9144

== ENCOUNTER 2023-08-03 09:43 | Day surgery (SDC) | payer OTHER ==
[2023-08-03 10:30] LABS: HEMATOCRIT 38.6 % (35.4-49); HEMOGLOBIN 13.4 GM/dL (11.7-16.9); MCH 33.1 pg (25.7-33.7); MCHC 34.8 g/dl (32.0-35.9); MEAN CELL VOLUME 95.2 fl (80-96); MEAN PLT VOLUME 6.7 fl (7.5-11.1); PLATELET COUNT 141 10^3/uL (134-434); RBC 4.06 M/mm3 (4.00-5.60); RDW 13.4 % (11.9-15.9); WHITE BLOOD COUNT 2.2 K/mm3 (4.0-10.0)
[2023-08-03 10:48] LABS: CHLORIDE 110 mmol/L (98-107); POTASSIUM 4.8 mmol/L (3.5-5.1); SODIUM 143 mmol/L (136-145)
[2023-08-03 10:50] LABS: ANION GAP 4 mmol/L (4-13); BLOOD UREA NITROGEN 25.4 mg/dL (7-18); CALCIUM 8.9 mg/dL (8.5-10.1); CO2 28 mmol/L (21-32); MAGNESIUM 2.1 mg/dL (1.8-2.4)
[2023-08-03 10:52] LABS: ALBUMIN 3.5 g/dl (3.4-5.0); GLUCOSE,RANDOM 100 mg/dL (74-106)
[2023-08-03 10:53] LABS: URIC ACID 6.9 mg/dL (2.6-7.2)
[2023-08-03 10:54] LABS: BILIRUBIN,DIRECT 0.2 mg/dL (0.0-0.2); CREATININE 1.8 mg/dL (0.55-1.3); SGOT/AST 20 U/L (15-37); SGPT/ALT 20 U/L (13-61)
[2023-08-03 10:56] LABS: TOT PROT 5.8 g/dl (6.4-8.2)
[2023-08-03 10:57] LABS: BILIRUBIN,TOTAL 0.8 mg/dL (0.2-1)
[2023-08-03 10:58] LABS: ALK PHOS 125 U/L (45-117); LDH 176 U/L (87-246)
[2023-08-03] MEDS: SODIUM CHLORIDE 0.45% 250 ML IVPB ONE (11:39)
[2023-08-03 11:51] VITALS: BP 117/79; PULSE 67; RESP 20; TEMP 98
[2023-08-03] MEDS: ACETAMINOPHEN 325 MG TABLET (FP) PO ONE (11:55)
[2023-08-03] MEDS: DEXAMETHASONE SODIUM PHOSPHATE 12 MG, DIPHENHYDRAMINE 25 MG in SODIUM CHLORIDE 100 ML IVPB ONE (11:55)
[2023-08-03] MEDS: DARATUMUMAB-HYALURONIDASE-FIHJ (FASPRO) 15 ML VIAL SQ ONE (12:44)
[2023-08-05 07:09] LABS: BETA-2-MICROGLOBULIN 3.1 mg/L (0.6-2.4); FREE KAP CHN UR 9.17 mg/L (1.17-86.46); KAPPA LAMBDA RATIO URIN 0.49 (1.83-14.26)
== END 2023-08-03 13:15 | disposition home or self-care (01) ==
LOC: JONCCHEMO 09:43 → J7W 09:44 → JONCCHEMO 13:15
PROVIDERS: ATTEND Internal Medicine Hematology & Oncology
PROC: 3E01305 Introduction of Other Antineoplastic into Subcutaneous Tissue, Percutaneous Approach (ICD-10-PCS; principal; 2023-08-03)
PROC: 3E033GC Introduction of Other Therapeutic Substance into Peripheral Vein, Percutaneous Approach (ICD-10-PCS; 2023-08-03)
DX: Z51.11 Encounter for antineoplastic chemotherapy (principal); C90.00 Multiple myeloma not having achieved remission
CPT/HCPCS: 36415; 80048; 80076; 82232; 82784; 83615; 83735; 83883; 84155; 84165; 84550; 85025; 86335; 96365; 96401; J9144

== ENCOUNTER 2023-08-31 08:55 | Day surgery (SDC) | payer OTHER ==
[~2023-08-31 08:55] MED LIST changes: +DEXAMETHASONE SODIUM PHOSPHATE 12 MG, DIPHENHYDRAMINE 25 MG in SODIUM CHLORIDE 100 ML IVPB ONE; -SODIUM CHLORIDE 0.45% 250 ML IVPB ONE
[2023-08-31 09:50] LABS: HEMOGLOBIN 12.9 GM/dL (11.7-16.9); MCH 32.5 pg (25.7-33.7); MEAN CELL VOLUME 95.6 fl (80-96); MEAN PLT VOLUME 7.4 fl (7.5-11.1); PLATELET COUNT 136 10^3/uL (134-434); RBC 3.98 M/mm3 (4.00-5.60); RDW 14.1 % (11.9-15.9); WHITE BLOOD COUNT 2.6 K/mm3 (4.0-10.0)
[2023-08-31 10:04] LABS: CHLORIDE 111 mmol/L (98-107); POTASSIUM 4.7 mmol/L (3.5-5.1); SODIUM 142 mmol/L (136-145)
[2023-08-31 10:05] LABS: ANION GAP 6 mmol/L (4-13); CO2 26 mmol/L (21-32)
[2023-08-31 10:06] LABS: MAGNESIUM 2.2 mg/dL (1.8-2.4)
[2023-08-31 10:07] LABS: ALBUMIN 3.5 g/dl (3.4-5.0); GLUCOSE,RANDOM 101 mg/dL (74-106)
[2023-08-31 10:08] LABS: URIC ACID 7.6 mg/dL (2.6-7.2)
[2023-08-31 10:09] LABS: BILIRUBIN,DIRECT 0.2 mg/dL (0.0-0.2); CREATININE 1.7 mg/dL (0.55-1.3); SGOT/AST 25 U/L (15-37); SGPT/ALT 23 U/L (13-61)
[2023-08-31 10:11] LABS: LDH 194 U/L (87-246); TOT PROT 5.7 g/dl (6.4-8.2)
[2023-08-31 10:12] LABS: BILIRUBIN,TOTAL 0.8 mg/dL (0.2-1)
[2023-08-31 10:13] LABS: ALK PHOS 103 U/L (45-117)
[2023-08-31 10:27] LABS: ANISOCYTOSIS 0; MACROCYTOSIS 0
[2023-08-31] MEDS: SODIUM CHLORIDE 0.45% 250 ML IV ONE (10:51)
[2023-08-31] MEDS: DEXAMETHASONE SODIUM PHOSPHATE 12 MG, DIPHENHYDRAMINE 25 MG in SODIUM CHLORIDE 100 ML IVPB ONE (11:54)
[2023-08-31] MEDS: ACETAMINOPHEN 325 MG TABLET (FP) PO ONE (11:55)
[2023-08-31] MEDS: DARATUMUMAB-HYALURONIDASE-FIHJ (FASPRO) 15 ML VIAL SQ ONE (12:21)
[2023-08-31 16:25] VITALS: RESP 20; TEMP 98
[2023-08-31 16:33] VITALS: BP 127/80; PULSE 68
[2023-09-01 17:08] LABS: FREE KAPPA,SERUM 6.4 mg/L (3.3-19.4)
[2023-09-02 16:21] LABS: BETA-2-MICROGLOBULIN 3.5 mg/L (0.6-2.4)
[2023-09-05 07:11] LABS: FREE KAP CHN UR 23.7 mg/L (1.17-86.46); KAPPA LAMBDA RATIO URIN 0.49 (1.83-14.26)
== END 2023-08-31 12:30 | disposition home or self-care (01) ==
LOC: J7W 08:55 → JONCCHEMO 08:55
PROVIDERS: ATTEND Internal Medicine Hematology & Oncology
PROC: 3E033GC Introduction of Other Therapeutic Substance into Peripheral Vein, Percutaneous Approach (ICD-10-PCS; principal; 2023-08-31)
DX: Z51.11 Encounter for antineoplastic chemotherapy (principal); C90.00 Multiple myeloma not having achieved remission
CPT/HCPCS: 36415; 80048; 80076; 82232; 82784; 83615; 83735; 83883; 84155; 84165; 84550; 85025; 96365; 96401; J9144

== ENCOUNTER 2023-10-04 08:39 | Day surgery (SDC) | payer OTHER ==
[2023-10-04 09:34] LABS: BASO % 0.2 % (0-2.0); EOS % 0.2 % (0-4.5); HEMATOCRIT 40.5 % (35.4-49); HEMOGLOBIN 13.7 GM/dL (11.7-16.9); LYMPH % 3.2 % (8-40); MCH 32.9 pg (25.7-33.7); MCHC 33.8 g/dl (32.0-35.9); MEAN CELL VOLUME 97.5 fl (80-96); MEAN PLT VOLUME 7.4 fl (7.5-11.1); MONO % 19.8 % (3.8-10.2); NEUT % 76.6 % (42.8-82.8); PLATELET COUNT 131 10^3/uL (134-434); RBC 4.15 M/mm3 (4.00-5.60); RDW 13.8 % (11.9-15.9); WHITE BLOOD COUNT 2.7 K/mm3 (4.0-10.0)
[2023-10-04 09:56] LABS: ALBUMIN 3.8 g/dl (3.4-5.0); ANION GAP 7 mmol/L (4-13); BLOOD UREA NITROGEN 31.3 mg/dL (7-18); CALCIUM 9.1 mg/dL (8.5-10.1); CHLORIDE 111 mmol/L (98-107); CO2 23 mmol/L (21-32); GLUCOSE,RANDOM 94 mg/dL (74-106); POTASSIUM 4.1 mmol/L (3.5-5.1); SODIUM 140 mmol/L (136-145)
[2023-10-04 09:58] LABS: BILIRUBIN,DIRECT 0.2 mg/dL (0.0-0.2); CREATININE 1.8 mg/dL (0.55-1.3); SGOT/AST 21 U/L (15-37); SGPT/ALT 19 U/L (13-61); URIC ACID 6.3 mg/dL (2.6-7.2)
[2023-10-04 10:01] LABS: ALK PHOS 115 U/L (45-117)
[2023-10-04] MEDS: SODIUM CHLORIDE 0.45% 250 ML IV ONE (10:35)
[2023-10-04] MEDS: ACETAMINOPHEN 325 MG TABLET (FP) PO ONE (11:00)
[2023-10-04] MEDS: DEXAMETHASONE SODIUM PHOSPHATE 12 MG, DIPHENHYDRAMINE 25 MG in SODIUM CHLORIDE 100 ML IVPB ONE (11:01)
[2023-10-04 11:23] LABS: LDH 195 U/L (87-246)
[2023-10-04] MEDS: DARATUMUMAB-HYALURONIDASE-FIHJ (FASPRO) 15 ML VIAL SQ ONE (11:36)
[2023-10-04 11:43] VITALS: RESP 20; TEMP 97.8
[2023-10-04 12:11] VITALS: BP 109/70; PULSE 56
[2023-10-06 06:09] LABS: FREE KAP CHN UR 30.23 mg/L (1.17-86.46); KAPPA LAMBDA RATIO URIN 0.31 (1.83-14.26)
[2023-10-07 08:14] LABS: BETA-2-MICROGLOBULIN 2.9 mg/L (0.6-2.4)
== END 2023-10-04 12:30 | disposition home or self-care (01) ==
LOC: JONCCHEMO 08:39 → J7W 08:41 → JONCCHEMO 12:30
PROVIDERS: ATTEND Internal Medicine Hematology & Oncology
PROC: 3E033GC Introduction of Other Therapeutic Substance into Peripheral Vein, Percutaneous Approach (ICD-10-PCS; principal; 2023-10-04)
PROC: 3E01305 Introduction of Other Antineoplastic into Subcutaneous Tissue, Percutaneous Approach (ICD-10-PCS; 2023-10-04)
DX: Z51.11 Encounter for antineoplastic chemotherapy (principal); C90.00 Multiple myeloma not having achieved remission
CPT/HCPCS: 36415; 80048; 80076; 82232; 82784; 83615; 83735; 83883; 84155; 84165; 84550; 85025; 86335; 96365; 96401; J9144

== ENCOUNTER 2023-11-02 09:16 | Day surgery (SDC) | payer OTHER ==
[2023-11-02 09:51] LABS: HEMATOCRIT 39.1 % (35.4-49); HEMOGLOBIN 13.3 GM/dL (11.7-16.9); MCH 33.7 pg (25.7-33.7); MCHC 34.1 g/dl (32.0-35.9); MEAN CELL VOLUME 98.6 fl (80-96); MEAN PLT VOLUME 6.9 fl (7.5-11.1); PLATELET COUNT 136 10^3/uL (134-434); RBC 3.96 M/mm3 (4.00-5.60); RDW 13.6 % (11.9-15.9); WHITE BLOOD COUNT 2.5 K/mm3 (4.0-10.0)
[2023-11-02 10:05] LABS: CHLORIDE 107 mmol/L (98-107); POTASSIUM 4.1 mmol/L (3.5-5.1); SODIUM 139 mmol/L (136-145)
[2023-11-02 10:08] LABS: ALBUMIN 3.7 g/dl (3.4-5.0); BLOOD UREA NITROGEN 33.4 mg/dL (7-18); CALCIUM 8.7 mg/dL (8.5-10.1)
[2023-11-02 10:09] LABS: ANION GAP 7 mmol/L (4-13); CO2 25 mmol/L (21-32); GLUCOSE,RANDOM 96 mg/dL (74-106)
[2023-11-02 10:11] LABS: BILIRUBIN,DIRECT 0.2 mg/dL (0.0-0.2); BILIRUBIN,TOTAL 0.9 mg/dL (0.2-1); CREATININE 1.8 mg/dL (0.55-1.3); SGOT/AST 23 U/L (15-37); URIC ACID 6.6 mg/dL (2.6-7.2)
[2023-11-02 10:12] LABS: SGPT/ALT 19 U/L (13-61)
[2023-11-02 10:13] LABS: ALK PHOS 118 U/L (45-117); TOT PROT 6.1 g/dl (6.4-8.2)
[2023-11-02] MEDS: SODIUM CHLORIDE 0.45% 250 ML IV ONE (10:40)
[2023-11-02 11:22] LABS: ANISOCYTOSIS 0; MACROCYTOSIS 0
[2023-11-02 11:31] LABS: LDH 191 U/L (87-246)
[2023-11-02] MEDS: ACETAMINOPHEN 325 MG TABLET (FP) PO ONE (11:35)
[2023-11-02] MEDS: DEXAMETHASONE SODIUM PHOSPHATE 12 MG, DIPHENHYDRAMINE 25 MG in SODIUM CHLORIDE 100 ML IVPB ONE (11:36)
[2023-11-02] MEDS: DARATUMUMAB-HYALURONIDASE-FIHJ (FASPRO) 15 ML VIAL SQ ONE (12:42)
[2023-11-02 15:53] VITALS: RESP 20; TEMP 97.7
[2023-11-02 15:58] VITALS: BP 135/78; PULSE 63
[2023-11-03 17:08] LABS: FREE KAPPA,SERUM 5.7 mg/L (3.3-19.4)
[2023-11-05 14:06] LABS: BETA-2-MICROGLOBULIN 2.9 mg/L (0.6-2.4)
[2023-11-07 14:09] LABS: IG A QN SERUM. 13 mg/dL (61-437)
== END 2023-11-02 13:05 | disposition home or self-care (01) ==
LOC: JONCCHEMO 09:16 → J7W 09:17 → JONCCHEMO 13:05
PROVIDERS: ATTEND Internal Medicine Hematology & Oncology
PROC: 3E033GC Introduction of Other Therapeutic Substance into Peripheral Vein, Percutaneous Approach (ICD-10-PCS; principal; 2023-11-02)
PROC: 3E01305 Introduction of Other Antineoplastic into Subcutaneous Tissue, Percutaneous Approach (ICD-10-PCS; 2023-11-02)
DX: Z51.11 Encounter for antineoplastic chemotherapy (principal); C90.00 Multiple myeloma not having achieved remission
CPT/HCPCS: 36415; 80048; 80076; 82232; 82784; 83615; 83735; 83883; 84155; 84165; 84550; 85025; 86335; 96365; 96401; J9144

== ENCOUNTER 2023-12-14 09:05 | Day surgery (SDC) | payer OTHER ==
[2023-12-14] MEDS: SODIUM CHLORIDE 250 ML IV ONE (09:32)
[2023-12-14] MEDS: GRANISETRON HCL/PF 1 MG in SODIUM CHLORIDE 50 ML IVPB ONE (09:39)
[2023-12-14] MEDS: DEXAMETHASONE SODIUM PHOSPHATE 12 MG in SODIUM CHLORIDE 50 ML IVPB ONE (10:11)
[2023-12-14] MEDS: CARFILZOMIB IV ONE (10:33)
[2023-12-14] MEDS: WATER IV ONE (10:33)
[2023-12-14] MEDS: DEXTROSE 5% IV ONE (10:33)
[2023-12-14 17:15] VITALS: BP 130/71; PULSE 55; RESP 20; TEMP 97.9
== END 2023-12-14 11:50 | disposition home or self-care (01) ==
LOC: JONCCHEMO 09:05 → J7W 09:10 → JONCCHEMO 11:50
PROVIDERS: ATTEND Internal Medicine Hematology & Oncology
PROC: 3E03305 Introduction of Other Antineoplastic into Peripheral Vein, Percutaneous Approach (ICD-10-PCS; principal; 2023-12-14)
PROC: 3E0337Z Introduction of Electrolytic and Water Balance Substance into Peripheral Vein, Percutaneous Approach (ICD-10-PCS; 2023-12-14)
PROC: 3E033GC Introduction of Other Therapeutic Substance into Peripheral Vein, Percutaneous Approach (ICD-10-PCS; 2023-12-14)
DX: Z51.11 Encounter for antineoplastic chemotherapy (principal); C90.00 Multiple myeloma not having achieved remission
CPT/HCPCS: 96361; 96367; 96413; J9047

== ENCOUNTER 2023-12-21 09:43 | Day surgery (SDC) | payer OTHER ==
[2023-12-21 11:01] LABS: BASO % 0.1 % (0-2.0); EOS % 2.8 % (0-4.5); HEMATOCRIT 38.4 % (35.4-49); HEMOGLOBIN 12.9 GM/dL (11.7-16.9); LYMPH % 1.6 % (8-40); MCH 33.4 pg (25.7-33.7); MCHC 33.6 g/dl (32.0-35.9); MEAN CELL VOLUME 99.3 fl (80-96); MEAN PLT VOLUME 7.8 fl (7.5-11.1); MONO % 18.7 % (3.8-10.2); NEUT % 76.8 % (42.8-82.8); PLATELET COUNT 124 10^3/uL (134-434); RBC 3.86 M/mm3 (4.00-5.60); RDW 13.4 % (11.9-15.9); WHITE BLOOD COUNT 2.1 K/mm3 (4.0-10.0)
[2023-12-21 11:18] LABS: CHLORIDE 109 mmol/L (98-107); POTASSIUM 4.6 mmol/L (3.5-5.1); SODIUM 141 mmol/L (136-145)
[2023-12-21 11:20] LABS: ANION GAP 2 mmol/L (4-13); CALCIUM 8.7 mg/dL (8.5-10.1); CO2 29 mmol/L (21-32); GLUCOSE,RANDOM 139 mg/dL (74-106); MAGNESIUM 2.3 mg/dL (1.8-2.4)
[2023-12-21 11:21] LABS: ALBUMIN 3.5 g/dl (3.4-5.0); BLOOD UREA NITROGEN 27.8 mg/dL (7-18)
[2023-12-21 11:23] LABS: CREATININE 1.9 mg/dL (0.55-1.3); URIC ACID 6.8 mg/dL (2.6-7.2)
[2023-12-21 11:24] LABS: SGOT/AST 19 U/L (15-37); SGPT/ALT 19 U/L (13-61)
[2023-12-21 11:25] LABS: BILIRUBIN,TOTAL 0.8 mg/dL (0.2-1); TOT PROT 5.6 g/dl (6.4-8.2)
[2023-12-21 11:26] LABS: ALK PHOS 97 U/L (45-117)
[2023-12-21] MEDS: SODIUM CHLORIDE 250 ML IV ONE (12:58)
[2023-12-21] MEDS: GRANISETRON HCL/PF 1 MG in SODIUM CHLORIDE 50 ML IVPB ONE (13:09)
[2023-12-21] MEDS: DEXAMETHASONE SODIUM PHOSPHATE 12 MG in SODIUM CHLORIDE 50 ML IVPB ONE (13:20)
[2023-12-21] MEDS: CARFILZOMIB IV ONE (13:42)
[2023-12-21] MEDS: DEXTROSE 5% IV ONE (13:42)
[2023-12-21] MEDS: WATER IV ONE (13:42)
[2023-12-21 13:54] LABS: LDH 194 U/L (87-246)
[2023-12-21 17:00] VITALS: BP 151/70; PULSE 49; RESP 20; TEMP 97.7
== END 2023-12-21 14:35 | disposition home or self-care (01) ==
LOC: JONCCHEMO 09:43 → J7W 09:44 → JONCCHEMO 14:35
PROVIDERS: ATTEND Internal Medicine Hematology & Oncology
DX: Z51.11 Encounter for antineoplastic chemotherapy (principal); C90.00 Multiple myeloma not having achieved remission
CPT/HCPCS: 36415; 73521-TC-FY; 73552-TC-RT-FY; 73590-TC-RT-FY; 80053; 83615; 83735; 84550; 85025; 93970-TC; 96367; 96375; 96413; J9047

== ENCOUNTER 2023-12-27 09:12 | Day surgery (SDC) | payer OTHER ==
[~2023-12-27 09:12] MED LIST changes: +ACETAMINOPHEN 325 MG TABLET (FP) PO ONE; +DARATUMUMAB-HYALURONIDASE-FIHJ (FASPRO) 15 ML VIAL SQ ONE; +SODIUM CHLORIDE 0.45% 250 ML IV ONE
[2023-12-27 09:44] LABS: HEMATOCRIT 38.6 % (35.4-49); HEMOGLOBIN 13.2 GM/dL (11.7-16.9); MCH 33.6 pg (25.7-33.7); MCHC 34.2 g/dl (32.0-35.9); MEAN CELL VOLUME 98.4 fl (80-96); MEAN PLT VOLUME 7.5 fl (7.5-11.1); PLATELET COUNT 80 10^3/uL (134-434); RBC 3.92 M/mm3 (4.00-5.60); RDW 13.3 % (11.9-15.9); WHITE BLOOD COUNT 2.7 K/mm3 (4.0-10.0)
[2023-12-27 09:56] LABS: CHLORIDE 107 mmol/L (98-107); POTASSIUM 4.4 mmol/L (3.5-5.1); SODIUM 139 mmol/L (136-145)
[2023-12-27 09:58] LABS: ALBUMIN 3.6 g/dl (3.4-5.0); ANION GAP 4 mmol/L (4-13); BLOOD UREA NITROGEN 31.3 mg/dL (7-18); CALCIUM 8.6 mg/dL (8.5-10.1); CO2 27 mmol/L (21-32); MAGNESIUM 2.1 mg/dL (1.8-2.4)
[2023-12-27 09:59] LABS: GLUCOSE,RANDOM 94 mg/dL (74-106)
[2023-12-27 10:01] LABS: CREATININE 1.8 mg/dL (0.55-1.3); SGOT/AST 14 U/L (15-37); SGPT/ALT 20 U/L (13-61)
[2023-12-27 10:03] LABS: BILIRUBIN,TOTAL 0.8 mg/dL (0.2-1); TOT PROT 5.8 g/dl (6.4-8.2)
[2023-12-27 10:04] LABS: ALK PHOS 104 U/L (45-117)
[2023-12-27 10:05] LABS: LDH 180 U/L (87-246)
[2023-12-27 10:10] LABS: URIC ACID 5.9 mg/dL (2.6-7.2)
[2023-12-27 10:39] LABS: ANISOCYTOSIS 0; HELMET CELLS 0; HOWELL-JOLLY BODIES 0; MACROCYTOSIS 0; OVALOCYTE 0; ROULEAU 0; SICKELED CELLS 0; TARGET CELLS 0; TEAR DROP CELLS 0; TOXIC GRANULATION 0
[2023-12-27] MEDS: SODIUM CHLORIDE 250 ML IV ONE (11:25)
[2023-12-27] MEDS: GRANISETRON HCL/PF 1 MG in SODIUM CHLORIDE 50 ML IVPB ONE (12:41)
[2023-12-27] MEDS: DEXAMETHASONE SODIUM PHOSPHATE 12 MG in SODIUM CHLORIDE 50 ML IVPB ONE (13:03)
[2023-12-27] MEDS: CARFILZOMIB IV ONE (13:19)
[2023-12-27] MEDS: DEXTROSE 5% IV ONE (13:19)
[2023-12-27] MEDS: WATER IV ONE (13:19)
[2023-12-27 17:18] VITALS: BP 137/78; PULSE 52; RESP 20; TEMP 97.8
== END 2023-12-27 14:10 | disposition home or self-care (01) ==
LOC: JONCCHEMO 09:12 → J7W 09:17 → JONCCHEMO 14:10
PROVIDERS: ATTEND Internal Medicine Hematology & Oncology
DX: Z51.11 Encounter for antineoplastic chemotherapy (principal); C90.00 Multiple myeloma not having achieved remission
CPT/HCPCS: 36415; 80053; 83615; 83735; 84550; 85025; 96367; 96375; 96413; J9047

== ENCOUNTER 2024-01-11 10:05 | Day surgery (SDC) | payer OTHER ==
[2024-01-11 11:06] LABS: HEMATOCRIT 37.6 % (35.4-49); HEMOGLOBIN 12.6 GM/dL (11.7-16.9); MCH 33.8 pg (25.7-33.7); MCHC 33.6 g/dl (32.0-35.9); MEAN CELL VOLUME 100.8 fl (80-96); PLATELET COUNT 170 10^3/uL (134-434); RBC 3.73 M/mm3 (4.00-5.60); RDW 13.6 % (11.9-15.9); WHITE BLOOD COUNT 2.1 K/mm3 (4.0-10.0)
[2024-01-11 11:25] LABS: POTASSIUM 3.8 mmol/L (3.5-5.1)
[2024-01-11 11:27] LABS: CALCIUM 8.8 mg/dL (8.5-10.1)
[2024-01-11 11:28] LABS: ALBUMIN 3.6 g/dl (3.4-5.0); BLOOD UREA NITROGEN 28.5 mg/dL (7-18)
[2024-01-11 11:30] LABS: URIC ACID 5.4 mg/dL (2.6-7.2)
[2024-01-11 11:31] LABS: CREATININE 1.8 mg/dL (0.55-1.3)
[2024-01-11 11:32] LABS: BILIRUBIN,TOTAL 0.6 mg/dL (0.2-1); TOT PROT 6.1 g/dl (6.4-8.2)
[2024-01-11 11:43] LABS: ANISOCYTOSIS 1+; MACROCYTOSIS 1+
[2024-01-11] MEDS: SODIUM CHLORIDE 250 ML IV ONE (11:46)
[2024-01-11] MEDS: GRANISETRON HCL/PF 1 MG in SODIUM CHLORIDE 50 ML IVPB ONE (12:27)
[2024-01-11] MEDS: DEXAMETHASONE SODIUM PHOSPHATE 12 MG in SODIUM CHLORIDE 50 ML IVPB ONE (12:47)
[2024-01-11] MEDS: WATER IV ONE (13:13)
[2024-01-11] MEDS: DEXTROSE 5% IV ONE (13:13)
[2024-01-11] MEDS: CARFILZOMIB IV ONE (13:13)
[2024-01-11 15:29] VITALS: RESP 20; TEMP 97.9
[2024-01-11 15:39] VITALS: BP 134/66; PULSE 66
[2024-01-12 18:08] LABS: IG A QN SERUM. 12 mg/dL (61-437)
== END 2024-01-11 14:20 | disposition home or self-care (01) ==
LOC: J7W 10:05 → JONCCHEMO 10:05
PROVIDERS: ATTEND Internal Medicine Hematology & Oncology
DX: Z51.11 Encounter for antineoplastic chemotherapy (principal); C90.00 Multiple myeloma not having achieved remission
CPT/HCPCS: 36415; 80053; 82232; 82784; 83615; 84155; 84165; 84550; 85025; 86335; 96375; 96413; J9047

== ENCOUNTER 2024-01-18 09:49 | Day surgery (SDC) | payer OTHER ==
[2024-01-18 10:41] LABS: BASO % 1.3 % (0-2.0); EOS % 9.6 % (0-4.5); LYMPH % 2.4 % (8-40); MCH 34.3 pg (25.7-33.7); MCHC 34.3 g/dl (32.0-35.9); MEAN PLT VOLUME 8.3 fl (7.5-11.1); MONO % 11.1 % (3.8-10.2); NEUT % 75.6 % (42.8-82.8); PLATELET COUNT 102 10^3/uL (134-434); RDW 13.8 % (11.9-15.9); WHITE BLOOD COUNT 2.2 K/mm3 (4.0-10.0)
[2024-01-18 11:09] LABS: POTASSIUM 4.6 mmol/L (3.5-5.1)
[2024-01-18 11:11] LABS: CALCIUM 8.7 mg/dL (8.5-10.1)
[2024-01-18 11:12] LABS: ALBUMIN 3.3 g/dl (3.4-5.0); BLOOD UREA NITROGEN 29.1 mg/dL (7-18); MAGNESIUM 2.2 mg/dL (1.8-2.4)
[2024-01-18 11:13] LABS: URIC ACID 5.3 mg/dL (2.6-7.2)
[2024-01-18 11:16] LABS: BILIRUBIN,TOTAL 0.7 mg/dL (0.2-1); TOT PROT 5.3 g/dl (6.4-8.2)
[2024-01-18] MEDS: SODIUM CHLORIDE 250 ML IV ONE (11:36)
[2024-01-18] MEDS: GRANISETRON HCL IVPB ONE (12:02)
[2024-01-18] MEDS: DEXTROSE 5% IVPB ONE ×2 (12:02→12:24)
[2024-01-18] MEDS: WATER IVPB ONE ×2 (12:02→12:24)
[2024-01-18] MEDS: DEXAMETHASONE SODIUM PHOSPHATE IVPB ONE (12:24)
[2024-01-18] MEDS: DEXTROSE 5% IV ONE (12:44)
[2024-01-18] MEDS: WATER IV ONE (12:44)
[2024-01-18] MEDS: CARFILZOMIB IV ONE (12:44)
[2024-01-18 17:59] VITALS: TEMP 97.4
[2024-01-18 18:06] VITALS: BP 119/67; PULSE 62; RESP 18
== END 2024-01-18 14:00 | disposition home or self-care (01) ==
LOC: JONCCHEMO 09:49 → J7W 10:02 → JONCCHEMO 14:00
PROVIDERS: ATTEND Internal Medicine Hematology & Oncology
DX: Z51.11 Encounter for antineoplastic chemotherapy (principal); C90.00 Multiple myeloma not having achieved remission
CPT/HCPCS: 36415; 80053; 83615; 83735; 84550; 85025; 96375; 96413; J9047

== ENCOUNTER 2024-01-25 09:57 | Day surgery (SDC) | payer OTHER ==
[2024-01-25] MEDS: SODIUM CHLORIDE 250 ML IV ONE (10:50)
[2024-01-25] MEDS: DEXAMETHASONE SODIUM PHOSPHATE IVPB ONE (11:19)
[2024-01-25] MEDS: WATER IVPB ONE ×2 (11:19→11:49)
[2024-01-25] MEDS: DEXTROSE 5% IVPB ONE ×2 (11:19→11:49)
[2024-01-25] MEDS: GRANISETRON HCL IVPB ONE (11:49)
[2024-01-25] MEDS: DEXTROSE 5% IV ONE (12:10)
[2024-01-25] MEDS: WATER IV ONE (12:10)
[2024-01-25] MEDS: CARFILZOMIB IV ONE (12:10)
[2024-01-25 15:23] VITALS: RESP 18; TEMP 97.8
[2024-01-25 15:37] VITALS: BP 125/72; PULSE 64
== END 2024-01-25 13:00 | disposition home or self-care (01) ==
LOC: JONCCHEMO 09:57 → J7W 09:58 → JONCCHEMO 13:00
PROVIDERS: ATTEND Internal Medicine Hematology & Oncology
DX: Z51.11 Encounter for antineoplastic chemotherapy (principal); C90.00 Multiple myeloma not having achieved remission
CPT/HCPCS: 96367; 96375; 96413; J9047

== ENCOUNTER 2024-02-08 09:36 | Day surgery (SDC) | payer OTHER ==
[2024-02-08 11:11] LABS: BASO % 0.9 % (0-2.0); EOS % 3.1 % (0-4.5); HEMATOCRIT 36.1 % (35.4-49); HEMOGLOBIN 12.2 GM/dL (11.7-16.9); LYMPH % 3.2 % (8-40); MCH 34.9 pg (25.7-33.7); MCHC 33.9 g/dl (32.0-35.9); MEAN PLT VOLUME 7.3 fl (7.5-11.1); MONO % 13.5 % (3.8-10.2); NEUT % 79.3 % (42.8-82.8); PLATELET COUNT 198 10^3/uL (134-434); RDW 15.1 % (11.9-15.9); WHITE BLOOD COUNT 2.5 K/mm3 (4.0-10.0)
[2024-02-08 11:29] LABS: CHLORIDE 109 mmol/L (98-107); POTASSIUM 4.9 mmol/L (3.5-5.1); SODIUM 140 mmol/L (136-145)
[2024-02-08 11:31] LABS: CALCIUM 8.6 mg/dL (8.5-10.1)
[2024-02-08 11:32] LABS: ALBUMIN 3.5 g/dl (3.4-5.0); ANION GAP 4 mmol/L (4-13); BLOOD UREA NITROGEN 27.7 mg/dL (7-18); CO2 27 mmol/L (21-32); GLUCOSE,RANDOM 90 mg/dL (74-106)
[2024-02-08 11:34] LABS: SGPT/ALT 18 U/L (13-61)
[2024-02-08 11:35] LABS: CREATININE 1.7 mg/dL (0.55-1.3); SGOT/AST 18 U/L (15-37); URIC ACID 4.4 mg/dL (2.6-7.2)
[2024-02-08 11:36] LABS: BILIRUBIN,TOTAL 0.8 mg/dL (0.2-1); LDH 173 U/L (87-246); TOT PROT 5.6 g/dl (6.4-8.2)
[2024-02-08 11:37] LABS: ALK PHOS 86 U/L (45-117)
[2024-02-08] MEDS: SODIUM CHLORIDE 250 ML IV ONE (11:43)
[2024-02-08] MEDS: DEXTROSE 5% IVPB ONE ×2 (12:14→12:37)
[2024-02-08] MEDS: GRANISETRON HCL IVPB ONE (12:14)
[2024-02-08] MEDS: WATER IVPB ONE ×2 (12:14→12:37)
[2024-02-08] MEDS: DEXAMETHASONE SODIUM PHOSPHATE IVPB ONE (12:37)
[2024-02-08] MEDS: WATER IV ONE (13:05)
[2024-02-08] MEDS: DEXTROSE 5% IV ONE (13:05)
[2024-02-08] MEDS: CARFILZOMIB IV ONE (13:05)
[2024-02-08 14:51] VITALS: PULSE 63; RESP 18; TEMP 98.2
[2024-02-08] MEDS: CYANOCOBALAMIN (VITAMIN B-12) 1000 MCG/1 ML VIAL IM ONE (15:07)
[2024-02-08 15:09] VITALS: BP 121/77
[2024-02-09 18:10] LABS: FREE KAPPA,SERUM 6.7 mg/L (3.3-19.4); IG A QN SERUM. 13 mg/dL (61-437)
== END 2024-02-08 14:00 | disposition home or self-care (01) ==
LOC: JONCCHEMO 09:36 → J7W 09:38 → JONCCHEMO 13:30
PROVIDERS: ATTEND Internal Medicine Hematology & Oncology
PROC: 3E03305 Introduction of Other Antineoplastic into Peripheral Vein, Percutaneous Approach (ICD-10-PCS; principal; 2024-02-08)
PROC: 3E033GC Introduction of Other Therapeutic Substance into Peripheral Vein, Percutaneous Approach (ICD-10-PCS; 2024-02-08)
DX: Z51.11 Encounter for antineoplastic chemotherapy (principal); C90.00 Multiple myeloma not having achieved remission
CPT/HCPCS: 36415; 80053; 82232; 82784; 83516; 83615; 83883; 84155; 84165; 84550; 85025; 86335; 86340; 96374; 96375; 96413; J9047

== ENCOUNTER 2024-02-15 09:59 | Day surgery (SDC) | payer OTHER ==
[2024-02-15 10:34] LABS: BASO % 0.1 % (0-2.0); EOS % 7.2 % (0-4.5); HEMATOCRIT 36.8 % (35.4-49); HEMOGLOBIN 12.1 GM/dL (11.7-16.9); LYMPH % 3.1 % (8-40); MCH 34.3 pg (25.7-33.7); MCHC 32.8 g/dl (32.0-35.9); MEAN CELL VOLUME 104.5 fl (80-96); MEAN PLT VOLUME 8.2 fl (7.5-11.1); NEUT % 69.6 % (42.8-82.8); PLATELET COUNT 100 10^3/uL (134-434); RBC 3.52 M/mm3 (4.00-5.60)
[2024-02-15 11:01] LABS: ALBUMIN 3.4 g/dl (3.4-5.0); CALCIUM 8.8 mg/dL (8.5-10.1)
[2024-02-15 11:02] LABS: BLOOD UREA NITROGEN 38.6 mg/dL (7-18); MAGNESIUM 2.4 mg/dL (1.8-2.4)
[2024-02-15 11:04] LABS: CREATININE 1.7 mg/dL (0.55-1.3); URIC ACID 5.5 mg/dL (2.6-7.2)
[2024-02-15 11:06] LABS: TOT PROT 5.4 g/dl (6.4-8.2)
[2024-02-15] MEDS: SODIUM CHLORIDE 250 ML IV ONE (12:11)
[2024-02-15] MEDS: DEXAMETHASONE SODIUM PHOSPHATE IVPB ONE (12:11)
[2024-02-15] MEDS: DEXTROSE 5% IVPB ONE ×2 (12:11→12:28)
[2024-02-15] MEDS: WATER IVPB ONE ×2 (12:11→12:28)
[2024-02-15] MEDS: GRANISETRON HCL IVPB ONE (12:28)
[2024-02-15] MEDS: DEXTROSE 5% IV ONE (12:49)
[2024-02-15] MEDS: CARFILZOMIB IV ONE (12:49)
[2024-02-15] MEDS: WATER IV ONE (12:49)
[2024-02-15] MEDS: CYANOCOBALAMIN (VITAMIN B-12) 1000 MCG/1 ML VIAL IM ONE (13:45)
[2024-02-15 14:13] VITALS: PULSE 62; RESP 18; TEMP 97.8
[2024-02-15 14:17] VITALS: BP 131/75
== END 2024-02-15 14:15 | disposition home or self-care (01) ==
LOC: JONCCHEMO 09:59 → J7W 10:27 → JONCCHEMO 14:15
PROVIDERS: ATTEND Internal Medicine Hematology & Oncology
PROC: 3E03305 Introduction of Other Antineoplastic into Peripheral Vein, Percutaneous Approach (ICD-10-PCS; principal; 2024-02-15)
PROC: 3E033GC Introduction of Other Therapeutic Substance into Peripheral Vein, Percutaneous Approach (ICD-10-PCS; 2024-02-15)
PROC: 3E013GC Introduction of Other Therapeutic Substance into Subcutaneous Tissue, Percutaneous Approach (ICD-10-PCS; 2024-02-15)
DX: Z51.11 Encounter for antineoplastic chemotherapy (principal); C90.00 Multiple myeloma not having achieved remission
CPT/HCPCS: 36415; 80053; 83615; 83735; 84550; 85025; 96372; 96374; 96375; 96413; J9047

== ENCOUNTER 2024-02-21 11:15 | Day surgery (SDC) | payer OTHER ==
[2024-02-21 11:34] LABS: HEMOGLOBIN 12.1 GM/dL (11.7-16.9); MCH 34.6 pg (25.7-33.7); MCHC 32.7 g/dl (32.0-35.9); MEAN CELL VOLUME 105.9 fl (80-96); MEAN PLT VOLUME 7.8 fl (7.5-11.1); PLATELET COUNT 102 10^3/uL (134-434); RBC 3.49 M/mm3 (4.00-5.60); RDW 14.6 % (11.9-15.9); WHITE BLOOD COUNT 2.7 K/mm3 (4.0-10.0)
[2024-02-21 12:23] LABS: CHLORIDE 110 mmol/L (98-107); POTASSIUM 4.5 mmol/L (3.5-5.1); SODIUM 139 mmol/L (136-145)
[2024-02-21 12:27] LABS: CALCIUM 8.6 mg/dL (8.5-10.1)
[2024-02-21 12:28] LABS: ALBUMIN 3.5 g/dl (3.4-5.0); ANION GAP 6 mmol/L (4-13); BLOOD UREA NITROGEN 34.2 mg/dL (7-18); CO2 24 mmol/L (21-32); GLUCOSE,RANDOM 91 mg/dL (74-106); MAGNESIUM 2.1 mg/dL (1.8-2.4)
[2024-02-21 12:31] LABS: CREATININE 1.7 mg/dL (0.55-1.3); SGOT/AST 15 U/L (15-37); SGPT/ALT 20 U/L (13-61)
[2024-02-21 12:32] LABS: BILIRUBIN,TOTAL 0.9 mg/dL (0.2-1); LDH 169 U/L (87-246)
[2024-02-21 12:33] LABS: TOT PROT 5.8 g/dl (6.4-8.2)
[2024-02-21 12:34] LABS: ALK PHOS 89 U/L (45-117)
[2024-02-21 13:00] LABS: ANISOCYTOSIS 0; MACROCYTOSIS 2+
[2024-02-21] MEDS: DEXAMETHASONE SODIUM PHOSPHATE 12 MG in SODIUM CHLORIDE 50 ML IVPB ONE (13:16)
[2024-02-21] MEDS: SODIUM CHLORIDE 250 ML IV ONE (13:17)
[2024-02-21] MEDS: GRANISETRON HCL/PF 1 MG in SODIUM CHLORIDE 50 ML IVPB ONE (13:33)
[2024-02-21] MEDS: CARFILZOMIB IV ONE (14:14)
[2024-02-21] MEDS: DEXTROSE 5% IV ONE (14:14)
[2024-02-21] MEDS: WATER IV ONE (14:14)
[2024-02-21] MEDS: CYANOCOBALAMIN (VITAMIN B-12) 1000 MCG/1 ML VIAL IM ONE (14:46)
[2024-02-21 18:23] VITALS: TEMP 97.5
[2024-02-21 18:35] VITALS: BP 115/69; PULSE 63; RESP 18
== END 2024-02-21 15:15 | disposition home or self-care (01) ==
LOC: JONCCHEMO 11:15
PROVIDERS: ATTEND Internal Medicine Hematology & Oncology
PROC: 3E04305 Introduction of Other Antineoplastic into Central Vein, Percutaneous Approach (ICD-10-PCS; principal; 2024-02-21)
PROC: 3E043GC Introduction of Other Therapeutic Substance into Central Vein, Percutaneous Approach (ICD-10-PCS; 2024-02-21)
PROC: 3E0437Z Introduction of Electrolytic and Water Balance Substance into Central Vein, Percutaneous Approach (ICD-10-PCS; 2024-02-21)
DX: Z51.11 Encounter for antineoplastic chemotherapy (principal); C90.00 Multiple myeloma not having achieved remission
CPT/HCPCS: 36415; 80053; 83615; 83735; 84550; 85025; 96372; 96375; 96413; J9047

== ENCOUNTER 2024-03-07 11:02 | Day surgery (SDC) | payer OTHER ==
[2024-03-07 11:40] LABS: BASO % 0.7 % (0-2.0); EOS % 4.3 % (0-4.5); HEMATOCRIT 35.4 % (35.4-49); HEMOGLOBIN 11.8 GM/dL (11.7-16.9); LYMPH % 3.9 % (8-40); MCH 35.6 pg (25.7-33.7); MCHC 33.4 g/dl (32.0-35.9); MEAN CELL VOLUME 106.7 fl (80-96); MEAN PLT VOLUME 7.4 fl (7.5-11.1); MONO % 11.1 % (3.8-10.2); PLATELET COUNT 173 10^3/uL (134-434); RBC 3.32 M/mm3 (4.00-5.60); WHITE BLOOD COUNT 2.5 K/mm3 (4.0-10.0)
[2024-03-07 12:02] LABS: CHLORIDE 111 mmol/L (98-107); POTASSIUM 4.4 mmol/L (3.5-5.1); SODIUM 141 mmol/L (136-145)
[2024-03-07 12:04] LABS: ALBUMIN 3.8 g/dl (3.4-5.0); ANION GAP 6 mmol/L (4-13); BLOOD UREA NITROGEN 33.5 mg/dL (7-18); CO2 25 mmol/L (21-32); GLUCOSE,RANDOM 95 mg/dL (74-106)
[2024-03-07 12:07] LABS: CREATININE 1.8 mg/dL (0.55-1.3); SGPT/ALT 19 U/L (13-61); URIC ACID 5.9 mg/dL (2.6-7.2)
[2024-03-07 12:08] LABS: SGOT/AST 18 U/L (15-37)
[2024-03-07 12:09] LABS: BILIRUBIN,TOTAL 0.9 mg/dL (0.2-1); TOT PROT 5.9 g/dl (6.4-8.2)
[2024-03-07 12:10] LABS: ALK PHOS 92 U/L (45-117)
[2024-03-07] MEDS: SODIUM CHLORIDE 250 ML IV ONE (12:11)
[2024-03-07 12:36] LABS: ANISOCYTOSIS 0; MACROCYTOSIS 1+
[2024-03-07] MEDS: GRANISETRON HCL/PF 1 MG in SODIUM CHLORIDE 50 ML IVPB ONE (12:43)
[2024-03-07] MEDS: DEXAMETHASONE SODIUM PHOSPHATE 12 MG in SODIUM CHLORIDE 50 ML IVPB ONE (13:15)
[2024-03-07] MEDS: WATER IV ONE (13:33)
[2024-03-07] MEDS: CARFILZOMIB IV ONE (13:33)
[2024-03-07] MEDS: DEXTROSE 5% IV ONE (13:33)
[2024-03-07 14:05] LABS: LDH 224 U/L (87-246)
[2024-03-07] MEDS: CYANOCOBALAMIN (VITAMIN B-12) 1000 MCG/1 ML VIAL IM ONE (14:16)
[2024-03-07 16:02] VITALS: RESP 20; TEMP 97.5
[2024-03-07 16:53] VITALS: BP 118/62; PULSE 68
[2024-03-11 18:08] LABS: IG A QN SERUM. 12 mg/dL (61-437)
== END 2024-03-07 14:20 | disposition home or self-care (01) ==
LOC: J7W 11:02 → JONCCHEMO 11:02
PROVIDERS: ATTEND Internal Medicine Hematology & Oncology
DX: Z51.11 Encounter for antineoplastic chemotherapy (principal); C90.00 Multiple myeloma not having achieved remission
CPT/HCPCS: 36415; 80053; 82232; 82784; 83615; 84155; 84165; 84550; 85025; 86335; 96375; 96413; J9047

== ENCOUNTER 2024-03-14 09:47 | Day surgery (SDC) | payer OTHER ==
[2024-03-14 10:50] LABS: HEMATOCRIT 34.5 % (35.4-49); HEMOGLOBIN 11.2 GM/dL (11.7-16.9); MCH 35.3 pg (25.7-33.7); MCHC 32.4 g/dl (32.0-35.9); MEAN PLT VOLUME 7.5 fl (7.5-11.1); PLATELET COUNT 109 10^3/uL (134-434); RBC 3.17 M/mm3 (4.00-5.60); WHITE BLOOD COUNT 3.4 K/mm3 (4.0-10.0)
[2024-03-14] MEDS: SODIUM CHLORIDE 250 ML IV ONE (11:05)
[2024-03-14 11:06] LABS: POTASSIUM 4.4 mmol/L (3.5-5.1)
[2024-03-14 11:08] LABS: ALBUMIN 3.5 g/dl (3.4-5.0); CALCIUM 8.5 mg/dL (8.5-10.1)
[2024-03-14 11:11] LABS: URIC ACID 6.1 mg/dL (2.6-7.2)
[2024-03-14 11:13] LABS: BILIRUBIN,TOTAL 0.9 mg/dL (0.2-1); TOT PROT 5.5 g/dl (6.4-8.2)
[2024-03-14 11:19] LABS: ANISOCYTOSIS 0; MACROCYTOSIS 2+
[2024-03-14] MEDS: DEXAMETHASONE SODIUM PHOSPHATE 12 MG in SODIUM CHLORIDE 50 ML IVPB ONE (11:55)
[2024-03-14] MEDS: GRANISETRON HCL/PF 1 MG in SODIUM CHLORIDE 50 ML IVPB ONE (12:22)
[2024-03-14] MEDS: WATER IV ONE (12:44)
[2024-03-14] MEDS: CARFILZOMIB IV ONE (12:44)
[2024-03-14] MEDS: DEXTROSE 5% IV ONE (12:44)
[2024-03-14 16:36] VITALS: TEMP 97.9
[2024-03-14 16:41] VITALS: BP 124/58; PULSE 70; RESP 16
== END 2024-03-14 13:35 | disposition home or self-care (01) ==
LOC: JONCCHEMO 09:47 → J7W 09:50 → JONCCHEMO 13:35
PROVIDERS: ATTEND Internal Medicine Hematology & Oncology
PROC: 3E03305 Introduction of Other Antineoplastic into Peripheral Vein, Percutaneous Approach (ICD-10-PCS; principal; 2024-03-14)
PROC: 3E0333Z Introduction of Anti-inflammatory into Peripheral Vein, Percutaneous Approach (ICD-10-PCS; 2024-03-14)
DX: Z51.11 Encounter for antineoplastic chemotherapy (principal); C90.00 Multiple myeloma not having achieved remission
CPT/HCPCS: 36415; 80053; 82607; 83615; 83735; 84550; 85025; 96365; 96413; 96415; 96417; J9047

== ENCOUNTER 2024-04-11 09:13 | Day surgery (SDC) | payer OTHER ==
[~2024-04-11 09:13] MED LIST changes: -ACETAMINOPHEN 325 MG TABLET (FP) PO ONE; +CARFILZOMIB IV ONE; -DARATUMUMAB-HYALURONIDASE-FIHJ (FASPRO) 15 ML VIAL SQ ONE; -DEXAMETHASONE SODIUM PHOSPHATE 12 MG, DIPHENHYDRAMINE 25 MG in SODIUM CHLORIDE 100 ML IVPB ONE; +DEXTROSE 5% IV ONE; -SODIUM CHLORIDE 0.45% 250 ML IV ONE; +WATER IV ONE
[2024-04-11 09:46] LABS: HEMATOCRIT 39.4 % (35.4-49); HEMOGLOBIN 13.3 GM/dL (11.7-16.9); MCHC 33.8 g/dl (32.0-35.9); MEAN CELL VOLUME 103.7 fl (80-96); MEAN PLT VOLUME 7.7 fl (7.5-11.1); PLATELET COUNT 146 10^3/uL (134-434); RDW 13.6 % (11.9-15.9); WHITE BLOOD COUNT 2.3 K/mm3 (4.0-10.0)
[2024-04-11 10:09] LABS: CHLORIDE 109 mmol/L (98-107); POTASSIUM 4.2 mmol/L (3.5-5.1); SODIUM 139 mmol/L (136-145)
[2024-04-11 10:11] LABS: ALBUMIN 3.8 g/dl (3.4-5.0); ANION GAP 6 mmol/L (4-13); BLOOD UREA NITROGEN 29.9 mg/dL (7-18); CALCIUM 9.1 mg/dL (8.5-10.1); CO2 24 mmol/L (21-32); GLUCOSE,RANDOM 94 mg/dL (74-106)
[2024-04-11 10:14] LABS: CREATININE 1.6 mg/dL (0.55-1.3); SGOT/AST 20 U/L (15-37); SGPT/ALT 22 U/L (13-61)
[2024-04-11 10:16] LABS: BILIRUBIN,TOTAL 0.6 mg/dL (0.2-1)
[2024-04-11 10:17] LABS: ALK PHOS 91 U/L (45-117); LDH 187 U/L (87-246)
[2024-04-11 10:26] LABS: ANISOCYTOSIS 2+; MACROCYTOSIS 2+; OVALOCYTE 1+
[2024-04-11] MEDS: SODIUM CHLORIDE 250 ML IV ONE (10:52)
[2024-04-11] MEDS: GRANISETRON HCL/PF 1 MG in SODIUM CHLORIDE 50 ML IVPB ONE (11:24)
[2024-04-11] MEDS: DEXAMETHASONE SODIUM PHOSPHATE 12 MG in SODIUM CHLORIDE 50 ML IVPB ONE (11:53)
[2024-04-11] MEDS: DEXTROSE 5% IV ONE (12:11)
[2024-04-11] MEDS: CARFILZOMIB IV ONE (12:11)
[2024-04-11] MEDS: WATER IV ONE (12:11)
[2024-04-11 12:51] VITALS: RESP 18; TEMP 97.5
[2024-04-11 12:57] VITALS: BP 115/62; PULSE 59
[2024-04-12 18:07] LABS: FREE KAPPA,SERUM 8.2 mg/L (3.3-19.4); IG A QN SERUM. 19 mg/dL (61-437)
[2024-04-13 06:07] LABS: FREE KAP CHN UR 12.63 mg/L (1.17-86.46); KAPPA LAMBDA RATIO URIN 1.97 (1.83-14.26)
[2024-04-14 13:06] LABS: BETA-2-MICROGLOBULIN 3.2 mg/L (0.6-2.4)
== END 2024-04-11 13:30 | disposition home or self-care (01) ==
LOC: JONCCHEMO 09:13 → J7W 09:14 → JONCCHEMO 13:30
PROVIDERS: ATTEND Internal Medicine Hematology & Oncology
DX: Z51.11 Encounter for antineoplastic chemotherapy (principal); C90.00 Multiple myeloma not having achieved remission
CPT/HCPCS: 36415; 80053; 82232; 82607; 82784; 83615; 83735; 83883; 84155; 84165; 84550; 85025; 86335; 96367; 96375; 96413; J9047

== ENCOUNTER 2024-04-18 09:31 | Day surgery (SDC) | payer OTHER ==
[2024-04-18 09:57] LABS: HEMATOCRIT 38.4 % (35.4-49); HEMOGLOBIN 13.1 GM/dL (11.7-16.9); MCH 35.1 pg (25.7-33.7); MCHC 34.1 g/dl (32.0-35.9); MEAN CELL VOLUME 103.1 fl (80-96); MEAN PLT VOLUME 7.5 fl (7.5-11.1); PLATELET COUNT 123 10^3/uL (134-434); RBC 3.72 M/mm3 (4.00-5.60); RDW 13.7 % (11.9-15.9); WHITE BLOOD COUNT 2.2 K/mm3 (4.0-10.0)
[2024-04-18 10:20] LABS: CHLORIDE 108 mmol/L (98-107); POTASSIUM 4.4 mmol/L (3.5-5.1); SODIUM 141 mmol/L (136-145)
[2024-04-18 10:23] LABS: ALBUMIN 3.7 g/dl (3.4-5.0); ANION GAP 5 mmol/L (4-13); BLOOD UREA NITROGEN 32.5 mg/dL (7-18); CO2 28 mmol/L (21-32); GLUCOSE,RANDOM 95 mg/dL (74-106)
[2024-04-18 10:24] LABS: MAGNESIUM 2.1 mg/dL (1.8-2.4)
[2024-04-18 10:26] LABS: CREATININE 1.7 mg/dL (0.55-1.3); SGOT/AST 17 U/L (15-37); SGPT/ALT 21 U/L (13-61)
[2024-04-18 10:27] LABS: BILIRUBIN,TOTAL 0.7 mg/dL (0.2-1); TOT PROT 5.9 g/dl (6.4-8.2)
[2024-04-18 10:29] LABS: ALK PHOS 85 U/L (45-117)
[2024-04-18 10:33] LABS: LDH 196 U/L (87-246)
[2024-04-18 12:36] LABS: ANISOCYTOSIS 3+; MACROCYTOSIS 0; ROULEAU 2+
[2024-04-18] MEDS: GRANISETRON HCL/PF 1 MG in SODIUM CHLORIDE 50 ML IVPB ONE (13:40)
[2024-04-18] MEDS: SODIUM CHLORIDE 250 ML IV ONE (13:41)
[2024-04-18] MEDS: DEXAMETHASONE SODIUM PHOSPHATE 12 MG in SODIUM CHLORIDE 50 ML IVPB ONE (13:55)
[2024-04-18] MEDS: WATER IV ONE (14:21)
[2024-04-18] MEDS: DEXTROSE 5% IV ONE (14:21)
[2024-04-18] MEDS: CARFILZOMIB IV ONE (14:21)
[2024-04-18 15:54] VITALS: PULSE 62; RESP 20; TEMP 97.9
[2024-04-18 16:12] VITALS: BP 126/65
== END 2024-04-18 15:00 | disposition home or self-care (01) ==
LOC: JONCCHEMO 09:31 → J7W 09:32 → JONCCHEMO 15:00
PROVIDERS: ATTEND Internal Medicine Hematology & Oncology
DX: Z51.11 Encounter for antineoplastic chemotherapy (principal); C90.00 Multiple myeloma not having achieved remission
CPT/HCPCS: 36415; 80053; 83615; 83735; 84550; 85025; 96375; 96413; J9047

== ENCOUNTER 2024-05-09 11:08 | Day surgery (SDC) | payer OTHER ==
[2024-05-09] MEDS: DEXAMETHASONE SODIUM PHOSPHATE 12 MG in SODIUM CHLORIDE 50 ML IVPB ONE (11:28)
[2024-05-09] MEDS: SODIUM CHLORIDE 250 ML IV ONE (11:28)
[2024-05-09] MEDS: GRANISETRON HCL/PF 1 MG in SODIUM CHLORIDE 50 ML IVPB ONE (11:55)
[2024-05-09] MEDS: WATER IV ONE (12:10)
[2024-05-09] MEDS: DEXTROSE 5% IV ONE (12:10)
[2024-05-09] MEDS: CARFILZOMIB IV ONE (12:10)
[2024-05-09] MEDS: FUROSEMIDE 40 MG/4 ML INJECTABLE VIAL IVPUSH ONE (13:03)
[2024-05-09 16:05] VITALS: TEMP 97.5
[2024-05-09 16:21] VITALS: BP 123/64; PULSE 59; RESP 20
== END 2024-05-09 12:45 | disposition home or self-care (01) ==
LOC: JONCCHEMO 11:08 → J7W 14:38
PROVIDERS: ATTEND Internal Medicine Hematology & Oncology
DX: Z51.11 Encounter for antineoplastic chemotherapy (principal); C90.00 Multiple myeloma not having achieved remission
CPT/HCPCS: 96375; 96413; J9047

== ENCOUNTER 2024-05-16 10:50 | Day surgery (SDC) | payer OTHER ==
[2024-05-16 10:37] LABS: HEMOGLOBIN 13.2 GM/dL (11.7-16.9); MCH 34.3 pg (25.7-33.7); MCHC 33.8 g/dl (32.0-35.9); MEAN CELL VOLUME 101.6 fl (80-96); MEAN PLT VOLUME 7.4 fl (7.5-11.1); PLATELET COUNT 139 10^3/uL (134-434); RBC 3.83 M/mm3 (4.00-5.60); RDW 13.9 % (11.9-15.9); WHITE BLOOD COUNT 3.3 K/mm3 (4.0-10.0)
[2024-05-16 11:04] LABS: SODIUM 141 mmol/L (136-145)
[2024-05-16 11:05] LABS: CHLORIDE 109 mmol/L (98-107)
[2024-05-16 11:06] LABS: ALBUMIN 3.6 g/dl (3.4-5.0); ANION GAP 5 mmol/L (4-13); BLOOD UREA NITROGEN 28.6 mg/dL (7-18); CALCIUM 8.6 mg/dL (8.5-10.1); CO2 27 mmol/L (21-32); MAGNESIUM 2.1 mg/dL (1.8-2.4)
[2024-05-16 11:07] LABS: GLUCOSE,RANDOM 77 mg/dL (74-106)
[2024-05-16 11:09] LABS: CREATININE 1.6 mg/dL (0.55-1.3); SGOT/AST 16 U/L (15-37); SGPT/ALT 18 U/L (13-61); URIC ACID 5.1 mg/dL (2.6-7.2)
[2024-05-16 11:11] LABS: BILIRUBIN,TOTAL 0.7 mg/dL (0.2-1); TOT PROT 6.1 g/dl (6.4-8.2)
[2024-05-16 11:12] LABS: ALK PHOS 89 U/L (45-117); ANISOCYTOSIS 1+; MACROCYTOSIS 1+
[2024-05-16 11:54] LABS: LDH 193 U/L (87-246)
[2024-05-16] MEDS: DEXAMETHASONE SODIUM PHOSPHATE 12 MG in SODIUM CHLORIDE 50 ML IVPB ONE (12:02)
[2024-05-16] MEDS: SODIUM CHLORIDE 250 ML IV ONE (12:03)
[2024-05-16] MEDS: GRANISETRON HCL/PF 1 MG in SODIUM CHLORIDE 50 ML IVPB ONE (12:42)
[2024-05-16] MEDS: CARFILZOMIB IV ONE (13:00)
[2024-05-16] MEDS: WATER IV ONE (13:00)
[2024-05-16] MEDS: DEXTROSE 5% IV ONE (13:00)
[2024-05-16 15:49] VITALS: TEMP 97.4
[2024-05-16 15:55] VITALS: BP 141/75; PULSE 74; RESP 18
== END 2024-05-16 14:00 | disposition home or self-care (01) ==
LOC: JONCCHEMO 10:50 → J7W 10:56 → JONCCHEMO 14:00
PROVIDERS: ATTEND Internal Medicine Hematology & Oncology
DX: Z51.11 Encounter for antineoplastic chemotherapy (principal); C90.00 Multiple myeloma not having achieved remission
CPT/HCPCS: 36415; 80053; 83615; 83735; 84550; 85025; 96367; 96375; 96413; J9047

== ENCOUNTER 2024-05-23 11:25 | Day surgery (SDC) | payer OTHER ==
[2024-05-23 10:52] LABS: HEMATOCRIT 38.1 % (35.4-49); HEMOGLOBIN 12.4 GM/dL (11.7-16.9); MCH 33.6 pg (25.7-33.7); MCHC 32.6 g/dl (32.0-35.9); MEAN CELL VOLUME 103.1 fl (80-96); MEAN PLT VOLUME 7.7 fl (7.5-11.1); PLATELET COUNT 155 10^3/uL (134-434); RDW 13.8 % (11.9-15.9); WHITE BLOOD COUNT 2.9 K/mm3 (4.0-10.0)
[2024-05-23 11:09] LABS: POTASSIUM 4.6 mmol/L (3.5-5.1)
[2024-05-23 11:12] LABS: CALCIUM 8.5 mg/dL (8.5-10.1)
[2024-05-23 11:13] LABS: ALBUMIN 3.6 g/dl (3.4-5.0); BLOOD UREA NITROGEN 27.4 mg/dL (7-18); MAGNESIUM 2.1 mg/dL (1.8-2.4)
[2024-05-23 11:15] LABS: URIC ACID 5.4 mg/dL (2.6-7.2)
[2024-05-23 11:16] LABS: CREATININE 1.5 mg/dL (0.55-1.3)
[2024-05-23 11:17] LABS: BILIRUBIN,TOTAL 0.9 mg/dL (0.2-1); TOT PROT 5.6 g/dl (6.4-8.2)
[2024-05-23 11:41] LABS: ANISOCYTOSIS 1+; MACROCYTOSIS 1+
[2024-05-23] MEDS: SODIUM CHLORIDE 250 ML IV ONE (12:00)
[2024-05-23] MEDS: DEXAMETHASONE SODIUM PHOSPHATE 12 MG in SODIUM CHLORIDE 50 ML IVPB ONE (12:32)
[2024-05-23] MEDS: GRANISETRON HCL/PF 1 MG in SODIUM CHLORIDE 50 ML IVPB ONE (13:05)
[2024-05-23] MEDS: WATER IV ONE (13:45)
[2024-05-23] MEDS: DEXTROSE 5% IV ONE (13:45)
[2024-05-23] MEDS: CARFILZOMIB IV ONE (13:45)
[2024-05-23 16:17] VITALS: TEMP 97.2
[2024-05-23 16:21] VITALS: BP 143/73; PULSE 61; RESP 18
== END 2024-05-23 14:00 | disposition home or self-care (01) ==
LOC: JONCCHEMO 11:25 → J7W 11:25 → JONCCHEMO 14:00
PROVIDERS: ATTEND Internal Medicine Hematology & Oncology
DX: Z51.11 Encounter for antineoplastic chemotherapy (principal); C90.00 Multiple myeloma not having achieved remission
CPT/HCPCS: 36415; 80053; 82607; 83615; 83735; 84550; 85025; 96367; 96413; J9047

== ENCOUNTER 2024-06-06 09:56 | Day surgery (SDC) | payer OTHER ==
[2024-06-06 10:27] LABS: HEMATOCRIT 39.1 % (35.4-49); HEMOGLOBIN 13.1 GM/dL (11.7-16.9); MCH 34.2 pg (25.7-33.7); MCHC 33.6 g/dl (32.0-35.9); MEAN CELL VOLUME 101.7 fl (80-96); PLATELET COUNT 174 10^3/uL (134-434); RBC 3.84 M/mm3 (4.00-5.60); RDW 14.5 % (11.9-15.9); WHITE BLOOD COUNT 2.2 K/mm3 (4.0-10.0)
[2024-06-06 10:51] LABS: CHLORIDE 109 mmol/L (98-107); POTASSIUM 4.2 mmol/L (3.5-5.1); SODIUM 142 mmol/L (136-145)
[2024-06-06 10:54] LABS: ALBUMIN 3.8 g/dl (3.4-5.0); ANION GAP 8 mmol/L (4-13); BLOOD UREA NITROGEN 39.9 mg/dL (7-18); CALCIUM 8.7 mg/dL (8.5-10.1); CO2 24 mmol/L (21-32); GLUCOSE,RANDOM 97 mg/dL (74-106)
[2024-06-06 10:57] LABS: SGOT/AST 17 U/L (15-37); SGPT/ALT 16 U/L (13-61); URIC ACID 7.5 mg/dL (2.6-7.2)
[2024-06-06 10:58] LABS: BILIRUBIN,TOTAL 0.8 mg/dL (0.2-1); LDH 192 U/L (87-246)
[2024-06-06 11:12] LABS: MACROCYTOSIS 1+
[2024-06-06 11:39] LABS: ALK PHOS 95 U/L (45-117)
[2024-06-06] MEDS: SODIUM CHLORIDE 250 ML IV ONE (11:49)
[2024-06-06] MEDS: SODIUM CHLORIDE 0.9% 500 ML INFUS.BAG IV ONE (12:20)
[2024-06-06] MEDS: GRANISETRON HCL/PF 1 MG in SODIUM CHLORIDE 50 ML IVPB ONE (12:41)
[2024-06-06] MEDS: DEXAMETHASONE SODIUM PHOSPHATE 12 MG in SODIUM CHLORIDE 50 ML IVPB ONE (12:55)
[2024-06-06] MEDS: CARFILZOMIB IV ONE (13:20)
[2024-06-06] MEDS: DEXTROSE 5% IV ONE (13:20)
[2024-06-06] MEDS: WATER IV ONE (13:20)
[2024-06-06 14:16] VITALS: RESP 18; TEMP 97.7
[2024-06-06 14:53] VITALS: BP 126/66; PULSE 56
[2024-06-07 17:07] LABS: IG A QN SERUM. 16 mg/dL (61-437)
[2024-06-07 18:07] LABS: FREE KAPPA,SERUM 14.6 mg/L (3.3-19.4)
[2024-06-10 16:07] LABS: FREE KAP CHN UR 19.85 mg/L (1.17-86.46); KAPPA LAMBDA RATIO URIN 2.34 (1.83-14.26)
== END 2024-06-06 14:30 | disposition home or self-care (01) ==
LOC: JONCCHEMO 09:56 → J7W 10:23 → JONCCHEMO 14:30
PROVIDERS: ATTEND Internal Medicine Hematology & Oncology
PROC: 3E03305 Introduction of Other Antineoplastic into Peripheral Vein, Percutaneous Approach (ICD-10-PCS; principal; 2024-06-06)
PROC: 3E0337Z Introduction of Electrolytic and Water Balance Substance into Peripheral Vein, Percutaneous Approach (ICD-10-PCS; 2024-06-06)
PROC: 3E033GC Introduction of Other Therapeutic Substance into Peripheral Vein, Percutaneous Approach (ICD-10-PCS; 2024-06-06)
DX: Z51.11 Encounter for antineoplastic chemotherapy (principal); C90.00 Multiple myeloma not having achieved remission
CPT/HCPCS: 36415; 80053; 82232; 82784; 83615; 83735; 83883; 84155; 84165; 84550; 85025; 86335; 96361; 96375; 96413; J9047

== ENCOUNTER 2024-06-20 10:02 | Day surgery (SDC) | payer OTHER ==
[2024-06-20] MEDS: SODIUM CHLORIDE 250 ML IV ONE (11:53)
[2024-06-20 12:39] LABS: HEMATOCRIT 39.8 % (40.1-51.0); HEMOGLOBIN 12.9 g/dL (13.7-17.5); MCHC 32.4 g/dl (32.3-36.5); MEAN CELL VOLUME 102.8 fl (79.0-92.2); MEAN PLT VOLUME 9.7 fl (9.4-12.4); PLATELET COUNT 155 x10^3/uL (163-337); RDW 13.3 % (12.2-16.6)
[2024-06-20 13:02] LABS: CHLORIDE 106 mmol/L (98-107); POTASSIUM 3.8 mmol/L (3.5-5.1); SODIUM 140 mmol/L (136-145)
[2024-06-20 13:04] LABS: ANION GAP 8 mmol/L (4-13); BLOOD UREA NITROGEN 21.6 mg/dL (7-18); CALCIUM 8.8 mg/dL (8.5-10.1); CO2 26 mmol/L (21-32); GLUCOSE,RANDOM 84 mg/dL (74-106)
[2024-06-20 13:05] LABS: ALBUMIN 3.7 g/dl (3.4-5.0)
[2024-06-20 13:07] LABS: URIC ACID 5.1 mg/dL (2.6-7.2)
[2024-06-20 13:08] LABS: CREATININE 1.4 mg/dL (0.55-1.3); SGOT/AST 18 U/L (15-37); SGPT/ALT 18 U/L (13-61)
[2024-06-20 13:09] LABS: BILIRUBIN,TOTAL 0.9 mg/dL (0.2-1); TOT PROT 5.9 g/dl (6.4-8.2)
[2024-06-20 13:10] LABS: ALK PHOS 91 U/L (45-117)
[2024-06-20 13:11] LABS: LDH 204 U/L (87-246)
[2024-06-20 13:43] LABS: EOSINOPHILS # 0.18 x10^3/uL (0.04-0.54)
[2024-06-20] MEDS: DEXAMETHASONE SODIUM PHOSPHATE 12 MG in SODIUM CHLORIDE 50 ML IVPB ONE (14:05)
[2024-06-20] MEDS: GRANISETRON HCL/PF 1 MG in SODIUM CHLORIDE 50 ML IVPB ONE (14:25)
[2024-06-20] MEDS: WATER IV ONE (14:41)
[2024-06-20] MEDS: DEXTROSE 5% IV ONE (14:41)
[2024-06-20] MEDS: CARFILZOMIB IV ONE (14:41)
[2024-06-20 15:35] VITALS: RESP 18; TEMP 97.6
[2024-06-20 15:43] VITALS: BP 121/67; PULSE 55
== END 2024-06-20 15:45 | disposition home or self-care (01) ==
LOC: JONCCHEMO 10:02 → J7W 10:04 → JONCCHEMO 15:45
PROVIDERS: ATTEND Internal Medicine Hematology & Oncology
PROC: 3E033GC Introduction of Other Therapeutic Substance into Peripheral Vein, Percutaneous Approach (ICD-10-PCS; principal; 2024-06-20)
DX: Z51.11 Encounter for antineoplastic chemotherapy (principal); C90.00 Multiple myeloma not having achieved remission
CPT/HCPCS: 36415; 80053; 83615; 83735; 84550; 85025; 96374; 96375; J9047

== ENCOUNTER 2024-07-04 09:51 | Day surgery (SDC) | payer OTHER ==
[2024-07-04 10:18] LABS: ABSOLUTE IMMATURE GRANULOCYTES 0.01 x10^3/uL (0.0-0.031); BASOPHILS # 0.03 x10^3/uL (0.01-0.08); EOSINOPHIL % 2.9 % (0.8-7.0); EOSINOPHILS # 0.11 x10^3/uL (0.04-0.54); HEMATOCRIT 37.1 % (40.1-51.0); HEMOGLOBIN 12.5 g/dL (13.7-17.5); MCHC 33.7 g/dl (32.3-36.5); MEAN CELL VOLUME 98.7 fl (79.0-92.2); MEAN PLT VOLUME 9.5 fl (9.4-12.4); MONOCYTE # 0.78 x10^3/uL (0.30-0.82); MONOCYTE % 20.8 % (5.3-12.2); PLATELET COUNT 157 x10^3/uL (163-337); RDW 12.6 % (12.2-16.6)
[2024-07-04 10:48] LABS: POTASSIUM 3.8 mmol/L (3.5-5.1)
[2024-07-04 10:51] LABS: ALBUMIN 3.3 g/dl (3.4-5.0); BLOOD UREA NITROGEN 32.1 mg/dL (7-18); MAGNESIUM 2.1 mg/dL (1.8-2.4)
[2024-07-04 10:53] LABS: URIC ACID 5.7 mg/dL (2.6-7.2)
[2024-07-04 10:54] LABS: CREATININE 1.7 mg/dL (0.55-1.3)
[2024-07-04 10:55] LABS: TOT PROT 5.8 g/dl (6.4-8.2)
[2024-07-04] MEDS: SODIUM CHLORIDE 250 ML IV ONE (11:34)
[2024-07-04] MEDS: GRANISETRON HCL/PF 1 MG in SODIUM CHLORIDE 50 ML IVPB ONE (11:35)
[2024-07-04] MEDS: DEXAMETHASONE SODIUM PHOSPHATE 12 MG in SODIUM CHLORIDE 50 ML IVPB ONE (11:55)
[2024-07-04] MEDS: CARFILZOMIB IV ONE (12:25)
[2024-07-04] MEDS: DEXTROSE 5% IV ONE (12:25)
[2024-07-04] MEDS: WATER IV ONE (12:25)
[2024-07-04 16:03] VITALS: RESP 20; TEMP 97.5
[2024-07-04 16:17] VITALS: BP 98/56; PULSE 68
[2024-07-05 20:07] LABS: IG A QN SERUM. 18 mg/dL (61-437)
[2024-07-08 15:06] LABS: KAPPA/LAMBDA RATIO, UR 4.99 (1.83-14.26)
== END 2024-07-04 13:30 | disposition home or self-care (01) ==
LOC: JONCCHEMO 09:51
PROVIDERS: ATTEND Internal Medicine Hematology & Oncology
DX: Z51.11 Encounter for antineoplastic chemotherapy (principal); C90.00 Multiple myeloma not having achieved remission
CPT/HCPCS: 36415; 80053; 82232; 82784; 83615; 83735; 83883; 84155; 84165; 84550; 85025; 86335; 96367; 96375; 96413; J9047

== ENCOUNTER 2024-07-18 09:45 | Day surgery (SDC) | payer OTHER ==
[2024-07-18 10:10] LABS: HEMATOCRIT 37.3 % (40.1-51.0); HEMOGLOBIN 12.4 g/dL (13.7-17.5); MCHC 33.2 g/dl (32.3-36.5); MEAN CELL VOLUME 100.5 fl (79.0-92.2); MEAN PLT VOLUME 9.4 fl (9.4-12.4); PLATELET COUNT 158 x10^3/uL (163-337); RDW 13.2 % (12.2-16.6)
[2024-07-18 10:32] LABS: POTASSIUM 4.2 mmol/L (3.5-5.1)
[2024-07-18 10:33] LABS: CALCIUM 9.1 mg/dL (8.5-10.1)
[2024-07-18 10:34] LABS: ALBUMIN 3.4 g/dl (3.4-5.0); MAGNESIUM 1.9 mg/dL (1.8-2.4)
[2024-07-18 10:36] LABS: URIC ACID 4.9 mg/dL (2.6-7.2)
[2024-07-18 10:37] LABS: CREATININE 1.6 mg/dL (0.55-1.3)
[2024-07-18 10:38] LABS: BILIRUBIN,TOTAL 0.9 mg/dL (0.2-1); TOT PROT 5.6 g/dl (6.4-8.2)
[2024-07-18] MEDS: SODIUM CHLORIDE 250 ML IV ONE (11:20)
[2024-07-18] MEDS: GRANISETRON HCL/PF 1 MG in SODIUM CHLORIDE 50 ML IVPB ONE (11:21)
[2024-07-18] MEDS: DEXAMETHASONE SODIUM PHOSPHATE 12 MG in SODIUM CHLORIDE 50 ML IVPB ONE (11:45)
[2024-07-18] MEDS: CARFILZOMIB IV ONE (12:14)
[2024-07-18] MEDS: DEXTROSE 5% IV ONE (12:14)
[2024-07-18] MEDS: WATER IV ONE (12:14)
[2024-07-18 13:26] VITALS: TEMP 97.6
[2024-07-18 13:33] VITALS: BP 116/65; PULSE 67; RESP 18
== END 2024-07-18 13:00 | disposition home or self-care (01) ==
LOC: JONCCHEMO 09:45
PROVIDERS: ATTEND Internal Medicine Hematology & Oncology
DX: Z51.11 Encounter for antineoplastic chemotherapy (principal); C90.00 Multiple myeloma not having achieved remission
CPT/HCPCS: 36415; 80053; 82150; 83615; 83690; 83735; 84550; 85025; 96367; 96413; J9047

== ENCOUNTER 2024-08-01 09:28 | Day surgery (SDC) | payer OTHER ==
[2024-08-01 10:02] LABS: HEMOGLOBIN 12.4 g/dL (13.7-17.5)
[2024-08-01 10:03] LABS: HEMATOCRIT 36.6 % (40.1-51.0); MCHC 33.9 g/dl (32.3-36.5); MEAN CELL VOLUME 98.4 fl (79.0-92.2); MEAN PLT VOLUME 9.8 fl (9.4-12.4); PLATELET COUNT 146 x10^3/uL (163-337); RDW 13.1 % (12.2-16.6)
[2024-08-01 10:28] LABS: CHLORIDE 108 mmol/L (98-107); POTASSIUM 3.8 mmol/L (3.5-5.1); SODIUM 137 mmol/L (136-145)
[2024-08-01 10:30] LABS: ALBUMIN 3.2 g/dl (3.4-5.0); ANION GAP 5 mmol/L (4-13); BLOOD UREA NITROGEN 36.9 mg/dL (7-18); CALCIUM 8.7 mg/dL (8.5-10.1); CO2 24 mmol/L (21-32); GLUCOSE,RANDOM 98 mg/dL (74-106); MAGNESIUM 1.7 mg/dL (1.8-2.4)
[2024-08-01 10:33] LABS: URIC ACID 5.1 mg/dL (2.6-7.2)
[2024-08-01 10:34] LABS: CREATININE 1.7 mg/dL (0.55-1.3); SGOT/AST 29 U/L (15-37); SGPT/ALT 34 U/L (13-61)
[2024-08-01 10:36] LABS: BILIRUBIN,TOTAL 0.6 mg/dL (0.2-1); TOT PROT 5.2 g/dl (6.4-8.2)
[2024-08-01 10:37] LABS: ALK PHOS 76 U/L (45-117); LDH 193 U/L (87-246)
[2024-08-01] MEDS: SODIUM CHLORIDE 250 ML IV ONE (11:09)
[2024-08-01] MEDS: DEXAMETHASONE SODIUM PHOSPHATE 12 MG in SODIUM CHLORIDE 50 ML IVPB ONE (11:36)
[2024-08-01] MEDS: GRANISETRON HCL/PF 1 MG in SODIUM CHLORIDE 50 ML IVPB ONE (12:05)
[2024-08-01] MEDS: WATER IV ONE (12:20)
[2024-08-01] MEDS: DEXTROSE 5% IV ONE (12:20)
[2024-08-01] MEDS: CARFILZOMIB IV ONE (12:20)
[2024-08-01 13:52] VITALS: RESP 18; TEMP 97.8
[2024-08-01 13:57] VITALS: BP 130/80; PULSE 68
[2024-08-02 18:06] LABS: FREE KAPPA,SERUM 20.1 mg/L (3.3-19.4)
[2024-08-03 06:07] LABS: FREE KAP CHN UR 79.59 mg/L (1.17-86.46); KAPPA LAMBDA RATIO URIN 5.1 (1.83-14.26)
[2024-08-05 18:06] LABS: IG A QN SERUM. 14 mg/dL (61-437)
== END 2024-08-01 13:00 | disposition home or self-care (01) ==
LOC: JONCCHEMO 09:28 → J7W 09:30 → JONCCHEMO 13:00
PROVIDERS: ATTEND Internal Medicine Hematology & Oncology
DX: Z51.11 Encounter for antineoplastic chemotherapy (principal); C90.00 Multiple myeloma not having achieved remission
CPT/HCPCS: 36415; 80053; 82232; 82784; 83615; 83735; 83883; 84155; 84165; 84550; 85025; 86335; 96375; 96413; J9047

== ENCOUNTER 2024-08-29 10:09 | Day surgery (SDC) | payer OTHER, MEDICARE ==
[2024-08-29 11:00] LABS: HEMATOCRIT 35.9 % (40.1-51.0); HEMOGLOBIN 11.9 g/dL (13.7-17.5); MCHC 33.1 g/dl (32.3-36.5); MEAN CELL VOLUME 99.4 fl (79.0-92.2); MEAN PLT VOLUME 9.4 fl (9.4-12.4); PLATELET COUNT 184 x10^3/uL (163-337); RDW 14.6 % (12.2-16.6)
[2024-08-29] MEDS: SODIUM CHLORIDE 250 ML IV ONE (11:20)
[2024-08-29 11:29] LABS: BASOPHILS # 0.05 x10^3/uL (0.01-0.08); EOSINOPHILS # 0.15 x10^3/uL (0.04-0.54); MONOCYTE # 0.39 x10^3/uL (0.30-0.82); POTASSIUM 4.1 mmol/L (3.5-5.1)
[2024-08-29 11:33] LABS: ALBUMIN 3.4 g/dl (3.4-5.0)
[2024-08-29 11:34] LABS: BLOOD UREA NITROGEN 27.2 mg/dL (7-18); MAGNESIUM 1.9 mg/dL (1.8-2.4)
[2024-08-29 11:36] LABS: CREATININE 1.6 mg/dL (0.55-1.3); URIC ACID 5.6 mg/dL (2.6-7.2)
[2024-08-29 11:38] LABS: BILIRUBIN,TOTAL 0.6 mg/dL (0.2-1); TOT PROT 5.7 g/dl (6.4-8.2)
[2024-08-29] MEDS: DEXAMETHASONE SODIUM PHOSPHATE 12 MG in SODIUM CHLORIDE 50 ML IVPB ONE (12:01)
[2024-08-29] MEDS: GRANISETRON HCL/PF 1 MG in SODIUM CHLORIDE 50 ML IVPB ONE (12:23)
[2024-08-29] MEDS: WATER IV ONE (12:39)
[2024-08-29] MEDS: DEXTROSE 5% IV ONE (12:39)
[2024-08-29] MEDS: CARFILZOMIB IV ONE (12:39)
[2024-08-29 17:47] VITALS: RESP 20; TEMP 97.8
[2024-08-29 18:26] VITALS: BP 120/71; PULSE 63
[2024-08-30 18:07] LABS: IG A QN SERUM. 36 mg/dL (61-437)
== END 2024-08-29 13:15 | disposition home or self-care (01) ==
LOC: JONCCHEMO 10:09
PROVIDERS: ATTEND Internal Medicine Hematology & Oncology
PROC: 3E03305 Introduction of Other Antineoplastic into Peripheral Vein, Percutaneous Approach (ICD-10-PCS; principal; 2024-08-29)
PROC: 3E033GC Introduction of Other Therapeutic Substance into Peripheral Vein, Percutaneous Approach (ICD-10-PCS; 2024-08-29)
DX: Z51.11 Encounter for antineoplastic chemotherapy (principal); C90.00 Multiple myeloma not having achieved remission
CPT/HCPCS: 36415; 80053; 82232; 82784; 83615; 83735; 84155; 84165; 84550; 85025; 86335; 96375; 96413; J9047

== ENCOUNTER 2024-09-05 08:29 | Day surgery (SDC) | payer OTHER, MEDICARE ==
[2024-09-05 09:17] LABS: HEMATOCRIT 37.6 % (40.1-51.0); HEMOGLOBIN 12.4 g/dL (13.7-17.5); MEAN CELL VOLUME 100.3 fl (79.0-92.2); MEAN PLT VOLUME 9.8 fl (9.4-12.4); PLATELET COUNT 126 x10^3/uL (163-337); RDW 14.6 % (12.2-16.6)
[2024-09-05] MEDS: SODIUM CHLORIDE 250 ML IV ONE (09:23)
[2024-09-05 09:44] LABS: ALBUMIN 3.5 g/dl (3.4-5.0); BLOOD UREA NITROGEN 27.7 mg/dL (7-18); CALCIUM 8.9 mg/dL (8.5-10.1); MAGNESIUM 2.1 mg/dL (1.8-2.4)
[2024-09-05 09:48] LABS: CREATININE 1.6 mg/dL (0.55-1.3); URIC ACID 6.8 mg/dL (2.6-7.2)
[2024-09-05 09:49] LABS: BILIRUBIN,TOTAL 0.8 mg/dL (0.2-1); TOT PROT 5.6 g/dl (6.4-8.2)
[2024-09-05] MEDS: DEXAMETHASONE SODIUM PHOSPHATE 12 MG in SODIUM CHLORIDE 50 ML IVPB ONE (10:26)
[2024-09-05] MEDS: GRANISETRON HCL/PF 1 MG in SODIUM CHLORIDE 50 ML IVPB ONE (10:46)
[2024-09-05] MEDS: DEXTROSE 5% IV ONE (11:10)
[2024-09-05] MEDS: CARFILZOMIB IV ONE (11:10)
[2024-09-05] MEDS: WATER IV ONE (11:10)
[2024-09-05 14:12] VITALS: RESP 20; TEMP 98.2
[2024-09-05 14:26] VITALS: BP 136/75; PULSE 55
== END 2024-09-05 12:00 | disposition home or self-care (01) ==
LOC: JONCCHEMO 08:29 → J7W 09:02 → JONCCHEMO 12:00
PROVIDERS: ATTEND Internal Medicine Hematology & Oncology
DX: Z51.11 Encounter for antineoplastic chemotherapy (principal); C90.00 Multiple myeloma not having achieved remission
CPT/HCPCS: 36415; 80053; 83615; 83735; 84550; 85025; 96375; 96413; J9047

== ENCOUNTER 2024-11-07 10:00 | Day surgery (SDC) | payer OTHER, MEDICARE ==
[2024-11-07 10:22] LABS: ABSOLUTE IMMATURE GRANULOCYTES 0.02 x10^3/uL (0.0-0.031); BASOPHILS # 0.03 x10^3/uL (0.01-0.08); EOSINOPHIL % 7.1 % (0.8-7.0); EOSINOPHILS # 0.20 x10^3/uL (0.04-0.54); MCHC 33.3 g/dl (32.3-36.5); MEAN CELL VOLUME 101.3 fl (79.0-92.2); MEAN PLT VOLUME 10.2 fl (9.4-12.4); MONOCYTE # 0.55 x10^3/uL (0.30-0.82); MONOCYTE % 19.5 % (5.3-12.2); RDW 13.3 % (12.2-16.6)
[2024-11-07 10:43] LABS: GLUCOSE,RANDOM 91 mg/dL (74-106)
[2024-11-07 10:44] LABS: TOT PROT 6.2 g/dl (6.4-8.2)
[2024-11-07 10:45] LABS: CO2 25 mmol/L (21-32)
[2024-11-07 10:46] LABS: ALK PHOS 88 U/L (40-150)
[2024-11-07 10:48] LABS: LDH 198 U/L (87-246)
[2024-11-07 10:49] LABS: SGOT/AST 24 U/L (5-34); SGPT/ALT 19 U/L (0-55)
[2024-11-07 10:50] LABS: CREATININE 2.34 mg/dL (0.55-1.3)
[2024-11-07] MEDS: SODIUM CHLORIDE 250 ML IV ONE ×2 (10:52→11:35)
[2024-11-07] MEDS: DEXAMETHASONE SODIUM PHOSPHATE 12 MG in SODIUM CHLORIDE 50 ML IVPB ONE (11:45)
[2024-11-07] MEDS: GRANISETRON HCL/PF 1 MG in SODIUM CHLORIDE 50 ML IVPB ONE (12:02)
[2024-11-07] MEDS: WATER IV ONE (12:23)
[2024-11-07] MEDS: DEXTROSE 5% IV ONE (12:23)
[2024-11-07] MEDS: CARFILZOMIB IV ONE (12:23)
[2024-11-07 15:47] VITALS: PULSE 63; RESP 18; TEMP 97.8
[2024-11-07 15:53] VITALS: BP 133/77
== END 2024-11-07 13:30 | disposition home or self-care (01) ==
LOC: JONCCHEMO 10:00 → J7W 10:24 → JONCCHEMO 13:30
PROVIDERS: ATTEND Internal Medicine Hematology & Oncology
DX: Z51.11 Encounter for antineoplastic chemotherapy (principal); C90.00 Multiple myeloma not having achieved remission
CPT/HCPCS: 36415; 80053; 83615; 83735; 84550; 85025; 96375; 96413; J9047

== ENCOUNTER 2024-11-14 11:30 | Day surgery (SDC) | payer OTHER, MEDICARE ==
[2024-11-14 10:29] LABS: MCHC 32.5 g/dl (32.3-36.5); MEAN CELL VOLUME 102.3 fl (79.0-92.2); MEAN PLT VOLUME 10.1 fl (9.4-12.4); RDW 13.2 % (12.2-16.6)
[2024-11-14 10:53] LABS: GLUCOSE,RANDOM 99 mg/dL (74-106)
[2024-11-14 10:54] LABS: TOT PROT 6.2 g/dl (6.4-8.2)
[2024-11-14 10:56] LABS: ALK PHOS 79 U/L (40-150)
[2024-11-14 10:58] LABS: LDH 204 U/L (87-246)
[2024-11-14 10:59] LABS: CREATININE 1.86 mg/dL (0.55-1.3); SGOT/AST 25 U/L (5-34); SGPT/ALT 20 U/L (0-55)
[2024-11-14 11:14] LABS: CO2 23 mmol/L (21-32)
[2024-11-14] MEDS: SODIUM CHLORIDE 250 ML IV ONE (11:23)
[2024-11-14] MEDS: DEXAMETHASONE SODIUM PHOSPHATE 12 MG in SODIUM CHLORIDE 50 ML IVPB ONE (11:49)
[2024-11-14] MEDS: GRANISETRON HCL/PF 1 MG in SODIUM CHLORIDE 50 ML IVPB ONE (12:10)
[2024-11-14] MEDS: CARFILZOMIB IV ONE (12:28)
[2024-11-14] MEDS: DEXTROSE 5% IV ONE (12:28)
[2024-11-14] MEDS: WATER IV ONE (12:28)
[2024-11-14 14:01] VITALS: RESP 18; TEMP 97.8
[2024-11-14 14:08] VITALS: BP 114/66; PULSE 58
== END 2024-11-14 13:20 | disposition home or self-care (01) ==
LOC: JONCCHEMO 11:30
PROVIDERS: ATTEND Internal Medicine Hematology & Oncology
PROC: 3E03305 Introduction of Other Antineoplastic into Peripheral Vein, Percutaneous Approach (ICD-10-PCS; principal; 2024-11-14)
PROC: 3E033GC Introduction of Other Therapeutic Substance into Peripheral Vein, Percutaneous Approach (ICD-10-PCS; 2024-11-14)
DX: Z51.11 Encounter for antineoplastic chemotherapy (principal); C90.00 Multiple myeloma not having achieved remission
CPT/HCPCS: 36415; 80053; 83615; 83735; 84550; 85025; 96375; 96413; J9047

== ENCOUNTER 2024-12-12 10:38 | Day surgery (SDC) | payer OTHER, MEDICARE ==
[2024-12-12 10:56] LABS: MCHC 32.1 g/dl (32.3-36.5); MEAN CELL VOLUME 102.1 fl (79.0-92.2); MEAN PLT VOLUME 9.7 fl (9.4-12.4); RDW 13.4 % (12.2-16.6)
[2024-12-12 11:28] LABS: GLUCOSE,RANDOM 111 mg/dL (74-106)
[2024-12-12 11:29] LABS: TOT PROT 6.0 g/dl (6.4-8.2)
[2024-12-12 11:30] LABS: CO2 24 mmol/L (21-32)
[2024-12-12 11:33] LABS: LDH 180 U/L (87-246)
[2024-12-12 11:34] LABS: CREATININE 1.82 mg/dL (0.55-1.3); SGOT/AST 22 U/L (5-34); SGPT/ALT 18 U/L (0-55)
[2024-12-12 11:41] LABS: ALK PHOS 78 U/L (40-150)
[2024-12-12] MEDS: DEXAMETHASONE SODIUM PHOSPHATE 12 MG in SODIUM CHLORIDE 50 ML IVPB ONE (12:14)
[2024-12-12] MEDS: SODIUM CHLORIDE 250 ML IV ONE (12:14)
[2024-12-12] MEDS: GRANISETRON HCL/PF 1 MG in SODIUM CHLORIDE 50 ML IVPB ONE (12:31)
[2024-12-12] MEDS: CARFILZOMIB IV ONE (12:58)
[2024-12-12] MEDS: DEXTROSE 5% IV ONE (12:58)
[2024-12-12] MEDS: WATER IV ONE (12:58)
[2024-12-12] MEDS: CYANOCOBALAMIN (VITAMIN B-12) 1000 MCG/1 ML VIAL IM ONE (12:59)
[2024-12-12 16:24] VITALS: BP 142/83; PULSE 59; RESP 20; TEMP 98.3
== END 2024-12-12 13:45 | disposition home or self-care (01) ==
LOC: JONCCHEMO 10:38 → J7W 10:39 → JONCCHEMO 13:45
PROVIDERS: ATTEND Internal Medicine Hematology & Oncology
PROC: 3E03305 Introduction of Other Antineoplastic into Peripheral Vein, Percutaneous Approach (ICD-10-PCS; principal; 2024-12-12)
PROC: 3E033GC Introduction of Other Therapeutic Substance into Peripheral Vein, Percutaneous Approach (ICD-10-PCS; 2024-12-12)
PROC: 3E023GC Introduction of Other Therapeutic Substance into Muscle, Percutaneous Approach (ICD-10-PCS; 2024-12-12)
DX: Z51.11 Encounter for antineoplastic chemotherapy (principal); C90.00 Multiple myeloma not having achieved remission
CPT/HCPCS: 36415; 80053; 82607; 83615; 83735; 84550; 85025; 96368; 96372; 96413; J9047

== ENCOUNTER 2025-01-09 09:47 | Day surgery (SDC) | payer OTHER, MEDICARE ==
[2025-01-09 10:14] LABS: MCHC 32.8 g/dl (32.3-36.5); MEAN CELL VOLUME 103.2 fl (79.0-92.2); MEAN PLT VOLUME 10.0 fl (9.4-12.4); RDW 13.8 % (12.2-16.6)
[2025-01-09 10:39] LABS: GLUCOSE,RANDOM 91.0 mg/dL (74-106); TOT PROT 6.0 g/dl (6.4-8.2)
[2025-01-09 10:40] LABS: CO2 25.0 mmol/L (21-32)
[2025-01-09 10:44] LABS: LDH 193.0 U/L (87-246); SGOT/AST 23.0 U/L (5-34); SGPT/ALT 17.0 U/L (0-55)
[2025-01-09 10:45] LABS: CREATININE 1.6 mg/dL (0.55-1.3)
[2025-01-09 11:22] LABS: ALK PHOS 69.0 U/L (40-150)
[2025-01-09] MEDS: GRANISETRON HCL/PF 1 MG in SODIUM CHLORIDE 50 ML IVPB ONE (11:30)
[2025-01-09] MEDS: SODIUM CHLORIDE 250 ML IV ONE (11:30)
[2025-01-09] MEDS: DEXAMETHASONE SODIUM PHOSPHATE 12 MG in SODIUM CHLORIDE 50 ML IVPB ONE (11:53)
[2025-01-09] MEDS: WATER IV ONE (12:29)
[2025-01-09] MEDS: CARFILZOMIB IV ONE (12:29)
[2025-01-09] MEDS: DEXTROSE 5% IV ONE (12:29)
[2025-01-09 16:55] VITALS: BP 155/77; PULSE 55; RESP 20; TEMP 97.5
== END 2025-01-09 13:15 | disposition home or self-care (01) ==
LOC: JONCCHEMO 09:47
PROVIDERS: ATTEND Internal Medicine Hematology & Oncology
DX: Z51.11 Encounter for antineoplastic chemotherapy (principal); C90.00 Multiple myeloma not having achieved remission
CPT/HCPCS: 36415; 80053; 82607; 82746; 83615; 83735; 84550; 85025; 86038; 86880; 96367; 96413; J9047